=== PATIENT | female | born 2000 | race Hispanic/Latino ===

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

== ENCOUNTER 2023-06-21 08:39 | Emergency (ER) | payer OTHER ==
--- OUTSIDE RECORDS SUMMARY | 2023-06-21 08:43 | XMS REPORT | Continuity of Care Document ---
:2000 Author Organization [facility] t Address [address] [facility] [address] [place] [address] Care Team Providers Name Role Phone Susie Waterman Primary Care Physician [phone] SUSIE GONZALEZ Attending Clinician Unavailable MAYELIN HUNTER Attending Clinician Unavailable Doctor Unassigned, [place] Attending Clinician Unavailable ALETHEA BALDWIN Attending Clinician Unavailable Shravan Lyman DO Attending Clinician SHY GUTIERREZ Attending Clinician Unavailable SHY GUTIERREZ Attending Clinician Unavailable [facility], [facility] Attending Clinician Unavailable Carlos NAIRP, Susie Holliday Attending Clinician TIFFANIE BOATENG Attending Clinician Unavailable RONALD IRELAND Attending Clinician Unavailable RONALD IRELAND Attending Clinician Unavailable Ultrasound, Aleksey Attending Clinician Unavailable Ronald Ireland MD Attending Clinician Abhishek WHCNTiffanie Rosales Attending Clinician TL SCHMIDT Attending Clinician Unavailable [facility], [facility] Attending Clinician Unavailable DAVE HERNANDEZ Attending Clinician Unavailable Moo DIGITAL MEDIA SPECIALIST, Vesta Milligan Attending Clinician Gera DIGITAL MEDIA SPECIALIST, Catie Attending Clinician Shravan Lyman DO Admitting Clinician Payers Payer Name Policy Type Policy Number Effective Date Expiration Date [employer]her [employer] [id number] 2016 KIDS 00:00:00 Problems Condition Condition Condition Status Onset Resolution Last Treating Co mments Source Name Details Category Date Date Treatment Clinician Date Uterine Uterine Disease Active 2021-09 Univers size-date size-date 0-03 ity [place] third [place] in third 00 Me dical trimester trimester Bran ch Disease Active 2021-09 Univers heart rate heart rate 0-03 it y of decelerati deceler[place] Medical affecting affecting Bran ch management management of mother of mother 36 weeks 36 weeks Disease Active 2021-09 Unive rs gestation gestation 0-03 ity of of of 00:00: [place] 00 [facility] Obesity Obesity Disease Active 2021-09 Univers (BMI (BMI 0-03 ity of 30-39.9) 30-39.9) 00:00: [address] Branch Gonorrhea Gonorrhea Disease Active Uni vers in in 7-11 ity of 00:00: [address] Back pain Back pain Disease Active Uni vers during during 7-11 ity of 00:00: [facility] Branch Primigravi Primigravi Disease Active 2022-0 U nivers da in da in 3-07 ity of third third 00:00: [place] trimester trimester 00 [facility] Branch History of History of Disease Active U nivers depression depression 3-07 it y of 00:00: [address] Supervisio Supervisio Disease Active U nivers n of n of 307 ity of high-risk high-risk 00:[place] [facility] with with Branch insufficie insufficie nt nt care care High risk High risk Disease Active Uni vers teen teen 3-07 it[place] of [place] third [place] third 00 Medica l trimester trimester Bran ch Chlamydia Chlamydia Disease Active Uni vers infection infection 9-05 ity of 00:00: [place] [address] [place] [address] Generalize Generalize Disease Active 2016-09 U nivers d anxiety d anxiety 0-04 ity of disorder disorder 00:00: [address] Asthma, Asthma, Disease Active 2016-09 Univers unspecifie unspecifie 0-04 it y of d asthma d asthma 00:00: [place] severity, severity, [facility] unspecifie unspecifie Br anch d whether d whether complicate complicate d, d, unspecifie unspecifie d whether d whether persistent persistent Depression Depression Disease Active 2016-09 U nivers during during 0-04 [place] [address] [place] [address] Obesity in Obesity in Disease Active 2016-09 U nivers 0-04 ity of 00:00: [address] Allergies, Adverse Reactions, Alerts Allergy Allergy Status Severity Reaction(s) Onset Inactive Treating Comm ents Source Name Type Date Date Clinician NO KNOWN Drug Active Univers ALLERGIE Class ity of S [facility] Social History Social Habit Start Date Stop Date Quantity Comments Source ASSERTION 2021-10-17 University 00:00:00 [facility] History of Cigarette Smoker Universi ty of tobacco use [facility] Alcohol intake 2022-06-15 2022-06-15 0 /d University of 00:00:00 00:00:00 [facility] Exposure to 2022-06-03 2022-06-13 Not sure [facility] SARS-CoV-2 00:00:00 14:43:00 [facility] (event) [place] Tobacco use and 2022-03-21 2022-03-21 Smokeless tobacco Un iversity of exposure 00:00:00 00:00:00 non-user [facility] Sex Assigned At [birth year] Universit y of 00:00:00 00:00:00 [facility] Smoking Status Start Date Stop Date Source Smokes tobacco daily 2022-03-21 00:00:00 Univers ity of [facility] Medications Ordered Filled Start Stop Current Ordering Indication Dosage Frequency Signature Comments Components Source Medication Medication Date Date Medication? Clinician (SIG) Name Name amimadihaiptyli 2021-09- 100mg Take 100 Univers ne 100 mg 0-06 10-06 mg by ity of tablet 03:15: 00:00 mouth at [place] 58 :00 bedtime. Medical Branch 2021-09 Yes [id number] 1{tbl} Take 1 Univers [id number] 0-06 tablet by ity of fum-folic 00:00: mouth in [facility] () 00 the Medical 27 mg iron- morning. Bran ch 1 mg folic tablet docusate 2021-09 Yes [id number] 200mg Take 2 U nivers 100 mg 0-06 capsules ity of capsule 00:00: by mouth [place] [address] once daily Medical as needed Branch for Constipati on. ferrous 2021-09 Yes [id number] 325mg Take 1 Un freda sulfate 325 0-06 tablet by ity of mg (65 mg 00:00: mouth in [facility] iron) 00 the Medical tablet morning Branch and 1 tablet in the evening. ibuprofen 2021-09 Yes [id number] 600mg Take 1 Univers 600 mg 0-06 tablet by ity of tablet 00:00: mouth [place] 00 every 6 Medical (six) Branch hours as needed (Pain). Take with food or milk. 2021-09 Yes [id number] 1{tbl} Take 1 Univers [id number] 0-06 tablet by ity of fum-folic 00:00: mouth in [facility] () 00 the Medical 27 mg iron- morning. Bran ch 1 mg folic tablet docusate 2021-09 Yes [id number] 200mg Take 2 U nivers 100 mg 0-06 capsules ity of capsule 00:00: by mouth [place] [address] once daily Medical as needed Branch for Constipati on. ferrous 2021-09 Yes [id number] 325mg Take 1 Un freda sulfate 325 0-06 tablet by ity of mg (65 mg 00:00: [facility] the Medical tablet morning Branch and 1 tablet in the evening. ibuprofen 2021-09 Yes [id number] 600mg Take 1 Univers 600 mg 0-06 tablet by ity of tablet 00:00: mouth [place] 00 every 6 Medical (six) Branch hours as needed (Pain). Take with food or milk. 2021-09 Yes [id number] 1{tbl} Take 1 Univers [id number] 0-06 tablet by ity of fum-folic 00:00: [place] 00 the Medical 27 mg iron- morning. Bran ch 1 mg folic tablet docusate 2021-09 Yes [id number] 200mg Take 2 U nivers 100 mg 0-06 capsules ity of capsule 00:00: by mouth [place] 00 once daily Medical as needed Branch for Constipati on. ferrous 2021-09 Yes [id number] 325mg Take 1 Un freda sulfate 325 0-06 tablet by ity of mg (65 mg 00:00: mouth in [facility] iron) 00 the Medical tablet morning Branch and 1 tablet in the evening. ibuprofen 2021-09 Yes [id number] 600mg Take 1 Univers 600 mg 0-06 tablet by ity of tablet 00:00: mouth [place] 00 every 6 Medical (six) Branch hours as needed (Pain). Take with food or milk. norethindro 2021-09- No [id number] .35mg Take 1 Univers ne 0.35 mg 0-06 01-05 tablet by ity of tablet 00:00: 05:59 mouth in [place] 00 :00 the Medical morning Branch for 90 days. norethindro 2021-09- No [id number] .35mg Take 1 Univers ne 0.35 mg 0-06 01-05 tablet by ity of tablet 00:00: 05:59 mouth in [place] 00 :00 the Medical morning Branch for 90 days. norethindro 2021-09- No [id number] .35mg Take 1 Univers ne 0.35 mg 0-06 01-05 tablet by ity of tablet 00:00: 05:59 mouth in [place] 00 :00 the Medical morning Branch for 90 days. HYDROcodone 2021-09- No [id number] 1{tbl} Take 1 U nivers -acetaminop 0-06 10-14 tablet by it y of hen 5-325 00:00: 04:59 mouth [place] mg tablet 00 :00 every 6 Medical (six) Branch hours as needed for Pain (scale 4-6) or Pain (scale 7-10) (Pain scale above 4) for up to 7 days. Do not exceed 3 grams of acetaminop hen in 24 hours. Indication s: acute pain HYDROcodone 2021-09- No [id number] 1{tbl} Take 1 U nivers -acetaminop 0-06 10-14 tablet by it y of hen 5-325 00:00: 04:59 mouth [place] mg tablet 00 :00 every 6 Medical (six) Branch hours as needed for Pain (scale 4-6) or Pain (scale 7-10) (Pain scale above 4) for up to 7 days. Do not exceed 3 grams of acetaminop hen in 24 hours. Indication s: acute pain amitriptyli 2021-09 Yes 100mg 100 mg, Un freda ne (ELAVIL) 0-05 Oral, QHS, it y of tablet 100 02:00: [place] dose [place] 00 on [facility] 06/14/22 at [place] 2100, Until Discontinu ed, Routine amitriptyli 2021-09 Yes 100mg 100 mg, Un freda ne (ELAVIL) 0-05 Oral, QHS, it y of tablet 100 02:00: First dose [place] mg 00 on [facility] 06/14/22 at [place] 2100, Until Discontinu ed, Routine lactated 2021-09 No 500mL at 999 [facility] rs ringers IV 0-04 10-04 mL/hr, 500 it y of infusion 13:15: 12:37 mL, [place] 500 mL 00 :00 Intravenou Medical s, ONCE, 1 Branch dose, On [facility] 06/14/22 at 0815, Routine rho(D) 2021-09 Yes 300ug 300 mcg, Univer s immune 0-04 Intramuscu ity of globulin 06:33: lar, ONCE, [place] (RHOGAM) 41 For 1 Medical syringe 300 dose, Branch mcg Conditiona l, Routine rho(D) 2021-09 Yes 300ug 300 mcg, Univer s immune 0-04 Intramuscu ity of globulin 06:33: lar, ONCE, [place] (RHOGAM) 41 For 1 Medical syringe 300 dose, Branch mcg Conditiona l, Routine HYDROcodone 2021-09 Yes 2{tbl} 2 tablet, Univers -acetaminop 0-04 Oral, ity of hen (NORCO 06:33: Q6HPRN, [place] 5) 5-325 mg 35 Starting Medi renetta tablet 2 on Mon Branch tablet 06/14/22 at 0133, Until Discontinu ed, Routine, Pain (scale 7-10), Alternate with Ibuprofen HYDROcodone 2021-09 Yes 1{tbl} 1 tablet, Univers -acetaminop 0-04 Oral, ity of hen (NORCO 06:33: Q6HPRN, [place] 5) 5-325 mg 35 Starting Medi renetta tablet 1 on Mon Branch tablet 06/14/22 at 0133, Until Discontinu ed, Routine, Pain (scale 4-6), Alternate with Ibuprofen ibuprofen 2021-09 Yes 600mg 600 mg, Univ ers (IBU) 0-04 Oral, ity of tablet 600 06:33: Q6HPRN, [place] mg 35 Starting Medical on Mon Branch 06/14/22 at 0133, Until Discontinu ed, Routine, Pain (scale 1-3) diphenhydrA 2021-09 Yes 25mg 25 mg, Univ ers MINE 0-04 Slow IV ity of (BENADRYL) 06:33: Push, [place] injection 35 Q6HPRN, Medical 25 mg Starting Branch on Mon06/14/22 at 0133, Until Discontinu ed, Routine, Itching diphenhydrA 2021-09 Yes 25mg 25 mg, Univ ers MINE 0-04 Oral, ity of (BENADRYL) 06:33: Q6HPRN, [place] tablet 25 35 Starting Medica l mg on Mon Branch 06/14/22 at 0133, Until Discontinu ed, Routine, Sleep, Itching ondansetron 2021-09 Yes 4mg 4 mg, Slow Univers (ZOFRAN 0-04 IV Push, ity of (PF)) 06:33: Q8HPRN, [place] injection 4 35 Starting Medi renetta mg on Mon Branch 06/14/22 at 0133, Until Discontinu ed, Routine, Nausea and Vomiting (N/V) bisacodyL 2021-09 Yes 10mg 10 mg, Univer s (DULCOLAX) 0-04 Rectal, ity of suppository 06:33: QDAILYPRN, [place] 10 mg 35 Starting Medical on Mon Branch 06/14/22 at 0133, Until Discontinu ed, Routine, Constipati on simethicone 2021-09 Yes 160mg 160 mg, Un freda (GAS RELIEF 0-04 Oral, ity of (SIMETHICON 06:33: PC+HSPRN, [place] E)) 35 Starting Medical chewable on Mon tablet 160 06/14/22 at mg 0133, Until Discontinu ed, Routine, Gas docusate 2021-09 Yes 200mg 200 mg, Unive rs (COLACE) 0-04 Oral, ity of capsule 200 06:33: QDAILYPRN, [place] mg 35 Starting Medical on Mon06/14/22 at 0133, Until Discontinu ed, Routine, Constipati on magnesium 2021-09 Yes 30mL 30 mL, Univer s hydroxide 0-04 Oral, ity of (MILK OF 06:33: QDAILYPRN, [place] MAGNESIA) 35 Starting Medica l 400 mg/5 mL on Mon suspension 06/14/22 at 30 mL 0133, Until Discontinu ed, Routine, Constipati on lactated 2021-09 Yes 1000mL at 125 Unive rs ringers IV 0-04 mL/hr, ity of infusion 06:33: 1,000 mL, [place] 1,000 mL 35 IV Medical Infusion, Branch PRN, 1 dose, Starting on Mon06/14/22 at 0133, Until Discontinu ed, Routine HYDROcodone 2021-09 Yes 2{tbl} 2 tablet, Univers -acetaminop 0-04 Oral, ity of hen (NORCO 06:33: Q6HPRN, [place] 5) 5-325 mg 35 Starting Medi renetta tablet 2 on Mon tablet 06/14/22 at 0133, Until Discontinu ed, Routine, Pain (scale 7-10), Alternate with Ibuprofen HYDROcodone 2021-09 Yes 1{tbl} 1 tablet, Univers -acetaminop 0-04 Oral, ity of hen (NORCO 06:33: Q6HPRN, [place] 5) 5-325 mg 35 Starting Medi renetta tablet 1 on Mon tablet 06/14/22 at 0133, Until Discontinu ed, Routine, Pain (scale 4-6), Alternate with Ibuprofen ibuprofen 2021-09 Yes 600mg 600 mg, Univ ers (IBU) 0-04 Oral, ity of tablet 600 06:33: Q6HPRN, [place] mg 35 Starting Medical on Mon06/14/22 at 0133, Until Discontinu ed, Routine, Pain (scale 1-3) diphenhydrA 2021-09 Yes 25mg 25 mg, Univ ers MINE 0-04 Slow IV ity of (BENADRYL) 06:33: Push, [place] injection 35 Q6HPRN, Medical 25 mg Starting Branch on Mon06/14/22 at 0133, Until Discontinu ed, Routine, Itching diphenhydrA 2021-09 Yes 25mg 25 mg, Univ ers MINE 0-04 Oral, ity of (BENADRYL) 06:33: Q6HPRN, [place] tablet 25 35 Starting Medica l mg on Mon06/14/22 at 0133, Until Discontinu ed, Routine, Sleep, Itching ondansetron 2021-09 Yes 4mg 4 mg, Slow Univers (ZOFRAN 0-04 IV Push, ity of (PF)) 06:33: Q8HPRN, [place] injection 4 35 Starting Medi renetta mg on Mon06/14/22 at 0133, Until Discontinu ed, Routine, Nausea and Vomiting (N/V) bisacodyL 2021-09 Yes 10mg 10 mg, Univer s (DULCOLAX) 0-04 Rectal, ity of suppository 06:33: QDAILYPRN, [place] 10 mg 35 Starting Medical on Mon06/14/22 at 0133, Until Discontinu ed, Routine, Constipati on simethicone 2021-09 Yes 160mg 160 mg, Un freda (GAS RELIEF 0-04 Oral, ity of (SIMETHICON 06:33: PC+HSPRN, [place] E)) 35 Starting Medical chewable on Mon tablet 160 06/14/22 at mg 0133, Until Discontinu ed, Routine, Gas docusate 2021-09 Yes 200mg 200 mg, Unive rs (COLACE) 0-04 Oral, ity of capsule 200 06:33: QDAILYPRN, [place] mg 35 Starting Medical on Mon Branch 06/14/22 at 0133, Until Discontinu ed, Routine, Constipati on magnesium 2021-09 Yes 30mL 30 mL, Univer s hydroxide 0-04 Oral, ity of (MILK OF 06:33: QDAILYPRN, [place] MAGNESIA) 35 Starting Medica l 400 mg/5 mL on Mon Branch suspension 06/14/22 at 30 mL 0133, Until Discontinu ed, Routine, Constipati on lactated 2021-09 Yes 1000mL at 125 Unive rs ringers IV 0-04 mL/hr, ity of infusion 06:33: 1,000 mL, [place] 1,000 mL 35 IV Medical Infusion, Branch PRN, 1 dose, Starting on Mon06/14/22 at 0133, Until Discontinu ed, Routine lactated 2021-09- No 1000mL at 125 Univ ers ringers IV 0-04 10-04 mL/hr, ity of infusion 04:45: 06:33 1,000 mL, [place] 1,000 mL 00 :38 IV Medical Infusion, Branch CONTINUOUS , Starting on Mon06/13/22 at 2345, Until Mon06/14/22 at 0133, TRIXIE ceFAZolin 2021-09 No 2000mg 2 g (2,000 Univers in 0.9% 0-04 10-04 mg), IV ity of sodium 02:54: 06:33 [place], [place] chloride 10 :38 O.R. Medical (ANCEF) 2 HOLDING Branch gram/100 mL ONCE, RTU 2 g Starting on Mon06/13/22 at 2154, Until Mon06/14/22 at 0133, Administer over 30 Minutes, 100 mL
Reas on for Anti-Infec tive: Surgical Prophylaxi s
Ford rgical Prophylaxi s: NURSE COLLEGE
Duration of therapy: within 24 hours of surgery sodium 2021-09 No 30mL 30 mL, Univers citrate-cit 0-04 10-04 Oral, ity of kolby acid 02:54: 03:23 PRE-PROCED [place] (BICITRA) 10 :00 URE ONCE, Medic al [id number] 1 dose, Branch mg/5 mL Starting solution 30 on Mon mL 06/13/22 at 2154, Until 06/13/22 at 2223, Routine, Surgery/Pr ocedure amitriptyli 2021-09 Yes 100mg Take 100 U nivers ne 100 mg 0-03 mg by ity of tablet 23:46: mouth at [place] 17 bedtime. Medical Branch ARIPIPRAZOL 2021- No Take by Un freda E (ABILIFY 06-01 mouth. ity of ORAL) 10:02: 00:00 [place] 02 :00 Medical Branch ARIPIPRAZOL 2021-2021- No Take by Un freda E (ABILIFY 06-01 mouth. ity of ORAL) 10:02: 00:00 [place] 02 :00 Medical Branch ARIPIPRAZOL 0 2021- No Take by Un freda E (ABILIFY 06-01 mouth. ity of ORAL) 10:02: 00:00 [place] 02 :00 Medical Branch ARIPIPRAZOL 2021-0 2021- No Take by Un freda E (ABILIFY 06-01 mouth. ity of ORAL) 10:02: 00:00 [place] 02 :00 Medical Branch amphetamine 2021-0 2021- No 25mg Take 25 mg Univers -dextroamph 06-01 by mouth ity of etamine 10:01: 00:00 every [place] (ADDERALL 59 :00 morning. Medica l XR) 25 mg Branch 24 hr capsule amphetamine 0 2021- No 25mg Take 25 mg Univers -dextroamph 06-01 by mouth ity of etamine 10:01: 00:00 every [place] (ADDERALL 59 :00 morning. Medica l XR) 25 mg Branch 24 hr capsule amphetamine 2021-0 2021- No 25mg Take 25 mg Univers -dextroamph 06-01 by mouth ity of etamine 10:01: 00:00 every [place] (ADDERALL 59 :00 morning. Medica l XR) 25 mg Branch 24 hr capsule amphetamine 2021- No 25mg Take 25 mg Univers -dextroamph 06-01 by mouth ity of etamine 10:01: 00:00 every [place] (ADDERALL 59 :00 morning. Medica l XR) 25 mg Branch 24 hr capsule metroNIDAZO 2021-0 Yes [id number] 500mg Take 1 Univers LE 500 mg 7-13 tablet by ity o f tablet 00:00: mouth in [place] 00 the Medical morning Branch and 1 tablet in the evening. metroNIDAZO 2021-0 Yes [id number] 500mg Take 1 Univers LE 500 mg 7-13 tablet by ity o f tablet 00:00: mouth in [place] 00 the Medical morning Branch and 1 tablet in the evening. metroNIDAZO 2021-0 Yes [id number] 500mg Take 1 Univers LE 500 mg 7-13 tablet by ity o f tablet 00:00: mouth in [place] 00 the Medical morning Branch and 1 tablet in the evening. metroNIDAZO 2021-0 Yes [id number] 500mg Take 1 Univers LE 500 mg 7-13 tablet by ity o f tablet 00:00: mouth in [place] 00 the Medical morning Branch and 1 tablet in the evening. metroNIDAZO 2021-0 Yes [id number] 500mg Take 1 Univers LE 500 mg 7-13 tablet by ity o f tablet 00:00: mouth in [place] 00 the Medical morning [place] and 1 tablet in the evening. metroNIDAZO 0 Yes [id number] 500mg Take 1 Univers LE 500 mg 7-13 tablet by ity o f tablet 00:00: mouth in [place] 00 the Medical morning Branch and 1 tablet in the evening. metroNIDAZO 2021-0 Yes [id number] 500mg Take 1 Univers LE 500 mg 7-13 tablet by ity o f tablet 00:00: mouth in [place] 00 the Medical morning Branch and 1 tablet in the evening. metroNIDAZO 2021-0 Yes [id number] 500mg Take 1 Univers LE 500 mg 7-13 tablet by ity o f tablet 00:00: mouth in [place] 00 the Medical morning [place] and 1 tablet in the evening. metroNIDAZO 2021-0 Yes [id number] 500mg Take 1 Univers LE 500 mg 7-13 tablet by ity o f tablet 00:00: mouth in [place] 00 the Medical morning Branch and 1 tablet in the evening. metroNIDAZO 2021-0 Yes [id number] 500mg Take 1 Univers LE 500 mg 7-13 tablet by ity o f tablet 00:00: mouth in [place] 00 the Medical morning Branch and 1 tablet in the evening. metroNIDAZO 2021-0 Yes [id number] 500mg Take 1 Univers LE 500 mg 7-13 tablet by ity o f tablet 00:00: mouth in [place] 00 the Medical morning Branch and 1 tablet in the evening. metroNIDAZO 2021-0 2022- No [id number] 500mg Take 1 Univers LE 500 mg 7-13 10-06 tablet by ity of tablet 00:00: 00:00 mouth in [place] 00 :00 the Medical morning Branch and 1 tablet in the evening. proMETHazin 2021-0 Yes [id number] 25mg Take 1 Univers e 25 mg 7-11 tablet by ity of tablet 00:00: mouth [place] 00 every 6 Medical (six) Branch hours as needed for Nausea and Vomiting (N/V). proMETHazin 2021-0 Yes [id number] 25mg Take 1 Univers e 25 mg 7-11 tablet by ity of tablet 00:00: mouth [place] 00 every 6 Medical (six) Branch hours as needed for Nausea and Vomiting (N/V). proMETHazin 2021-0 Yes [id number] 25mg Take 1 Univers e 25 mg 7-11 tablet by ity of tablet 00:00: mouth [place] 00 every 6 Medical (six) Branch hours as needed for Nausea and Vomiting (N/V). proMETHazin 2021-0 Yes [id number] 25mg Take 1 Univers e 25 mg 7-11 tablet by ity of tablet 00:00: mouth [place] 00 every 6 Medical (six) Branch hours as needed for Nausea and Vomiting (N/V). proMETHazin 2021-0 Yes [id number] 25mg Take 1 Univers e 25 mg 7-11 tablet by ity of tablet 00:00: mouth [place] 00 every 6 Medical (six) Branch hours as needed for Nausea and Vomiting (N/V). proMETHazin 2021-0 Yes [id number] 25mg Take 1 Univers e 25 mg 7-11 tablet by ity of tablet 00:00: mouth [place] 00 every 6 Medical (six) Branch hours as needed for Nausea and Vomiting (N/V). proMETHazin 2021-0 Yes [id number] 25mg Take 1 Univers e 25 mg 7-11 tablet by ity of tablet 00:00: mouth [place] 00 every 6 Medical (six) Branch hours as needed for Nausea and Vomiting (N/V). proMETHazin 2021-0 Yes [id number] 25mg Take 1 Univers e 25 mg 7-11 tablet by ity of tablet 00:00: mouth [place] 00 every 6 Medical (six) Branch hours as needed for Nausea and Vomiting (N/V). proMETHazin 2021-0 Yes [id number] 25mg Take 1 Univers e 25 mg 7-11 tablet by ity of tablet 00:00: mouth [place] 00 every 6 Medical (six) Branch hours as needed for Nausea and Vomiting (N/V). proMETHazin 2021-0 Yes [id number] 25mg Take 1 Univers e 25 mg 7-11 tablet by ity of tablet 00:00: mouth [place] 00 every 6 Medical (six) Branch hours as needed for Nausea and Vomiting (N/V). proMETHazin 2021-0 Yes [id number] 25mg Take 1 Univers e 25 mg 7-11 tablet by ity of tablet 00:00: mouth [place] 00 every 6 Medical (six) Branch hours as needed for Nausea and Vomiting (N/V). proMETHazin 2021- No [id number] 25mg Take 1 Univers e 25 mg 7-11 10-06 tablet by ity of tablet 00:00: 00:00 mouth [place] 00 :00 every 6 Medical (six) Branch hours as needed for Nausea and Vomiting (N/V). metroNIDAZO 0 Yes [id number] 500mg Take 1 Univers LE 500 mg 6-14 tablet by ity o f tablet 00:00: mouth 2 [place] 00 (two) Medical times Branch daily. metroNIDAZO 2021-0 Yes [id number] 500mg Take 1 Univers LE 500 mg 6-14 tablet by ity o f tablet 00:00: mouth 2 [place] 00 (two) Medical times Branch daily. metroNIDAZO 2021-0 Yes [id number] 500mg Take 1 Univers LE 500 mg 6-14 tablet by ity o f tablet 00:00: mouth 2 [place] 00 (two) Medical times Branch daily. metroNIDAZO 2021-0 Yes [id number] 500mg Take 1 Univers LE 500 mg 6-14 tablet by ity o f tablet 00:00: mouth 2 [place] 00 (two) Medical times Branch daily. metroNIDAZO 2021-0 Yes [id number] 500mg Take 1 Univers LE 500 mg 6-14 tablet by ity o f tablet 00:00: mouth 2 [place] 00 (two) Medical times Branch daily. metroNIDAZO 2021-0 Yes [id number] 500mg Take 1 Univers LE 500 mg 6-14 tablet by ity o f tablet 00:00: mouth 2 [place] 00 (two) Medical times Branch daily. metroNIDAZO 2021-0 Yes [id number] 500mg Take 1 Univers LE 500 mg 6-14 tablet by ity o f tablet 00:00: mouth 2 [place] 00 (two) Medical times Branch daily. metroNIDAZO 2021-0 Yes [id number] 500mg Take 1 Univers LE 500 mg 6-14 tablet by ity o f tablet 00:00: mouth 2 [place] 00 (two) Medical times Branch daily. metroNIDAZO 2021-0 Yes [id number] 500mg Take 1 Univers LE 500 mg 6-14 tablet by ity o f tablet 00:00: mouth 2 [place] 00 (two) Medical times Branch daily. metroNIDAZO 2021-0 Yes [id number] 500mg Take 1 Univers LE 500 mg 6-14 tablet by ity o f tablet 00:00: mouth 2 [place] 00 (two) Medical times Branch daily. metroNIDAZO 2021-0 Yes [id number] 500mg Take 1 Univers LE 500 mg 6-14 tablet by ity o f tablet 00:00: mouth 2 [place] 00 (two) Medical times Branch daily. metroNIDAZO 2021-0 2021- No [id number] 500mg Take 1 Univers LE 500 mg 6-14 10-06 tablet by ity of tablet 00:00: 00:00 mouth 2 [place] 00 :00 (two) Medical times Branch daily. ARIPIPRAZOL 2021-0 Yes Take by Uni vers E (ABILIFY 3-07 mouth. ity of ORAL) 10:55: [place] 24 Medical Branch amphetamine 2021-0 Yes 25mg Take 25 mg Univers -dextroamph 3-07 by mouth ity of etamine 10:55: every [place] (ADDERALL 24 morning. Medica l XR) 25 mg Branch 24 hr capsule amitriptyli 2021-0 Yes 100mg Take 100 U nivers ne 100 mg 3-07 mg by ity of tablet 10:55: mouth at [place] 24 bedtime. Medical Branch ARIPIPRAZOL 2021-0 Yes Take by Uni vers E (ABILIFY 3-07 mouth. ity of ORAL) 10:55: [place] 24 Medical Branch amphetamine 2021-0 Yes 25mg Take 25 mg Univers -dextroamph 3-07 by mouth ity of etamine 10:55: every [place] (ADDERALL 24 morning. Medica l XR) 25 mg Branch 24 hr capsule amitriptyli 2021-0 Yes 100mg Take 100 U nivers ne 100 mg 3-07 mg by ity of tablet 10:55: mouth at [place] 24 bedtime. Medical Branch ARIPIPRAZOL 0 Yes Take by Uni vers E (ABILIFY 3-07 mouth. ity of ORAL) 10:55: [place] 24 Medical Branch amphetamine 2021-0 Yes 25mg Take 25 mg Univers -dextroamph 3-07 by mouth ity of etamine 10:55: every [place] (ADDERALL 24 morning. Medica l XR) 25 mg Branch 24 hr capsule amitriptyli 2021-0 Yes 100mg Take 100 U nivers ne 100 mg 3-07 mg by ity of tablet 10:55: mouth at [place] 24 bedtime. Medical Branch ARIPIPRAZOL 0 Yes Take by Uni vers E (ABILIFY 3-07 mouth. ity of ORAL) 10:55: [place] 24 [facility] Branch amphetamine 2021-0 Yes 25mg Take 25 mg Univers -dextroamph 3-07 by mouth ity of etamine 10:55: every [place] (ADDERALL 24 morning. Medica l XR) 25 mg Branch 24 hr capsule amitriptyli 2021-0 Yes 100mg Take 100 U nivers ne 100 mg 3-07 mg by ity of tablet 10:55: mouth at [place] 24 bedtime. Medical Branch ARIPIPRAZOL 2021-0 Yes Take by Uni vers E (ABILIFY 3-07 mouth. ity of ORAL) 10:55: [place] 24 Medical Branch amphetamine 2021-0 Yes 25mg Take 25 mg Univers -dextroamph 3-07 by mouth ity of etamine 10:55: every [place] (ADDERALL 24 morning. Medica l XR) 25 mg Branch 24 hr capsule amitriptyli Yes 100mg Take 100 U nivers ne 100 mg 3-07 mg by ity of tablet 10:55: mouth at [place] [address] bedtime. Medical Branch amitriptyli Yes 100mg Take 100 U nivers ne 100 mg 3-07 mg by ity of tablet 10:55: mouth at [place] [address] bedtime. Medical Branch amitriptyli Yes 100mg Take 100 U nivers ne 100 mg 3-07 mg by ity of tablet 10:55: mouth at [place] [address] bedtime. Medical Branch amitriptyli Yes 100mg Take 100 U nivers ne 100 mg 3-07 mg by ity of tablet 10:55: mouth at [place] [address] bedtime. Medical Branch amitriptyli Yes 100mg Take 100 U nivers ne 100 mg 3-07 mg by ity of tablet 10:55: mouth at [place] [address] bedtime. Medical Branch amitriptyli Yes 100mg Take 100 U nivers ne 100 mg 3-07 mg by ity of tablet 10:55: mouth at [place] [address] bedtime. Medical Branch Yes [id number] 1{packe Take 1 Univers vit 3-07 t} Packet by ity of 33-iron-fol 00:00: mouth [place] ic-dha 00 daily. Medical (SELECT-OB Branch + DHA) 29 mg iron-1 mg -250 mg combo pack Yes [id number] 1{packe Take 1 Univers vit 3-07 t} Packet by ity of 33-iron-fol 00:00: mouth [place] ic-dha daily. Medical (SELECT-OB Branch + DHA) 29 mg iron-1 mg -250 mg combo pack Yes [id number] 1{packe Take 1 Univers vit 3-07 t} Packet by ity of 33-iron-fol 00:00: mouth [place] ic-dha 00 daily. Medical (SELECT-OB Branch + DHA) 29 mg iron-1 mg -250 mg combo pack Yes [id number] 1{packe Take 1 Univers vit 3-07 t} Packet by ity of 33-iron-fol 00:00: mouth [place] ic-dha 00 daily. Medical (SELECT-OB Branch + DHA) 29 mg iron-1 mg -250 mg combo pack 0 Yes [id number] 1{packe Take 1 Univers vit 3-07 t} Packet by ity of 33-iron-fol 00:00: mouth [place] ic-dha 00 daily. Medical (SELECT-OB Branch + DHA) 29 mg iron-1 mg -250 mg combo pack 0 Yes [id number] 1{packe Take 1 Univers vit 3-07 t} Packet by ity of 33-iron-fol 00:00: mouth [place] ic-dha 00 daily. Medical (SELECT-OB Branch + DHA) 29 mg iron-1 mg -250 mg combo pack 0 Yes [id number] 1{packe Take 1 Univers vit 3-07 t} Packet by ity of 33-iron-fol 00:00: mouth [place] ic-dha 00 daily. Medical (SELECT-OB Branch + DHA) 29 mg iron-1 mg -250 mg combo pack Yes [id number] 1{packe Take 1 Univers vit 3-07 t} Packet by ity of 33-iron-fol 00:00: mouth [place] ic-dha 00 daily. Medical (SELECT-OB Branch + DHA) 29 mg iron-1 mg -250 mg combo pack 0 Yes [id number] 1{packe Take 1 Univers vit 3-07 t} Packet by ity of 33-iron-fol 00:00: mouth [place] ic-dha 00 daily. Medical (SELECT-OB Branch + DHA) 29 mg iron-1 mg -250 mg combo pack 0 Yes [id number] 1{packe Take 1 Univers vit 3-07 t} Packet by ity of 33-iron-fol 00:00: mouth [place] ic-dha 00 daily. Medical (SELECT-OB Branch + DHA) 29 mg iron-1 mg -250 mg combo pack 0 Yes [id number] 1{packe Take 1 Univers vit 3-07 t} Packet by ity of 33-iron-fol 00:00: mouth [place] ic-dha 00 daily. Medical (SELECT-OB Branch + DHA) 29 mg iron-1 mg -250 mg combo pack 0 2022- No [id number] 1{packe Take 1 Univers vit 3-07 10-06 t} Packet by ity of 33-iron-fol 00:00: 00:00 mouth [place] ic-dha 00 :00 daily. Medical (SELECT-OB Branch + DHA) 29 mg iron-1 mg -250 mg combo pack Vital Signs Vital Name Observation Time Observation Value Comments Source Systolic blood 2022-06-16 13:31:00 122 mm[Hg] Univer sity of pressure [place] [facility] Diastolic blood 2022-06-16 13:31:00 79 mm[Hg] Unive rsity of pressure [place] [facility] Heart rate 2022-06-16 13:31:00 90 /min Universi ty of [place] [facility] Body temperature 2022-06-16 13:31:00 36.67 Lindsey Univ ersity of [place] [facility] Respiratory rate 2022-06-16 13:31:00 18 /min Univ ersity of [place] [facility] Oxygen saturation in 2022-06-16 13:31:00 98 /min University of Arterial blood by [facility] Pulse oximetry Branch Body height 2022-06-14 02:13:00 160 cm Universi ty of [place] [facility] Body weight 2022-06-14 02:13:00 83.008 kg Universi ty of [place] [facility] BMI 2022-06-14 02:13:00 32.42 kg/m2 Universi ty of [place] [facility] Heart rate 2022-06-14 03:00:00 83 /min Universi ty of [place] [facility] Respiratory rate 2022-06-14 03:00:00 18 /min Univ ersity of [place] [facility] Oxygen saturation in 2022-06-14 03:00:00 100 /min University of Arterial blood by [facility] Pulse oximetry Branch Systolic blood 2022-06-14 02:13:00 119 mm[Hg] Univer sity of pressure [place] [facility] Diastolic blood 2022-06-14 02:13:00 68 mm[Hg] Unive rsity of pressure [place] [facility] Body temperature 2022-06-14 02:13:00 36.78 Lindsey Univ ersity of [place] [facility] Body height 2022-06-14 02:13:00 160 cm Universi ty of [place] [facility] Body weight 2022-06-14 02:13:00 83.008 kg Universi ty of [place] [facility] BMI 2022-06-14 02:13:00 32.42 kg/m2 Universi ty of [place] [facility] Systolic blood 2022-06-13 19:41:00 117 mm[Hg] Univer sity of pressure [facility] Diastolic blood 2022-06-13 19:41:00 77 mm[Hg] Unive rsity of [facility] Heart rate 2022-06-13 19:41:00 92 /min Universi ty of [facility] Body temperature 2022-06-13 19:41:00 36.94 [facility] Res[facility] rate 2022-06-13 19:41:00 20 /min Univ ersity [facility] Body height 2022-06-13 19:41:00 160 cm Universi ty of [facility] Body weight 2022-06-13 19:41:00 82.827 kg Universi ty [facility] BMI 2022-06-13 19:41:00 32.35 kg/m2 Universi ty [facility] Systolic blood 2022-06-01 14:49:00 114 mm[Hg] Univer sity of [facility] Diastolic blood 2022-06-01 14:49:00 69 mm[Hg] Unive rsity of [facility] Heart rate 2022-06-01 14:49:00 95 /min Universi ty of [facility] Body temperature 2022-06-01 14:49:00 36.06 Lindsey [facility] Respiratory rate 2022-06-01 14:49:00 18 /min [facility] Body weight 2022-06-01 14:49:00 82.373 [facility] Procedures Procedure Date / Time Performing Clinician Source Performed DME/SUPPLY JUSTIFICATION 2022-07-14 05:01:00 Doctor Unassigned, No [facility] CBC WITH DIFF 2022-06-14 09:46:[address] [facility] CBC WITH DIFF 2022-06-14 09:46:[address] [facility] URINE DRUG (IMMUNOASSAY) 2022-06-14 05:53:00 Maty Wagner ie [facility] SCREEN URINE DRUG (IMMUNOASSAY) 2022-06-14 05:53:00 Maty Wagner [facility] SCREEN VENOUS CORD GAS 2022-06-14 03:56:00 Degraffenreid [facility] VENOUS CORD GAS 2022-06-14 03:56:00 Degraffenreizaid, Bridgette [facility] SECTION 2022-06-14 03:11:00 Nura [facility] SECTION 2022-06-14 03:11:00 Nura [facility] HB ABO GROUPING 2022-06-14 03:00:00 Degraffenreizaid Bridgette [facility] RHO (D) IMMUNE GLOBULIN 2022-06-14 03:00:00 Taco [facility] HB ABO GROUPING 2022-06-14 03:00:00 Degraffenreid [facility] RHO (D) IMMUNE GLOBULIN 2022-06-14 03:00:00 [facility] WITH DIFF 2022-06-14 02:58:00 DegraffenreidBridgette [facility] HEPATITIS B SURFACE 2022-06-14 02:58:00 Deg[facility]ffen[facility]idBridgette [facility] - [place] 2022-06-14 02:58:00 DegraffenreidTadeoBridgette [facility]M [facility] CBC WITH DIFF 2022-06-14 02:58:00 DegraffenreidBridgette [facility] HEPATITIS B SURFACE 2022-06-14 02:58:00 DegraffenreidLindae [facility] ANTIGEN [facility] GALV ONLY - [place] 2022-06-14 02:58:00 DegraffenreidLindae U [facility] IGG/IGM [facility] NON-STRESS TEST 2022-06-13 21:53:16 [facility]IS 2022-06-13 00:00:00 Susie Gonzalez [facility] TDAP VACCINE, >11 YRS, 2022-06-01 15:02:51 Susie Gonzalez Un iversity [facility] POCT URINALYSIS 2022-06-01 14:52:00 Susie Gonzalez [facility] Encounters Start End Encounter Admission Attending Care Care Encounter Source Date/Time Date/Time Type Type Clinicians Facility Department ID 2022-07-14 2022-07-14 Outpatient R DALE [facility] [id number] Univers 13:00:00 13:00:00 MAYELIN ity [facility] 2022-07-14 2022-07-14 Orders Doctor ALETHEA 1.2.840.114 [id number] Univers 00:00:00 00:00:00 Only Unassigned, CORIN 350.1.13.10 ity of [place] [facility] 4.2.7.2.686 Oswald as [id number] [facility] [address] 2022-06-20 2022-06-20 Outpatient R CARLOS [facility] [id number] Univers 15:45:00 15:45:00 SUSIE ity o f [facility] 2022-06-13 2022-06-16 Hospital ALETHEA Lyman 1.2.840.114 [id number] Univers 20:50:00 11:27:00 Encounter Shravan CORIN 350.1.13.10 ity of HOSPITAL 4.2.7.2.686 Oswald as [id number] [facility] 133 Branch 2022-06-16 2022-06-16 1.2.840.1 1.2.840.114 [id number] Univers 00:00:00 00:00:00 Encounter [id number] 350.1.13.10 ity of 3.104.2.7 [place] .[id number] Medica [facility] 2022-06-13 2022-06-14 Surgery ALETHEA Lyman 1.2.569.860 [id number] Univers 22:10:00 00:01:00 Shravan CORIN 350.1.13.10 it y of HOSPITAL 4.2.7.2.686 Oswald as [id number] [address] 2022-06-13 2022-06-13 Outpatient R MTDULCEMICHELLESHY BROWN [facility] [id number] Univers 14:30:00 16:34:43 SHY GUTIERREZ [facility] 2022-06-13 2022-06-13 Routine Provider, [facility] 1 .2.840.114 [id number] Univers 14:30:00 16:34:43 Shy Gutierrez N[facility] [employer]LE[employer] 350.1.13.10 ity of Visit REGIONAL 4.2.7.2.686 Oswald as MATERNAL [id number] [facility] ical & CHILD [address] [place] [address] 2022-06-13 2022-06-13 Outpatient R GAUTAM [facility] [id number] Univers 14:30:00 16:34:43 MTSHY FELIPE [facility] 2022-06-06 2022-06-06 Outpatient Mg GONZALEZ [facility] [id number] Univers 15:15:00 15:15:00 NIKONDA ity o [facility] 2022-06-01 2022-06-01 Outpatient Mg GONZALEZ [facility] [id number] Univers 09:15:00 11:00:25 ROSDALTONNDA ity o [facility] 2022-06-01 2022-06-01 [facility] 1.2.840.114 [id number] Univers 09:15:00 11:00:25 Nikonda Mg NURSE [employer]LE[employer] 350.1.13.10 ity of Visit REGIONAL 4.2.7.2.686 Oswald as MATERNAL [id number] [facility] ical & CHILD [address] [place] [address] 2022-06-01 2022-06-01 Outpatient Mg GONZALEZ [facility] [id number] Univers 09:30:00 09:30:00 ROSHUNDA ity o [facility] 2022-05-20 2022-05-20 Outpatient R ABHISHEK [facility] [id number] Univers 10:15:00 10:15:00 TIFFANIE ity o [facility] 2022-04-21 2022-04-21 Outpatient R AKINSIPE, [facility] [id number] Univers 10:00:00 10:00:00 TIFFANIE dai o [facility] 2022-04-11 2022-04-11 Outpatient R AKINSIPE, [facility] [id number] Univers 14:00:00 14:00:00 TIFFANIE dai o [facility]leen [facility] 2022-03-28 2022-03-28 Outpatient P RONALD IRELAND [facility] [id number] Univers 14:00:00 14:52:56 RONALD IRELAND [facility] 2022-03-28 2022-03-28 Artistic Associate Ultrasound, Aleksey [facility] 1.2 .840.114 [id number] Univers 14:00:00 14:45:00 Visit Ronald Ireland NURSE COLLEGE 350.1.13.10 ity of [facility] 4.2.7.2.686 Oswald as MATERNAL [id number] [facility] ical & CHILD [address] [place] [address] 2022-03-28 2022-03-28 Outpatient P [facility] [id number] Univers 14:00:00 14:00:00 ity of [facility] 2022-03-28 2022-03-28 Abstract Carlos [facility] 1.2.840.114 [id number] Univers 00:00:00 00:00:00 Nikonda R [employer] 350.1.13.10 ity of REGIONAL 4.2.7.2.686 Oswald as MATERNAL [id number] [facility] ical & CHILD [address] [place] [address] 2022-03-28 2022-03-28 Abstract Carlos [facility] 1.2.840.114 [id number] Univers 00:00:00 00:00:00 Nikonda R [employer]LE[place] 350.1.13.10 ity of [facility] 4.2.7.2.686 Oswald as MATERNAL [id number] [facility] ical & CHILD [address] [place] [address] 2022-03-28 2022-03-28 Telephone Abhishek [facility] 1.2.840.114 [id number] Univers 00:00:00 00:00:00 Tiffanie C [employer]UR[employer] [place]LE[place] 350.1.13.10 ity of REGIONAL 4.2.7.2.686 Oswald as MATERNAL [id number] [facility] & CHILD [address] [place] [address] 2022-03-23 2022-03-23 Telephone [facility] 1.2.840.114 [id number] Univers 00:00:00 00:00:00 Tiffanie C NURSE [employer]LEGE 350.1.13.10 ity of REGIONAL 4.2.7.2.686 Oswald as MATERNAL [id number] [facility] & CHILD [address] [place] [address] 2022-03-21 2022-03-21 Outpatient R AKINSIPE, [facility] [id number] Univers 13:00:00 14:04:19 TIFFANIE ity o [facility] 2022-03-21 2022-03-21 Routine Akinpe, [facility] 1.2.945.068 [id number] Univers 13:00:00 14:04:19 Tiffanie C NURSE [employer]LEGE 350.1.13.10 ity of Visit REGIONAL 4.2.7.2.686 Oswald as MATERNAL [id number] [facility] & CHILD [address] [place] [address] 2022-03-21 2022-03-21 Outpatient R AKINSIPE, [facility] [id number] Univers 13:00:00 13:00:00 TIFFANIE ity o f [facility] 2022-02-22 2022-02-22 [facility] 1.2.840.114 [id number] Univers 00:00:00 00:00:00 Tiffanie C NURSE [employer]LE[place] 350.1.13.10 ity of REGIONAL 4.2.7.2.686 Oswald as MATERNAL [id number] [facility] & CHILD [address] [place] [address] 2022-02-21 2022-02-21 Outpatient R AKINSIPE, [facility] [id number] Univers 14:15:00 15:05:22 TIFFANIE ity o f [facility] 2022-02-21 2022-02-21 Routine Akinsipe, [facility] 1.2.188.376 [id number] Univers 14:15:00 15:05:22 Tiffanie Rashmi [employer]LE[employer] 350.1.13.10 ity of Visit REGIONAL 4.2.7.2.686 Oswald as MATERNAL [id number] Med ical & CHILD 107 [facility] 2022-02-21 2022-02-21 Orders Doctor ALETHEA 1.2.840.114 [id number] Univers 00:00:00 00:00:00 Only Unassigned, CORIN 350.1.13.10 ity of [place] [facility] 4.2.7.2.686 Oswald as [id number] [address] 2022-01-25 2022-01-25 Outpatient R TL SCHMIDT [facility] [id number] Univers 09:30:00 09:30:00 ity of [facility] 2022-01-10 2022-01-10 Outpatient Mg GONZALEZ [facility] [id number] Univers 15:45:00 15:45:00 SUSIE reynolds [facility] 2022-01-07 2022-01-07 Outpatient Mg GONZALEZ [facility] [id number] Univers 09:00:00 09:00:00 SUSIE dai o [facility] 2021-12-13 2021-12-13 Outpatient Mg GONZALEZ [facility] [id number] Univers 14:30:00 14:30:00 SUSIE dai o [facility] 2021-12-13 2021-12-13 Artistic Associate Ultrasound, [facility] 1.2 .840.114 [id number] Univers 10:30:00 10:58:28 Visit Ronald Ireland NURSE [employer]LEGE 350.1.13.10 ity of REGIONAL 4.2.7.2.686 Oswald as MATERNAL [id number] Med ical & CHILD 369 [facility] 2021-12-13 2021-12-13 Outpatient Bobby GONZALEZ [facility] [id number] Univers 10:30:00 10:30:00 SUSIE dai o f [facility] 2021-12-13 2021-12-13 Abstract Carlos [facility] 1.2.840.114 [id number] Univers 00:00:00 00:00:00 Rosdaltonnda R [employer] [place]LE[place] 350.1.13.10 ity of REGIONAL 4.2.7.2.686 Oswald as MATERNAL [id number] Med ical & CHILD [address] [place] [address] 2021-11-19 2021-11-19 Telephone [facility] 1.2.667.953 [id number] Univers 00:00:00 00:00:00 Roshunda R [employer]LE[employer] 350.1.13.10 ity of REGIONAL 4.2.7.2.686 Oswald as MATERNAL [id number] Med ical & CHILD [address] [place] [address] 2021-11-17 2021-11-17 Nurse Visit, [facility] Nurse [facility] 1.2 .840.114 [id number] Univers 10:30:00 11:16:07 Visit CarlosSusie [employer] [employer] 350.1.13.10 ity of REGIONAL 4.2.7.2.686 Oswald as MATERNAL [id number] Med ical & CHILD [address] [place] [address] 2021-11-17 2021-11-17 [facility] [id number] Univers 10:30:00 10:30:00 ROSDALTONNDA ity o [facility] 2021-11-16 2021-11-16 Telephone [facility] 1.2.374.240 [id number] Univers 00:00:00 00:00:00 Ayaladaltonnda R [employer] [place]LE[place] 350.1.13.10 ity of REGIONAL 4.2.7.2.686 Oswald as MATERNAL [id number] Med ical & CHILD [address] [place] [address] 2021-11-15 2021-11-15 Outpatient [facility] [id number] Univers 09:45:00 11:30:15 ROSHUNDA ity o f [facility] 2021-11-15 2021-11-15 Initial [facility] 1.2.840.114 [id number] Univers 09:45:00 11:30:15 Roshunda R [employer] 350.1.13.10 ity of Visit REGIONAL 4.2.7.2.686 Oswald as MATERNAL [id number] Med ical & CHILD [address] [place] [address] 2021-11-15 2021-11-15 Orders Doctor CLAIRE 1.2.840.114 [id number] Univers 00:00:00 00:00:00 Only Unassigned, CORIN 350.1.13.10 ity of [place] [facility] 4.2.7.2.686 Oswald as [id number] [address] 2021-11-11 2021-11-11 Outpatient R DAVID, [facility] [id number] Univers 14:30:00 14:30:00 DAVE dai [facility] 2021-01-22 2021-01-22 Office Abhishek, [facility] 1.2.642.164 [id number] Univers 15:24:07 16:17:44 Visit Tiffanie Caraballo NUR[employer]LE[employer] 350.1.13.[address] [facility] 4.2.7.2.686 Oswald as MATERNAL [id number] [address] 2021-01-22 2021-01-22 Outpatient R ABHISHEK, [facility] [id number] Univers 15:30:00 15:30:00 TIFFANIE ity o [facility] 2020-11-30 2020-11-30 Outpatient R ABHISHEK, [facility] [id number] Univers 13:15:00 13:15:00 TIFFANIE ity o [facility] 2020-11-24 2020-11-24 [facility] 1.2.852.009 [id number] Univers 15:47:42 16:41:18 Visit Tiffanie Caraballo NUR[employer]LE[employer] 350.1.13.[address] [facility] 4.2.7.2.686 Oswald as MATERNAL [id number] [facility] & [address] 2020-11-24 2020-11-24 Outpatient R ABHISHEK, [facility] [id number] Univers 16:00:00 16:00:00 TIFFANIE dai o [facility] 2020-11-24 2020-11-24 Orders Doctor CLAIRE 1.2.840.114 [id number] Univers 00:00:00 00:00:00 Only Unassigned, CORIN 350.1.13.10 ity of [place] [facility] 4.2.7.2.686 Oswald as [id number] [address] 2019-05-16 2019-05-16 Office [facility] 1.2.169.043 [id number] Univers 10:17:05 10:47:05 Visit Vesta Chel NURSE COLLEGE 350.1.13.10 it y of REGIONAL 4.2.7.2.686 Oswald as MATERNAL [id number] Med ical & CHILD 107 [facility] 2019-05-16 2019-05-16 Letter [facility] 1.2.720.416 [id number] Univers 00:00:00 00:00:00 (Out) Vesta Chel NURSE COLLEGE 350.1.13.10 it y of [facility] 4.2.7.2.686 Oswald as MATERNAL [id number] Med ical & CHILD [address] [place] [address] 2019-05-16 2019-05-16 Telephone Moo [facility] 1.2.840.114 [id number] Univers 00:00:00 00:00:00 Vesta Chel NURSE [employer]LEGE 350.1.13.10 it y of [facility] 4.2.7.2.686 Oswald as MATERNAL [id number] Med ical & CHILD [address] [place] [address] 2019-05-15 2019-05-15 Office Moo [facility] 1.2.303.760 [id number] Univers 12:45:15 13:00:15 Visit Vesta Chel NUR[employer]LE[employer] 350.1.13.10 it y of REGIONAL 4.2.7.2.686 Oswald as MATERNAL [id number] Med ical & CHILD [address] [place] [address] 2019-05-15 2019-05-15 Telephone Catie Boss [facility] 1.2.840.114 [id number] Univers 00:00:00 00:00:00 NURSE COLLEGE 350.1.13.10 it y of [facility] 4.2.7.2.686 Oswald as MATERNAL [id number] Med ical & CHILD [address] [place] [address] 2019-05-15 2019-05-15 Orders Doctor CLAIRE 1.2.840.114 [id number] Univers 00:00:00 00:00:00 Only Unassigned, CORIN 350.1.13.10 ity of [place] [facility] 4.2.7.2.686 Oswald as [id number] [address] Results Test Description Test Time Test Comments Results Result Comments Source [facility] ONLY - [place] IGG/IGM 2022-06-14 14:50:49 Test Item Value Reference Range Interpretation Comme nts Syphilis IgG/IgM (test code = Non-reactive Non-reactive 35137-7) CHAGO (test code = CHAGO) Non-reactive - No serologic evidence of T. pallidum infection. Cannot exclude incubating or early syphilis. Submit a second specimen in 2-4 weeks if syphilis is clinically suspected. Equivocal - Further testing to follow. Reactive - Further testing to follow. Lab Interpretation (test code = Normal 05398-4) [facility] ONLY - [place] [id number] 14:50:49 Test Item Value Reference Range Interpretation Comments Syphilis IgG/IgM (test Non-reactive Non-reactive code = 08441-5) CHAGO (test code = CHAGO) Non-reactive - No serologic evidence of T. pallidum infection. Cannot exclude incubating or early syphilis. Submit a second specimen in 2-4 weeks if syphilis is clinically suspected. Equivocal - Further testing to follow. Reactive - Further testing to follow. Lab Interpretation (test Normal code = 18659-7) [facility] (D) IMMUNE [id number] 06:34:45 Test Item Value Reference Range Interpretation Comments RHIG CANDIDATE? No- see comment Patient i s not a (test code = candidate for R hIg- 5055) Patient is Rh Positive.Perfor med at [facility] Laboratory Services - [facility] Blood [address] Free: [phone] A No. [phone] [facility] (D) IMMUNE [id number] 06:34:45 Test Item Value Reference Range Interpretation Comments RHIG CANDIDATE? No- see comment Patient i s not a (test code = candidate for R hIg- 5055) Patient is Rh Positive.Perfor med at [facility] Laboratory Services - [facility] Blood [address] [place], [place] [id number] Free: [phone] A No. [id number] [facility] B Surface [id number] 04:29:00 Test Item Value Reference Range Interpretation Comments HBsAg Semi-Quantitative (test code = Negative Negative 5195-3) [facility] B Surface [id number] 04:29:00 Test Item Value Reference Range Interpretation Comments HBsAg Semi-Quantitative (test code = Negative Negative 5195-3) [facility] Cord [id number] 04:15:10 Test Item Value Reference Range Interpretation Comments BASE EXCESS, CORD (test mEq/L code = 6904305573) AC PH, CORD (BEAKER) 7.18-7.38 L (test code = 7557556776) PC02, CORD (test code = See_Comment [Au tomated message] 4936776857) The system whic h generated this result transmitted ref erence range: 32 - 66 mmHg. The reference r glo was not used to interpret this result as normal/abnor mal. PO2, CORD (test code = <10 2560533431) BICARBONATE, CORD (test See_Comment [Au tomated message] code = 6755702408) The syste m which generated this result transmitted ref erence range: 17 - 27 mEq/L. The reference r glo was not used to interpret this result as normal/abnor mal. Lab Interpretation (test Abnormal code = 70782-9) [facility] Cord [id number] 04:15:10 Test Item Value Reference Range Interpretation Comments BASE EXCESS, CORD (test mEq/L code = 7437210492) AC PH, CORD (BEAKER) 7.18-7.38 L (test code = 2880535186) PC02, CORD (test code = See_Comment [Au tomated message] 3134574068) The system whic h generated this result transmitted ref erence range: 32 - 66 mmHg. The reference r glo was not used to interpret this result as normal/abnor mal. PO2, CORD (test code = <10 6967166064) BICARBONATE, CORD (test See_Comment [Au tomated message] code = 4467765878) The syste m which generated this result transmitted ref erence range: 17 - 27 mEq/L. The reference r glo was not used to interpret this result as normal/abnor mal. Lab Interpretation (test Abnormal code = 25084-3) [facility] Cord [id number] 04:12:23 Test Item Value Reference Range Interpretation Comments VENOUS BASE EXCESS, CORD mEq/L (test code = 4768837822) VENOUS PH, CORD (test 7.25-7.45 code = 3997182600) VENOUS PC02, CORD (test See_Comment H [Au tomated message] code = 7079742517) The syste m which generated this result transmitted ref erence range: 27 - 49 mmHg. The reference r glo was not used to interpret this result as normal/abnor mal. VENOUS PO2, CORD (test See_Comment L [Aut omated message] code = 9808553440) The syste m which generated this result transmitted ref erence range: 17 - 41 mmHg. The reference r glo was not used to interpret this result as normal/abnor mal. VENOUS BICARBONATE, CORD See_Comment [A utomated message] (test code = 4168951482) The system which generated this result transmitted ref erence range: 12 - 29 mEq/L. The reference r glo was not used to interpret this result as normal/abnor mal. Lab Interpretation (test Abnormal code = 95267-4) [facility] Cord [id number] 04:12:23 Test Item Value Reference Range Interpretation Comments VENOUS BASE EXCESS, CORD mEq/L (test code = 9907995731) VENOUS PH, CORD (test 7.25-7.45 code = 0174374372) VENOUS PC02, CORD (test See_Comment H [Au tomated message] code = 1361782552) The syste m which generated this result transmitted ref erence range: 27 - 49 mmHg. The reference r glo was not used to interpret this result as normal/abnor mal. VENOUS PO2, CORD (test See_Comment L [Aut omated message] code = 5815875423) The syste m which generated this result transmitted ref erence range: 17 - 41 mmHg. The reference r glo was not used to interpret this result as normal/abnor mal. VENOUS BICARBONATE, CORD See_Comment [A utomated message] (test code = 5569751953) The system which generated this result transmitted ref erence range: 12 - 29 mEq/L. The reference r glo was not used to interpret this result as normal/abnor mal. Lab Interpretation (test Abnormal code = 83019-3) [facility] and Screen - ONCE [id number] 03:47:01 Test Item Value Reference Range Interpretation Comments ABO & RH (test code A POSITIVE Performe d at [facility] = 20) Laboratory [facility] Blood [facility] [address] [place] [id number] Free: [phone] A No. [id number] IAT (test code = Negative Performed a t [facility] 1185) Laboratory [facility] Blood [address] [id number] Free: [phone] A No. [id number] [facility] Screen - ONCE [id number] 03:47:01 Test Item Value Reference Range Interpretation Comments ABO & RH (test code A POSITIVE Performe d at [facility] = 20) Laboratory [facility] Blood [facility] [address] [place] [address] s [id number] Free: [phone] A No. [id number] IAT (test code = Negative Performed a t [facility] 1185) Laboratory [facility] Blood [address] s [address]Jktd Free: [phone] A No. [id number] [facility] with [id number] 03:20:31 Test Item Value Reference Range Interpretation Comments WBC (test code = See_Comment H [Automated 1690-2) message] The sy stem which generated this result transmitted reference range : 4.30 - 11.10 10*3/?L. The reference range was not used to interpret this result as normal/abnormal . RBC (test code = See_Comment L [Automated 659-8) message] The sy stem which generated this result transmitted reference range : 3.93 - 5.25 10*6/?L. The reference range was not used to interpret this result as normal/abnormal . HGB (test code = 11.1 g/dL 11.6-15 L 718-7) HCT (test code = 32.2 % 35.7-45.2 L 4544-3) MCV (test code = 82.8 fL 80.6-95.5 787-2) MCH (test code = 28.5 pg 25.9-32.8 785-6) MCHC (test code = 34.5 g/dL 31.6-35.1 786-4) RDW-SD (test code = 39.4 fL 39-49.9 47746-7) RDW-CV (test code = 13.1 % 12-15.5 788-0) PLT (test code = See_Comment H [Automated 777-3) message] The sy stem which generated this result transmitted reference range : 166 - 358 10*3/ ?L. The reference r glo was not used to interpret this result as normal/abnormal . MPV (test code = 9.7 fL 9.5-12.9 39206-0) NRBC/100 WBC (test See_Comment [Automat ed code = 3904950482) message] The system which generated this result transmitted reference range : 0.0 - 10.0 /100 WBCs. The refer ence range was not u sed to interpret th is result as normal/abnormal . NRBC x10^3 (test code See_Comment [Auto mated = 3212506975) message] The s ystem which generated this result transmitted reference range : 10*3/?L. The reference range was not used to interpret this result as normal/abnormal . GRAN MAT (NEUT) % 64.5 % (test code = 770-8) IMM GRAN % (test code 0.40 % = 5000409354) LYMPH % (test code = 26.6 % 736-9) MONO % (test code = 7.0 % 5905-5) EOS % (test code = 1.2 % 713-8) BASO % (test code = 0.3 % 706-2) GRAN MAT x10^3(ANC) 7.25 10*3/uL 1.88-7.09 H (test code = 1056890690) IMM GRAN x10^3 (test 0.04 10*3/uL 0-0.06 code = 8741779397) LYMPH x10^3 (test code 2.99 10*3/uL 1.32-3.29 = 731-0) MONO x10^3 (test code 0.79 10*3/uL 0.33-0.92 = 742-7) EOS x10^3 (test code = 0.14 10*3/uL 0.03-0.39 711-2) BASO x10^3 (test code 0.03 10*3/uL 0.01-0.07 = 704-7) Lab Interpretation Abnormal (test code = 97675-1) [facility] with [id number] 03:20:31 Test Item Value Reference Range Interpretation Comments WBC (test code = See_Comment H [Automated 6690-2) message] The sy stem which generated this result transmitted reference range : 4.30 - 11.10 10*3/?L. The reference range was not used to interpret this result as normal/abnormal . RBC (test code = See_Comment L [Automated 789-8) message] The sy stem which generated this result transmitted reference range : 3.93 - 5.25 10*6/?L. The reference range was not used to interpret this result as normal/abnormal . HGB (test code = 11.1 g/dL 11.6-15 L 718-7) HCT (test code = 32.2 % 35.7-45.2 L 4544-3) MCV (test code = 82.8 fL 80.6-95.5 787-2) MCH (test code = 28.5 pg 25.9-32.8 785-6) MCHC (test code = 34.5 g/dL 31.6-35.1 786-4) RDW-SD (test code = 39.4 fL 39-49.9 13930-8) RDW-CV (test code = 13.1 % 12-15.5 788-0) PLT (test code = See_Comment H [Automated 777-3) message] The sy stem which generated this result transmitted reference range : 166 - 358 10*3/ ?L. The reference r glo was not used to interpret this result as normal/abnormal . MPV (test code = 9.7 fL 9.5-12.9 25312-5) NRBC/100 WBC (test See_Comment [Automat ed code = 1056669882) message] The system which generated this result transmitted reference range : 0.0 - 10.0 /100 WBCs. The refer ence range was not u sed to interpret th is result as normal/abnormal . NRBC x10^3 (test code See_Comment [Auto mated = 2219989964) message] The s ystem which generated this result transmitted reference range : 10*3/?L. The reference range was not used to interpret this result as normal/abnormal . GRAN MAT (NEUT) % 64.5 % (test code = 770-8) IMM GRAN % (test code 0.40 % = 5374353106) LYMPH % (test code = 26.6 % 736-9) MONO % (test code = 7.0 % 5905-5) EOS % (test code = 1.2 % 713-8) BASO % (test code = 0.3 % 706-2) GRAN MAT x10^3(ANC) 7.25 10*3/uL 1.88-7.09 H (test code = 9918285358) IMM GRAN x10^3 (test 0.04 10*3/uL 0-0.06 code = 8545419137) LYMPH x10^3 (test code 2.99 10*3/uL 1.32-3.29 = 731-0) MONO x10^3 (test code 0.79 10*3/uL 0.33-0.92 = 742-7) EOS x10^3 (test code = 0.14 10*3/uL 0.03-0.39 711-2) BASO x10^3 (test code 0.03 10*3/uL 0.01-0.07 = 704-7) Lab Interpretation Abnormal (test code = 68982-9) [facility] [id number] 19:47:00 Test Item Value Reference Range Interpretation Comments POCT U SP GRAV (test code = . 1.005-1.025 3255) POCT PH U (test code = 3254) . 5-8 POCT U LEUK EST (test code = . Negative - Negative 3263) POCT U NIT (test code = 3262) . Negative - Negative POCT U PROT (test code = 3259) TRACE Negative - Negative POCT U GLU (test code = 3256) NEGATIVE Negative - Negative POCT U KETONE (test code = 3258) . Negative - Negative POCT U UROBILI (test code = . 0.2-1 3260) POCT U BILI (test code = 3261) . Negative - Negative POCT U BLD (test code = 3257) . Negative - Negative POCT U COLOR (test code = 3266) . POCT U APPEAR (test code = 3267) . [facility] URINALYSIS W SPECIFIC [id number] 14:53:00 Test Item Value Reference Range Interpretation Comments POCT U SP GRAV (test code = * 1.005-1.025 3255) POCT PH U (test code = 3254) * 5-8 POCT U LEUK EST (test code = * Negative - Negative 3263) POCT U NIT (test code = 3262) * Negative - Negative POCT U PROT (test code = 3259) trace Negative - Negative POCT U GLU (test code = 3256) negative Negative - Negative POCT U KETONE (test code = 3258) * Negative - Negative POCT U UROBILI (test code = * 0.2-1 3260) POCT U BILI (test code = 3261) * Negative - Negative POCT U BLD (test code = 3257) * Negative - Negative POCT U COLOR (test code = 3266) * POCT U APPEAR (test code = 3267) [facility] URINALYSIS W SPECIFIC [id number] 14:53:00 Test Item Value Reference Range Interpretation Comments POCT U SP GRAV (test code = * 1.005-1.025 3255) POCT PH U (test code = 3254) * 5-8 POCT U LEUK EST (test code = * Negative - Negative 3263) POCT U NIT (test code = 3262) * Negative - Negative POCT U PROT (test code = 3259) trace Negative - Negative POCT U GLU (test code = 3256) negative Negative - Negative POCT U KETONE (test code = 3258) * Negative - Negative POCT U UROBILI (test code = * 0.2-1 3260) POCT U BILI (test code = 3261) * Negative - Negative POCT U BLD (test code = 3257) * Negative - Negative POCT U COLOR (test code = 3266) * POCT U APPEAR (test code = 3267) [facility] [id number] 14:53:00 Test Item Value Reference Range Interpretation Comments POCT U SP GRAV (test code = * 1.005-1.025 3255) POCT PH U (test code = 3254) * 5-8 POCT U LEUK EST (test code = * Negative - Negative 3263) POCT U NIT (test code = 3262) * Negative - Negative POCT U PROT (test code = 3259) trace Negative - Negative POCT U GLU (test code = 3256) negative Negative - Negative POCT U KETONE (test code = 3258) * Negative - Negative POCT U UROBILI (test code = * 0.2-1 3260) POCT U BILI (test code = 3261) * Negative - Negative POCT U BLD (test code = 3257) * Negative - Negative POCT U COLOR (test code = 3266) * POCT U APPEAR (test code = 3267) [facility] URINALYSIS W SPECIFIC [id number] 14:53:00 Test Item Value Reference Range Interpretation Comments POCT U SP GRAV (test code = * 1.005-1.025 3255) POCT PH U (test code = 3254) * 5-8 POCT U LEUK EST (test code = * Negative - Negative 3263) POCT U NIT (test code = 3262) * Negative - Negative POCT U PROT (test code = 3259) trace Negative - Negative POCT U GLU (test code = 3256) negative Negative - Negative POCT U KETONE (test code = 3258) * Negative - Negative POCT U UROBILI (test code = * 0.2-1 3260) POCT U BILI (test code = 3261) * Negative - Negative POCT U BLD (test code = 3257) * Negative - Negative POCT U COLOR (test code = 3266) * POCT U APPEAR (test code = 3267) [facility]
--- NOTE | 2023-06-21 09:00 | ER ---
[facility]'s Notes [facility] Name: Anny Garzon Age: 22 yrs Sex: Female : 2000 Arrival Date: 06/21/2023 Time: 08:39 Bed 20 Private MD: Diagnosis: Vaginitis, vulvitis and vulvovaginitis in diseases classified elsewhere Presentation: 06/21 08:50 Chief complaint: Patient states: Vaginal pain and itching began yesterday, believes she ll1 might have a STD. Coronavirus screen: Client denies travel out of the [place] in the last 14 days. At this time, the client does not indicate any symptoms associated with coronavirus-19. Ebola Screen: Patient denies travel to an Ebola-affected area in the 21 days before illness onset. Initial Sepsis Screen: Does the patient meet any 2 criteria? No. Patient's initial sepsis screen is negative. Does the patient have a suspected source of infection? Yes: Other: STD. Risk Assessment: Do you want to hurt yourself or someone else? Patient reports no desire to harm self or others. Onset of symptoms was June 20, 2023. 08:50 Method Of Arrival: Ambulatory ll1 08:50 Acuity: DEBRA 4 ll1 Triage Assessment: 09:14 General: Appears in no apparent distress. comfortable, Behavior is calm, cooperative, nj1 appropriate for age. Pain: Complains of pain in Vaginal. Neuro: No deficits noted. Cardiovascular: No deficits noted. Respiratory: No deficits noted. : Reports pain vaginal itching. Historical: - PMHx: 08:46 ADD/ADHD; Depression; root canal; 3-4 days ago 12/2017; ll1 - Immunization history:: Adult Immunizations up to date. - Social history:: Smoking status: Patient denies any tobacco usage or history of. Screenin:[facility] ED Fall Risk Assessment (Adult) Score/Fall Risk Level 0 - 2 = Low Risk nj1 Oriented to surroundings, Maintained a safe environment, Hourly rounding (assess needs \T\ fall precautionary measures) done. Abuse screen: Denies threats or abuse. Denies injuries from another. Nutritional screening: No deficits noted. Tuberculosis screening: No symptoms or risk factors identified. Vital Signs: 08:50 BP 125 / 95; Pulse 77; Resp 16; Temp 98.3; Pulse Ox 99% ; Weight 78.02 kg; Height 5 ft. ll1 2 in. ; Pain 10/10; 08:50 Body Mass Index 31.46 (78.02 kg, 157.48 cm) ll1 08:50 Pain Scale: Adult ll1 ED Course: 08:41 Patient arrived in ED. rg4 08:44 Rebecca [facility]C [facility] sb4 08:44 Erlin Rendon DO is Attending Physician. sb4 08:46 Arm band placed on Patient placed in an exam room, on a stretcher. ll1 08:52 Triage completed. ll1 09:06 Kamila Hull, SHANNON is Primary Nurse. nj1 09:15 Patient has correct armband on for positive identification. Bed in low position. Call nj1 light in reach. Provided Education on: Discharge instructions. 09:16 No provider procedures requiring assistance completed. Patient did not have IV access nj1 during this emergency room visit. Administered Medications: 09:05 Drug: Rocephin (cefTRIAXone) IM 500 mg IM once Route: IM; Site: right deltoid; db 09:15 Follow up: Response: No adverse reaction db 09:05 Drug: Doxycycline PO 100 mg PO once Route: PO; db 09:15 Follow up: Response: No adverse reaction db 09:05 Drug: metroNIDAZOLE PO 500 mg PO once Route: PO; db 09:15 Follow up: Response: No adverse reaction db 09:05 Drug: Ondansetron PO 4 mg PO once Route: PO; db 09:15 Follow up: Response: No adverse reaction db 09:05 Drug: Fluconazole PO 200 mg PO once Route: PO; db 09:16 Follow up: Response: No adverse reaction db Medication: 09:15 VIS not applicable for this client. nj1 Outcome: 09:00 Discharge ordered by . sb4 09:16 Discharged to home ambulatory, with family, nj1 09:16 Condition: stable 09:16 Discharge instructions given to patient, family, Instructed on discharge instructions, follow up and referral plans. medication usage, Demonstrated understanding of instructions, follow-up care, medications, Prescriptions given X 2, 09:17 Patient left the ED. nj1 Signatures: Sherice Bledsoe rg4 Mitzi Rogers RN RN ll1 Carolyn Smith RN RN db Rebecca Tyler PA-C PA-C sb4 Kamila Hull, RN RN nj1
--- NOTE | 2023-06-21 09:00 | EDPHYS ---
Physician Documentation [facility] Name: Anny Garzon Age: 22 yrs Sex: Female : 2000 Arrival Date: 06/21/2023 Time: 08:39 Bed 20 Private MD: ED Physician Erlin Rendon HPI: 06/21 09:05 This 22 yrs old Female presents to ER via Ambulatory with complaints of sb4 Vaginal Pain. 09:05 The patient presents with a possible exposure to a sexually transmitted disease, sb4 gonorrhea, chlamydia. Onset: The symptoms/episode began/occurred yesterday. Modifying factors: The symptoms are alleviated by nothing, the symptoms are aggravated by nothing. Associated signs and symptoms: Pertinent positives: vaginal discharge, Pertinent negatives: fever, urinary frequency. The patient is sexually active. Historical: - PMHx: 08:46 ADD/ADHD; Depression; root canal; 3-4 days ago 12/2017; ll1 - Immunization history:: Adult Immunizations up to date. - Social history:: Smoking status: Patient denies any tobacco usage or history of. ROS: 09:06 Positive for pelvic pain, vaginal itching, sb4 09:06 Constitutional: Negative for fever, chills, and weight loss, 09:06 All other systems are negative, Exam: 09:06 Constitutional: This is a well developed, well nourished patient who is awake, alert, sb4 and in no acute distress. Head/Face: Normocephalic, atraumatic. Eyes: Extra-ocular motions intact. Periorbital areas with no swelling, redness, or edema. ENT: Mucous membranes moist. Skin: Warm, dry with normal turgor. Normal color with no rashes, no lesions, and no evidence of cellulitis. MS/ Extremity: Pulses equal, no cyanosis. Neurovascular intact. Full, normal range of motion. Neuro: Awake and alert, GCS 15, oriented to person, place, time, and situation. Motor strength 5/5 in all extremities. Sensory grossly intact. Vital Signs: 08:50 BP 125 / 95; Pulse 77; Resp 16; Temp 98.3; Pulse Ox 99% ; Weight 78.02 kg; Height 5 ft. ll1 2 in. ; Pain 10/10; 08:50 Body Mass Index 31.46 (78.02 kg, 157.48 cm) ll1 08:50 Pain Scale: Adult ll1 MDM: 08:48 Patient medically screened. sb4 09:06 Differential diagnosis: olivia infection, cervicitis, urinary tract infection, sb4 vaginosis. Data reviewed: vital signs, nurses notes, and as a result, I will discharge patient. Test considered but Not performed: Labs: declines UTI symptoms or , is sure its STD related. Counseling: I had a detailed discussion with the patient and/or guardian regarding the historical points, exam findings, and any diagnostic results supporting the discharge/admit diagnosis, to return to the emergency department if symptoms worsen or persist or if there are any questions or concerns that arise at home. Administered Medications: 09:05 Drug: Rocephin (cefTRIAXone) IM 500 mg IM once Route: IM; Site: right deltoid; db 09:15 Follow up: Response: No adverse reaction db 09:05 Drug: Doxycycline PO 100 mg PO once Route: PO; db 09:15 Follow up: Response: No adverse reaction db 09:05 Drug: metroNIDAZOLE PO 500 mg PO once Route: PO; db 09:15 Follow up: Response: No adverse reaction db 09:05 Drug: Ondansetron PO 4 mg PO once Route: PO; db 09:15 Follow up: Response: No adverse reaction db 09:05 Drug: Fluconazole PO 200 mg PO once Route: PO; db 09:16 Follow up: Response: No adverse reaction db Disposition: 09:43 I was immediately available on-site in the Emergency Department for consultation in the ms3 care of the patient. Disposition Summary: 06/21/23 09:00 Discharge Ordered Notes: Location: Home sb4 Problem: new sb4 Symptoms: are unchanged sb4 Condition: Stable sb4 Diagnosis - Vaginitis, vulvitis and vulvovaginitis in diseases classified elsewhere sb4 Followup: sb4 - With: Private Physician - When: As needed - Reason: Recheck today's complaints, Re-evaluation by your physician Discharge Instructions: - Discharge Summary Sheet sb4 - Vaginitis, Nnei-rn-Toqg sb4 - Preventing Sexually Transmitted Infections, Adult sb4 Forms: - Medication Reconciliation Form sb4 - Thank You Letter sb4 - Antibiotic Education sb4 - Prescription Opioid Use sb4 - Patient Portal Instructions sb4 - Leadership Thank You Letter sb4 Prescriptions: - Doxycycline Hyclate 100 mg Oral tablet - take 1 tablet ORAL route every 12 hours for 7 days; 14 tablet; Refills: 0, sb4 Product Selection Permitted - Metronidazole 250 mg Oral tablet - take 2 tablet ORAL route every 12 weeks for 7 days; 24 tablet; Refills: 0, sb4 Product Selection Permitted Signatures: Mitzi Rogers RN RN ll1 Erlin Rendon DO DO ms3 Carolyn Smith RN RN db Brown, Sophia, PA-C PA-C sb4
[2023-06-21] MEDS ORDERED: CEFTRIAXONE 500 MG/VIAL ONE (09:18)
[2023-06-21] MEDS ORDERED: ONDANSETRON 4 MG (ODT) TAB ONE (09:18)
[2023-06-21] MEDS ORDERED: metroNIDAZOLE 500 MG TABLET ONE (09:18)
[2023-06-21] MEDS ORDERED: FLUCONAZOLE 100 MG TAB ONE (09:18)
[2023-06-21] MEDS ORDERED: LIDOCAINE 1% MPF 2 ML AMPULE ONE (09:18)
[2023-06-21] MEDS ORDERED: DOXYCYCLINE 100 MG CAP PO ONE (09:19)
[2023-06-21 09:24] VITALS: BP 125/95; TEMP 98.3; O2SAT 99
== END 2023-06-21 09:17 | disposition home or self-care (01) ==
LOC: ER 08:39
DX: N89.8 Other specified noninflammatory disorders of vagina (principal); N77.1 Vaginitis, vulvitis and vulvovaginitis in diseases classified elsewhere
CPT/HCPCS: Q0162

== ENCOUNTER → 2023-09-05 | Emergency (ER) | payer OTHER ==
--- OUTSIDE RECORDS SUMMARY | 2023-09-05 05:29 | XMS REPORT | Continuity of Care Document ---
Author Name Unknown Address [address] [facility] [address] [place] [address] [facility] thconnect Address [address] [facility] [address] [place] [address] Care Team Providers Care Client Engagement Specialist Name Role Phone Susie Waterman Primary Care Physician [phone] SUSIE GONZALEZ Attending Clinician MAYELIN Cancino Attending Clinician Vinnie verma Doctor Unassigned, [place] Attending Clinician ALETHEA Martinez Attending Clinician Unavailable Shravan Lyman DO Attending Clinician SHY GUTIERREZ Attending Clinician UnavailSHY Aguayo Attending Clinician Unavailcathie e [facility], [facility] Attending Clinician Ana diego NAIRP, Susie Holliday Attending Clinician [phone] AKINTIFFANIE JACKSON Attending Clinician Unavail able RONALD IRELAND Attending Clinician Unavailable RONALD IRELAND Attending Clinician Unavailable Ultrasound, Aleksey Attending Clinician UnavailRonald Tabares MD Attending Clinician [phone] Akinsimonalisa WHCNP, Tiffanie Caraballo Attending Clinician + TL SCHMIDT Attending Clinician Unavailable [facility] Attending Clinician UnaDAVE Felipe Attending Clinician Unavailable [employer]oo ECOLOGY PROFESSOR, Vesta Milligan Attending Clinician [phone] Catie Mcmahan Attending Clinician [phone] Shravan Lyman DO Admitting Clinician [phone] Payers Payer Name Policy Type Policy Number Effective Date Expirati on Date Source [place] [employer] [id number] 2016 00:00:00 Problems Condition Name Condition Details Condition Category Status Onset Date Resolution Date Last Treatment Date Treating Clinician Comments Source Uterine size-date discrepanc y in third trimester Uterine size-date discrepanc y in third trimester Disease Active 2021-09 0- 00:00: [address] [facility] heart rate decelerati ons affecting management of mother heart rate decelerati ons affecting management of mother Disease Active 2021-09 0- 00:00: [address] [facility] 36 weeks gestation of 36 weeks gestation of Disease Active 2021-09 0- 00:00: [address] [facility] Obesity (BMI 30-39.9) Obesity (BMI 30-39.9) Disease Active 2021-09 0- 00:00: [address] [facility] Gonorrhea in Gonorrhea in Disease Active 03-21 00:00: [address] [facility] Back pain during Back pain during Disease Active 03-21 00:00: 00 [facility] Primigravi da in third trimester Primigravi da in third trimester Disease Active 11-15 00:00: 00 [facility] History of depression History of depression Disease Active 11-15 00:00: 00 [facility] Supervisio n of high-risk with insufficie nt care Supervisio n of high-risk with insufficie nt care Disease Active 11-15 00:00: 00 [facility] High risk teen in third trimester High risk teen in third trimester Disease Active 11-15 00:00: 00 [facility] Chlamydia infection Chlamydia infection Disease Active 05-16 00:00: 00 [facility] Generalize d anxiety disorder Generalize d anxiety disorder Disease Active 2016-09 0 00:00: 00 [facility] Asthma, unspecifie d asthma severity, unspecifie d whether complicate d, unspecifie d whether persistent Asthma, unspecifie d asthma severity, unspecifie d whether complicate d, unspecifie d whether persistent Disease Active 2016-09 0 00:00: 00 [facility] Depression during Depression during Disease Active 2016-09 0 00:00: 00 [facility] Obesity in Obesity in Disease Active 2016-09 0 00:00: 00 [facility] Allergies, Adverse Reactions, Alerts Allergy Name Allergy Type Status Severity Reaction(s) Onset Date Inactive Date Treating Clinician Comments Source NO KNOWN ALLERGIE S Drug Class Active [facility] Social History Social Habit Start Date Stop Date Quantity Comments Source ASSERTION 2021-10-17 00:00:00 [facility] History of tobacco use Cigarette Smoker [facility] Alcohol intake 2022-06-15 00:00:00 2022-06-15 00:00:00 0 /d [facility] Exposure to SARS-CoV-2 (event) 2022-06-03 00:00:00 2022-06-13 14:43:00 Not sure [facility] Tobacco use and exposure 2022-03-21 00:00:00 2022-03-21 00:00:00 Smokeless tobacco non-user [facility] Sex Assigned At 2002 00:00:00 2000 00:00:00 [facility] Smoking Status Start Date Stop Date Source Smokes tobacco daily 2022-03-21 00:00:00 [facility] Medications Ordered Medication Name Filled Medication Name Start Date Stop Date Current Medication? Ordering Clinician Indication Dosage Frequency Signature (SIG) Comments Components Source amitriptyli ne 100 mg tablet 2021-09 03:15: 58 06-16 00:00 :00 No 100mg Take 100 mg by mouth at bedtime. [facility] [id number] fum-folic () 27 mg iron- 1 mg folic tablet 2021-09 00:00: 00 Yes [id number] 1{tbl} Take 1 tablet by mouth in the morning. [facility] docusate 100 mg capsule 2021-09 00:00: 00 Yes [id number] 200mg Take 2 capsules by mouth once daily as needed for Constipati on. [facility] ferrous sulfate 325 mg (65 mg iron) tablet 2021-09 00:00: 00 Yes [id number] 325mg Take 1 tablet by mouth in the morning and 1 tablet in the evening. [facility] ibuprofen 600 mg tablet 2021-09 00:00: 00 Yes [id number] 600mg Take 1 tablet by mouth every 6 (six) hours as needed (Pain). Take with food or milk. [facility] [id number] fum-folic () 27 mg iron- 1 mg folic tablet 2021-09 00:00: 00 Yes [id number] 1{tbl} Take 1 tablet by mouth in the morning. [facility] docusate 100 mg capsule 2021-09 00:00: 00 Yes [id number] 200mg Take 2 capsules by mouth once daily as needed for Constipati on. [facility] ferrous sulfate 325 mg (65 mg iron) tablet 2021-09 00:00: 00 Yes [id number] 325mg Take 1 tablet by mouth in the morning and 1 tablet in the evening. [facility] ibuprofen 600 mg tablet 2021-09 0-06 00:00: 00 Yes [id number] 600mg Take 1 tablet by mouth every 6 (six) hours as needed (Pain). Take with food or milk. [facility] [id number] fum-folic () 27 mg iron- 1 mg folic tablet 2021-09 0- 00:00: 00 Yes [id number] 1{tbl} Take 1 tablet by mouth in the morning. [facility] docusate 100 mg capsule 2021-09 0 00:00: 00 Yes [id number] 200mg Take 2 capsules by mouth once daily as needed for Constipati on. [facility] ferrous sulfate 325 mg (65 mg iron) tablet 2021-09 0 00:00: 00 Yes [id number] 325mg Take 1 tablet by mouth in the morning and 1 tablet in the evening. [facility] ibuprofen 600 mg tablet 2021-09 0 00:00: 00 Yes [id number] 600mg Take 1 tablet by mouth every 6 (six) hours as needed (Pain). Take with food or milk. [facility] norethindro ne 0.35 mg tablet 2021-09 0 00:00: 00 09-15 05:59 :00 No [id number] .35mg Take 1 tablet by mouth in the morning for 90 days. [facility] norethindro ne 0.35 mg tablet 2021-09 0- 00:00: 00 09-15 05:59 :00 No [id number] .35mg Take 1 tablet by mouth in the morning for 90 days. [facility] norethindro ne 0.35 mg tablet 2021-09 0- 00:00: 00 09-15 05:59 :00 No [id number] .35mg Take 1 tablet by mouth in the morning for 90 days. [facility] HYDROcodone -acetaminop hen 5-325 mg tablet 2021-09 0-06 00:00: 00 06-24 04:59 :00 No [id number] 1{tbl} Take 1 tablet by mouth every 6 (six) hours as needed for Pain (scale 4-6) or Pain (scale 7-10) (Pain scale above 4) for up to 7 days. Do not exceed 3 grams of acetaminop hen in 24 hours. Indication s: acute pain [facility] HYDROcodone -acetaminop hen 5-325 mg tablet 2021-09 0-06 00:00: 00 06-24 04:59 :00 No [id number] 1{tbl} Take 1 tablet by mouth every 6 (six) hours as needed for Pain (scale 4-6) or Pain (scale 7-10) (Pain scale above 4) for up to 7 days. Do not exceed 3 grams of acetaminop hen in 24 hours. Indication s: acute pain [facility] amitriptyli ne (ELAVIL) tablet 100 mg 2021-09 0-05 02:00: 00 Yes 100mg 100 mg, Oral, QHS, First dose on Mon06/14/22 at 2100, Until Discontinu ed, Routine [facility] amitriptyli ne (ELAVIL) tablet 100 mg 2021-09 0-05 02:00: 00 Yes 100mg 100 mg, Oral, QHS, First dose on Mon06/14/22 at 2100, Until Discontinu ed, Routine [facility] lactated ringers IV infusion 500 mL 2021-09 004 13:15: 00 06-14 12:37 :00 No 500mL at 999 mL/hr, 500 mL, Intravenou s, ONCE, 1 dose, On Mon06/14/22 at 0815, Routine [facility] rho(D) immune globulin (RHOGAM) syringe 300 mcg 2021-09 004 06:33: 41 Yes 300ug 300 mcg, Intramuscu lar, ONCE, For 1 dose, Conditiona l, Routine [facility] rho(D) immune globulin (RHOGAM) syringe 300 mcg 2021-09 0-04 06:33: 41 Yes 300ug 300 mcg, Intramuscu lar, ONCE, For 1 dose, Conditiona l, Routine [facility] HYDROcodone -acetaminop hen (NORCO 5) 5-325 mg tablet 2 tablet 2021-09 0-04 06:33: 35 Yes 2{tbl} 2 tablet, Oral, Q6HPRN, Starting on Mon06/14/22 at 0133, Until Discontinu ed, Routine, Pain (scale 7-10), Alternate with Ibuprofen [facility] HYDROcodone -acetaminop hen (NORCO 5) 5-325 mg tablet 1 tablet 2021-09 0-04 06:33: 35 Yes 1{tbl} 1 tablet, Oral, Q6HPRN, Starting on Mon06/14/22 at 0133, Until Discontinu ed, Routine, Pain (scale 4-6), Alternate with Ibuprofen [facility] ibuprofen (IBU) tablet 600 mg 2021-09 0-04 06:33: 35 Yes 600mg 600 mg, Oral, Q6HPRN, Starting on Mon06/14/22 at 013, Until Discontinu ed, Routine, Pain (scale 1-3) [facility] diphenhydrA MINE (BENADRYL) injection 25 mg 2021-09 0-04 06:33: 35 Yes 25mg 25 mg, Slow IV Push, Q6HPRN, Starting on Mon06/14/22 at 0133, Until Discontinu ed, Routine, Itching [facility] diphenhydrA MINE (BENADRYL) tablet 25 mg 2021-09 0-04 06:33: 35 Yes 25mg 25 mg, Oral, Q6HPRN, Starting on Mon06/14/22 at 013, Until Discontinu ed, Routine, Sleep, Itching [facility] ondansetron (ZOFRAN (PF)) injection 4 mg 2021-09 0-04 06:33: 35 Yes 4mg 4 mg, Slow IV Push, Q8HPRN, Starting on Mon06/14/22 at 0133, Until Discontinu ed, Routine, Nausea and Vomiting (N/V) [facility] bisacodyL (DULCOLAX) suppository 10 mg 2021-09 0-04 06:33: 35 Yes 10mg 10 mg, Rectal, QDAILYPRN, Starting on Mon06/14/22 at 0133, Until Discontinu ed, Routine, Constipati on [facility] simethicone (GAS RELIEF (SIMETHICON E)) chewable tablet 160 mg 2021-09 0- 06:33: 35 Yes 160mg 160 mg, Oral, PC+HSPRN, Starting on Mon06/14/22 at 0133, Until Discontinu ed, Routine, Gas [facility] docusate (COLACE) capsule 200 mg 2021-09 0 06:33: 35 Yes 200mg 200 mg, Oral, QDAILYPRN, Starting on Mon06/14/22 at 0133, Until Discontinu ed, Routine, Constipati on [facility] magnesium hydroxide (MILK OF MAGNESIA) 400 mg/5 mL suspension 30 mL 2021-09 0 06:33: 35 Yes 30mL 30 mL, Oral, QDAILYPRN, Starting on Mon06/14/22 at 132, Until Discontinu ed, Routine, Constipati on [facility] lactated ringers IV infusion 1,000 mL 2021-09 0 06:33: 35 Yes 1000mL at 125 mL/hr, 1,000 mL, IV Infusion, PRN, 1 dose, Starting on Mon06/14/22 at 132, Until Discontinu ed, Routine [facility] HYDROcodone -acetaminop hen (NORCO 5) 5-325 mg tablet 2 tablet 2021-09 0- 06:33: 35 Yes 2{tbl} 2 tablet, Oral, Q6HPRN, Starting on Mon06/14/22 at 013, Until Discontinu ed, Routine, Pain (scale 7-10), Alternate with Ibuprofen [facility] HYDROcodone -acetaminop hen (NORCO 5) 5-325 mg tablet 1 tablet 2021-09 0-04 06:33: 35 Yes 1{tbl} 1 tablet, Oral, Q6HPRN, Starting on Mon06/14/22 at 0133, Until Discontinu ed, Routine, Pain (scale 4-6), Alternate with Ibuprofen [facility] ibuprofen (IBU) tablet 600 mg 2021-09 0-04 06:33: 35 Yes 600mg 600 mg, Oral, Q6HPRN, Starting on Mon06/14/22 at 0133, Until Discontinu ed, Routine, Pain (scale 1-3) [facility] diphenhydrA MINE (BENADRYL) injection 25 mg 2021-09 0- 06:33: 35 Yes 25mg 25 mg, Slow IV Push, Q6HPRN, Starting on Mon06/14/22 at 0133, Until Discontinu ed, Routine, Itching [facility] diphenhydrA MINE (BENADRYL) tablet 25 mg 2021-09 0 06:33: 35 Yes 25mg 25 mg, Oral, Q6HPRN, Starting on Mon06/14/22 at 0133, Until Discontinu ed, Routine, Sleep, Itching [facility] ondansetron (ZOFRAN (PF)) injection 4 mg 2021-09 0 06:33: 35 Yes 4mg 4 mg, Slow IV Push, Q8HPRN, Starting on Mon06/14/22 at 013, Until Discontinu ed, Routine, Nausea and Vomiting (N/V) [facility] bisacodyL (DULCOLAX) suppository 10 mg 2021-09 0 06:33: 35 Yes 10mg 10 mg, Rectal, QDAILYPRN, Starting on Mon06/14/22 at 0133, Until Discontinu ed, Routine, Constipati on [facility] simethicone (GAS RELIEF (SIMETHICON E)) chewable tablet 160 mg 2021-09 0 06:33: 35 Yes 160mg 160 mg, Oral, PC+HSPRN, Starting on Mon06/14/22 at 0133, Until Discontinu ed, Routine, Gas [facility] docusate (COLACE) capsule 200 mg 2021-09 0 06:33: 35 Yes 200mg 200 mg, Oral, QDAILYPRN, Starting on Mon06/14/22 at 0133, Until Discontinu ed, Routine, Constipati on [facility] magnesium hydroxide (MILK OF MAGNESIA) 400 mg/5 mL suspension 30 mL 2021-09 0- 06:33: 35 Yes 30mL 30 mL, Oral, QDAILYPRN, Starting on Mon06/14/22 at 0133, Until Discontinu ed, Routine, Constipati on [facility] lactated ringers IV infusion 1,000 mL 2021-09 0-04 06:33: 35 Yes 1000mL at 125 mL/hr, 1,000 mL, IV Infusion, PRN, 1 dose, Starting on Mon06/14/22 at 0133, Until Discontinu ed, Routine [facility] lactated ringers IV infusion 1,000 mL 2021-09 0-04 04:45: 00 06-14 06:33 :38 No 1000mL at 125 mL/hr, 1,000 mL, IV Infusion, CONTINUOUS , Starting on Mon06/13/22 at 2345, Until Mon06/14/22 at 0133, TRIXIE [facility] ceFAZolin in 0.9% sodium chloride (ANCEF) 2 gram/100 mL RTU 2 g 2021-09 0-04 02:54: 10 06-14 06:33 :38 No 2000mg 2 g (2,000 mg), IV Piggyback, O.R. HOLDING ONCE, Starting on Mon06/13/22 at 2154, Until Mon06/14/22 at 013, Administer over 30 Minutes, 100 mL
Reas on for Anti-Infec tive: Surgical Prophylaxi s
Surgi renetta Prophylaxi s: [employer]
Duration of therapy: within 24 hours of surgery [facility] sodium citrate-cit kolby acid (BICITRA) 500-334 mg/5 mL solution 30 mL 2021-09 0-04 02:54: 10 06-14 03:23 :00 No 30mL 30 mL, Oral, PRE-PROCED URE ONCE, 1 dose, Starting on Mon06/13/22 at 2154, Until Mon06/13/22 at 2223, Routine, Surgery/Pr ocedure [facility] amitriptyli ne 100 mg tablet 2021-09 0-03 23:46: 17 Yes 100mg Take 100 mg by mouth at bedtime. [facility] ARIPIPRAZOL E (ABILIFY ORAL) 06-01 10:02: 02 06-01 00:00 :00 No Take by mouth. [facility] ARIPIPRAZOL E (ABILIFY ORAL) 06-01 10:02: 02 06-01 00:00 :00 No Take by mouth. [facility] ARIPIPRAZOL E (ABILIFY ORAL) 06-01 10:02: 02 06-01 00:00 :00 No Take by mouth. [facility] ARIPIPRAZOL E (ABILIFY ORAL) 06-01 10:02: 06-01 00:00 :00 No Take by mouth. [facility] amphetamine -dextroamph etamine (ADDERALL XR) 25 mg 24 hr capsule 06-01 10:01: 59 06-01 00:00 :00 No 25mg Take 25 mg by mouth every morning. [facility] amphetamine -dextroamph etamine (ADDERALL XR) 25 mg 24 hr capsule 06-01 10:01: 59 06-01 00:00 :00 No 25mg Take 25 mg by mouth every morning. [facility] amphetamine -dextroamph etamine (ADDERALL XR) 25 mg 24 hr capsule 06-01 10:01: 59 06-01 00:00 :00 No 25mg Take 25 mg by mouth every morning. [facility] amphetamine -dextroamph etamine (ADDERALL XR) 25 mg 24 hr capsule 06-01 10:01: 59 06-01 00:00 :00 No 25mg Take 25 mg by mouth every morning. [facility] metroNIDAZO LE 500 mg tablet 03-23 00:00: 00 Yes [id number] 500mg Take 1 tablet by mouth in the morning and 1 tablet in the evening. [facility] metroNIDAZO LE 500 mg tablet 03-23 00:00: 00 Yes [id number] 500mg Take 1 tablet by mouth in the morning and 1 tablet in the evening. [facility] metroNIDAZO LE 500 mg tablet 2-0 7-13 00:00: 00 Yes [id number] 500mg Take 1 tablet by mouth in the morning and 1 tablet in the evening. [facility] metroNIDAZO LE 500 mg tablet 2-0 7-13 00:00: 00 Yes [id number] 500mg Take 1 tablet by mouth in the morning and 1 tablet in the evening. [facility] metroNIDAZO LE 500 mg tablet 2-0 7-13 00:00: 00 Yes [id number] 500mg Take 1 tablet by mouth in the morning and 1 tablet in the evening. [facility] metroNIDAZO LE 500 mg tablet 2-0 7-13 00:00: 00 Yes [id number] 500mg Take 1 tablet by mouth in the morning and 1 tablet in the evening. [facility] metroNIDAZO LE 500 mg tablet 2-0 7-13 00:00: 00 Yes [id number] 500mg Take 1 tablet by mouth in the morning and 1 tablet in the evening. [facility] metroNIDAZO LE 500 mg tablet 2-0 7-13 00:00: 00 Yes [id number] 500mg Take 1 tablet by mouth in the morning and 1 tablet in the evening. [facility] metroNIDAZO LE 500 mg tablet 2021-0 7-13 00:00: 00 Yes [id number] 500mg Take 1 tablet by mouth in the morning and 1 tablet in the evening. [facility] metroNIDAZO LE 500 mg tablet 2-0 7-13 00:00: 00 Yes [id number] 500mg Take 1 tablet by mouth in the morning and 1 tablet in the evening. [facility] metroNIDAZO LE 500 mg tablet 2-0 7-13 00:00: 00 Yes [id number] 500mg Take 1 tablet by mouth in the morning and 1 tablet in the evening. [facility] metroNIDAZO LE 500 mg tablet 2-0 7-13 00:00: 00 - 00:00 :00 No [id number] 500mg Take 1 tablet by mouth in the morning and 1 tablet in the evening. [facility] proMETHazin e 25 mg tablet 2021-0 11 00:00: 00 Yes [id number] 25mg Take 1 tablet by mouth every 6 (six) hours as needed for Nausea and Vomiting (N/V). [facility] proMETHazin e 25 mg tablet 2021-0 11 00:00: 00 Yes [id number] 25mg Take 1 tablet by mouth every 6 (six) hours as needed for Nausea and Vomiting (N/V). [facility] proMETHazin e 25 mg tablet 2021-0 -11 00:00: 00 Yes [id number] 25mg Take 1 tablet by mouth every 6 (six) hours as needed for Nausea and Vomiting (N/V). [facility] proMETHazin e 25 mg tablet 2021-0 03-21 00:00: 00 Yes [id number] 25mg Take 1 tablet by mouth every 6 (six) hours as needed for Nausea and Vomiting (N/V). [facility] proMETHazin e 25 mg tablet 2021-0 03-21 00:00: 00 Yes [id number] 25mg Take 1 tablet by mouth every 6 (six) hours as needed for Nausea and Vomiting (N/V). [facility] proMETHazin e 25 mg tablet 2021-0 03-21 00:00: 00 Yes [id number] 25mg Take 1 tablet by mouth every 6 (six) hours as needed for Nausea and Vomiting (N/V). [facility] proMETHazin e 25 mg tablet 2021-0 11 00:00: 00 Yes [id number] 25mg Take 1 tablet by mouth every 6 (six) hours as needed for Nausea and Vomiting (N/V). [facility] proMETHazin e 25 mg tablet 2-0 7-11 00:00: 00 Yes [id number] 25mg Take 1 tablet by mouth every 6 (six) hours as needed for Nausea and Vomiting (N/V). [facility] proMETHazin e 25 mg tablet 2021-0 7-11 00:00: 00 Yes [id number] 25mg Take 1 tablet by mouth every 6 (six) hours as needed for Nausea and Vomiting (N/V). [facility] proMETHazin e 25 mg tablet 0 11 00:00: 00 Yes [id number] 25mg Take 1 tablet by mouth every 6 (six) hours as needed for Nausea and Vomiting (N/V). [facility] proMETHazin e 25 mg tablet 0 03-21 00:00: 00 Yes [id number] 25mg Take 1 tablet by mouth every 6 (six) hours as needed for Nausea and Vomiting (N/V). [facility] proMETHazin e 25 mg tablet 0 11 00:00: 00 06-16 00:00 :00 No [id number] 25mg Take 1 tablet by mouth every 6 (six) hours as needed for Nausea and Vomiting (N/V). [facility] metroNIDAZO LE 500 mg tablet 0 14 00:00: 00 Yes [id number] 500mg Take 1 tablet by mouth 2 (two) times daily. [facility] metroNIDAZO LE 500 mg tablet 2021-0 14 00:00: 00 Yes [id number] 500mg Take 1 tablet by mouth 2 (two) times daily. [facility] metroNIDAZO LE 500 mg tablet 2021-0 14 00:00: 00 Yes [id number] 500mg Take 1 tablet by mouth 2 (two) times daily. [facility] metroNIDAZO LE 500 mg tablet 0 14 00:00: 00 Yes [id number] 500mg Take 1 tablet by mouth 2 (two) times daily. [facility] metroNIDAZO LE 500 mg tablet 2021-0 14 00:00: 00 Yes [id number] 500mg Take 1 tablet by mouth 2 (two) times daily. [facility] metroNIDAZO LE 500 mg tablet 2021-0 -14 00:00: 00 Yes [id number] 500mg Take 1 tablet by mouth 2 (two) times daily. [facility] metroNIDAZO LE 500 mg tablet 2021-0 -14 00:00: 00 Yes [id number] 500mg Take 1 tablet by mouth 2 (two) times daily. [facility] metroNIDAZO LE 500 mg tablet 2022-0 6-14 00:00: 00 Yes [id number] 500mg Take 1 tablet by mouth 2 (two) times daily. [facility] metroNIDAZO LE 500 mg tablet 02-22 00:00: 00 Yes [id number] 500mg Take 1 tablet by mouth 2 (two) times daily. [facility] metroNIDAZO LE 500 mg tablet 02-22 00:00: 00 Yes [id number] 500mg Take 1 tablet by mouth 2 (two) times daily. [facility] metroNIDAZO LE 500 mg tablet 02-22 00:00: 00 Yes [id number] 500mg Take 1 tablet by mouth 2 (two) times daily. [facility] metroNIDAZO LE 500 mg tablet 02-22 00:00: 00 06-16 00:00 :00 No [id number] 500mg Take 1 tablet by mouth 2 (two) times daily. [facility] ARIPIPRAZOL E (ABILIFY ORAL) 11-15 10:55: 24 Yes Take by mouth. [facility] amphetamine -dextroamph etamine (ADDERALL XR) 25 mg 24 hr capsule 11-15 10:55: 24 Yes 25mg Take 25 mg by mouth every morning. [facility] amitriptyli ne 100 mg tablet 11-15 10:55: 24 Yes 100mg Take 100 mg by mouth at bedtime. [facility] ARIPIPRAZOL E (ABILIFY ORAL) 11-15 10:55: 24 Yes Take by mouth. [facility] amphetamine -dextroamph etamine (ADDERALL XR) 25 mg 24 hr capsule 11-15 10:55: 24 Yes 25mg Take 25 mg by mouth every morning. [facility] amitriptyli ne 100 mg tablet 11-15 10:55: 24 Yes 100mg Take 100 mg by mouth at bedtime. [facility] ARIPIPRAZOL E (ABILIFY ORAL) 11-15 10:55: 24 Yes Take by mouth. [facility] amphetamine -dextroamph etamine (ADDERALL XR) 25 mg 24 hr capsule 11-15 10:55: 24 Yes 25mg Take 25 mg by mouth every morning. [facility] amitriptyli ne 100 mg tablet 11-15 10:55: 24 Yes 100mg Take 100 mg by mouth at bedtime. [facility] ARIPIPRAZOL E (ABILIFY ORAL) 11-15 10:55: 24 Yes Take by mouth. [facility] amphetamine -dextroamph etamine (ADDERALL XR) 25 mg 24 hr capsule 11-15 10:55: 24 Yes 25mg Take 25 mg by mouth every morning. [facility] amitriptyli ne 100 mg tablet 11-15 10:55: 24 Yes 100mg Take 100 mg by mouth at bedtime. [facility] ARIPIPRAZOL E (ABILIFY ORAL) 11-15 10:55: 24 Yes Take by mouth. [facility] amphetamine -dextroamph etamine (ADDERALL XR) 25 mg 24 hr capsule 11-15 10:55: 24 Yes 25mg Take 25 mg by mouth every morning. [facility] amitriptyli ne 100 mg tablet 11-15 10:55: 24 Yes 100mg Take 100 mg by mouth at bedtime. [facility] amitriptyli ne 100 mg tablet 11-15 10:55: 24 Yes 100mg Take 100 mg by mouth at bedtime. [facility] amitriptyli ne 100 mg tablet 11-15 10:55: 24 Yes 100mg Take 100 mg by mouth at bedtime. [facility] amitriptyli ne 100 mg tablet 11-15 10:55: 24 Yes 100mg Take 100 mg by mouth at bedtime. [facility] amitriptyli ne 100 mg tablet 11-15 10:55: 24 Yes 100mg Take 100 mg by mouth at bedtime. [facility] amitriptyli ne 100 mg tablet 11-15 10:55: 24 Yes 100mg Take 100 mg by mouth at bedtime. [facility] vit 33-iron-fol ic-dha (SELECT-OB + DHA) 29 mg iron-1 mg -250 mg combo pack 11-15 00:00: 00 Yes [id number] 1{packe t} Take 1 Packet by mouth daily. [facility] vit 33-iron-fol ic-dha (SELECT-OB + DHA) 29 mg iron-1 mg -250 mg combo pack 11-15 00:00: 00 Yes [id number] 1{packe t} Take 1 Packet by mouth daily. [facility] vit 33-iron-fol ic-dha (SELECT-OB + DHA) 29 mg iron-1 mg -250 mg combo pack 11-15 00:00: 00 Yes [id number] 1{packe t} Take 1 Packet by mouth daily. [facility] vit 33-iron-fol ic-dha (SELECT-OB + DHA) 29 mg iron-1 mg -250 mg combo pack 11-15 00:00: 00 Yes [id number] 1{packe t} Take 1 Packet by mouth daily. [facility] vit 33-iron-fol ic-dha (SELECT-OB + DHA) 29 mg iron-1 mg -250 mg combo pack 11-15 00:00: 00 Yes [id number] 1{packe t} Take 1 Packet by mouth daily. [facility] vit 33-iron-fol ic-dha (SELECT-OB + DHA) 29 mg iron-1 mg -250 mg combo pack 11-15 00:00: 00 Yes [id number] 1{packe t} Take 1 Packet by mouth daily. [facility] vit 33-iron-fol ic-dha (SELECT-OB + DHA) 29 mg iron-1 mg -250 mg combo pack 11-15 00:00: 00 Yes [id number] 1{packe t} Take 1 Packet by mouth daily. [facility] vit 33-iron-fol ic-dha (SELECT-OB + DHA) 29 mg iron-1 mg -250 mg combo pack 11-15 00:00: 00 Yes [id number] 1{packe t} Take 1 Packet by mouth daily. [facility] vit 33-iron-fol ic-dha (SELECT-OB + DHA) 29 mg iron-1 mg -250 mg combo pack 11-15 00:00: 00 Yes [id number] 1{packe t} Take 1 Packet by mouth daily. [facility] vit 33-iron-fol ic-dha (SELECT-OB + DHA) 29 mg iron-1 mg -250 mg combo pack 11-15 00:00: 00 Yes [id number] 1{packe t} Take 1 Packet by mouth daily. [facility] vit 33-iron-fol ic-dha (SELECT-OB + DHA) 29 mg iron-1 mg -250 mg combo pack 11-15 00:00: 00 Yes [id number] 1{packe t} Take 1 Packet by mouth daily. [facility] vit 33-iron-fol ic-dha (SELECT-OB + DHA) 29 mg iron-1 mg -250 mg combo pack 11-15 00:00: 00 06-16 00:00 :00 No [id number] 1{packe t} Take 1 Packet by mouth daily. [facility] Vital Signs Vital Name Observation Time Observation Value Comments S katrinmilton Systolic blood pressure 2022-06-16 13:31:00 122 mm[Hg] [facility] Diastolic blood pressure 2022-06-16 13:31:00 79 mm[Hg] [facility] Heart rate 2022-06-16 13:31:00 90 /min [facility] Body temperature 2022-06-16 13:31:00 36.67 Lindsey [facility] Respiratory rate 2022-06-16 13:31:00 18 /min [facility] Oxygen saturation in Arterial blood by Pulse oximetry 2022-06-16 13:31:00 98 /min [facility] Body height 2022-06-14 02:13:00 160 cm [facility] Body weight 2022-06-14 02:13:00 83.008 kg [facility] BMI 2022-06-14 02:13:00 32.42 kg/m2 [facility] Heart rate 2022-06-14 03:00:00 83 /min [facility] Respiratory rate 2022-06-14 03:00:00 18 /min [facility] Oxygen saturation in Arterial blood by Pulse oximetry 2022-06-14 03:00:00 100 /min [facility] Systolic blood pressure 2022-06-14 02:13:00 119 mm[Hg] [facility] Diastolic blood pressure 2022-06-14 02:13:00 68 mm[Hg] [facility] Body temperature 2022-06-14 02:13:00 36.78 Lindsey [facility] Body height 2022-06-14 02:13:00 160 cm [facility] Body weight 2022-06-14 02:13:00 83.008 kg [facility] BMI 2022-06-14 02:13:00 32.42 kg/m2 [facility] Systolic blood pressure 2022-06-13 19:41:00 117 mm[Hg] [facility] Diastolic blood pressure 2022-06-13 19:41:00 77 mm[Hg] [facility] Heart rate 2022-06-13 19:41:00 92 /min [facility] Body temperature 2022-06-13 19:41:00 36.94 Lindsey [facility] Respiratory rate 2022-06-13 19:41:00 20 /min [facility] Body height 2022-06-13 19:41:00 160 cm [facility] Body weight 2022-06-13 19:41:00 82.827 kg [facility] BMI 2022-06-13 19:41:00 32.35 kg/m2 [facility] Systolic blood pressure 2022-06-01 14:49:00 114 mm[Hg] [facility] Diastolic blood pressure 2022-06-01 14:49:00 69 mm[Hg] [facility] Heart rate 2022-06-01 14:49:00 95 /min [facility] Body temperature 2022-06-01 14:49:00 36.06 Lindsey [facility] Respiratory rate 2022-06-01 14:49:00 18 /min [facility] Body weight 2022-06-01 14:49:00 82.373 kg [facility] Procedures Procedure Date / Time Performed Performing Clinician Source DME/SUPPLY JUSTIFICATION 2022-07-14 05:01:00 Doc tor Unassigned, [place] [facility] CBC WITH DIFF 2022-06-14 09:46:00 [facility] CBC WITH DIFF 2022-06-14 09:46:00 Marion España [facility] URINE DRUG (IMMUNOASSAY) - COMPREHENSIVE DRUG SCREEN 2022-06-14 05:53:00 Degraffenrgabe [facility] URINE DRUG (IMMUNOASSAY) - COMPREHENSIVE DRUG SCREEN 2022-06-14 05:53:00 Degraffenreizaid [facility] VENOUS CORD GAS 2022-06-14 03:56:00 DegraffenreidTadeo [facility] VENOUS CORD GAS 2022-06-14 03:56:00 DegraffenreiTadeo mar [facility] SECTION 2022-06-14 03:11:00 Shravan Lyman [facility] SECTION 2022-06-14 03:11:00 Shravan Lyman U [facility] HB ABO GROUPING 2022-06-14 03:00:00 [facility] IMMUNE GLOBULIN 2022-06-14 03:00:00 Sandra España [facility] HB ABO GROUPING 2022-06-14 03:00:00 [facility]o [facility] IMMUNE GLOBULIN 2022-06-14 03:00:00 Sandra España [facility] CBC WITH DIFF 2022-06-14 02:58:00 Degraffenreid, [facility] HEPATITIS B SURFACE ANTIGEN 2022-06-14 02:58:00 Degraffenreid, [facility] GALV ONLY - SYPHILIS IGG/IGM 2022-06-14 02:58:00 Degraffenreid, [facility] CBC WITH DIFF 2022-06-14 02:58:00 Degraffenreid, [facility] HEPATITIS B SURFACE ANTIGEN 2022-06-14 02:58:00 Degraffenreid, [facility] GALV ONLY - SYPHILIS IGG/IGM 2022-06-14 02:58:00 Degraffenreid, [facility] NON-STRESS TEST 2022-06-13 21:53:16 Shy Gutierrez [facility] POCT URINALYSIS 2022-06-13 00:00:00 Susie Gonzalez [facility] TDAP VACCINE, >11 YRS, IM 2022-06-01 15:02:51 Susie Gonzalez [facility] POCT URINALYSIS 2022-06-01 14:52:00 Susie Gonzalez [facility] Encounters Start Date/Time End Date/Time Encounter Type Admission Type Attending [facility] Care Facility Care Department Encounter ID Source 2022-07-14 13:00:00 2022-07-14 13:00:00 Outpatient MAYELIN MIRANDA [facility] [id number] [facility] 2022-07-14 00:00:00 2022-07-14 00:00:00 Orders Only Doctor Unassigned, [place] [facility] 1.2.840.114 350.1.13.10 4.2.7.2.686 [id number] [facility] 2022-06-20 15:45:00 2022-06-20 15:45:00 Outpatient SUSIE HUGHES [facility] [id number] [facility] 2022-06-13 20:50:00 2022-06-16 11:27:00 Hospital Encounter [facility] 1.2.840.114 350.1.13.10 4.2.7.2.686 [id number] [facility] 2022-06-16 00:00:00 2022-06-16 00:00:00 Encounter 1.2.840.1 [id number] 1.2.840.114 350.1.13.10 4.2.7.2.696 [id number] [facility] 2022-06-13 22:10:00 2022-06-14 00:01:00 Surgery [facility] 1.2.840.114 350.1.13.10 4.2.7.2.686 [id number] [facility] 2022-06-13 14:30:00 2022-06-13 16:34:43 Outpatient SHY PATEL SARAH [facility] [id number] [facility] 2022-06-13 14:30:00 2022-06-13 16:34:43 Routine Visit Provider, Shy Morrison [facility] [employer]ORAL DESIGNER SALESPERSON [facility] 1.2.840.114 350.1.13.10 4.2.7.2.686 [id number] [facility] 2022-06-13 14:30:00 2022-06-13 16:34:43 Outpatient SHY PATEL SARAH [facility] JERICA [id number] [facility] 2022-06-06 15:15:00 2022-06-06 15:15:00 Outpatient SUSIE HUGHES [facility] [id number] [facility] 2022-06-01 09:15:00 2022-06-01 11:00:25 Outpatient R SUSIE GONZALEZ [facility] [id number] [facility] 2022-06-01 09:15:00 2022-06-01 11:00:25 Routine Visit Susie Gonzalez [facility] FLORAL DESIGNER SALESPERSON [facility]NAL [facility] CHILD [facility] 1..840.114 350.1.13.10 4.2.7.2.686 [id number] [facility] 2022-06-01 09:30:00 2022-06-01 09:30:00 Outpatient R SUSIE GONZALEZ [facility] [id number] [facility] 2022-05-20 10:15:00 2022-05-20 10:15:00 Outpatient R TIFFANIE WEISS [facility] [id number] [facility] 2022-04-21 10:00:00 2022-04-21 10:00:00 Outpatient R TIFFANIE WEISS [facility] [id number] [facility] 2022-04-11 14:00:00 2022-04-11 14:00:00 Outpatient R TIFFANIE WEISS [facility] [id number] [facility] 2022-03-28 14:00:00 2022-03-28 14:52:56 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686 [id number] [facility] 2022-03-28 00:00:00 2022-03-28 00:00:00 Abstract Susie Gonzalez [facility] FLORAL DESIGNER SALESPERSON [facility] 1.2.840.114 350.1.13.10 4.2.7.2.686 [id number] [facility] 2022-03-28 00:00:00 2022-03-28 00:00:00 Telephone Tiffanie Weiss [facility] FLORAL DESIGNER SALESPERSON [facility] CHILD [facility] 1.2.840.114 350.1.13.10 4.2.7.2.686 [id number] [facility] 2022-03-23 00:00:00 2022-03-23 00:00:00 Telephone Tiffanie Weiss [facility] FLORAL DESIGNER SALESPERSON [facility] 1.2.840.114 350.1.13.10 4.2.7.2.686 [id number] [facility] 2022-03-21 13:00:00 2022-03-21 14:04:19 [facility] [id number] [facility] 2022-03-21 13:00:00 2022-03-21 14:04:19 Routine Visit Tiffanie Weiss [facility] FLORAL DESIGNER SALESPERSON [facility] 1.2.840.114 350.1.13.10 4.2.7.2.686 [id number] [facility] 2022-03-21 13:00:00 2022-03-21 13:00:00 Outpatient R TIFFANIE WEISS [facility] [id number] [facility] 2022-02-22 00:00:00 2022-02-22 00:00:00 Telephone Stephonisatu Tiffanie Caraballo [facility] FLORAL DESIGNER SALESPERSON [facility] 1.2.840.114 350.1.13.10 4.2.7.2.686 [id number] [facility] 2022-02-21 14:15:00 2022-02-21 15:05:22 Outpatient Mg BROOKSMAGALYSTIFFANIE VARGAS [facility] [id number] [facility] 2022-02-21 14:15:00 2022-02-21 15:05:22 Routine Visit Stephonisatu Tiffanie Rashmi [facility] FLORAL DESIGNER SALESPERSON [facility] 1.2.840.114 350.1.13.10 4.2.7.2.686 [id number] [facility] 2022-02-21 00:00:00 2022-02-21 00:00:00 Orders Only Doctor Unassigned, [place] [facility] 1..840.114 350.1.13.10 4.2.7.2.686 [id number] [facility] 2022-01-25 09:30:00 2022-01-25 09:30:00 Outpatient TL SOTO [facility] [id number] [facility] 2022-01-10 15:45:00 2022-01-10 15:45:00 Outpatient SUSIE HUGHES [facility] [id number] [facility] 2022-01-07 09:00:00 2022-01-07 09:00:00 Outpatient SUSIE HUGHES [facility] [id number] [facility] 2021-12-13 14:30:00 2021-12-13 14:30:00 Outpatient SUSIE HUGHES [facility] [id number] [facility] 2021-12-13 10:30:00 2021-12-13 10:58:28 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, Ronald Rocha [facility] FLORAL DESIGNER SALESPERSON [facility] 1.2.840.114 350.1.13.10 4.2.7.2.686 [id number] [facility] 2021-12-13 10:30:00 2021-12-13 10:30:00 Outpatient P SUSIE GONZALEZ [facility] [id number] [facility] 2021-12-13 00:00:00 2021-12-13 00:00:00 Abstract Susie Gonzalez [facility] FLORAL DESIGNER SALESPERSON [facility] 1.2.840.114 350.1.13.10 4.2.7.2.686 [id number] [facility] 2021-11-19 00:00:00 2021-11-19 00:00:00 Telephone Susie Gonzalez [facility] FLORAL DESIGNER SALESPERSON [facility] 1..840.114 350.1.13.10 4.2.7.2.686 [id number] [facility] 2021-11-17 10:30:00 2021-11-17 11:16:07 Nurse Visit Visit, MadysonRmchp Nurse Susie Gonzalez [facility] FLORAL DESIGNER SALESPERSON [facility] 1.2.840.114 350.1.13.10 4.2.7.2.686 [id number] [facility] 2021-11-17 10:30:00 2021-11-17 10:30:00 Outpatient SUSIE HUGHES [facility] [id number] [facility] 2021-11-16 00:00:00 2021-11-16 00:00:00 Telephone Susie Gonzalez [facility] FLORAL DESIGNER SALESPERSON [facility] 1.2.840.114 350.1.13.10 4.2.7.2.686 [id number] [facility] 2021-11-15 09:45:00 2021-11-15 11:30:15 Outpatient R GONZALEZ, ROSVIOLETAPaulo [facility] [id number] [facility] 2021-11-15 09:45:00 2021-11-15 11:30:15 Initial Visit Susie Gonzalez Mg [facility] FLORAL DESIGNER SALESPERSON [facility] 1.2840.114 350.1.13.10 4.2.7.2.686 [id number] [facility] 2021-11-15 00:00:00 2021-11-15 00:00:00 Orders Only Doctor Unassigned, [place] [facility] 1.840.114 350.1.13.10 4.2.7.2.686 [id number] [facility] 2021-11-11 14:30:00 2021-11-11 14:30:00 Outpatient R DAVE HERNANDEZ [facility] [id number] [facility] 2021-01-22 15:24:07 2021-01-22 16:17:44 Office Visit Tiffanie Weiss [facility] FLORAL DESIGNER SALESPERSON [facility] 1..840.114 350.1.13.10 4.2.7.2.686 [id number] [facility] 2021-01-22 15:30:00 2021-01-22 15:30:00 Outpatient R TIFFANIE WEISS [facility] [id number] [facility] 2020-11-30 13:15:00 2020-11-30 13:15:00 Outpatient R TIFFANIE WEISS [facility] [id number] [facility] 2020-11-24 15:47:42 2020-11-24 16:41:18 Office Visit Tiffanie Weiss [facility] FLORAL DESIGNER SALESPERSON [facility] 1.2.840.114 350.1.13.10 4.2.7.2.686 [id number] [facility] 2020-11-24 16:00:00 2020-11-24 16:00:00 Outpatient R TIFFANIE WEISS [facility] [id number] [facility] 2020-11-24 00:00:00 2020-11-24 00:00:00 Orders Only Doctor Unassigned, [place] [facility] 1.2.840.114 350.1.13.10 4.2.7.2.686 [id number] [facility] 2019-05-16 10:17:05 2019-05-16 10:47:05 Office Visit Vesta Cortés [facility] FLORAL DESIGNER SALESPERSON [facility] 1.2.840.114 350.1.13.10 4.2.7.2.686 [id number] [facility] 2019-05-16 00:00:00 2019-05-16 00:00:00 Letter (Out) Vesta Cortés [facility] FLORAL DESIGNER SALESPERSON [facility] 1.2.840.114 350.1.13.10 4.2.7.2.686 [id number] [facility] 2019-05-16 00:00:00 2019-05-16 00:00:00 Telephone Vesta Cortés [facility] FLORAL DESIGNER SALESPERSON [facility] 1.2.840.114 350.1.13.10 4.2.7.2.686 [id number] [facility] 2019-05-15 12:45:15 2019-05-15 13:00:15 Office Visit Vesta Cortés [facility] FLORAL DESIGNER SALESPERSON [facility] 1.2.840.114 350.1.13.10 4.2.7.2.686 [id number] [facility] 2019-05-15 00:00:00 2019-05-15 00:00:00 Telephone Catie Boss [facility] FLORAL DESIGNER SALESPERSON [facility] 1.840.114 350.1.13.10 4.2.7.2.686 [id number] [facility] 2019-05-15 00:00:00 2019-05-15 00:00:00 Orders Only Doctor Unassigned, [place] [facility] 1.840.114 350.1.13.10 4.2.7.2.686 [id number] [facility] Results Test Description Test Time Test Comments Results Result Co mments Source [facility] SY[facility]IL[facility] [id number] 14:50:49* Test Item Value Reference Range Interpretation Comme nts Syphilis IgG/IgM (test code = 37813-4) Non-reactive Non-reactive CHAGO (test code = CHAGO) Non-reactive - No serologic evidence of T. pallidum infection. Cannot exclude incubating or early syphilis. Submit a second specimen in 2-4 weeks if syphilis is clinically suspected. Equivocal - Further testing to follow. Reactive - Further testing to follow. Lab Interpretation (test code = 79266-5) Normal [facility] (D) IMMUNE [id number] 06:34:45* Test Item Value Reference Range Interpretation Comme nts RHIG CANDIDATE? (test code = 5055) No- see comment Patient is not a candidate for RhIg- Patient is Rh Positive.Performed at [facility] Laboratory Services - [facility] Blood [place] [id number] Free: [phone] No. [id number] [facility] (D) IMMUNE [id number] 06:34:45* Test Item Value Reference Range Interpretation Comme nts RHIG CANDIDATE? (test code = 5055) No- see comment Patient is not a candidate for RhIg- Patient is Rh Positive.Performed at [facility] Laboratory Services - [facility] Blood [address] Free: [phone] No. [id number] [facility] B Surface [id number] 04:29:00 * Test Item Value Reference Range Interpretation Comme nts HBsAg Semi-Quantitative (saleem t code = 5195-3) Negative Negative [facility] B Surface [id number] 04:29:00 * Test Item Value Reference Range Interpretation Comme nts HBsAg Semi-Quantitative (saleem t code = 5195-3) Negative Negative [facility] [id number] 04:15:10* Test Item Value Reference Range Interpretation Comme nts BASE EXCESS, CORD (test code = 4565369392) mEq/L AC PH, CORD (BEAKER) (test code = 2855145424) 7.18-7.38 L PC02, CORD (test code = 9963767658) See_Comment [Automated messa ge] The system which generated this result transmitted reference range: 32 - 66 mmHg. The reference range was not used to interpret this result as normal/abnormal. PO2, CORD (test code = 8798005055) <10 BICARBONATE, CORD (test code = 8247004053) See_Comment [Automated me ssage] The system which generated this result transmitted reference range: 17 - 27 mEq/L. The reference range was not used to interpret this result as normal/abnormal. Lab Interpretation (test code = 88304-5) Abnormal [facility] Cord [id number] 04:15:10* Test Item Value Reference Range Interpretation Comme nts BASE EXCESS, CORD (test code = 9245898969) mEq/L AC PH, CORD (BEAKER) (test code = 8551940867) 7.18-7.38 L PC02, CORD (test code = 6377183548) See_Comment [Automated messa ge] The system which generated this result transmitted reference range: 32 - 66 mmHg. The reference range was not used to interpret this result as normal/abnormal. PO2, CORD (test code = 8193401830) <10 BICARBONATE, CORD (test code = 1844211108) See_Comment [Automated me ssage] The system which generated this result transmitted reference range: 17 - 27 mEq/L. The reference range was not used to interpret this result as normal/abnormal. Lab Interpretation (test code = 91515-2) Abnormal [facility] [employer] Cord [id number] 04:12:23* Test Item Value Reference Range Interpretation Comme nts VENOUS BASE EXCESS, CORD (test code = 0913896951) mEq/L VENOUS PH, CORD (test code = 3191875177) 7.25-7.45 VENOUS PC02, CORD (test code = 4469021375) See_Comment H [Automated me ssage] The system which generated this result transmitted reference range: 27 - 49 mmHg. The reference range was not used to interpret this result as normal/abnormal. VENOUS PO2, CORD (test code = 6320511222) See_Comment L [Automated me ssage] The system which generated this result transmitted reference range: 17 - 41 mmHg. The reference range was not used to interpret this result as normal/abnormal. VENOUS BICARBONATE, CORD (test code = 6127872762) See_Comment [Automa shaheed message] The system which generated this result transmitted reference range: 12 - 29 mEq/L. The reference range was not used to interpret this result as normal/abnormal. Lab Interpretation (test code = 56331-9) Abnormal [facility] Cord [id number] 04:12:23* Test Item Value Reference Range Interpretation Comme nts VENOUS BASE EXCESS, CORD (test code = 3977420681) mEq/L VENOUS PH, CORD (test code = 9417849816) 7.25-7.45 VENOUS PC02, CORD (test code = 9042350194) See_Comment H [Automated me ssage] The system which generated this result transmitted reference range: 27 - 49 mmHg. The reference range was not used to interpret this result as normal/abnormal. VENOUS PO2, CORD (test code = 1238597654) See_Comment L [Automated me ssage] The system which generated this result transmitted reference range: 17 - 41 mmHg. The reference range was not used to interpret this result as normal/abnormal. VENOUS BICARBONATE, CORD (test code = 0506258237) See_Comment [Automa shaheed message] The system which generated this result transmitted reference range: 12 - 29 mEq/L. The reference range was not used to interpret this result as normal/abnormal. Lab Interpretation (test code = 86512-4) [facility]normal [facility] - ONCE [id number] 03:47:01 * Test Item Value Reference Range Interpretation Comme nts ABO & RH (test code = 20) A POSITIVE Performed at [facility] Laboratory Services - [facility] Blood [address] Free: [phone] No. [id number] IAT (test code = 1185) Negative Performed at [facility] Laboratory Services - [address] Free: [phone] No. [id number] [facility] and Screen - ONCE [id number] 03:47:01 * Test Item Value Reference Range Interpretation Comme nts ABO & RH (test code = 20) A POSITIVE Performed at [facility] Services - [address] Free: [phone] No. [id number] IAT (test code = 1185) Negative Performed at [facility] Services - [address] Free: [phone] No. [id number] [facility] with [id number] 03:20:31* Test Item Value Reference Range Interpretation Comme nts WBC (test code = 6690-2) See_Comment H [Automated messa ge] The system which generated this result transmitted reference range: 4.30 - 11.10 10*3/?L. The reference range was not used to interpret this result as normal/abnormal. RBC (test code = 789-8) See_Comment L [Automated messa ge] The system which generated this result transmitted reference range: 3.93 - 5.25 10*6/?L. The reference range was not used to interpret this result as normal/abnormal. HGB (test code = 718-7) 11.1 g/dL 11.6-15 L HCT (test code = 4544-3) 32.2 % 35.7-45.2 L MCV (test code = 787-2) 82.8 fL 80.6-95.5 MCH (test code = 785-6) 28.5 pg 25.9-32.8 MCHC (test code = 786-4) 34.5 g/dL 31.6-35.1 RDW-SD (test code = 84950-1) 39.4 fL 39-49.9 RDW-CV (test code = 788-0) 13.1 % 12-15.5 PLT (test code = 777-3) See_Comment H [Automated messa ge] The system which generated this result transmitted reference range: 166 - 358 10*3/?L. The reference range was not used to interpret this result as normal/abnormal. MPV (test code = 18279-2) 9.7 fL 9.5-12.9 NRBC/100 WBC (test code = 3974603467) See_Comment [Automated Gertrude ssage] The system which generated this result transmitted reference range: 0.0 - 10.0 /100 WBCs. The reference range was not used to interpret this result as normal/abnormal. NRBC x10^3 (test code = 5091805606) See_Comment [Automated messa ge] The system which generated this result transmitted reference range: 10*3/?L. The reference range was not used to interpret this result as normal/abnormal. GRAN MAT (NEUT) % (test code = 770-8) 64.5 % IMM GRAN % (test code = 7856235075) 0.40 % LYMPH % (test code = 736-9) 26.6 % MONO % (test code = 5905-5) 7.0 % EOS % (test code = 713-8) 1.2 % BASO % (test code = 706-2) 0.3 % GRAN MAT x10^3(ANC) (test code = 7205432393) 7.25 10*3/uL 1.88-7.09 H IMM GRAN x10^3 (test code = 5124607379) 0.04 10*3/uL 0-0.06 LYMPH x10^3 (test code = 731-0) 2.99 10*3/uL 1.32-3.29 MONO x10^3 (test code = 742-7) 0.79 10*3/uL 0.33-0.92 EOS x10^3 (test code = 711-2) 0.14 10*3/uL 0.03-0.39 BASO x10^3 (test code = 704-7) 0.03 10*3/uL 0.01-0.07 Lab Interpretation (test code = 83308-6) Abnormal [facility] with [id number] 03:20:31* Test Item Value Reference Range Interpretation Comme nts WBC (test code = 6690-2) See_Comment H [Automated messa ge] The system which generated this result transmitted reference range: 4.30 - 11.10 10*3/?L. The reference range was not used to interpret this result as normal/abnormal. RBC (test code = 789-8) See_Comment L [Automated messa ge] The system which generated this result transmitted reference range: 3.93 - 5.25 10*6/?L. The reference range was not used to interpret this result as normal/abnormal. HGB (test code = 718-7) 11.1 g/dL 11.6-15 L HCT (test code = 4544-3) 32.2 % 35.7-45.2 L MCV (test code = 787-2) 82.8 fL 80.6-95.5 MCH (test code = 785-6) 28.5 pg 25.9-32.8 MCHC (test code = 786-4) 34.5 g/dL 31.6-35.1 RDW-SD (test code = 10014-3) 39.4 fL 39-49.9 RDW-CV (test code = 788-0) 13.1 % 12-15.5 PLT (test code = 777-3) See_Comment H [Automated messa ge] The system which generated this result transmitted reference range: 166 - 358 10*3/?L. The reference range was not used to interpret this result as normal/abnormal. MPV (test code = 81092-6) 9.7 fL 9.5-12.9 NRBC/100 WBC (test code = 7067460968) See_Comment [Automated Gertrude ssage] The system which generated this result transmitted reference range: 0.0 - 10.0 /100 WBCs. The reference range was not used to interpret this result as normal/abnormal. NRBC x10^3 (test code = 6678463043) See_Comment [Automated messa ge] The system which generated this result transmitted reference range: 10*3/?L. The reference range was not used to interpret this result as normal/abnormal. GRAN MAT (NEUT) % (test code = 770-8) 64.5 % IMM GRAN % (test code = 2448714691) 0.40 % LYMPH % (test code = 736-9) 26.6 % MONO % (test code = 5905-5) 7.0 % EOS % (test code = 713-8) 1.2 % BASO % (test code = 706-2) 0.3 % GRAN MAT x10^3(ANC) (test code = 9367361380) 7.25 10*3/uL 1.88-7.09 H IMM GRAN x10^3 (test code = 2885627662) 0.04 10*3/uL 0-0.06 LYMPH x10^3 (test code = 731-0) 2.99 10*3/uL 1.32-3.29 MONO x10^3 (test code = 742-7) 0.79 10*3/uL 0.33-0.92 EOS x10^3 (test code = 711-2) 0.14 10*3/uL 0.03-0.39 BASO x10^3 (test code = 704-7) 0.03 10*3/uL 0.01-0.07 Lab Interpretation (test code = 91249-4) Abnormal [facility] URINALYSIS W SPECIFIC [id number] 19:47:00* Test Item Value Reference Range Interpretation Comme nts POCT U SP GRAV (test code = 3255) . 1.005-1.025 POCT PH U (test code = 3254) . 5-8 POCT U LEUK EST (test code = 3263) . Negative - Negative POCT U NIT (test code = 3262) . Negative - Negati ve POCT U PROT (test code = 3259) TRACE Negative - Negat ana cristina POCT U GLU (test code = 3256) NEGATIVE Negative - Negati ve POCT U KETONE (test code = 3258) . Negative - Neg ative POCT U UROBILI (test code = 3260) . 0.2-1 POCT U BILI (test code = 3261) . Negative - Negat ana cristina POCT U BLD (test code = 3257) . Negative - Negati ve POCT U COLOR (test code = 3266) . POCT U APPEAR (test code = 3267) . [facility] URINALYSIS W SPECIFIC [id number] 14:53:00* Test Item Value Reference Range Interpretation Comme nts POCT U SP GRAV (test code = 3255) * 1.005-1.025 POCT PH U (test code = 3254) * 5-8 POCT U LEUK EST (test code = 3263) * Negative - Negative POCT U NIT (test code = 3262) * Negative - Negati ve POCT U PROT (test code = 3259) trace Negative - Negat ana cristina POCT U GLU (test code = 3256) negative Negative - Negati ve POCT U KETONE (test code = 3258) * Negative - Neg ative POCT U UROBILI (test code = 3260) * 0.2-1 POCT U BILI (test code = 3261) * Negative - Negat ana cristina POCT U BLD (test code = 3257) * Negative - Negati ve POCT U COLOR (test code = 3266) * POCT U APPEAR (test code = 3267) [facility] URINALYSIS W SPECIFIC [id number] 14:53:00* Test Item Value Reference Range Interpretation Comme nts POCT U SP GRAV (test code = 3255) * 1.005-1.025 POCT PH U (test code = 3254) * 5-8 POCT U LEUK EST (test code = 3263) * Negative - Negative POCT U NIT (test code = 3262) * Negative - Negati ve POCT U PROT (test code = 3259) trace Negative - Negat ana cristina POCT U GLU (test code = 3256) negative Negative - Negati ve POCT U KETONE (test code = 3258) * Negative - Neg ative POCT U UROBILI (test code = 3260) * 0.2-1 POCT U BILI (test code = 3261) * Negative - Negat ana cristina POCT U BLD (test code = 3257) * Negative - Negati ve POCT U COLOR (test code = 3266) * POCT U APPEAR (test code = 3267) [facility] [id number] 14:53:00* Test Item Value Reference Range Interpretation Comme nts POCT U SP GRAV (test code = 3255) * 1.005-1.025 POCT PH U (test code = 3254) * 5-8 POCT U LEUK EST (test code = 3263) * Negative - Negative POCT U NIT (test code = 3262) * Negative - Negati ve POCT U PROT (test code = 3259) trace Negative - Negat ana cristina POCT U GLU (test code = 3256) negative Negative - Negati ve POCT U KETONE (test code = 3258) * Negative - Neg ative POCT U UROBILI (test code = 3260) * 0.2-1 POCT U BILI (test code = 3261) * Negative - Negat ana cristina POCT U BLD (test code = 3257) * Negative - Negati ve POCT U COLOR (test code = 3266) * POCT U APPEAR (test code = 3267) [facility] SPECIFIC [id number] 14:53:00* Test Item Value Reference Range Interpretation Comme nts POCT U SP GRAV (test code = 3255) * 1.005-1.025 POCT PH U (test code = 3254) * 5-8 POCT U LEUK EST (test code = 3263) * Negative - Negative POCT U NIT (test code = 3262) * Negative - Negati ve POCT U PROT (test code = 3259) trace Negative - Negat ana cristina POCT U GLU (test code = 3256) negative Negative - Negati ve POCT U KETONE (test code = 3258) * Negative - Neg ative POCT U UROBILI (test code = 3260) * 0.2-1 POCT U BILI (test code = 3261) * Negative - Negat ana cristina POCT U BLD (test code = 3257) * Negative - Negati ve POCT U COLOR (test code = 3266) * POCT U APPEAR (test code = 3267) [facility]
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
[2023-09-05 07:12] VITALS: BP 124/83; TEMP 97.9; O2SAT 100
== END ==
LOC: ER 05:25
DX: R45.7 State of emotional shock and stress, unspecified (principal); S00.03XA Contusion of scalp, initial encounter; Y04.8XXA Assault by other bodily force, initial encounter
CPT/HCPCS: 99282

== ENCOUNTER → 2023-10-14 | Emergency (ER) | payer OTHER ==
--- OUTSIDE RECORDS SUMMARY | 2023-10-14 21:23 | XMS REPORT | Continuity of Care Document ---
Author Name Unknown Address [address] [place] [address] [facility] thconnect Address [address] [place] [address] Care Team Providers Care Pencil Maker Name Role Phone Susie Waterman Primary Care Physician [phone] SUSIE GONZALEZ Attending Clinician MAYELIN Cancino Attending Clinician Vinnie verma Doctor Unassigned, Hugo Attending Clinician ALETHEA Martinez Attending Clinician Unavailable Shravan Lyman DO Attending Clinician SHY GUTIERREZ Attending Clinician UnavailSHY Aguayo Attending Clinician Unavailcathie e Provider, [facility] Temp Attending Clinician Ana diego NAIRP, Susie Holliday Attending Clinician [phone] AKINTIFFANIE JACKSON Attending Clinician Unavail able RONALD IRELAND Attending Clinician Unavailable RONALD IRELAND Attending Clinician Unavailable Ultrasound, Aleksey Attending Clinician UnavailRonald Tabares MD Attending Clinician [phone] Akinsimonalisa WHCNP, Tiffanie Caraballo Attending Clinician + TL SCHMIDT Attending Clinician Unavailable Visit, [facility] Nurse Attending Clinician UnaDAVE Felipe Attending Clinician Unavailable Moo RECORD SYSTEMS ANALYST, Vesta Milligan Attending Clinician [phone] Catie Mcmahan Attending Clinician [phone] Shravan Lyman DO Admitting Clinician [phone] Payers Payer Name Policy Type Policy Number Effective Date Expirati on Date Source [place] [employer] [id number] 2016 00:00:00 Problems Condition Name Condition Details Condition Category Status Onset Date Resolution Date Last Treatment Date Treating Clinician Comments Source Uterine size-date discrepanc y in third trimester Uterine size-date discrepanc y in third trimester Disease Active 2021-09 0- 00:00: 00 [facility] heart rate decelerati ons affecting management of mother heart rate decelerati ons affecting management of mother Disease Active 2021-09 0- 00:00: 00 [facility] 36 weeks gestation of 36 weeks gestation of Disease Active 2021-09 0- 00:00: 00 [facility] Obesity (BMI 30-39.9) Obesity (BMI 30-39.9) Disease Active 2021-09 0- 00:00: 00 [facility] Gonorrhea in Gonorrhea in Disease Active 03-21 00:00: 00 [facility] Back pain during Back pain during Disease Active 03-21 00:00: 00 [facility] Primigravi da in third trimester Primigravi da in third trimester Disease Active 11-15 00:00: 00 [facility] History of depression History of depression Disease Active 11-15 00:00: 00 [facility] Supervisio n of high-risk with insufficie nt care Supervisio n of high-risk with insufficie nt care Disease Active 11-15 00:00: 00 [facility] High risk teen in third trimester High risk teen in third trimester Disease Active 11-15 00:00: 00 [facility] Chlamydia infection Chlamydia infection Disease Active 05-16 00:00: 00 [facility] Generalize d anxiety disorder Generalize d anxiety disorder Disease Active 2016-09 0 00:00: 00 [facility] Asthma, unspecifie d asthma severity, unspecifie d whether complicate d, unspecifie d whether persistent Asthma, unspecifie d asthma severity, unspecifie d whether complicate d, unspecifie d whether persistent Disease Active 2016-09 0 00:00: 00 [facility] Depression during Depression during Disease Active 2016-09 0 00:00: 00 [facility] Obesity in Obesity in Disease Active 2016-09 0 00:00: 00 [facility] Allergies, Adverse Reactions, Alerts Allergy Name Allergy Type Status Severity Reaction(s) Onset Date Inactive Date Treating Clinician Comments Source NO KNOWN ALLERGIE S Drug Class Active [facility] Social History Social Habit Start Date Stop Date Quantity Comments Source ASSERTION 2021-10-17 00:00:00 [facility] History of tobacco use Cigarette Smoker [facility] Alcohol intake 2022-06-15 00:00:00 2022-06-15 00:00:00 0 /d [facility] Exposure to SARS-CoV-2 (event) 2022-06-03 00:00:00 2022-06-13 14:43:00 Not sure [facility] Tobacco use and exposure 2022-03-21 00:00:00 2022-03-21 00:00:00 Smokeless tobacco non-user [facility] Sex Assigned At 2002 00:00:00 2000 00:00:00 [facility] Smoking Status Start Date Stop Date Source Smokes tobacco daily 2022-03-21 00:00:00 [facility] Medications Ordered Medication Name Filled Medication Name Start Date Stop Date Current Medication? Ordering Clinician Indication Dosage Frequency Signature (SIG) Comments Components Source amitriptyli ne 100 mg tablet 2021-09 03:15: 58 06-16 00:00 :00 No 100mg Take 100 mg by mouth at bedtime. [facility] [id number] fum-folic () 27 mg iron- 1 mg folic tablet 2021-09 00:00: 00 Yes [id number] 1{tbl} Take 1 tablet by mouth in the morning. [facility] docusate 100 mg capsule 2021-09 00:00: 00 Yes [id number] 200mg Take 2 capsules by mouth once daily as needed for Constipati on. [facility] ferrous sulfate 325 mg (65 mg iron) tablet 2021-09 00:00: 00 Yes [id number] 325mg Take 1 tablet by mouth in the morning and 1 tablet in the evening. [facility] ibuprofen 600 mg tablet 2021-09 00:00: 00 Yes [id number] 600mg Take 1 tablet by mouth every 6 (six) hours as needed (Pain). Take with food or milk. [facility] [id number] fum-folic () 27 mg iron- 1 mg folic tablet 2021-09 00:00: 00 Yes [id number] 1{tbl} Take 1 tablet by mouth in the morning. [facility] docusate 100 mg capsule 2021-09 00:00: 00 Yes [id number] 200mg Take 2 capsules by mouth once daily as needed for Constipati on. [facility] ferrous sulfate 325 mg (65 mg iron) tablet 2021-09 00:00: 00 Yes [id number] 325mg Take 1 tablet by mouth in the morning and 1 tablet in the evening. [facility] ibuprofen 600 mg tablet 2021-09 0-06 00:00: 00 Yes [id number] 600mg Take 1 tablet by mouth every 6 (six) hours as needed (Pain). Take with food or milk. [facility] smx610-rits fum-folic () 27 mg iron- 1 mg folic tablet 2021-09 0- 00:00: 00 Yes [id number] 1{tbl} Take 1 tablet by mouth in the morning. [facility] docusate 100 mg capsule 2021-09 0 00:00: 00 Yes [id number] 200mg Take 2 capsules by mouth once daily as needed for Constipati on. [facility] ferrous sulfate 325 mg (65 mg iron) tablet 2021-09 0 00:00: 00 Yes [id number] 325mg Take 1 tablet by mouth in the morning and 1 tablet in the evening. [facility] ibuprofen 600 mg tablet 2021-09 0 00:00: 00 Yes [id number] 600mg Take 1 tablet by mouth every 6 (six) hours as needed (Pain). Take with food or milk. [facility] norethindro ne 0.35 mg tablet 2021-09 0 00:00: 00 09-15 05:59 :00 No [id number] .35mg Take 1 tablet by mouth in the morning for 90 days. [facility] norethindro ne 0.35 mg tablet 2021-09 0- 00:00: 00 09-15 05:59 :00 No [id number] .35mg Take 1 tablet by mouth in the morning for 90 days. [facility] norethindro ne 0.35 mg tablet 2021-09 0- 00:00: 00 09-15 05:59 :00 No [id number] .35mg Take 1 tablet by mouth in the morning for 90 days. [facility] HYDROcodone -acetaminop hen 5-325 mg tablet 2021-09 0-06 00:00: 00 06-24 04:59 :00 No [id number] 1{tbl} Take 1 tablet by mouth every 6 (six) hours as needed for Pain (scale 4-6) or Pain (scale 7-10) (Pain scale above 4) for up to 7 days. Do not exceed 3 grams of acetaminop hen in 24 hours. Indication s: acute pain [facility] HYDROcodone -acetaminop hen 5-325 mg tablet 2021-09 0-06 00:00: 00 06-24 04:59 :00 No [id number] 1{tbl} Take 1 tablet by mouth every 6 (six) hours as needed for Pain (scale 4-6) or Pain (scale 7-10) (Pain scale above 4) for up to 7 days. Do not exceed 3 grams of acetaminop hen in 24 hours. Indication s: acute pain [facility] amitriptyli ne (ELAVIL) tablet 100 mg 2021-09 0-05 02:00: 00 Yes 100mg 100 mg, Oral, QHS, First dose on Mon06/14/22 at 2100, Until Discontinu ed, Routine [facility] amitriptyli ne (ELAVIL) tablet 100 mg 2021-09 0-05 02:00: 00 Yes 100mg 100 mg, Oral, QHS, First dose on Mon06/14/22 at 2100, Until Discontinu ed, Routine [facility] lactated ringers IV infusion 500 mL 2021-09 004 13:15: 00 06-14 12:37 :00 No 500mL at 999 mL/hr, 500 mL, Intravenou s, ONCE, 1 dose, On Mon06/14/22 at 0815, Routine [facility] rho(D) immune globulin (RHOGAM) syringe 300 mcg 2021-09 004 06:33: 41 Yes 300ug 300 mcg, Intramuscu lar, ONCE, For 1 dose, Conditiona l, Routine [facility] rho(D) immune globulin (RHOGAM) syringe 300 mcg 2021-09 0-04 06:33: 41 Yes 300ug 300 mcg, Intramuscu lar, ONCE, For 1 dose, Conditiona l, Routine [facility] HYDROcodone -acetaminop hen (NORCO 5) 5-325 mg tablet 2 tablet 2021-09 0-04 06:33: 35 Yes 2{tbl} 2 tablet, Oral, Q6HPRN, Starting on Mon06/14/22 at 0133, Until Discontinu ed, Routine, Pain (scale 7-10), Alternate with Ibuprofen [facility] HYDROcodone -acetaminop hen (NORCO 5) 5-325 mg tablet 1 tablet 2021-09 0-04 06:33: 35 Yes 1{tbl} 1 tablet, Oral, Q6HPRN, Starting on Mon06/14/22 at 0133, Until Discontinu ed, Routine, Pain (scale 4-6), Alternate with Ibuprofen [facility] ibuprofen (IBU) tablet 600 mg 2021-09 0-04 06:33: 35 Yes 600mg 600 mg, Oral, Q6HPRN, Starting on Mon06/14/22 at 013, Until Discontinu ed, Routine, Pain (scale 1-3) [facility] diphenhydrA MINE (BENADRYL) injection 25 mg 2021-09 0-04 06:33: 35 Yes 25mg 25 mg, Slow IV Push, Q6HPRN, Starting on Mon06/14/22 at 0133, Until Discontinu ed, Routine, Itching [facility] diphenhydrA MINE (BENADRYL) tablet 25 mg 2021-09 0-04 06:33: 35 Yes 25mg 25 mg, Oral, Q6HPRN, Starting on Mon06/14/22 at 013, Until Discontinu ed, Routine, Sleep, Itching [facility] ondansetron (ZOFRAN (PF)) injection 4 mg 2021-09 0-04 06:33: 35 Yes 4mg 4 mg, Slow IV Push, Q8HPRN, Starting on Mon06/14/22 at 0133, Until Discontinu ed, Routine, Nausea and Vomiting (N/V) [facility] bisacodyL (DULCOLAX) suppository 10 mg 2021-09 0-04 06:33: 35 Yes 10mg 10 mg, Rectal, QDAILYPRN, Starting on Mon06/14/22 at 0133, Until Discontinu ed, Routine, Constipati on [facility] simethicone (GAS RELIEF (SIMETHICON E)) chewable tablet 160 mg 2021-09 0- 06:33: 35 Yes 160mg 160 mg, Oral, PC+HSPRN, Starting on Mon06/14/22 at 0133, Until Discontinu ed, Routine, Gas [facility] docusate (COLACE) capsule 200 mg 2021-09 0 06:33: 35 Yes 200mg 200 mg, Oral, QDAILYPRN, Starting on Mon06/14/22 at 0133, Until Discontinu ed, Routine, Constipati on [facility] magnesium hydroxide (MILK OF MAGNESIA) 400 mg/5 mL suspension 30 mL 2021-09 0 06:33: 35 Yes 30mL 30 mL, Oral, QDAILYPRN, Starting on Mon06/14/22 at 132, Until Discontinu ed, Routine, Constipati on [facility] lactated ringers IV infusion 1,000 mL 2021-09 0 06:33: 35 Yes 1000mL at 125 mL/hr, 1,000 mL, IV Infusion, PRN, 1 dose, Starting on Mon06/14/22 at 132, Until Discontinu ed, Routine [facility] HYDROcodone -acetaminop hen (NORCO 5) 5-325 mg tablet 2 tablet 2021-09 0- 06:33: 35 Yes 2{tbl} 2 tablet, Oral, Q6HPRN, Starting on Mon06/14/22 at 013, Until Discontinu ed, Routine, Pain (scale 7-10), Alternate with Ibuprofen [facility] HYDROcodone -acetaminop hen (NORCO 5) 5-325 mg tablet 1 tablet 2021-09 0-04 06:33: 35 Yes 1{tbl} 1 tablet, Oral, Q6HPRN, Starting on Mon06/14/22 at 0133, Until Discontinu ed, Routine, Pain (scale 4-6), Alternate with Ibuprofen [facility] ibuprofen (IBU) tablet 600 mg 2021-09 0-04 06:33: 35 Yes 600mg 600 mg, Oral, Q6HPRN, Starting on Mon06/14/22 at 0133, Until Discontinu ed, Routine, Pain (scale 1-3) [facility] diphenhydrA MINE (BENADRYL) injection 25 mg 2021-09 0- 06:33: 35 Yes 25mg 25 mg, Slow IV Push, Q6HPRN, Starting on Mon06/14/22 at 0133, Until Discontinu ed, Routine, Itching [facility] diphenhydrA MINE (BENADRYL) tablet 25 mg 2021-09 0 06:33: 35 Yes 25mg 25 mg, Oral, Q6HPRN, Starting on Mon06/14/22 at 0133, Until Discontinu ed, Routine, Sleep, Itching [facility] ondansetron (ZOFRAN (PF)) injection 4 mg 2021-09 0 06:33: 35 Yes 4mg 4 mg, Slow IV Push, Q8HPRN, Starting on Mon06/14/22 at 013, Until Discontinu ed, Routine, Nausea and Vomiting (N/V) [facility] bisacodyL (DULCOLAX) suppository 10 mg 2021-09 0 06:33: 35 Yes 10mg 10 mg, Rectal, QDAILYPRN, Starting on Mon06/14/22 at 0133, Until Discontinu ed, Routine, Constipati on [facility] simethicone (GAS RELIEF (SIMETHICON E)) chewable tablet 160 mg 2021-09 0 06:33: 35 Yes 160mg 160 mg, Oral, PC+HSPRN, Starting on Mon06/14/22 at 0133, Until Discontinu ed, Routine, Gas [facility] docusate (COLACE) capsule 200 mg 2021-09 0 06:33: 35 Yes 200mg 200 mg, Oral, QDAILYPRN, Starting on Mon06/14/22 at 0133, Until Discontinu ed, Routine, Constipati on [facility] magnesium hydroxide (MILK OF MAGNESIA) 400 mg/5 mL suspension 30 mL 2021-09 0- 06:33: 35 Yes 30mL 30 mL, Oral, QDAILYPRN, Starting on Mon06/14/22 at 0133, Until Discontinu ed, Routine, Constipati on [facility] lactated ringers IV infusion 1,000 mL 2021-09 0-04 06:33: 35 Yes 1000mL at 125 mL/hr, 1,000 mL, IV Infusion, PRN, 1 dose, Starting on Mon06/14/22 at 0133, Until Discontinu ed, Routine [facility] lactated ringers IV infusion 1,000 mL 2021-09 0-04 04:45: 00 06-14 06:33 :38 No 1000mL at 125 mL/hr, 1,000 mL, IV Infusion, CONTINUOUS , Starting on Mon06/13/22 at 2345, Until Mon06/14/22 at 0133, TRIXIE [facility] ceFAZolin in 0.9% sodium chloride (ANCEF) 2 gram/100 mL RTU 2 g 2021-09 0-04 02:54: 10 06-14 06:33 :38 No 2000mg 2 g (2,000 mg), IV Piggyback, O.R. HOLDING ONCE, Starting on Mon06/13/22 at 2154, Until Mon06/14/22 at 013, Administer over 30 Minutes, 100 mL
Reas on for Anti-Infec tive: Surgical Prophylaxi s
Surgi renetta Prophylaxi s: EMS EDUCATOR
Duration of therapy: within 24 hours of surgery [facility] sodium citrate-cit kolby acid (BICITRA) 500-334 mg/5 mL solution 30 mL 2021-09 0-04 02:54: 10 06-14 03:23 :00 No 30mL 30 mL, Oral, PRE-PROCED URE ONCE, 1 dose, Starting on Mon06/13/22 at 2154, Until Mon06/13/22 at 2223, Routine, Surgery/Pr ocedure [facility] amitriptyli ne 100 mg tablet 2021-09 0-03 23:46: 17 Yes 100mg Take 100 mg by mouth at bedtime. [facility] ARIPIPRAZOL E (ABILIFY ORAL) 06-01 10:02: 02 06-01 00:00 :00 No Take by mouth. [facility] ARIPIPRAZOL E (ABILIFY ORAL) 06-01 10:02: 02 06-01 00:00 :00 No Take by mouth. [facility] ARIPIPRAZOL E (ABILIFY ORAL) 06-01 10:02: 02 06-01 00:00 :00 No Take by mouth. [facility] ARIPIPRAZOL E (ABILIFY ORAL) 06-01 10:02: 06-01 00:00 :00 No Take by mouth. [facility] amphetamine -dextroamph etamine (ADDERALL XR) 25 mg 24 hr capsule 06-01 10:01: 59 06-01 00:00 :00 No 25mg Take 25 mg by mouth every morning. [facility] amphetamine -dextroamph etamine (ADDERALL XR) 25 mg 24 hr capsule 06-01 10:01: 59 06-01 00:00 :00 No 25mg Take 25 mg by mouth every morning. [facility] amphetamine -dextroamph etamine (ADDERALL XR) 25 mg 24 hr capsule 06-01 10:01: 59 06-01 00:00 :00 No 25mg Take 25 mg by mouth every morning. [facility] amphetamine -dextroamph etamine (ADDERALL XR) 25 mg 24 hr capsule 06-01 10:01: 59 06-01 00:00 :00 No 25mg Take 25 mg by mouth every morning. [facility] metroNIDAZO LE 500 mg tablet 03-23 00:00: 00 Yes [id number] 500mg Take 1 tablet by mouth in the morning and 1 tablet in the evening. [facility] metroNIDAZO LE 500 mg tablet 03-23 00:00: 00 Yes [id number] 500mg Take 1 tablet by mouth in the morning and 1 tablet in the evening. [facility] metroNIDAZO LE 500 mg tablet 2-0 7-13 00:00: 00 Yes [id number] 500mg Take 1 tablet by mouth in the morning and 1 tablet in the evening. [facility] metroNIDAZO LE 500 mg tablet 2-0 7-13 00:00: 00 Yes [id number] 500mg Take 1 tablet by mouth in the morning and 1 tablet in the evening. [facility] metroNIDAZO LE 500 mg tablet 2-0 7-13 00:00: 00 Yes [id number] 500mg Take 1 tablet by mouth in the morning and 1 tablet in the evening. [facility] metroNIDAZO LE 500 mg tablet 2-0 7-13 00:00: 00 Yes [id number] 500mg Take 1 tablet by mouth in the morning and 1 tablet in the evening. [facility] metroNIDAZO LE 500 mg tablet 2-0 7-13 00:00: 00 Yes [id number] 500mg Take 1 tablet by mouth in the morning and 1 tablet in the evening. [facility] metroNIDAZO LE 500 mg tablet 2-0 7-13 00:00: 00 Yes [id number] 500mg Take 1 tablet by mouth in the morning and 1 tablet in the evening. [facility] metroNIDAZO LE 500 mg tablet 2021-0 7-13 00:00: 00 Yes [id number] 500mg Take 1 tablet by mouth in the morning and 1 tablet in the evening. [facility] metroNIDAZO LE 500 mg tablet 2-0 7-13 00:00: 00 Yes [id number] 500mg Take 1 tablet by mouth in the morning and 1 tablet in the evening. [facility] metroNIDAZO LE 500 mg tablet 2-0 7-13 00:00: 00 Yes [id number] 500mg Take 1 tablet by mouth in the morning and 1 tablet in the evening. [facility] metroNIDAZO LE 500 mg tablet 2-0 7-13 00:00: 00 - 00:00 :00 No [id number] 500mg Take 1 tablet by mouth in the morning and 1 tablet in the evening. [facility] proMETHazin e 25 mg tablet 2021-0 11 00:00: 00 Yes [id number] 25mg Take 1 tablet by mouth every 6 (six) hours as needed for Nausea and Vomiting (N/V). [facility] proMETHazin e 25 mg tablet 2021-0 11 00:00: 00 Yes [id number] 25mg Take 1 tablet by mouth every 6 (six) hours as needed for Nausea and Vomiting (N/V). [facility] proMETHazin e 25 mg tablet 2021-0 -11 00:00: 00 Yes [id number] 25mg Take 1 tablet by mouth every 6 (six) hours as needed for Nausea and Vomiting (N/V). [facility] proMETHazin e 25 mg tablet 2021-0 03-21 00:00: 00 Yes [id number] 25mg Take 1 tablet by mouth every 6 (six) hours as needed for Nausea and Vomiting (N/V). [facility] proMETHazin e 25 mg tablet 2021-0 03-21 00:00: 00 Yes [id number] 25mg Take 1 tablet by mouth every 6 (six) hours as needed for Nausea and Vomiting (N/V). [facility] proMETHazin e 25 mg tablet 2021-0 03-21 00:00: 00 Yes [id number] 25mg Take 1 tablet by mouth every 6 (six) hours as needed for Nausea and Vomiting (N/V). [facility] proMETHazin e 25 mg tablet 2021-0 11 00:00: 00 Yes [id number] 25mg Take 1 tablet by mouth every 6 (six) hours as needed for Nausea and Vomiting (N/V). [facility] proMETHazin e 25 mg tablet 2-0 7-11 00:00: 00 Yes [id number] 25mg Take 1 tablet by mouth every 6 (six) hours as needed for Nausea and Vomiting (N/V). [facility] proMETHazin e 25 mg tablet 2021-0 7-11 00:00: 00 Yes [id number] 25mg Take 1 tablet by mouth every 6 (six) hours as needed for Nausea and Vomiting (N/V). [facility] proMETHazin e 25 mg tablet 0 11 00:00: 00 Yes [id number] 25mg Take 1 tablet by mouth every 6 (six) hours as needed for Nausea and Vomiting (N/V). [facility] proMETHazin e 25 mg tablet 0 03-21 00:00: 00 Yes [id number] 25mg Take 1 tablet by mouth every 6 (six) hours as needed for Nausea and Vomiting (N/V). [facility] proMETHazin e 25 mg tablet 0 11 00:00: 00 06-16 00:00 :00 No [id number] 25mg Take 1 tablet by mouth every 6 (six) hours as needed for Nausea and Vomiting (N/V). [facility] metroNIDAZO LE 500 mg tablet 0 14 00:00: 00 Yes [id number] 500mg Take 1 tablet by mouth 2 (two) times daily. [facility] metroNIDAZO LE 500 mg tablet 2021-0 14 00:00: 00 Yes [id number] 500mg Take 1 tablet by mouth 2 (two) times daily. [facility] metroNIDAZO LE 500 mg tablet 2021-0 14 00:00: 00 Yes [id number] 500mg Take 1 tablet by mouth 2 (two) times daily. [facility] metroNIDAZO LE 500 mg tablet 0 14 00:00: 00 Yes [id number] 500mg Take 1 tablet by mouth 2 (two) times daily. [facility] metroNIDAZO LE 500 mg tablet 2021-0 14 00:00: 00 Yes [id number] 500mg Take 1 tablet by mouth 2 (two) times daily. [facility] metroNIDAZO LE 500 mg tablet 2021-0 -14 00:00: 00 Yes [id number] 500mg Take 1 tablet by mouth 2 (two) times daily. [facility] metroNIDAZO LE 500 mg tablet 2021-0 -14 00:00: 00 Yes [id number] 500mg Take 1 tablet by mouth 2 (two) times daily. [facility] metroNIDAZO LE 500 mg tablet 2022-0 6-14 00:00: 00 Yes [id number] 500mg Take 1 tablet by mouth 2 (two) times daily. [facility] metroNIDAZO LE 500 mg tablet 02-22 00:00: 00 Yes [id number] 500mg Take 1 tablet by mouth 2 (two) times daily. [facility] metroNIDAZO LE 500 mg tablet 02-22 00:00: 00 Yes [id number] 500mg Take 1 tablet by mouth 2 (two) times daily. [facility] metroNIDAZO LE 500 mg tablet 02-22 00:00: 00 Yes [id number] 500mg Take 1 tablet by mouth 2 (two) times daily. [facility] metroNIDAZO LE 500 mg tablet 02-22 00:00: 00 06-16 00:00 :00 No [id number] 500mg Take 1 tablet by mouth 2 (two) times daily. [facility] ARIPIPRAZOL E (ABILIFY ORAL) 11-15 10:55: 24 Yes Take by mouth. [facility] amphetamine -dextroamph etamine (ADDERALL XR) 25 mg 24 hr capsule 11-15 10:55: 24 Yes 25mg Take 25 mg by mouth every morning. [facility] amitriptyli ne 100 mg tablet 11-15 10:55: 24 Yes 100mg Take 100 mg by mouth at bedtime. [facility] ARIPIPRAZOL E (ABILIFY ORAL) 11-15 10:55: 24 Yes Take by mouth. [facility] amphetamine -dextroamph etamine (ADDERALL XR) 25 mg 24 hr capsule 11-15 10:55: 24 Yes 25mg Take 25 mg by mouth every morning. [facility] amitriptyli ne 100 mg tablet 11-15 10:55: 24 Yes 100mg Take 100 mg by mouth at bedtime. [facility] ARIPIPRAZOL E (ABILIFY ORAL) 11-15 10:55: 24 Yes Take by mouth. [facility] amphetamine -dextroamph etamine (ADDERALL XR) 25 mg 24 hr capsule 11-15 10:55: 24 Yes 25mg Take 25 mg by mouth every morning. [facility] amitriptyli ne 100 mg tablet 11-15 10:55: 24 Yes 100mg Take 100 mg by mouth at bedtime. [facility] ARIPIPRAZOL E (ABILIFY ORAL) 11-15 10:55: 24 Yes Take by mouth. [facility] amphetamine -dextroamph etamine (ADDERALL XR) 25 mg 24 hr capsule 11-15 10:55: 24 Yes 25mg Take 25 mg by mouth every morning. [facility] amitriptyli ne 100 mg tablet 11-15 10:55: 24 Yes 100mg Take 100 mg by mouth at bedtime. [facility] ARIPIPRAZOL E (ABILIFY ORAL) 11-15 10:55: 24 Yes Take by mouth. [facility] amphetamine -dextroamph etamine (ADDERALL XR) 25 mg 24 hr capsule 11-15 10:55: 24 Yes 25mg Take 25 mg by mouth every morning. [facility] amitriptyli ne 100 mg tablet 11-15 10:55: 24 Yes 100mg Take 100 mg by mouth at bedtime. [facility] amitriptyli ne 100 mg tablet 11-15 10:55: 24 Yes 100mg Take 100 mg by mouth at bedtime. [facility] amitriptyli ne 100 mg tablet 11-15 10:55: 24 Yes 100mg Take 100 mg by mouth at bedtime. [facility] amitriptyli ne 100 mg tablet 11-15 10:55: 24 Yes 100mg Take 100 mg by mouth at bedtime. [facility] amitriptyli ne 100 mg tablet 11-15 10:55: 24 Yes 100mg Take 100 mg by mouth at bedtime. [facility] amitriptyli ne 100 mg tablet 11-15 10:55: 24 Yes 100mg Take 100 mg by mouth at bedtime. [facility] vit 33-iron-fol ic-dha (SELECT-OB + DHA) 29 mg iron-1 mg -250 mg combo pack 11-15 00:00: 00 Yes [id number] 1{packe t} Take 1 Packet by mouth daily. [facility] vit 33-iron-fol ic-dha (SELECT-OB + DHA) 29 mg iron-1 mg -250 mg combo pack 11-15 00:00: 00 Yes [id number] 1{packe t} Take 1 Packet by mouth daily. [facility] vit 33-iron-fol ic-dha (SELECT-OB + DHA) 29 mg iron-1 mg -250 mg combo pack 11-15 00:00: 00 Yes [id number] 1{packe t} Take 1 Packet by mouth daily. [facility] vit 33-iron-fol ic-dha (SELECT-OB + DHA) 29 mg iron-1 mg -250 mg combo pack 11-15 00:00: 00 Yes [id number] 1{packe t} Take 1 Packet by mouth daily. [facility] vit 33-iron-fol ic-dha (SELECT-OB + DHA) 29 mg iron-1 mg -250 mg combo pack 11-15 00:00: 00 Yes [id number] 1{packe t} Take 1 Packet by mouth daily. [facility] vit 33-iron-fol ic-dha (SELECT-OB + DHA) 29 mg iron-1 mg -250 mg combo pack 11-15 00:00: 00 Yes [id number] 1{packe t} Take 1 Packet by mouth daily. [facility] vit 33-iron-fol ic-dha (SELECT-OB + DHA) 29 mg iron-1 mg -250 mg combo pack 11-15 00:00: 00 Yes [id number] 1{packe t} Take 1 Packet by mouth daily. [facility] vit 33-iron-fol ic-dha (SELECT-OB + DHA) 29 mg iron-1 mg -250 mg combo pack 11-15 00:00: 00 Yes [id number] 1{packe t} Take 1 Packet by mouth daily. [facility] vit 33-iron-fol ic-dha (SELECT-OB + DHA) 29 mg iron-1 mg -250 mg combo pack 11-15 00:00: 00 Yes [id number] 1{packe t} Take 1 Packet by mouth daily. [facility] vit 33-iron-fol ic-dha (SELECT-OB + DHA) 29 mg iron-1 mg -250 mg combo pack 11-15 00:00: 00 Yes [id number] 1{packe t} Take 1 Packet by mouth daily. [facility] vit 33-iron-fol ic-dha (SELECT-OB + DHA) 29 mg iron-1 mg -250 mg combo pack 11-15 00:00: 00 Yes [id number] 1{packe t} Take 1 Packet by mouth daily. [facility] vit 33-iron-fol ic-dha (SELECT-OB + DHA) 29 mg iron-1 mg -250 mg combo pack 11-15 00:00: 00 06-16 00:00 :00 No [id number] 1{packe t} Take 1 Packet by mouth daily. [facility] Vital Signs Vital Name Observation Time Observation Value Comments S katrinmilton Systolic blood pressure 2022-06-16 13:31:00 122 mm[Hg] [facility] Diastolic blood pressure 2022-06-16 13:31:00 79 mm[Hg] [facility] Heart rate 2022-06-16 13:31:00 90 /min [facility] Body temperature 2022-06-16 13:31:00 36.67 Lindsey [facility] Respiratory rate 2022-06-16 13:31:00 18 /min [facility] Oxygen saturation in Arterial blood by Pulse oximetry 2022-06-16 13:31:00 98 /min [facility] Body height 2022-06-14 02:13:00 160 cm [facility] Body weight 2022-06-14 02:13:00 83.008 kg [facility] BMI 2022-06-14 02:13:00 32.42 kg/m2 [facility] Heart rate 2022-06-14 03:00:00 83 /min [facility] Respiratory rate 2022-06-14 03:00:00 18 /min [facility] Oxygen saturation in Arterial blood by Pulse oximetry 2022-06-14 03:00:00 100 /min [facility] Systolic blood pressure 2022-06-14 02:13:00 119 mm[Hg] [facility] Diastolic blood pressure 2022-06-14 02:13:00 68 mm[Hg] [facility] Body temperature 2022-06-14 02:13:00 36.78 Lindsey [facility] Body height 2022-06-14 02:13:00 160 cm [facility] Body weight 2022-06-14 02:13:00 83.008 kg [facility] BMI 2022-06-14 02:13:00 32.42 kg/m2 [facility] Systolic blood pressure 2022-06-13 19:41:00 117 mm[Hg] [facility] Diastolic blood pressure 2022-06-13 19:41:00 77 mm[Hg] [facility] Heart rate 2022-06-13 19:41:00 92 /min [facility] Body temperature 2022-06-13 19:41:00 36.94 Lindsey [facility] Respiratory rate 2022-06-13 19:41:00 20 /min [facility] Body height 2022-06-13 19:41:00 160 cm [facility] Body weight 2022-06-13 19:41:00 82.827 kg [facility] BMI 2022-06-13 19:41:00 32.35 kg/m2 [facility] Systolic blood pressure 2022-06-01 14:49:00 114 mm[Hg] [facility] Diastolic blood pressure 2022-06-01 14:49:00 69 mm[Hg] [facility] Heart rate 2022-06-01 14:49:00 95 /min [facility] Body temperature 2022-06-01 14:49:00 36.06 Lindsey [facility] Respiratory rate 2022-06-01 14:49:00 18 /min [facility] Body weight 2022-06-01 14:49:00 82.373 kg [facility] Procedures Procedure Date / Time Performed Performing Clinician Source DME/SUPPLY JUSTIFICATION 2022-07-14 05:01:00 Doc tor Unassigned, Hugo [facility] CBC WITH DIFF 2022-06-14 09:46:00 [facility] CBC WITH DIFF 2022-06-14 09:46:00 Marion España [facility] URINE DRUG (IMMUNOASSAY) - COMPREHENSIVE DRUG SCREEN 2022-06-14 05:53:00 Degraffenrgabe [facility] URINE DRUG (IMMUNOASSAY) - COMPREHENSIVE DRUG SCREEN 2022-06-14 05:53:00 Degraffenreizaid [facility] VENOUS CORD GAS 2022-06-14 03:56:00 DegraffenreidTadeo [facility] VENOUS CORD GAS 2022-06-14 03:56:00 DegraffenreiTadeo mar [facility] SECTION 2022-06-14 03:11:00 Shravan Lyman [facility] SECTION 2022-06-14 03:11:00 Shravan Lyman [facility] HB ABO GROUPING 2022-06-14 03:00:[address] [facility] [place] [place] [facility] (D[facility] IMMUNE GLOBULIN 2022-06-14 03:00:00 Sandra España [facility] HB ABO GROUPING 2022-06-14 03:00:[address] [facility] [place] [place] RHO (D) IMMUNE GLOBULIN 2022-06-14 03:00:00 Sandra España [facility] CBC WITH DIFF 2022-06-14 02:58:00 Degraffenreid, [facility] HEPATITIS B SURFACE ANTIGEN 2022-06-14 02:58:00 Degraffenreid, [facility] GALV ONLY - SYPHILIS IGG/IGM 2022-06-14 02:58:00 Degraffenreid, [facility] CBC WITH DIFF 2022-06-14 02:58:00 Degraffenreid, [facility] HEPATITIS B SURFACE ANTIGEN 2022-06-14 02:58:00 Degraffenreid, [facility] GALV ONLY - SYPHILIS IGG/IGM 2022-06-14 02:58:00 Degraffenreid, [facility] NON-STRESS TEST 2022-06-13 21:53:16 Shy Gutierrez [facility] POCT URINALYSIS 2022-06-13 00:00:00 Susie Gonzalez [facility] TDAP VACCINE, >11 YRS, IM 2022-06-01 15:02:51 Susie Gonzalez [facility] POCT URINALYSIS 2022-06-01 14:52:00 Susie Gonzalez [facility] Encounters Start Date/Time End Date/Time Encounter Type Admission Type Attending [facility] Care Facility Care Department Encounter ID Source 2022-07-14 13:00:00 2022-07-14 13:00:00 Outpatient MAYELIN MIRANDA [facility] [id number] [facility] 2022-07-14 00:00:00 2022-07-14 00:00:00 Orders Only Doctor Unassigned, Hugo [facility] 1.2.840.114 350.1.13.10 4.2.7.2.686 [id number] [facility] 2022-06-20 15:45:00 2022-06-20 15:45:00 Outpatient SUSIE HUGHES [facility] [id number] [facility] 2022-06-13 20:50:00 2022-06-16 11:27:00 Hospital Encounter [facility] 1.2.840.114 350.1.13.10 4.2.7.2.686 [id number] [facility] 2022-06-16 00:00:00 2022-06-16 00:00:00 Encounter 1.2.840.1 [id number] 1.2.840.114 350.1.13.10 4.2.7.2.696 [id number] [facility] 2022-06-13 22:10:00 2022-06-14 00:01:00 Surgery [facility] 1.2.840.114 350.1.13.10 4.2.7.2.686 [id number] [facility] 2022-06-13 14:30:00 2022-06-13 16:34:43 Outpatient SHY PATEL SARAH [facility] [id number] [facility] 2022-06-13 14:30:00 2022-06-13 16:34:43 Routine Visit Provider, Shy Morrison [facility] EMS EDUCATOR [facility]ER[facility] & [facility] 1.2.840.114 350.1.13.10 4.2.7.2.686 [id number] [facility] 2022-06-13 14:30:00 2022-06-13 16:34:43 Outpatient SHY PATEL SARAH [facility] JERICA [id number] [facility] 2022-06-06 15:15:00 2022-06-06 15:15:00 Outpatient SUSIE HUGHES [facility] [id number] [facility] 2022-06-01 09:15:00 2022-06-01 11:00:25 Outpatient R SUSIE GONZALEZ [facility] [id number] [facility] 2022-06-01 09:15:00 2022-06-01 11:00:25 Routine Visit Susie Gonzalez [facility] EMS EDUCATOR [facility] MATERNAL & CHILD [facility] 1..840.114 350.1.13.10 4.2.7.2.686 [id number] [facility] 2022-06-01 09:30:00 2022-06-01 09:30:00 Outpatient R SUSIE GONZALEZ [facility] [id number] [facility] 2022-05-20 10:15:00 2022-05-20 10:15:00 Outpatient R TIFFANIE WEISS [facility] [id number] [facility] 2022-04-21 10:00:00 2022-04-21 10:00:00 Outpatient R TIFFANIE WEISS [facility] [id number] [facility] 2022-04-11 14:00:00 2022-04-11 14:00:00 Outpatient R TIFFANIE WEISS [facility] [id number] [facility] 2022-03-28 14:00:00 2022-03-28 14:52:56 Outpatient [facility] [id number] [facility] 2022-03-28 14:00:00 2022-03-28 14:45:00 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, Damien-MfRonald Purcell [facility] EMS EDUCATOR [facility] & CHILD [facility] ..840.114 350.1.13.10 4.2.7.2.686 [id number] [facility] 2022-03-28 14:00:00 2022-03-28 14:00:00 Outpatient P [facility] [id number] [facility] 2022-03-28 00:00:00 2022-03-28 00:00:00 Abstract Bharti Gonzalezpaulo Mg [facility] EMS EDUCATOR [facility] & CHILD [facility] 1.2.840.114 350.1.13.10 4.2.7.2.686 [id number] [facility] 2022-03-28 00:00:00 2022-03-28 00:00:00 Abstract Susie Gonzalez [facility] EMS EDUCATOR [facility] & CHILD [facility] 1.2.840.114 350.1.13.10 4.2.7.2.686 [id number] [facility] 2022-03-28 00:00:00 2022-03-28 00:00:00 Telephone Tiffanie Weiss [facility] EMS EDUCATOR [facility] CHILD [facility] 1.2.840.114 350.1.13.10 4.2.7.2.686 [id number] [facility] 2022-03-23 00:00:00 2022-03-23 00:00:00 Telephone Tiffanie Weiss [facility] EMS EDUCATOR [facility] 1.2.840.114 350.1.13.10 4.2.7.2.686 [id number] [facility] 2022-03-21 13:00:00 2022-03-21 14:04:19 [facility] [id number] 2022-03-21 13:00:00 2022-03-21 14:04:19 Routine Visit Tiffanie Weiss [facility] EMS EDUCATOR [facility] 1.2.840.114 350.1.13.10 4.2.7.2.686 [id number] [facility] 2022-03-21 13:00:00 2022-03-21 13:00:00 Outpatient R TIFFANIE WEISS [facility] [id number] [facility] 2022-02-22 00:00:00 2022-02-22 00:00:00 Telephone Stephonisatu Tiffanie Caraballo [facility] EMS EDUCATOR [facility] 1.2.840.114 350.1.13.10 4.2.7.2.686 [id number] [facility] 2022-02-21 14:15:00 2022-02-21 15:05:22 Outpatient Mg BROOKSMAGALYSTIFFANIE VARGAS [facility] [id number] [facility] 2022-02-21 14:15:00 2022-02-21 15:05:22 Routine Visit Stephonisatu Tiffanie Rashmi [facility] EMS EDUCATOR [facility] 1.2.840.114 350.1.13.10 4.2.7.2.686 [id number] [facility] 2022-02-21 00:00:00 2022-02-21 00:00:00 Orders Only Doctor Unassigned, Hugo [facility] 1..840.114 350.1.13.10 4.2.7.2.686 [id number] [facility] 2022-01-25 09:30:00 2022-01-25 09:30:00 Outpatient TL SOTO [facility] [id number] [facility] 2022-01-10 15:45:00 2022-01-10 15:45:00 Outpatient SUSIE HUGHES [facility] [id number] [facility] 2022-01-07 09:00:00 2022-01-07 09:00:00 Outpatient SUSIE HUGHES [facility] [id number] [facility] 2021-12-13 14:30:00 2021-12-13 14:30:00 Outpatient SUSIE HUGHES [facility] [id number] [facility] 2021-12-13 10:30:00 2021-12-13 10:58:28 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, Ronald Rocha [facility] EMS EDUCATOR [facility] 1.2.840.114 350.1.13.10 4.2.7.2.686 [id number] [facility] 2021-12-13 10:30:00 2021-12-13 10:30:00 Outpatient P SUSIE GONZALEZ [facility] [id number] [facility] 2021-12-13 00:00:00 2021-12-13 00:00:00 Abstract Susie Gonzalez [facility] EMS EDUCATOR [facility] 1.2.840.114 350.1.13.10 4.2.7.2.686 [id number] [facility] 2021-11-19 00:00:00 2021-11-19 00:00:00 Telephone Susie Gonzalez [facility] EMS EDUCATOR [facility] CHILD [facility] 1..840.114 350.1.13.10 4.2.7.2.686 [id number] [facility] 2021-11-17 10:30:00 2021-11-17 11:16:07 Nurse Visit Visit, MadysonRmchp Nurse Susie Gonzalez [facility] EMS EDUCATOR [facility] 1.2.840.114 350.1.13.10 4.2.7.2.686 [id number] [facility] 2021-11-17 10:30:00 2021-11-17 10:30:00 Outpatient SUSIE HUGHES [facility] [id number] [facility] 2021-11-16 00:00:00 2021-11-16 00:00:00 Telephone Susie Gonzalez [facility] EMS EDUCATOR [facility] 1.2.840.114 350.1.13.10 4.2.7.2.686 [id number] [facility] 2021-11-15 09:45:00 2021-11-15 11:30:15 Outpatient R GONZALEZ, ROSVIOLETAPaulo [facility] [id number] [facility] 2021-11-15 09:45:00 2021-11-15 11:30:15 Initial Visit Susie Gonzalez Mg [facility] EMS EDUCATOR [facility] 1.2840.114 350.1.13.10 4.2.7.2.686 [id number] [facility] 2021-11-15 00:00:00 2021-11-15 00:00:00 Orders Only Doctor Unassigned, Hugo [facility] 1.840.114 350.1.13.10 4.2.7.2.686 [id number] [facility] 2021-11-11 14:30:00 2021-11-11 14:30:00 Outpatient R DAVE HERNANDEZ [facility] [id number] [facility] 2021-01-22 15:24:07 2021-01-22 16:17:44 Office Visit Tiffanie Weiss [facility] EMS EDUCATOR [facility] CHILD [facility] 1..840.114 350.1.13.10 4.2.7.2.686 [id number] [facility] 2021-01-22 15:30:00 2021-01-22 15:30:00 Outpatient R TIFFANIE WEISS [facility] [id number] [facility] 2020-11-30 13:15:00 2020-11-30 13:15:00 Outpatient R TIFFANIE WEISS [facility] [id number] [facility] 2020-11-24 15:47:42 2020-11-24 16:41:18 Office Visit Tiffanie Weiss [facility] EMS EDUCATOR [facility] MATERNAL & CHILD [facility] 1.2.840.114 350.1.13.10 4.2.7.2.686 [id number] 107 [id number] [facility] 2020-11-24 16:00:00 2020-11-24 16:00:00 Outpatient R TIFFANIE WEISS [facility] [id number] [facility] 2020-11-24 00:00:00 2020-11-24 00:00:00 Orders Only Doctor Unassigned, Hugo [facility] 1.2.840.114 350.1.13.10 4.2.7.2.686 [id number] [facility] 2019-05-16 10:17:05 2019-05-16 10:47:05 Office Visit Vesta Cortés [facility] EMS EDUCATOR [facility] 1.2.840.114 350.1.13.10 4.2.7.2.686 [id number] [facility] 2019-05-16 00:00:00 2019-05-16 00:00:00 Letter (Out) Vesta Cortés [facility] EMS EDUCATOR [facility] 1.2.840.114 350.1.13.10 4.2.7.2.686 [id number] [facility] 2019-05-16 00:00:00 2019-05-16 00:00:00 Telephone Vesta Cortés [facility] EMS EDUCATOR [facility] MATERNAL & CHILD [facility] 1.2.840.114 350.1.13.10 4.2.7.2.686 [id number] [facility] 2019-05-15 12:45:15 2019-05-15 13:00:15 Office Visit Vesta Cortés [facility] EMS EDUCATOR [facility] 1.2.840.114 350.1.13.10 4.2.7.2.686 [id number] [facility] 2019-05-15 00:00:00 2019-05-15 00:00:00 Telephone Catie Boss [facility] EMS EDUCATOR [facility] 1.840.114 350.1.13.10 4.2.7.2.686 [id number] [facility] 2019-05-15 00:00:00 2019-05-15 00:00:00 Orders Only Doctor Unassigned, Hugo [facility] 1.840.114 350.1.13.10 4.2.7.2.686 [id number] [facility] Results Test Description Test Time Test Comments Results Result Co mments Source [facility] SYPHIL[facility] [id number] 14:50:49* Test Item Value Reference Range Interpretation Comme nts Syphilis IgG/IgM (test code = 07649-7) Non-reactive Non-reactive CHAGO (test code = CHAGO) Non-reactive - No serologic evidence of T. pallidum infection. Cannot exclude incubating or early syphilis. Submit a second specimen in 2-4 weeks if syphilis is clinically suspected. Equivocal - Further testing to follow. Reactive - Further testing to follow. Lab Interpretation (test code = 49973-5) Normal [facility] (D) IMMUNE [id number] 06:34:45* Test Item Value Reference Range Interpretation Comme nts RHIG CANDIDATE? (test code = 5055) No- see comment Patient is not a candidate for RhIg- Patient is Rh Positive.Performed at [facility] Laboratory Services - [facility] Blood [place] [id number] Free: [phone] No. [id number] [facility] (D) IMMUNE [id number] 06:34:45* Test Item Value Reference Range Interpretation Comme nts RHIG CANDIDATE? (test code = 5055) No- see comment Patient is not a candidate for RhIg- Patient is Rh Positive.Performed at [facility] Laboratory Services - [facility] Blood [address] Free: [phone] No. [id number] [facility] B Surface [id number] 04:29:00 * Test Item Value Reference Range Interpretation Comme nts HBsAg Semi-Quantitative (saleem t code = 5195-3) Negative Negative [facility] B Surface [id number] 04:29:00 * Test Item Value Reference Range Interpretation Comme nts HBsAg Semi-Quantitative (saleem t code = 5195-3) Negative Negative [facility] [id number] 04:15:10* Test Item Value Reference Range Interpretation Comme nts BASE EXCESS, CORD (test code = 9767106642) mEq/L AC PH, CORD (BEAKER) (test code = 5625662514) 7.18-7.38 L PC02, CORD (test code = 7948584506) See_Comment [Automated messa ge] The system which generated this result transmitted reference range: 32 - 66 mmHg. The reference range was not used to interpret this result as normal/abnormal. PO2, CORD (test code = 9879682516) <10 BICARBONATE, CORD (test code = 2878148382) See_Comment [Automated me ssage] The system which generated this result transmitted reference range: 17 - 27 mEq/L. The reference range was not used to interpret this result as normal/abnormal. Lab Interpretation (test code = 17141-1) Abnormal [facility] Cord [id number] 04:15:10* Test Item Value Reference Range Interpretation Comme nts BASE EXCESS, CORD (test code = 6726973795) mEq/L AC PH, CORD (BEAKER) (test code = 9186537496) 7.18-7.38 L PC02, CORD (test code = 6308533195) See_Comment [Automated messa ge] The system which generated this result transmitted reference range: 32 - 66 mmHg. The reference range was not used to interpret this result as normal/abnormal. PO2, CORD (test code = 5485839246) <10 BICARBONATE, CORD (test code = 3901463366) See_Comment [Automated me ssage] The system which generated this result transmitted reference range: 17 - 27 mEq/L. The reference range was not used to interpret this result as normal/abnormal. Lab Interpretation (test code = 66897-2) [id number] 04:12:23* Test Item Value Reference Range Interpretation Comme nts VENOUS BASE EXCESS, CORD (test code = 5022239601) mEq/L VENOUS PH, CORD (test code = 3221422614) 7.25-7.45 VENOUS PC02, CORD (test code = 4907438281) See_Comment H [Automated me ssage] The system which generated this result transmitted reference range: 27 - 49 mmHg. The reference range was not used to interpret this result as normal/abnormal. VENOUS PO2, CORD (test code = 6441891204) See_Comment L [Automated me ssage] The system which generated this result transmitted reference range: 17 - 41 mmHg. The reference range was not used to interpret this result as normal/abnormal. VENOUS BICARBONATE, CORD (test code = 6950656777) See_Comment [Automa shaheed message] The system which generated this result transmitted reference range: 12 - 29 mEq/L. The reference range was not used to interpret this result as normal/abnormal. Lab Interpretation (test code = 04321-8) Abnormal [facility] Cord [id number] 04:12:23* Test Item Value Reference Range Interpretation Comme nts VENOUS BASE EXCESS, CORD (test code = 7258661108) mEq/L VENOUS PH, CORD (test code = 9558524522) 7.25-7.45 VENOUS PC02, CORD (test code = 1734179676) See_Comment H [Automated me ssage] The system which generated this result transmitted reference range: 27 - 49 mmHg. The reference range was not used to interpret this result as normal/abnormal. VENOUS PO2, CORD (test code = 5270378224) See_Comment L [Automated me ssage] The system which generated this result transmitted reference range: 17 - 41 mmHg. The reference range was not used to interpret this result as normal/abnormal. VENOUS BICARBONATE, CORD (test code = 0951584210) See_Comment [Automa shaheed message] The system which generated this result transmitted reference range: 12 - 29 mEq/L. The reference range was not used to interpret this result as normal/abnormal. Lab Interpretation (test code = 27160-2) [facility]normal [facility] - ONCE [id number] 03:47:01 * Test Item Value Reference Range Interpretation Comme nts ABO & RH (test code = 20) A POSITIVE Performed at [facility] Laboratory Services - [facility] Blood [address] Free: [phone] No. [id number] IAT (test code = 1185) Negative Performed at [facility] Laboratory Services - [address] Free: [phone] No. [id number] [facility] and Screen - ONCE [id number] 03:47:01 * Test Item Value Reference Range Interpretation Comme nts ABO & RH (test code = 20) A POSITIVE Performed at [facility] Laboratory Services - [address] Free: [phone] No. [id number] IAT (test code = 1185) Negative Performed at [facility] Laboratory Services - [address] Free: [phone] No. [id number] [facility] with [id number] 03:20:31* Test Item Value Reference Range Interpretation [...] 34.5 g/dL 31.6-35.1 RDW-SD (test code = 96767-5) 39.4 fL 39-49.9 RDW-CV (test code = 788-0) 13.1 % 12-15.5 PLT (test code = 777-3) See_Comment H [Automated messa ge] The system which generated this result transmitted reference range: 166 - 358 10*3/?L. The reference range was not used to interpret this result as normal/abnormal. MPV (test code = 15902-9) 9.7 fL 9.5-12.9 NRBC/100 WBC (test code = 2210445524) See_Comment [Automated [employer] ssage] The system which generated this result transmitted reference range: 0.0 - 10.0 /100 WBCs. The reference range was not used to interpret this result as normal/abnormal. NRBC x10^3 (test code = 5046691502) See_Comment [Automated messa ge] The system which generated this result transmitted reference range: 10*3/?L. The reference range was not used to interpret this result as normal/abnormal. GRAN MAT (NEUT) % (test code = 770-8) 64.5 % IMM GRAN % (test code = 7066593800) 0.40 % LYMPH % (test code = 736-9) 26.6 % MONO % (test code = 5905-5) 7.0 % EOS % (test code = 713-8) 1.2 % BASO % (test code = 706-2) 0.3 % GRAN MAT x10^3(ANC) (test code = 4918572188) 7.25 10*3/uL 1.88-7.09 H IMM GRAN x10^3 (test code = 5282769578) 0.04 10*3/uL 0-0.06 LYMPH x10^3 (test code = 731-0) 2.99 10*3/uL 1.32-3.29 MONO x10^3 (test code = 742-7) 0.79 10*3/uL 0.33-0.92 EOS x10^3 (test code = 711-2) 0.14 10*3/uL 0.03-0.39 BASO x10^3 (test code = 704-7) 0.03 10*3/uL 0.01-0.07 Lab Interpretation (test code = 69739-7) Abnormal [facility] with [id number] 03:20:31* Test Item Value Reference Range Interpretation [...] 34.5 g/dL 31.6-35.1 RDW-SD (test code = 13024-7) 39.4 fL 39-49.9 RDW-CV (test code = 788-0) 13.1 % 12-15.5 PLT (test code = 777-3) See_Comment H [Automated messa ge] The system which generated this result transmitted reference range: 166 - 358 10*3/?L. The reference range was not used to interpret this result as normal/abnormal. MPV (test code = 30082-4) 9.7 fL 9.5-12.9 NRBC/100 WBC (test code = 0256193537) See_Comment [Automated [employer] ssage] The system which generated this result transmitted reference range: 0.0 - 10.0 /100 WBCs. The reference range was not used to interpret this result as normal/abnormal. NRBC x10^3 (test code = 6154421789) See_Comment [Automated messa ge] The system which generated this result transmitted reference range: 10*3/?L. The reference range was not used to interpret this result as normal/abnormal. GRAN MAT (NEUT) % (test code = 770-8) 64.5 % IMM GRAN % (test code = 7290456900) 0.40 % LYMPH % (test code = 736-9) 26.6 % MONO % (test code = 5905-5) 7.0 % EOS % (test code = 713-8) 1.2 % BASO % (test code = 706-2) 0.3 % GRAN MAT x10^3(ANC) (test code = 7835745114) 7.25 10*3/uL 1.88-7.09 H IMM GRAN x10^3 (test code = 4290041773) 0.04 10*3/uL 0-0.06 LYMPH x10^3 (test code = 731-0) 2.99 10*3/uL 1.32-3.29 MONO x10^3 (test code = 742-7) 0.79 10*3/uL 0.33-0.92 EOS x10^3 (test code = 711-2) 0.14 10*3/uL 0.03-0.39 BASO x10^3 (test code = 704-7) 0.03 10*3/uL 0.01-0.07 Lab Interpretation (test code = 77335-7) Abnormal [facility] URINALYSIS W SPECIFIC [id number] 19:47:00* Test Item Value Reference Range Interpretation [...] U APPEAR (test code = 3267) . [facility] URINALYSIS W SPECIFIC [id number] 14:53:00* Test Item Value Reference Range Interpretation [...] POCT U APPEAR (test code = 3267) [facility] URINALYSIS W SPECIFIC [id number] 14:53:00* Test Item Value Reference Range Interpretation [...] POCT U APPEAR (test code = 3267) [facility]CIFIC [id number] 14:53:00* Test Item Value Reference Range Interpretation [...] POCT U APPEAR (test code = 3267) [facility] SPECIFIC [id number] 14:53:00* Test Item Value Reference Range Interpretation [...] POCT U APPEAR (test code = 3267) [facility]
[2023-10-14 22:00] LABS: Absolute Lymphocytes (CBC) 2.6 K/uL (0.7-4.9); Hematocrit 35.1 % (36.0-45.0); Lymphocytes % 28.9 % (15.3-44.8); MCV 77.9 fL (80-100); MPV 7.2 fL (7.6-11.3); Platelets 411 thou/uL (152-406)
[2023-10-14 22:14] LABS: Potassium 3.1 mEq/L (3.5-5.1)
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
[2023-10-14 23:54] VITALS: BP 115/75; O2SAT 100
== END ==
LOC: ER 21:19
DX: R51.9 Headache, unspecified (principal); M54.2 Cervicalgia; M54.50 Low back pain, unspecified; V49.40XA Driver injured in collision with unspecified motor vehicles in traffic accident, initial encounter
CPT/HCPCS: 36415; 80048; 85025

== ENCOUNTER 2024-02-12 11:32 | Emergency (ER) | payer OTHER ==
--- OUTSIDE RECORDS SUMMARY | 2024-02-12 11:36 | XMS REPORT | Continuity of Care Document ---
Author Name Unknown Address [address] [facility] [address] [place] [address] [facility] thconnect Address [address] [facility] [address] [place] [address] Care Team Providers Care Bee Robber Name Role Phone SUSIE GONZALEZ Primary Care Physician DAVE Alcaraz Attending Clinician Unavailable SUSIE GONZALEZ Attending Clinician UnavailMAYELIN Tan Attending Clinician Unavailpaulo verma Doctor Unassthomas, [place] Attending Clinician U ALETHEA Meadows Attending Clinician Unavailable Shravan Lyman DO Attending Clinician [phone] SHY GUTIERREZ Attending Clinician UnavailSHY Aguayo Attending Clinician Unavailcathie e Provider, [facility] Attending Clinician Ana diego Gonzalez CHRISTIAN SCIENCE READER, Susie Holliday Attending Clinician + [phone] AKINTIFFANIE JACKSON Attending Clinician Unavail able RONALD IRELAND Attending Clinician Unavailable RONALD IRELAND Attending Clinician Unavailable Ultrasound, Aleksey Attending Clinician Unavaila bayron Ireland MD, Ronald Attending Clinician [phone] Akinsipe WHCNP, Tiffanie Caraballo Attending Clinician + TL SCHMIDT Attending Clinician Unavailable [facility], [facility] Attending Clinician Amanda Cortés CHRISTIAN SCIENCE READER, Vesta Milligan Attending Clinician [phone] Gera CHRISTIAN SCIENCE READERCatie Attending Clinician [phone] Shravan Lyman DO Admitting Clinician [phone] Payers Payer Name Policy Type Policy Number Effective Date Expirati on Date Source [place] [employer] [id number] 2016 00:00:00 Problems Condition Name Condition Details Condition Category Status Onset Date Resolution Date Last Treatment Date Treating Clinician Comments Source Uterine size-date discrepanc y in third trimester Uterine size-date discrepanc y in third trimester Disease Active 2021-09 0- 00:00: 00 [facility] heart rate decelerati ons affecting management of mother heart rate decelerati ons affecting management of mother Disease Active 2021-09 0- 00:00: 00 [facility] 36 weeks gestation of 36 weeks gestation of Disease Active 2021-09 0 00:00: 00 [facility] Obesity (BMI 30-39.9) Obesity (BMI 30-39.9) Disease Active 2021-09 0- 00:00: 00 [facility] Gonorrhea in Gonorrhea in Disease Active 03-21 00:00: 00 [facility] Back pain during Back pain during Disease Active 03-21 00:00: 00 [facility] Primigravi da in third trimester Primigravi da in third trimester Disease Active 11-15 00:00: 00 [facility] History of depression History of depression Disease Active 11-15 00:00: 00 [facility] Supervisio n of high-risk with insufficie nt care Supervisio n of high-risk with insufficie nt care Disease Active 11-15 00:00: 00 [facility] High risk teen in third trimester High risk teen in third trimester Disease Active 11-15 00:00: 00 [facility] Chlamydia infection Chlamydia infection Disease Active 05-16 00:00: 00 [facility] Generalize d anxiety disorder Generalize d anxiety disorder Disease Active 2016-09 00:00: 00 [facility] Asthma, unspecifie d asthma severity, unspecifie d whether complicate d, unspecifie d whether persistent Asthma, unspecifie d asthma severity, unspecifie d whether complicate d, unspecifie d whether persistent Disease Active 2016-09 00:00: 00 [facility] Depression during Depression during Disease Active 2016-09 00:00: 00 [facility] Obesity in Obesity in Disease Active 2016-09 00:00: 00 [facility] Allergies, Adverse Reactions, Alerts Allergy Name Allergy Type Status Severity Reaction(s) Onset Date Inactive Date Treating Clinician Comments Source NO KNOWN ALLERGIE S Drug Class Active [facility] Social History Social Habit Start Date Stop Date Quantity Comments Source ASSERTION 2021-10-17 00:00:00 [facility] History of tobacco use Cigarette Smoker [facility] Alcohol intake 2022-06-15 00:00:00 2022-06-15 00:00:00 0 /d [facility] Exposure to SARS-CoV-2 (event) 2022-06-03 00:00:00 2022-06-13 14:43:[address] [facility] Tobacco use and exposure 2022-03-21 00:00:00 2022-03-21 00:00:00 Smokeless tobacco non-user [facility] Sex Assigned At 2002 00:00:00 2002 00:00:00 [facility] Smoking Status Start Date Stop Date Source Smokes tobacco daily 2022-03-21 00:00:00 [facility] Medications Ordered Medication Name Filled Medication Name Start Date Stop Date Current Medication? Ordering Clinician Indication Dosage Frequency Signature (SIG) Comments Components Source amitriptyli ne 100 mg tablet 2021-09 03:15: 58 06-16 00:00 :00 No 100mg Take 100 mg by mouth at bedtime. [facility] [id number] fum-folic () 27 mg iron- 1 mg folic tablet 2021-09 00:00: 00 Yes [id number] 1{tbl} Take 1 tablet by mouth in the morning. [facility] docusate 100 mg capsule 2021-09 00:00: 00 Yes [id number] 200mg Take 2 capsules by mouth once daily as needed for Constipati on. [facility] ferrous sulfate 325 mg (65 mg iron) tablet 2021-09 00:00: 00 Yes [id number] 325mg Take 1 tablet by mouth in the morning and 1 tablet in the evening. [facility] ibuprofen 600 mg tablet 2021-09 00:00: 00 Yes [id number] 600mg Take 1 tablet by mouth every 6 (six) hours as needed (Pain). Take with food or milk. [facility] norethindro ne 0.35 mg tablet 2021-09 00:00: 00 09-15 05:59 :00 No [id number] .35mg Take 1 tablet by mouth in the morning for 90 days. [facility] HYDROcodone -acetaminop hen 5-325 mg tablet 2021-09 00:00: 00 06-24 04:59 :00 No [id number] 1{tbl} Take 1 tablet by mouth every 6 (six) hours as needed for Pain (scale 4-6) or Pain (scale 7-10) (Pain scale above 4) for up to 7 days. Do not exceed 3 grams of acetaminop hen in 24 hours. Indication s: acute pain [facility] amitriptyli ne (ELAVIL) tablet 100 mg 2021-09 0-05 02:00: 00 Yes 100mg 100 mg, Oral, QHS, First dose on Mon06/14/22 at 2100, Until Discontinu ed, Routine [facility] lactated ringers IV infusion 500 mL 2021-09 0 13:15: 00 06-14 12:37 :00 No 500mL at 999 mL/hr, 500 mL, Intravenou s, ONCE, 1 dose, On Mon06/14/22 at 0815, Routine [facility] rho(D) immune globulin (RHOGAM) syringe 300 mcg 2021-09 0-04 06:33: 41 Yes 300ug 300 mcg, Intramuscu lar, ONCE, For 1 dose, Conditiona l, Routine [facility] HYDROcodone -acetaminop hen (NORCO 5) 5-325 mg tablet 2 tablet 2021-09 0-04 06:33: 35 Yes 2{tbl} 2 tablet, Oral, Q6HPRN, Starting on Mon06/14/22 at 0133, Until Discontinu ed, Routine, Pain (scale 7-10), Alternate with Ibuprofen [facility] HYDROcodone -acetaminop hen (NORCO 5) 5-325 mg tablet 1 tablet 2021-09 0-04 06:33: 35 Yes 1{tbl} 1 tablet, Oral, Q6HPRN, Starting on Mon06/14/22 at 0133, Until Discontinu ed, Routine, Pain (scale 4-6), Alternate with Ibuprofen [facility] ibuprofen (IBU) tablet 600 mg 2021-09 0-04 06:33: 35 Yes 600mg 600 mg, Oral, Q6HPRN, Starting on Mon06/14/22 at 0133, Until Discontinu ed, Routine, Pain (scale 1-3) [facility] diphenhydrA MINE (BENADRYL) injection 25 mg 2021-09 0-04 06:33: 35 Yes 25mg 25 mg, Slow IV Push, Q6HPRN, Starting on Mon06/14/22 at 0133, Until Discontinu ed, Routine, Itching [facility] diphenhydrA MINE (BENADRYL) tablet 25 mg 2021-09 0- 06:33: 35 Yes 25mg 25 mg, Oral, Q6HPRN, Starting on Mon06/14/22 at 0133, Until Discontinu ed, Routine, Sleep, Itching [facility] ondansetron (ZOFRAN (PF)) injection 4 mg 2021-09 0- 06:33: 35 Yes 4mg 4 mg, Slow IV Push, Q8HPRN, Starting on Mon06/14/22 at 132, Until Discontinu ed, Routine, Nausea and Vomiting (N/V) [facility] bisacodyL (DULCOLAX) suppository 10 mg 2021-09 0 06:33: 35 Yes 10mg 10 mg, Rectal, QDAILYPRN, Starting on Mon06/14/22 at 013, Until Discontinu ed, Routine, Constipati on [facility] simethicone (GAS RELIEF (SIMETHICON E)) chewable tablet 160 mg 2021-09 0 06:33: 35 Yes 160mg 160 mg, Oral, PC+HSPRN, Starting on Mon06/14/22 at 013, Until Discontinu ed, Routine, Gas [facility] docusate (COLACE) capsule 200 mg 2021-09 0 06:33: 35 Yes 200mg 200 mg, Oral, QDAILYPRN, Starting on Mon06/14/22 at 0133, Until Discontinu ed, Routine, Constipati on [facility] magnesium hydroxide (MILK OF MAGNESIA) 400 mg/5 mL suspension 30 mL 2021-09 0 06:33: 35 Yes 30mL 30 mL, Oral, QDAILYPRN, Starting on Mon06/14/22 at 0133, Until Discontinu ed, Routine, Constipati on [facility] lactated ringers IV infusion 1,000 mL 2021-09 0 06:33: 35 Yes 1000mL at 125 mL/hr, 1,000 mL, IV Infusion, PRN, 1 dose, Starting on Mon06/14/22 at 0133, Until Discontinu ed, Routine [facility] lactated ringers IV infusion 1,000 mL 2021-09 0 04:45: 00 06-14 06:33 :38 No 1000mL at 125 mL/hr, 1,000 mL, IV Infusion, CONTINUOUS , Starting on Mon06/13/22 at 2345, Until Mon06/14/22 at 0133, TRIXIE [facility] ceFAZolin in 0.9% sodium chloride (ANCEF) 2 gram/100 mL RTU 2 g 2021-09 0-04 02:54: 10 06-14 06:33 :38 No 2000mg 2 g (2,000 mg), IV Piggyback, O.R. HOLDING ONCE, Starting on Mon06/13/22 at 2154, Until Mon06/14/22 at 0133, Administer over 30 Minutes, 100 mL
Reas on for Anti-Infec tive: Surgical Prophylaxi s
Surgi renetta Prophylaxi s: FILTERER
Duration of therapy: within 24 hours of surgery [facility] sodium citrate-cit kolby acid (BICITRA) 500-334 mg/5 mL solution 30 mL 2021-09 0 02:54: 10 06-14 03:23 :00 No 30mL 30 mL, Oral, PRE-PROCED URE ONCE, 1 dose, Starting on Mon06/13/22 at 2154, Until Mon06/13/22 at 2223, Routine, Surgery/Pr ocedure [facility] amitriptyli ne 100 mg tablet 2021-09 0- 23:46: 17 Yes 100mg Take 100 mg by mouth at bedtime. [facility] ARIPIPRAZOL E (ABILIFY ORAL) 06-01 10:02: 02 06-01 00:00 :00 No Take by mouth. [facility] amphetamine -dextroamph etamine (ADDERALL XR) 25 mg 24 hr capsule 06-01 10:01: 59 06-01 00:00 :00 No 25mg Take 25 mg by mouth every morning. [facility] metroNIDAZO LE 500 mg tablet 7-13 00:00: 00 06-16 00:00 :00 No [id number] 500mg Take 1 tablet by mouth in the morning and 1 tablet in the evening. [facility] proMETHazin e 25 mg tablet 7-11 00:00: 00 06-16 00:00 :00 No [id number] 25mg Take 1 tablet by mouth every 6 (six) hours as needed for Nausea and Vomiting (N/V). [facility] metroNIDAZO LE 500 mg tablet 6-14 00:00: 00 06-16 00:00 :00 No [id number] 500mg Take 1 tablet by mouth 2 (two) times daily. [facility] ARIPIPRAZOL E (ABILIFY ORAL) 11-15 10:55: 24 Yes Take by mouth. [facility] amphetamine -dextroamph etamine (ADDERALL XR) 25 mg 24 hr capsule 11-15 10:55: 24 Yes 25mg Take 25 mg by mouth every morning. [facility] amitriptyli ne 100 mg tablet 11-15 10:55: 24 Yes 100mg Take 100 mg by mouth at bedtime. [facility] vit 33-iron-fol ic-dha (SELECT-OB + DHA) 29 mg iron-1 mg -250 mg combo pack 11-15 00:00: 00 06-16 00:00 :00 No [id number] 1{packe t} Take 1 Packet by mouth daily. [facility] Vital Signs Vital Name Observation Time Observation Value Comments S amanda Systolic blood pressure 2022-06-16 13:31:00 122 mm[Hg] [facility] Diastolic blood pressure 2022-06-16 13:31:00 79 mm[Hg] [facility] Heart rate 2022-06-16 13:31:00 90 /min [facility] Body temperature 2022-06-16 13:31:[address] [facility] Respiratory rate 2022-06-16 13:31:00 18 /min [facility] Oxygen saturation in Arterial blood by Pulse oximetry 2022-06-16 13:31:00 98 /min [facility] Body height 2022-06-14 02:13:00 160 cm [facility] Body weight 2022-06-14 02:13:00 83.008 kg [facility] BMI 2022-06-14 02:13:00 32.42 kg/m2 [facility] Heart rate 2022-06-14 03:00:00 83 /min [facility] Respiratory rate 2022-06-14 03:00:00 18 /min [facility] Oxygen saturation in Arterial blood by Pulse oximetry 2022-06-14 03:00:00 100 /min [facility] Systolic blood pressure 2022-06-14 02:13:00 119 mm[Hg] [facility] Diastolic blood pressure 2022-06-14 02:13:00 68 mm[Hg] [facility] Body temperature 2022-06-14 02:13:[address] [facility] Body height 2022-06-14 02:13:[address] [facility] Body weight 2022-06-14 02:13:[address] [facility] BMI 2022-06-14 02:13:00 32.42 kg/m2 [facility] Systolic blood pressure 2022-06-13 19:41:00 117 mm[Hg] [facility] Diastolic blood pressure 2022-06-13 19:41:00 77 mm[Hg] [facility] Heart rate 2022-06-13 19:41:00 92 /min [facility] Body temperature 2022-06-13 19:41:[address] [facility] Respiratory rate 2022-06-13 19:41:00 20 /min [facility] Body height 2022-06-13 19:41:00 160 [facility] weight 2022-06-13 19:41:[address] [facility] BMI 2022-06-13 19:41:00 32.35 kg/m2 [facility] Systolic blood pressure 2022-06-01 14:49:00 114 mm[Hg] [facility] Diastolic blood pressure 2022-06-01 14:49:00 69 mm[Hg] [facility] Heart rate 2022-06-01 14:49:00 95 /min [facility] Body temperature 2022-06-01 14:49:[address] [facility] Respiratory rate 2022-06-01 14:49:00 18 /min [facility] Body weight 2022-06-01 14:49:[address] [facility] Procedures Procedure Date / Time Performed Performing Clinician Source DME/SUPPLY JUSTIFICATION 2022-07-14 05:01:00 Doc tor Unassigned, [place] [facility] CBC WITH DIFF 2022-06-14 09:46:00 Marion [facility]ps[facility] CBC WITH DIFF 2022-06-14 09:46:00 Marion España [facility] URINE DRUG (IMMUNOASSAY) - COMPREHENSIVE DRUG SCREEN 2022-06-14 05:53:00 Degffedru [facility] URINE DRUG (IMMUNOASSAY) - COMPREHENSIVE DRUG SCREEN 2022-06-14 05:53:00 Degffedru [facility] VENOUS CORD GAS 2022-06-14 03:56:00 DegraffeTadeo gonsales [facility] VENOUS CORD GAS 2022-06-14 03:56:[address] [facility] SECTION 2022-06-14 03:11:00 Shravan Lyman [facility] SECTION 2022-06-14 03:11:00 Shravan Lyman U [facility] HB ABO GROUPING 2022-06-14 03:00:00 [facility] IMMUNE GLOBULIN 2022-06-14 03:00:[address] [facility] HB ABO GROUPING 2022-06-14 03:00:[address] [facility] RHO (D) IMMUNE GLOBULIN 2022-06-14 03:00:[address] [facility] CBC WITH DIFF 2022-06-14 02:58:00 Degraffenreid, [facility] HEPATITIS B SURFACE ANTIGEN 2022-06-14 02:58:00 Degraffenreid, [facility] GALV ONLY - SYPHILIS IGG/IGM 2022-06-14 02:58:00 Degraffenreid, [facility] CBC WITH DIFF 2022-06-14 02:58:00 Degraffenreid, [facility] HEPATITIS B SURFACE ANTIGEN 2022-06-14 02:58:00 Degraffenreid, [facility] GALV ONLY - SYPHILIS IGG/IGM 2022-06-14 02:58:00 Degraffenreid, [facility] NON-STRESS TEST 2022-06-13 21:53:[address] [facility] POCT URINALYSIS 2022-06-13 00:00:[address] [facility] TDAP VACCINE, >11 YRS, IM 2022-06-01 15:02:[address] [facility] POCT URINALYSIS 2022-06-01 14:52:[address] [facility] Encounters Start Date/Time End Date/Time Encounter Type Admission Type Attending Clinicians Care Facility Care Department Encounter ID Source 2022-07-14 13:00:00 2022-07-14 13:00:00 Outpatient R MAYELIN HUNTER [facility] [id number] [facility] 2022-07-14 00:00:00 2022-07-14 00:00:00 Orders Only Doctor Unassigned, [place] [facility] 1.2.840.114 350.1.13.10 4.2.7.2.686 [id number] [facility] 2022-06-20 15:45:00 2022-06-20 15:45:00 Outpatient SUSIE HUGHES [facility] [id number] [facility] 2022-06-13 20:50:00 2022-06-16 11:27:00 Hospital Encounter [facility] 1.2.840.114 350.1.13.10 4.2.7.2.686 [id number] [facility] 2022-06-16 00:00:00 2022-06-16 00:00:00 Encounter 1.2.840.1 [id number] 350.1.13.10 4.2.7.2.696 [id number] [facility] 2022-06-13 22:10:00 2022-06-14 00:01:00 Surgery [facility] 1.2.840.114 350.1.13.10 4.2.7.2.686 [id number] [facility] 2022-06-13 14:30:00 2022-06-13 16:34:43 Outpatient SHY PATEL SAR[facility] [id number] [facility] 2022-06-13 14:30:00 2022-06-13 16:34:43 Routine Visit Provider, Shy Morrison [facility] 1.2.840.114 350.1.13.10 4.2.7.2.686 [id number] [facility] 2022-06-13 14:30:00 2022-06-13 16:34:[address] [facility] [id number] [facility] 2022-06-06 15:15:00 2022-06-06 15:15:00 Outpatient R SUSIE GONZALEZ [facility] [id number] [facility] 2022-06-01 09:15:00 2022-06-01 11:00:25 Outpatient R SUSIE GONZALEZ [facility] [id number] [facility] 2022-06-01 09:15:00 2022-06-01 11:00:25 Routine Visit Susie Gonzalez [facility] ..840.114 350.1.13.10 4.2.7.2.686 [id number] [facility] 2022-06-01 09:30:00 2022-06-01 09:30:00 Outpatient R SUSIE GONZALEZ [facility] [id number] [facility] 2022-05-20 10:15:00 2022-05-20 10:15:00 Outpatient R TIFFANIE WEISS [facility] [id number] [facility] 2022-04-21 10:00:00 2022-04-21 10:00:00 Outpatient R TIFFANIE WEISS [facility] [id number] [facility] 2022-04-11 14:00:00 2022-04-11 14:00:00 Outpatient R MAXXALICIATIFFANIE [facility] [id number] [facility] 2022-03-28 14:00:00 2022-03-28 14:52:56 Outpatient P RONALD IRELAND SANGEETA [facility] [id number] [facility] 2022-03-28 14:00:00 2022-03-28 14:45:00 Joiner Visit Ultrasound, Ronald Rocha [facility] ..840.114 350.1.13.10 4.2.7.2.686 [id number] [facility] 2022-03-28 14:00:00 2022-03-28 14:00:00 Outpatient P [facility] [id number] [facility] 2022-03-28 00:00:00 2022-03-28 00:00:00 Abstract GonzalezSusie [facility] FILTERER [facility] 1.2.840.114 350.1.13.10 4.2.7.2.686 [id number] [facility] 2022-03-28 00:00:00 2022-03-28 00:00:00 Abstract Ayala Gonzalezquinn Mg [facility] FILTERER [facility] 1..840.114 350.1.13.10 4.2.7.2.686 [id number] [facility] 2022-03-28 00:00:00 2022-03-28 00:00:00 Telephone Tiffanie Weiss [facility] FILTERER [facility] CHILD [facility] 1..840.114 350.1.13.10 4.2.7.2.686 [id number] [facility] 2022-03-23 00:00:00 2022-03-23 00:00:00 Telephone Tiffanie Weiss [facility] FILTERER [facility] 1.2.840.114 350.1.13.10 4.2.7.2.686 [id number] [facility] 2022-03-21 13:00:00 2022-03-21 14:04:19 Outpatient R TIFFANIE WEISS [facility] [id number] [facility] 2022-03-21 13:00:00 2022-03-21 14:04:19 Routine Visit Tiffanie Weiss [facility] FILTERER [facility] 1..840.114 350.1.13.10 4.2.7.2.686 [id number] [facility] 2022-03-21 13:00:00 2022-03-21 13:00:00 Outpatient R TIFFANIE WEISS [facility] [id number] [facility] 2022-02-22 00:00:00 2022-02-22 00:00:00 Telephone Tiffanie Weiss [facility] FILTERER [facility] 1.2.840.114 350.1.13.10 4.2.7.2.686 [id number] [facility] 2022-02-21 14:15:00 2022-02-21 15:05:22 Outpatient TIFFANIE NEUMANN [facility] [id number] [facility] 2022-02-21 14:15:00 2022-02-21 15:05:22 Routine Visit Tiffanie Weiss [facility] FILTERER [facility] 1..840.114 350.1.13.10 4.2.7.2.686 [id number] [facility] 2022-02-21 00:00:00 2022-02-21 00:00:00 Orders Only Doctor Unassigned, [place] [facility] 1..840.114 350.1.13.10 4.2.7.2.686 [id number] [facility] 2022-01-25 09:30:00 2022-01-25 09:30:00 Outpatient TL SOTO [facility] [id number] [facility] 2022-01-10 15:45:00 2022-01-10 15:45:00 Outpatient SUSIE HUGHES [facility] [id number] [facility] 2022-01-07 09:00:00 2022-01-07 09:00:00 Outpatient SUSIE HUGHES [facility] [id number] [facility] 2021-12-13 14:30:00 2021-12-13 14:30:00 Outpatient SUSIE HUGHES [facility] [id number] [facility] 2021-12-13 10:30:00 2021-12-13 10:58:28 Joiner Visit Ultrasound, Ronald Rocha [facility] FILTERER [facility] 1.2.840.114 350.1.13.10 4.2.7.2.686 [id number] [facility] 2021-12-13 10:30:00 2021-12-13 10:30:00 Outpatient SUSIE WEBB [facility] [id number] [facility] 2021-12-13 00:00:00 2021-12-13 00:00:00 Abstract Susie Gonzalez [facility] FILTERER [facility] 1.2.840.114 350.1.13.10 4.2.7.2.686 [id number] [facility] 2021-11-19 00:00:00 2021-11-19 00:00:00 Telephone Susie Gonzalez [facility] FILTERER [facility] CH[facility] 1.2.840.114 350.1.13.10 4.2.7.2.686 [id number] [facility] 2021-11-17 10:30:00 2021-11-17 11:16:07 Nurse Visit Visit, [facility] 1.2.840.114 350.1.13.10 4.2.7.2.686 [id number] [facility] 2021-11-17 10:30:00 2021-11-17 10:30:00 Outpatient SUSIE HUGHES [facility] [id number] [facility] 2021-11-16 00:00:00 2021-11-16 00:00:00 Telephone GonzalezSusie [facility] FILTERER [facility] 1.2.840.114 350.1.13.10 4.2.7.2.686 [id number] [facility] 2021-11-15 09:45:00 2021-11-15 11:30:15 Outpatient R [facility] [facility] [id number] [facility] 2021-11-15 09:45:00 2021-11-15 11:30:15 Initial Visit Gonzalez, Susie Holliday [facility] 1.2.840.114 350.1.13.10 4.2.7.2.686 [id number] 107 [id number] [facility] 2021-11-15 00:00:00 2021-11-15 00:00:00 Orders Only Doctor Unassigned, [place] [facility] 1..840.114 350.1.13.10 4.2.7.2.686 [id number] [facility] 2021-11-11 14:30:00 2021-11-11 14:30:00 Outpatient DAVE PARK [facility] [id number] [facility] 2021-01-22 15:24:07 2021-01-22 16:17:44 Office Visit Tiffanie Weiss [facility] 1..840.114 350.1.13.10 4.2.7.2.686 [id number] 107 [id number] [facility] 2021-01-22 15:30:00 2021-01-22 15:30:00 Outpatient TIFFANIE NEUMANN [facility] [id number] [facility] 2020-11-30 13:15:00 2020-11-30 13:15:00 Outpatient R TODDTE JACKSONILOLA [facility] [id number] [facility] 2020-11-24 15:47:42 2020-11-24 16:41:18 Office Visit Tiffanie Weiss [facility] 1.2.840.114 350.1.13.10 4.2.7.2.686 [id number] 107 [id number] [facility] 2020-11-24 16:00:00 2020-11-24 16:00:00 Outpatient R LOWELL WEISSOLA [facility] [id number] [facility] 2020-11-24 00:00:00 2020-11-24 00:00:00 Orders Only Doctor Unassigned, [place] [facility] 1.2.840.114 350.1.13.10 4.2.7.2.686 [id number] [facility] 2019-05-16 10:17:05 2019-05-16 10:47:05 Office Visit Vesta Cortés [facility] 1.2.840.114 350.1.13.10 4.2.7.2.686 [id number] 107 [id number] [facility] 2019-05-16 00:00:00 2019-05-16 00:00:00 Letter (Out) Vesta Cortés [facility] 1.2.840.114 350.1.13.10 4.2.7.2.686 [id number] 107 [id number] [facility] 2019-05-16 00:00:00 2019-05-16 00:00:00 Telephone Vesta Cortés [facility] 1.2.840.114 350.1.13.10 4.2.7.2.686 [id number] 107 [id number] [facility] 2019-05-15 12:45:15 2019-05-15 13:00:15 Office Visit Vesta Cortés [facility] 1.840.114 350.1.13.10 4.2.7.2.686 [id number] 107 [id number] [facility] 2019-05-15 00:00:00 2019-05-15 00:00:00 Telephone Catie Boss [facility] 1.2.114 350.1.13.10 4.2.7.2.686 [id number] 107 [id number] [facility] 2019-05-15 00:00:00 2019-05-15 00:00:00 Orders Only Doctor Unassigned, [place] [facility] 1.2840.114 350.1.13.10 4.2.7.2.686 [id number] [facility] Results Test Description Test Time Test Comments Results Result Co mments Source [facility] - SYPHILIS IGG/[id number] 14:50:49* Test Item Value Reference Range Interpretation Comme nts Syphilis IgG/IgM (test code = 66662-6) Non-reactive Non-reactive CHAGO (test code = CHAGO) Non-reactive - No serologic evidence of T. pallidum infection. Cannot exclude incubating or early syphilis. Submit a second specimen in 2-4 weeks if syphilis is clinically suspected. Equivocal - Further testing to follow. Reactive - Further testing to follow. Lab Interpretation (test code = 85780-8) Normal [facility] (D) IMMUNE [id number] 06:34:45* Test Item Value Reference Range Interpretation Comme nts RHIG CANDIDATE? (test code = 5055) No- see comment Patient is not a candidate for RhIg- Patient is Rh Positive.Performed at [facility] Laboratory Services - [facility] Blood [address] [place] [address]Rlfl Free: [phone] No. [id number] [facility] (D) IMMUNE [id number] 06:34:45* Test Item Value Reference Range Interpretation Comme nts RHIG CANDIDATE? (test code = 5055) No- see comment Patient is not a candidate for RhIg- Patient is Rh Positive.Performed at [facility] Laboratory Services - [facility] Blood [address] [id number] Free: [phone] No. [id number] [facility] B Surface [id number] 04:29:00 * Test Item Value Reference Range Interpretation Comme nts HBsAg Semi-Quantitative (saleem t code = 5195-3) Negative Negative [facility] B Surface [id number] 04:29:00 * Test Item Value Reference Range Interpretation Comme nts HBsAg Semi-Quantitative (saleem t code = 5195-3) Negative Negative [facility] [id number] 04:15:10* Test Item Value Reference Range Interpretation Comme nts BASE EXCESS, CORD (test code = 9439467559) mEq/L AC PH, CORD (BEAKER) (test code = 5967443488) 7.18-7.38 L PC02, CORD (test code = 5195732150) See_Comment [Automated messa ge] The system which generated this result transmitted reference range: 32 - 66 mmHg. The reference range was not used to interpret this result as normal/abnormal. PO2, CORD (test code = 9261695871) <10 BICARBONATE, CORD (test code = 3181007076) See_Comment [Automated [employer] ssage] The system which generated this result transmitted reference range: 17 - 27 mEq/L. The reference range was not used to interpret this result as normal/abnormal. Lab Interpretation (test code = 90277-1) Abnormal [facility] [id number] 04:15:10* Test Item Value Reference Range Interpretation Comme nts BASE EXCESS, CORD (test code = 3363505041) mEq/L AC PH, CORD (BEAKER) (test code = 9711057793) 7.18-7.38 L PC02, CORD (test code = 4607608072) See_Comment [Automated messa ge] The system which generated this result transmitted reference range: 32 - 66 mmHg. The reference range was not used to interpret this result as normal/abnormal. PO2, CORD (test code = 8947694290) <10 BICARBONATE, CORD (test code = 6033469134) See_Comment [Automated me ssage] The system which generated this result transmitted reference range: 17 - 27 mEq/L. The reference range was not used to interpret this result as normal/abnormal. Lab Interpretation (test code = 50826-8) Abnormal [facility] Cord [id number] 04:12:23* Test Item Value Reference Range Interpretation Comme nts VENOUS BASE EXCESS, CORD (test code = 0911124027) mEq/L VENOUS PH, CORD (test code = 1462914835) 7.25-7.45 VENOUS PC02, CORD (test code = 2122217747) See_Comment H [Automated me ssage] The system which generated this result transmitted reference range: 27 - 49 mmHg. The reference range was not used to interpret this result as normal/abnormal. VENOUS PO2, CORD (test code = 0021250492) See_Comment L [Automated me ssage] The system which generated this result transmitted reference range: 17 - 41 mmHg. The reference range was not used to interpret this result as normal/abnormal. VENOUS BICARBONATE, CORD (test code = 7910611529) See_Comment [Automa shaheed message] The system which generated this result transmitted reference range: 12 - 29 mEq/L. The reference range was not used to interpret this result as normal/abnormal. Lab Interpretation (test code = 60314-7) Abnormal [facility] Cord [id number] 04:12:23* Test Item Value Reference Range Interpretation Comme nts VENOUS BASE EXCESS, CORD (test code = 9909307020) mEq/L VENOUS PH, CORD (test code = 2133909455) 7.25-7.45 VENOUS PC02, CORD (test code = 0142136419) See_Comment H [Automated me ssage] The system which generated this result transmitted reference range: 27 - 49 mmHg. The reference range was not used to interpret this result as normal/abnormal. VENOUS PO2, CORD (test code = 2420494307) See_Comment L [Automated me ssage] The system which generated this result transmitted reference range: 17 - 41 mmHg. The reference range was not used to interpret this result as normal/abnormal. VENOUS BICARBONATE, CORD (test code = 5144915559) See_Comment [[employer] shaheed message] The system which generated this result transmitted reference range: 12 - 29 mEq/L. The reference range was not used to interpret this result as normal/abnormal. Lab Interpretation (test code = 67524-2) Abnormal [facility] and Screen - ONCE [id number] 03:47:01 * Test Item Value Reference Range Interpretation Comme nts ABO & RH (test code = 20) A POSITIVE Performed at [facility] Laboratory Services - [address] Free: [phone] No. [id number] IAT (test code = 1185) Negative Performed at [facility] Laboratory [facility] - [address] Free: [phone] No. [id number] [facility] and Screen - ONCE [id number] 03:47:01 * Test Item Value Reference Range Interpretation Comme nts ABO & RH (test code = 20) A POSITIVE Performed at [facility] Laboratory [facility] - [address] Free: [phone] No. [id number] IAT (test code = 1185) Negative Performed at [facility] Laboratory [facility] - [address] Free: [phone] No. [id number] [facility] CenterCBC with [id number] 03:20:31* Test Item Value Reference Range Interpretation [...] 34.5 g/dL 31.6-35.1 RDW-SD (test code = 14916-4) 39.4 fL 39-49.9 RDW-CV (test code = 788-0) 13.1 % 12-15.5 PLT (test code = 777-3) See_Comment H [Automated messa ge] The system which generated this result transmitted reference range: 166 - 358 10*3/?L. The reference range was not used to interpret this result as normal/abnormal. MPV (test code = 59817-3) 9.7 fL 9.5-12.9 NRBC/100 WBC (test code = 9308490368) See_Comment [Automated [employer] ssage] The system which generated this result transmitted reference range: 0.0 - 10.0 /100 WBCs. The reference range was not used to interpret this result as normal/abnormal. NRBC x10^3 (test code = 8681781989) See_Comment [Automated messa ge] The system which generated this result transmitted reference range: 10*3/?L. The reference range was not used to interpret this result as normal/abnormal. GRAN MAT (NEUT) % (test code = 770-8) 64.5 % IMM GRAN % (test code = 3776240156) 0.40 % LYMPH % (test code = 736-9) 26.6 % MONO % (test code = 5905-5) 7.0 % EOS % (test code = 713-8) 1.2 % BASO % (test code = 706-2) 0.3 % GRAN MAT x10^3(ANC) (test code = 4039658480) 7.25 10*3/uL 1.88-7.09 H IMM GRAN x10^3 (test code = 7243426632) 0.04 10*3/uL 0-0.06 LYMPH x10^3 (test code = 731-0) 2.99 10*3/uL 1.32-3.29 MONO x10^3 (test code = 742-7) 0.79 10*3/uL 0.33-0.92 EOS x10^3 (test code = 711-2) 0.14 10*3/uL 0.03-0.39 BASO x10^3 (test code = 704-7) 0.03 10*3/uL 0.01-0.07 Lab Interpretation (test code = 57742-5) Abnormal [facility] with [id number] 03:20:31* Test Item Value Reference Range Interpretation [...] 34.5 g/dL 31.6-35.1 RDW-SD (test code = 17841-9) 39.4 fL 39-49.9 RDW-CV (test code = 788-0) 13.1 % 12-15.5 PLT (test code = 777-3) See_Comment H [Automated messa ge] The system which generated this result transmitted reference range: 166 - 358 10*3/?L. The reference range was not used to interpret this result as normal/abnormal. MPV (test code = 00604-5) 9.7 fL 9.5-12.9 NRBC/100 WBC (test code = 5299148295) See_Comment [Automated me ssage] The system which generated this result transmitted reference range: 0.0 - 10.0 /100 WBCs. The reference range was not used to interpret this result as normal/abnormal. NRBC x10^3 (test code = 0850344624) See_Comment [Automated messa ge] The system which generated this result transmitted reference range: 10*3/?L. The reference range was not used to interpret this result as normal/abnormal. GRAN MAT (NEUT) % (test code = 770-8) 64.5 % IMM GRAN % (test code = 6132982466) 0.40 % LYMPH % (test code = 736-9) 26.6 % MONO % (test code = 5905-5) 7.0 % EOS % (test code = 713-8) 1.2 % BASO % (test code = 706-2) 0.3 % GRAN MAT x10^3(ANC) (test code = 5585492155) 7.25 10*3/uL 1.88-7.09 H IMM GRAN x10^3 (test code = 6315389395) 0.04 10*3/uL 0-0.06 LYMPH x10^3 (test code = 731-0) 2.99 10*3/uL 1.32-3.29 MONO x10^3 (test code = 742-7) 0.79 10*3/uL 0.33-0.92 EOS x10^3 (test code = 711-2) 0.14 10*3/uL 0.03-0.39 BASO x10^3 (test code = 704-7) 0.03 10*3/uL 0.01-0.07 Lab Interpretation (test code = 30587-8) Abnormal [facility] URINALYSIS W SPECIFIC [id number] 19:47:00* Test Item Value Reference Range Interpretation [...] U APPEAR (test code = 3267) . [facility] URINALYSIS W SPECIFIC [id number] 14:53:00* Test Item Value Reference Range Interpretation [...] POCT U APPEAR (test code = 3267) [facility] URINALYSIS W SPECIFIC [id number] 14:53:00* Test Item Value Reference Range Interpretation [...] POCT U APPEAR (test code = 3267) [facility] URINALYSIS W SPECIFIC [id number] 14:53:00* Test Item Value Reference Range Interpretation [...] POCT U APPEAR (test code = 3267) [facility] URINALYSIS W SPECIFIC [id number] 14:53:00* Test Item Value Reference Range Interpretation [...] cristina POCT U BLD (test code = 6331) * Negative - Negati ve POCT U COLOR (test code = 4676) * POCT U APPEAR (test code = 9531) [facility]
[2024-02-12 12:20] LABS: Specific Gravity 1.025 (1.005-1.030); Urine Color Light-Yellow (Yellow)
[2024-02-12 12:21] LABS: Specific Gravity 1.025 (1.005-1.030); Urine Bilirubin NEGATIVE (Negative); Urine Blood 2+ (Negative); Urine Clarity Turbid (Clear); Urine Glucose Negative (Negative); Urine Ketones Negative (Negative); Urine Nitrite NEGATIVE (Negative); Urine Protein Negative (Negative); Urine Urobilinogen 1+ mg/dL (0.2-1.0)
[2024-02-12 12:22] LABS: Urine Culture Reflex Order NOT NEEDED; Urine Micro Reflex YN NO BILL NO MICROSCOPIC; Urine RBC <5 /HPF (None Seen); Urine WBC <5 /HPF (<5)
--- NOTE | 2024-02-12 13:35 | ER ---
[facility] Name: Anny Garzon Age: 23 yrs Sex: Female : 2000 Arrival Date: 02/12/2024 Time: 11:32 Bed 8 Private MD: Diagnosis: Dysuria Presentation: 02/11 11:43 Chief complaint: Patient states: positive test 02/08/24. Pt states "I need to [facility] be checked for an STD". Pt reports burning to vaginal area at times. Pt also reports hoarse voice, pt reports she had an argument with family yesterday and "did a lot of screaming". 11:43 Coronavirus screen: sore throat. Ebola Screen: Patient denies travel to an [facility] Ebola-affected area in the 21 days before illness onset. Initial Sepsis Screen: Does the patient meet any 2 criteria? No. Patient's initial sepsis screen is negative. Does the patient have a suspected source of infection? No. Patient's initial sepsis screen is negative. Risk Assessment: Do you want to hurt yourself or someone else? Patient reports no desire to harm self or others. Onset of symptoms was 2023. 11:43 Method Of Arrival: Ambulatory aa5 11:43 Acuity: DEBRA 4 aa5 Triage Assessment: 11:50 General: Appears in no apparent distress. comfortable, Behavior is calm, cooperative. rs5 Historical: - Allergies: 11:47 No Known Allergies; aa5 - PMHx: 11:47 ADD/ADHD; Depression; root canal; 3-4 days ago 12/2017; aa5 - PSHx: 11:47 ; aa5 - Immunization history:: Adult Immunizations up to date. - Infectious Disease History:: Denies. - Social history:: Smoking status: Patient denies any tobacco usage or history of. Screenin:45 [facility] ED Fall Risk Assessment (Adult) History of falling in the last 3 months, rs5 including since admission No falls in past 3 months (0 pts) Confusion or Disorientation No (0 pts) Intoxicated or Sedated No (0 pts) Impaired Gait No (0 pts) Mobility Assist Device Used No (0 pt) Altered Elimination No (0 pt) Score/Fall Risk Level 0 - 2 = Low Risk Oriented to surroundings, Maintained a safe environment. Abuse screen: Denies threats or abuse. Nutritional screening: No deficits noted. Tuberculosis screening: No symptoms or risk factors identified. Assessment: 11:45 General: Appears in no apparent distress. comfortable, Behavior is calm, cooperative. rs5 Pain: Denies pain. Neuro: Level of Consciousness is awake, alert, obeys commands, Oriented to person, place, time, situation. Cardiovascular: Rhythm is regular. Respiratory: Airway is patent Respiratory effort is even, unlabored, Respiratory pattern is regular, symmetrical. GI: Abdomen is round non-distended, Abd is soft and non tender X 4 quads. : Reports "I think I may have an STD or that I may be and I want to get checked up". EENT: No signs and/or symptoms were reported regarding the EENT system. Derm: Skin is intact, Skin is pink, warm \\T\\ dry. Musculoskeletal: Range of motion: intact in all extremities. 12:55 Reassessment: Patient and/or family updated on plan of care and expected duration. Pain rs5 level reassessed. Patient is alert, oriented x 3, equal unlabored respirations, skin warm/dry/pink. 13:40 Reassessment: Patient is alert, oriented x 3, equal unlabored respirations, skin aa5 warm/dry/pink. Vital Signs: 11:43 BP 118 / 76; Pulse 75; Resp 18 S; Temp 98.8(O); Pulse Ox 98% on R/A; Weight 75.75 kg aa5 (R); Height 5 ft. 2 in. (R); 13:39 BP 115 / 77; Pulse 77; Resp 18; Pulse Ox 99% on R/A; rs5 11:43 Body Mass Index 30.54 (75.75 kg, 157.48 cm) aa5 ED Course: 11:35 Patient arrived in ED. mg5 11:37 Anel Lawrence MD is Attending Physician. gb1 11:45 Patient has correct armband on for positive identification. Placed in gown. Bed in low rs5 position. Call light in reach. Side rails up X2. 11:47 Arm band placed on. aa5 11:50 Triage completed. aa5 11:54 Jerzy Baer, RN is Primary Nurse. rs5 12:17 GC (Roshan/Chl) Probe URINE Sent. ko1 12:17 Urinalysis W/Microscopic Sent. ko1 12:17 Test, Urine Sent. ko1 13:40 No provider procedures requiring assistance completed. Patient did not have IV access aa5 during this emergency room visit. Administered Medications: No medications were administered Medication: 13:30 VIS not applicable for this client. rs5 Outcome: 13:35 Discharge ordered by . gb1 13:41 Discharged to home ambulatory, aa5 13:41 Condition: good 13:41 Discharge instructions given to patient, Instructed on discharge instructions, follow up and referral plans. Demonstrated understanding of instructions, follow-up care, 13:42 Patient left the ED. aa5 Signatures: Kamla Sandhu RN RN aa5 Marilyn Penny RN RN ko1 Jerzy Baer RN RN bipin5 Brea Milan5 Anel Lawrence MD MD gb1 Corrections: (The following items were deleted from the chart) 11:54 11:43 Chief complaint: Patient states: positive test 02/08/24. Pt states "I aa5 need to be checked for an STD". Pt reports burning to vaginal area at times. Pt also reports hoarse voice. aa5 13:37 13:36 Patient left the ED. gb1 aa5 14:59 13:05 BP 115 / 77; Pulse 77bpm; Resp 18bpm; Pulse Ox 99% RA; rs5 rs5
--- NOTE | 2024-02-12 13:35 | EDPHYS ---
Physician Documentation [facility] Name: Anny Garzon Age: 23 yrs Sex: Female : 2000 Arrival Date: 02/12/2024 Time: 11:32 Bed 8 Private MD: ED Physician Anel Lawrence HPI: 02/11 13:35 This 23 yrs old Female presents to ER via Ambulatory with complaints of Preg. gb1 Test, STD Exposure, Losing Voice. 12:30 23-year-old female here with concern that she be . She took a gb1 test at home and they were both positive. This is her second she denies any abdominal pain vaginal discharge or bleeding. She also states that she was treated for trichomonas and finished her medication but is still having pain with sex. She is losing her voice after having an argument with her boyfriend.. Historical: - Allergies: 11:47 No Known Allergies; aa5 - PMHx: 11:47 ADD/ADHD; Depression; root canal; 3-4 days ago 12/2017; aa5 - PSHx: 11:47 ; aa5 - Immunization history:: Adult Immunizations up to date. - Infectious Disease History:: Denies. - Social history:: Smoking status: Patient denies any tobacco usage or history of. Exam: 12:30 Constitutional: This is a well developed, well nourished patient who is awake, alert, gb1 and in no acute distress. Head/Face: Normocephalic, atraumatic. Eyes: Pupils equal round and reactive to light, extra-ocular motions intact. Lids and lashes normal. Conjunctiva and sclera are non-icteric and not injected. Cornea within normal limits. Periorbital areas with no swelling, redness, or edema. ENT: Nares patent. No nasal discharge, no septal abnormalities noted. Tympanic membranes are normal and external auditory canals are clear. Oropharynx with no redness, swelling, or masses, exudates, or evidence of obstruction, uvula midline. Mucous membranes moist. Neck: Trachea midline, no thyromegaly or masses palpated, and no cervical lymphadenopathy. Supple, full range of motion without nuchal rigidity, or vertebral point tenderness. No Meningismus. Chest/axilla: Normal chest wall appearance and motion. Nontender with no deformity. No lesions are appreciated. Cardiovascular: Regular rate and rhythm with a normal S1 and S2. No gallops, murmurs, or rubs. Normal PMI, no JVD. No pulse deficits. Respiratory: Lungs have equal breath sounds bilaterally, clear to auscultation and percussion. No rales, rhonchi or wheezes noted. No increased work of breathing, no retractions or nasal flaring. Abdomen/GI: Soft, non-tender, with normal bowel sounds. No distension or tympany. No guarding or rebound. No evidence of tenderness throughout. Skin: Warm, dry with normal turgor. Normal color with no rashes, no lesions, and no evidence of cellulitis. MS/ Extremity: Pulses equal, no cyanosis. Neurovascular intact. Full, normal range of motion. Neuro: Awake and alert, GCS 15, oriented to person, place, time, and situation. Cranial nerves II-XII grossly intact. Motor strength 5/5 in all extremities. Sensory grossly intact. Cerebellar exam normal. Normal gait. Vital Signs: 11:43 BP 118 / 76; Pulse 75; Resp 18 S; Temp 98.8(O); Pulse Ox 98% on R/A; Weight 75.75 kg aa5 (R); Height 5 ft. 2 in. (R); 13:39 BP 115 / 77; Pulse 77; Resp 18; Pulse Ox 99% on R/A; rs5 11:43 Body Mass Index 30.54 (75.75 kg, 157.48 cm) aa5 MDM: 11:44 Patient medically screened. [facility] 12:30 Differential Diagnosis PID, urinary tract infection, doubt ectopic gb1 consider early threatened , although patient has no bleeding or abdominal pain. Doubt acute appendicitiss,or pyelonephritis.. Data reviewed: vital signs, nurses notes, lab test result(s), urinalysis, UPT:. 13:33 Data reviewed: lab test result(s), urinalysis, UPT: negative Gonorrhea and chlamydia of gb1 the urine are pending. 02/11 11:38 Order name: Test, Urine; Complete Time: 13:11 [facility] 02/11 11:40 Order name: Urinalysis W/Microscopic; Complete Time: 13:11 [facility] 02/11 12:15 Order name: GC (Roshan/Chl) Probe URINE gb1 Administered Medications: No medications were administered Disposition Summary: 02/12/24 13:35 Discharge Ordered Notes: Location: Home gb1 Condition: Stable gb1 Diagnosis - Dysuria gb1 Followup: gb1 - With: Private Physician - When: - Reason: Recheck today's complaints, Re-evaluation by your physician Discharge Instructions: - Discharge Summary Sheet gb1 - Dysuria gb1 Forms: - Medication Reconciliation Form gb1 - Antibiotic Education gb1 - Prescription Opioid Use gb1 - Patient Portal Instructions gb1 - Leadership Thank You Letter gb1 Signatures: Dispatcher [employer] EDMS Kamla Sandhu, RN RN aa5 Jerzy Baer RN RN rs5 Anel Lawrence MD MD gb1 Corrections: (The following items were deleted from the chart) 11:39 11:38 IV Saline Lock ordered. gb1 gb1 11:39 11:38 Labs collected and sent ordered. gb1 gb1 11:39 11:38 NPO ordered. gb1 gb1 11:49 11:39 ABO/RH TYPING+BB.LAB.BRZ ordered. EDMS EDMS 11:49 11:39 BASIC METABOLIC PANEL+C.LAB.BRZ ordered. EDMS EDMS 11:49 11:39 CBC+H.LAB.BRZ ordered. EDMS EDMS 12:26 11:40 GC (Roshan/Chl) Probe CX/URE+R.LAB.BRZ (Do not order if pt is under 13, order EDMS Culture instead) ordered. EDMS
[2024-02-12 13:41] VITALS: BP 118/76; TEMP 98.8; O2SAT 98
[2024-02-15 07:33] LABS: C.trachomatis RNA,TMA Not Detected (Not Detected); N.gonorrhoeae RNA,TMA Not Detected (Not Detected)
== END 2024-02-12 13:42 | disposition home or self-care (01) ==
LOC: ER 11:32
DX: R30.0 Dysuria (principal)
CPT/HCPCS: 81001; 81025; 87490; 87590; 99283

== ENCOUNTER 2024-04-13 09:15 | Emergency (ER) | payer OTHER ==
--- OUTSIDE RECORDS SUMMARY | 2024-04-13 09:19 | XMS REPORT | Continuity of Care Document ---
Author Name Unknown Address [address] [place] [address] [facility] thconnect Address 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 Role Phone SUSIE GONZALEZ Primary Care Physician DAVE Alcaraz Attending Clinician Unavailable SUSIE GONZALEZ Attending Clinician UnavailMAYELIN Tan Attending Clinician Unavailpaulo verma Doctor Unassigned, Staves Attending Clinician ALETHEA Martinez Attending Clinician Unavailable Shravan Lyman DO Attending Clinician SHY GUTIERREZ Attending Clinician UnavailSHY Aguayo Attending Clinician Unavailcathie e Provider, Madysonsocorro Temp Attending Clinician Ana diego Gonzalez HEALTH CARE MARKETING MANAGER, Susie Holliday Attending Clinician [phone] AKINTIFFANIE JACKSON Attending Clinician Unavail able RONALD IRELAND Attending Clinician Unavailable RONALD IRELAND Attending Clinician Unavailable Ultrasound, Aleksey Attending Clinician Unavaila Ronald Avelar MD Attending Clinician [phone] Akinisatu WHCNPTiffanie Attending Clinician + TL SCHMIDT Attending Clinician Unavailable Visit, Mad[facility]ale[facility] Nurse Attending Clinician Amanda Cortés HEALTH CARE MARKETING MANAGER, Vesta Milligan Attending Clinician [phone] Catie Mcmahan Attending Clinician [phone] Shravan Lyman DO Admitting Clinician [phone] Payers Payer Name Policy Type Policy Number Effective Date Expirati on Date Source [employer] [place] [id number] 2024 00:00:00 [place] [employer] [id number] 2016 00:00:00 Problems Condition Name Condition Details Condition Category Status Onset Date Resolution Date Last Treatment Date Treating Clinician Comments Source Uterine size-date discrepanc y in third trimester Uterine size-date discrepanc y in third trimester Disease Active 2021-09 0- 00:00: 00 [facility] heart rate decelerati ons affecting management of mother heart rate decelerati ons affecting management of mother Disease Active 2021-09 0- 00:00: 00 [facility] 36 weeks gestation of 36 weeks gestation of Disease Active 2021-09 0-03 00:00: 00 [facility] Obesity (BMI 30-39.9) Obesity (BMI 30-39.9) Disease Active 2021-09 0-03 00:00: 00 [facility] Gonorrhea in Gonorrhea in Disease Active 03-21 00:00: 00 [facility] Back pain during Back pain during Disease Active 7-11 00:00: 00 [facility] Primigravi da in third trimester Primigravi da in third trimester Disease Active 3 00:00: 00 [facility] History of depression History of depression Disease Active 3 00:00: 00 [facility] Supervisio n of high-risk with insufficie nt care Supervisio n of high-risk with insufficie nt care Disease Active 3 00:00: 00 [facility] High risk teen in third trimester High risk teen in third trimester Disease Active 11-15 00:00: 00 [facility] Chlamydia infection Chlamydia infection Disease Active 05-16 00:00: 00 [facility] Generalize d anxiety disorder Generalize d anxiety disorder Disease Active 2016-09 0 00:00: 00 [facility] Asthma, unspecifie d asthma severity, unspecifie d whether complicate d, unspecifie d whether persistent Asthma, unspecifie d asthma severity, unspecifie d whether complicate d, unspecifie d whether persistent Disease Active 2016-09 0 00:00: 00 [facility] Depression during Depression during Disease Active 2016-09 0 00:00: 00 [facility] Obesity in Obesity in Disease Active 2016-09 004 00:00: 00 [facility] Allergies, Adverse Reactions, Alerts Allergy Name Allergy Type Status Severity Reaction(s) Onset Date Inactive Date Treating Clinician Comments Source NO KNOWN ALLERGIE S Drug Class Active [facility] Social History Social Habit Start Date Stop Date Quantity Comments Source ASSERTION 2021-10-17 00:00:00 [facility] History of tobacco use Cigarette Smoker [facility] Alcohol intake 2022-06-15 00:00:00 2022-06-15 00:00:00 0 /d [facility] Exposure to SARS-CoV-2 (event) 2022-06-03 00:00:00 2022-06-13 14:43:00 Not sure [facility] Tobacco use and exposure 2022-03-21 00:00:00 2022-03-21 00:00:00 Smokeless tobacco non-user [facility] Sex Assigned At 2002 00:00:00 2000 00:00:00 [facility] Smoking Status Start Date Stop Date Source Smokes tobacco daily 2022-03-21 00:00:00 [facility] Medications Ordered Medication Name Filled Medication Name Start Date Stop Date Current Medication? Ordering Clinician Indication Dosage Frequency Signature (SIG) Comments Components Source amitriptyli ne 100 mg tablet 2021-09 03:15: 58 06-16 00:00 :00 No 100mg Take 100 mg by mouth at bedtime. [facility] [id number] fum-folic () 27 mg iron- 1 mg folic tablet 2021-09 00:00: 00 Yes [id number] 1{tbl} Take 1 tablet by mouth in the morning. [facility] docusate 100 mg capsule 2021-09 00:00: 00 Yes [id number] 200mg Take 2 capsules by mouth once daily as needed for Constipati on. [facility] ferrous sulfate 325 mg (65 mg iron) tablet 2021-09 00:00: 00 Yes [id number] 325mg Take 1 tablet by mouth in the morning and 1 tablet in the evening. [facility] ibuprofen 600 mg tablet 2021-09 00:00: 00 Yes [id number] 600mg Take 1 tablet by mouth every 6 (six) hours as needed (Pain). Take with food or milk. [facility] norethindro ne 0.35 mg tablet 2021-09 00:00: 00 09-15 05:59 :00 No [id number] .35mg Take 1 tablet by mouth in the morning for 90 days. [facility] HYDROcodone -acetaminop hen 5-325 mg tablet 2021-09 00:00: 00 06-24 04:59 :00 No [id number] 1{tbl} Take 1 tablet by mouth every 6 (six) hours as needed for Pain (scale 4-6) or Pain (scale 7-10) (Pain scale above 4) for up to 7 days. Do not exceed 3 grams of acetaminop hen in 24 hours. Indication s: acute pain [facility] amitriptyli ne (ELAVIL) tablet 100 mg 2021-09 0-05 02:00: 00 Yes 100mg 100 mg, Oral, QHS, First dose on Mon06/14/22 at 2100, Until Discontinu ed, Routine [facility] lactated ringers IV infusion 500 mL 2021-09 004 13:15: 00 06-14 12:37 :00 No 500mL at 999 mL/hr, 500 mL, Intravenou s, ONCE, 1 dose, On Mon06/14/22 at 0815, Routine [facility] rho(D) immune globulin (RHOGAM) syringe 300 mcg 2021-09 004 06:33: 41 Yes 300ug 300 mcg, Intramuscu lar, ONCE, For 1 dose, Conditiona l, Routine [facility] HYDROcodone -acetaminop hen (NORCO 5) 5-325 mg tablet 2 tablet 2021-09 0-04 06:33: 35 Yes 2{tbl} 2 tablet, Oral, Q6HPRN, Starting on Mon06/14/22 at 0133, Until Discontinu ed, Routine, Pain (scale 7-10), Alternate with Ibuprofen [facility] HYDROcodone -acetaminop hen (NORCO 5) 5-325 mg tablet 1 tablet 2021-09 0-04 06:33: 35 Yes 1{tbl} 1 tablet, Oral, Q6HPRN, Starting on Mon06/14/22 at 0133, Until Discontinu ed, Routine, Pain (scale 4-6), Alternate with Ibuprofen [facility] ibuprofen (IBU) tablet 600 mg 2021-09 0-04 06:33: 35 Yes 600mg 600 mg, Oral, Q6HPRN, Starting on Mon06/14/22 at 0133, Until Discontinu ed, Routine, Pain (scale 1-3) [facility] diphenhydrA MINE (BENADRYL) injection 25 mg 2021-09 0-04 06:33: 35 Yes 25mg 25 mg, Slow IV Push, Q6HPRN, Starting on Mon06/14/22 at 0133, Until Discontinu ed, Routine, Itching [facility] diphenhydrA MINE (BENADRYL) tablet 25 mg 2021-09 0- 06:33: 35 Yes 25mg 25 mg, Oral, Q6HPRN, Starting on Mon06/14/22 at 0133, Until Discontinu ed, Routine, Sleep, Itching [facility] ondansetron (ZOFRAN (PF)) injection 4 mg 2021-09 0 06:33: 35 Yes 4mg 4 mg, Slow IV Push, Q8HPRN, Starting on Mon06/14/22 at 0133, Until Discontinu ed, Routine, Nausea and Vomiting (N/V) [facility] bisacodyL (DULCOLAX) suppository 10 mg 2021-09 0 06:33: 35 Yes 10mg 10 mg, Rectal, QDAILYPRN, Starting on Mon06/14/22 at 0133, Until Discontinu ed, Routine, Constipati on [facility] simethicone (GAS RELIEF (SIMETHICON E)) chewable tablet 160 mg 2021-09 0 06:33: 35 Yes 160mg 160 mg, Oral, PC+HSPRN, Starting on Mon06/14/22 at 0133, Until Discontinu ed, Routine, Gas [facility] docusate (COLACE) capsule 200 mg 2021-09 0 06:33: 35 Yes 200mg 200 mg, Oral, QDAILYPRN, Starting on Mon06/14/22 at 0133, Until Discontinu ed, Routine, Constipati on [facility] magnesium hydroxide (MILK OF MAGNESIA) 400 mg/5 mL suspension 30 mL 2021-09 0 06:33: 35 Yes 30mL 30 mL, Oral, QDAILYPRN, Starting on Mon06/14/22 at 0133, Until Discontinu ed, Routine, Constipati on [facility] lactated ringers IV infusion 1,000 mL 2021-09 0 06:33: 35 Yes 1000mL at 125 mL/hr, 1,000 mL, IV Infusion, PRN, 1 dose, Starting on Mon06/14/22 at 0133, Until Discontinu ed, Routine [facility] lactated ringers IV infusion 1,000 mL 2021-09 0-04 04:45: 00 06-14 06:33 :38 No 1000mL at 125 mL/hr, 1,000 mL, IV Infusion, CONTINUOUS , Starting on Mon06/13/22 at 2345, Until Mon06/14/22 at 0133, TRIXIE [facility] ceFAZolin in 0.9% sodium chloride (ANCEF) 2 gram/100 mL RTU 2 g 2021-09 0- 02:54: 10 06-14 06:33 :38 No 2000mg 2 g (2,000 mg), IV Piggyback, O.R. HOLDING ONCE, Starting on Mon06/13/22 at 2154, Until Mon06/14/22 at 0133, Administer over 30 Minutes, 100 mL
Reas on for Anti-Infec tive: Surgical Prophylaxi s
Surgi renetta Prophylaxi s: SILK SCREEN FRAME ASSEMBLER
Duration of therapy: within 24 hours of surgery [facility] sodium citrate-cit kolby acid (BICITRA) 500-334 mg/5 mL solution 30 mL 2021-09 0- 02:54: 10 06-14 03:23 :00 No 30mL 30 mL, Oral, PRE-PROCED URE ONCE, 1 dose, Starting on Mon06/13/22 at 2154, Until Mon06/13/22 at 2223, Routine, Surgery/Pr ocedure [facility] amitriptyli ne 100 mg tablet 2021-09 23:46: 17 Yes 100mg Take 100 mg by mouth at bedtime. [facility] ARIPIPRAZOL E (ABILIFY ORAL) 06-01 10:02: 02 06-01 00:00 :00 No Take by mouth. [facility] amphetamine -dextroamph etamine (ADDERALL XR) 25 mg 24 hr capsule 06-01 10:01: 59 06-01 00:00 :00 No 25mg Take 25 mg by mouth every morning. [facility] metroNIDAZO LE 500 mg tablet - 00:00: 00 06-16 00:00 :00 No [id number] 500mg Take 1 tablet by mouth in the morning and 1 tablet in the evening. [facility] proMETHazin e 25 mg tablet 11 00:00: 00 06-16 00:00 :00 No [id number] 25mg Take 1 tablet by mouth every 6 (six) hours as needed for Nausea and Vomiting (N/V). [facility] metroNIDAZO LE 500 mg tablet 6-14 00:00: 00 06-16 00:00 :00 No [id number] 500mg Take 1 tablet by mouth 2 (two) times daily. [facility] ARIPIPRAZOL E (ABILIFY ORAL) 11-15 10:55: 24 Yes Take by mouth. [facility] amphetamine -dextroamph etamine (ADDERALL XR) 25 mg 24 hr capsule 11-15 10:55: 24 Yes 25mg Take 25 mg by mouth every morning. [facility] amitriptyli ne 100 mg tablet 11-15 10:55: 24 Yes 100mg Take 100 mg by mouth at bedtime. [facility] vit 33-iron-fol ic-dha (SELECT-OB + DHA) 29 mg iron-1 mg -250 mg combo pack 11-15 00:00: 00 06-16 00:00 :00 No [id number] 1{packe t} Take 1 Packet by mouth daily. [facility] Vital Signs Vital Name Observation Time Observation Value Comments Asher patel Systolic blood pressure 2022-06-16 13:31:00 122 mm[Hg] [facility] Diastolic blood pressure 2022-06-16 13:31:00 79 mm[Hg] [facility] Heart rate 2022-06-16 13:31:00 90 [facility] 2022-06-16 13:31:00 36.67 Lindsey [facility] Respiratory rate 2022-06-16 13:31:00 18 /min [facility] Oxygen saturation in Arterial blood by Pulse oximetry 2022-06-16 13:31:00 98 /min [facility] Body height 2022-06-14 02:13:00 160 cm [facility] Body weight 2022-06-14 02:13:00 83.008 kg [facility] BMI 2022-06-14 02:13:00 32.42 kg/m2 [facility] Heart rate 2022-06-14 03:00:00 83 /min [facility] Respiratory rate 2022-06-14 03:00:00 18 /min [facility] Oxygen saturation in Arterial blood by Pulse oximetry 2022-06-14 03:00:00 100 /min [facility] Systolic blood pressure 2022-06-14 02:13:00 119 mm[Hg] [facility] Diastolic blood pressure 2022-06-14 02:13:00 68 mm[Hg] [facility] Body temperature 2022-06-14 02:13:00 36.78 Lindsey [facility] Body height 2022-06-14 02:13:00 160 cm [facility] Body weight 2022-06-14 02:13:00 83.008 kg [facility] BMI 2022-06-14 02:13:00 32.42 kg/m2 [facility] Systolic blood pressure 2022-06-13 19:41:00 117 mm[Hg] [facility] Diastolic blood pressure 2022-06-13 19:41:00 77 mm[Hg] [facility] Heart rate 2022-06-13 19:41:00 92 /min [facility] Body temperature 2022-06-13 19:41:00 36.94 Lindsey [facility] Respiratory rate 2022-06-13 19:41:00 20 /min [facility] Body height 2022-06-13 19:41:00 160 cm [facility] Body weight 2022-06-13 19:41:00 82.827 kg [facility] BMI 2022-06-13 19:41:00 32.35 kg/m2 [facility] Systolic blood pressure 2022-06-01 14:49:00 114 mm[Hg] [facility] Diastolic blood pressure 2022-06-01 14:49:00 69 mm[Hg] [facility] Heart rate 2022-06-01 14:49:00 95 /min [facility] Body temperature 2022-06-01 14:49:00 36.06 Lindsey [facility] Respiratory rate 2022-06-01 14:49:00 18 /min [facility] Body weight 2022-06-01 14:49:00 82.373 kg [facility] Procedures Procedure Date / Time Performed Performing Clinician Source DME/SUPPLY JUSTIFICATION 2022-07-14 05:01:00 Doc tor Unassigned, Staves [facility] CBC WITH DIFF 2022-06-14 09:46:00 [facility] CBC WITH DIFF 2022-06-14 09:46:00 Marion España [facility] URINE DRUG (IMMUNOASSAY) - COMPREHENSIVE DRUG SCREEN 2022-06-14 05:53:00 Degffedru [facility] URINE DRUG (IMMUNOASSAY) - COMPREHENSIVE DRUG SCREEN 2022-06-14 05:53:00 Degffedru [facility] VENOUS CORD GAS 2022-06-14 03:56[facility] 2022-06-14 03:56:00 AmarjitffeTadeo gonsales [facility] SECTION 2022-06-14 03:11:00 Shravan Lyman [facility] SECTION 2022-06-14 03:11:00 Shravan Lyman [facility] HB ABO GROUPING 2022-06-14 03:00:00 DegffeTadeo gonsales [facility] RHO (D) IMMUNE GLOBULIN 2022-06-14 03:00:00 Sandra España [facility] HB ABO GROUPING 2022-06-14 03:00:00 DegraffenreiTadeo mar [facility] RHO (D) IMMUNE GLOBULIN 2022-06-14 03:00:00 Sandra España [facility] CBC WITH DIFF 2022-06-14 02:58:00 DegraffenreiLinda mar [facility] HEPATITIS B SURFACE ANTIGEN 2022-06-14 02:58:00 Degraffenreid, [facility] GALV ONLY - SYPHILIS IGG/IGM 2022-06-14 02:58:00 Degraffenreid [facility] CBC WITH DIFF 2022-06-14 02:58:00 DegraffenreidiLnda [facility] HEPATITIS B SURFACE ANTIGEN 2022-06-14 02:58:00 Degraffenreid [facility] GALV ONLY - SYPHILIS IGG/IGM 2022-06-14 02:58:00 Degraffenreid [facility] NON-STRESS TEST 2022-06-13 21:53:16 Shy Gutierrez [facility] POCT URINALYSIS 2022-06-13 00:00:00 Susie Gonzalez [facility] TDAP VACCINE, >11 YRS, IM 2022-06-01 15:02:51 Susie Gonzalez [facility] POCT URINALYSIS 2022-06-01 14:52:00 Susie Gonzalez [facility] Encounters Start Date/Time End Date/Time Encounter Type Admission Type Attending Clinicians Care Facility Care Department Encounter ID Source 2024-02-21 14:00:00 2024-02-21 14:00:00 Outpatient DAVE PARK [facility] [id number] [facility] 2024-02-21 14:00:00 2024-02-21 14:00:00 Outpatient DAVE PARK [facility] [id number] [facility] 2022-07-14 13:00:00 2022-07-14 13:00:00 Outpatient MAYELIN MIRANDA [facility] [id number] [facility] 2022-07-14 00:00:00 2022-07-14 00:00:00 Orders Only Doctor Unassigned, Staves [facility] [id number] 350.1.13.10 4.2.7.2.686 [id number] [facility] 2022-06-20 15:45:00 2022-06-20 15:45:00 Outpatient SUSIE HUGHES [facility] [id number] [facility] 2022-06-13 20:50:00 2022-06-16 11:27:00 Hospital Encounter [facility] 1.2.840.114 350.1.13.10 4.2.7.2.686 [id number] [facility] 2022-06-16 00:00:00 2022-06-16 00:00:00 Encounter 1.2.840.1 [id number] 350.1.13.10 4.2.7.2.696 [id number] [facility] 2022-06-13 22:10:00 2022-06-14 00:01:00 Surgery [facility] 1.2.840.114 350.1.13.10 4.2.7.2.686 [id number] [facility] 2022-06-13 14:30:00 2022-06-13 16:34:43 Outpatient SHY PATEL SARAH [facility] [id number] [facility] 2022-06-13 14:30:00 2022-06-13 16:34:43 Routine Visit Provider, Shy Morrison [facility] SILK SCREEN FRAME ASSEMBLER [facility] CHILD [facility] 1.2.840.114 350.1.13.10 4.2.7.2.686 [id number] [facility] 2022-06-13 14:30:00 2022-06-13 16:34:43 Outpatient [facility] [id number] [facility] 2022-06-06 15:15:00 2022-06-06 15:15:00 Outpatient R SUSIE GONZALEZ [facility] [id number] [facility] 2022-06-01 09:15:00 2022-06-01 11:00:25 Outpatient R SUSIE GONZALEZ [facility] [id number] [facility] 2022-06-01 09:15:00 2022-06-01 11:00:25 Routine Visit Susie Gonzalez [facility] SILK SCREEN FRAME ASSEMBLER [facility] CHILD [facility] 1.2.840.114 350.1.13.10 4.2.7.2.686 [id number] [facility] 2022-06-01 09:30:00 2022-06-01 09:30:00 Outpatient R SUSIE GONZALEZ [facility] [id number] [facility] 2022-05-20 10:15:00 2022-05-20 10:15:00 Outpatient R TIFFANIE WEISS [facility] [id number] [facility] 2022-04-21 10:00:00 2022-04-21 10:00:00 Outpatient R AKINTIFFANIE JACKSON [facility] [id number] [facility] 2022-04-11 14:00:00 2022-04-11 14:00:00 Outpatient R AKINTIFFANIE JACKSON [facility] [id number] [facility] 2022-03-28 14:00:00 2022-03-28 14:52:56 Outpatient P RONALD IRELAND SANGEETA [facility] [id number] [facility] 2022-03-28 14:00:00 2022-03-28 14:45:00 Air Conditioning [employer] Visit Ultrasound, Ronald Rocha [facility] SILK SCREEN FRAME ASSEMBLER [facility] & CHILD [facility] 1.2.840.114 350.1.13.10 4.2.7.2.686 [id number] [facility] 2022-03-28 14:00:00 2022-03-28 14:00:00 Outpatient P [facility] [id number] [facility] 2022-03-28 00:00:00 2022-03-28 00:00:00 Abstract Susie Gonzalez [facility] SILK SCREEN FRAME ASSEMBLER [facility] & CHILD [facility] 1.2.840.114 350.1.13.10 4.2.7.2.686 [id number] [facility] 2022-03-28 00:00:00 2022-03-28 00:00:00 Abstract Susie Gonzalez [facility] SILK SCREEN FRAME ASSEMBLER [facility] CHILD [facility] 1.2.840.114 350.1.13.10 4.2.7.2.686 [id number] [facility] 2022-03-28 00:00:00 2022-03-28 00:00:00 Telephone Tiffanie Weiss [facility] SILK SCREEN FRAME ASSEMBLER [facility]ILD [facility] 1.2.840.114 350.1.13.10 4.2.7.2.686 [id number] [facility] 2022-03-23 00:00:00 2022-03-23 00:00:00 Telephone Tiffanie Weiss [facility] SILK SCREEN FRAME ASSEMBLER [facility] CHILD [facility] 1.2.840.114 350.1.13.10 4.2.7.2.686 [id number] [facility] 2022-03-21 13:00:00 2022-03-21 14:04:19 Outpatient R TIFFANIE WEISS [facility] [id number] [facility] 2022-03-21 13:00:00 2022-03-21 14:04:19 Routine Visit Tiffanie Weiss IDHUAN SILK SCREEN FRAME ASSEMBLER [facility] CHILD [facility] 1.840.114 350.1.13.10 4.2.7.2.686 [id number] [facility] 2022-03-21 13:00:00 2022-03-21 13:00:00 Outpatient R TIFFANIE WEISS [facility] [id number] [facility] 2022-02-22 00:00:00 2022-02-22 00:00:00 Telephone Tiffanie Weiss [facility] SILK SCREEN FRAME ASSEMBLER [facility] CHILD [facility] 1.840.114 350.1.13.10 4.2.7.2.686 [id number] [facility] 2022-02-21 14:15:00 2022-02-21 15:05:22 Outpatient R TIFFANIE WEISS [facility] [id number] [facility] 2022-02-21 14:15:00 2022-02-21 15:05:22 Routine Visit Tiffanie Weiss [facility] SILK SCREEN FRAME ASSEMBLER [facility] & CHILD [facility] 1.84.114 350.1.13.10 4.2.7.2.686 [id number] [facility] 2022-02-21 00:00:00 2022-02-21 00:00:00 Orders Only Doctor Unassigned, Staves [facility] 1.84.114 350.1.13.10 4.2.7.2.686 [id number] [facility] 2022-01-25 09:30:00 2022-01-25 09:30:00 Outpatient R TL SCHMIDT [facility] [id number] [facility]iffanie [facility] 2022-01-10 15:45:00 2022-01-10 15:45:00 Outpatient R CARLOS SUSIE [facility] [id number] [facility] 2022-01-07 09:00:00 2022-01-07 09:00:00 Outpatient R GONZALEZ, SUSIE [facility] [id number] [facility] 2021-12-13 14:30:00 2021-12-13 14:30:00 Outpatient R CARLOS SUSIE [facility] [id number] [facility] 2021-12-13 10:30:00 2021-12-13 10:58:28 [employer] Visit Ultrasound, Ronald Rocha [facility] SILK SCREEN FRAME ASSEMBLER [facility] CHILD [facility] 1..840.114 350.1.13.10 4.2.7.2.686 [id number] [facility] 2021-12-13 10:30:00 2021-12-13 10:30:00 Outpatient P GONZALEZ, SUSIE [facility] [id number] [facility] 2021-12-13 00:00:00 2021-12-13 00:00:00 Abstract Susie Gonzalez [facility] SILK SCREEN FRAME [facility] 1..840.114 350.1.13.10 4.2.7.2.686 [id number] 107 [id number] [facility] 2021-11-19 00:00:00 2021-11-19 00:00:00 Telephone Susie Gonzalez [facility] SILK SCREEN FRAME [facility] & CHILD [facility] 1..840.114 350.1.13.10 4.2.7.2.686 [id number] 107 [id number] [facility] 2021-11-17 10:30:00 2021-11-17 11:16:07 Nurse Visit Visit, Rosendaradha Nurse Susie Gonzalez [facility] SILK SCREEN FR[employer] [facility] & CHILD [facility] 1..840.114 350.1.13.10 4.2.7.2.686 [id number] 107 [id number] [facility] 2021-11-17 10:30:00 2021-11-17 10:30:00 Outpatient R SUSIE GONZALEZ [facility] [id number] [facility] 2021-11-16 00:00:00 2021-11-16 00:00:00 Telephone GonzalezSusie [facility] SILK SCREEN FRAME [facility] & CHILD [facility] 1..840.114 350.1.13.10 4.2.7.2.686 [id number] 107 [id number] [facility] 2021-11-15 09:45:00 2021-11-15 11:30:15 Outpatient R SUSIE GONZALEZ [facility] [id number] [facility] 2021-11-15 09:45:00 2021-11-15 11:30:15 Initial Visit GonzalezSusie [facility] SILK SCREEN FRAME ASSEMBLER [facility] CHILD [facility] 1..840.114 350.1.13.10 4.2.7.2.686 [id number] 107 [id number] [facility] 2021-11-15 00:00:00 2021-11-15 00:00:00 Orders Only Doctor Unassigned, Staves [facility] 1.840.114 350.1.13.10 4.2.7.2.686 [id number] [facility] 2021-11-11 14:30:00 2021-11-11 14:30:00 Outpatient DAVE PARK [facility] [id number] [facility] 2021-01-22 15:24:07 2021-01-22 16:17:44 Office Visit Tiffanie Weiss [facility] SILK SCREEN FRAME [facility] & CHILD [facility] 1.2840.114 350.1.13.10 4.2.7.2.686 [id number] 107 [id number] [facility] 2021-01-22 15:30:00 2021-01-22 15:30:00 Outpatient R TIFFANIE WEISS [facility] [id number] [facility] 2020-11-30 13:15:00 2020-11-30 13:15:00 Outpatient R TIFFANIE WEISS [facility] [id number] [facility] 2020-11-24 15:47:42 2020-11-24 16:41:18 Office Visit Tiffanie Weiss [facility] SILK SCREEN FRAME ASSEM[facility]ER [facility] & CHILD [facility] 1.20.114 350.1.13.10 4.2.7.2.686 [id number] 107 [id number] [facility] 2020-11-24 16:00:00 2020-11-24 16:00:00 Outpatient R TIFFANIE WEISS [facility] [id number] [facility] 2020-11-24 00:00:00 2020-11-24 00:00:00 Orders Only Doctor Unassigned, Staves [facility] 1.20.114 350.1.13.10 4.2.7.2.686 [id number] [facility] 2019-05-16 10:17:05 2019-05-16 10:47:05 Office Visit Vesta Cortés [facility] SILK SCREEN FRAME ASSEM[employer]ER [facility] & CHILD [facility] 1.20.114 350.1.13.10 4.2.7.2.686 [id number] 107 [id number] [facility] 2019-05-16 00:00:00 2019-05-16 00:00:00 Letter (Out) Vesta Cortés [facility] SILK SCREEN FRAME ASSEMBLER [facility] & CHILD [facility] 1.2840.114 350.1.13.10 4.2.7.2.686 [id number] [facility] 2019-05-16 00:00:00 2019-05-16 00:00:00 Telephone Vesta Cortés [facility] SILK SCREEN FRAME ASSEMBLER [facility] & CHILD [facility] 1.2.840.114 350.1.13.10 4.2.7.2.686 [id number] 107 [id number] [facility] 2019-05-15 12:45:15 2019-05-15 13:00:15 Office Visit Vesta Cortés [facility] SILK SCREEN FRAME ASSEMBLER [facility] 1.2.840.114 350.1.13.10 4.2.7.2.686 [id number] 107 [id number] [facility] 2019-05-15 00:00:00 2019-05-15 00:00:00 Telephone Catie Boss [facility] SILK SCREEN FRAME ASSEMBLER [facility] 1.2.840.114 350.1.13.10 4.2.7.2.686 [id number] 107 [id number] [facility] 2019-05-15 00:00:00 2019-05-15 00:00:00 Orders Only Doctor Unassigned, Staves [facility] 1.2.840.114 350.1.13.10 4.2.7.2.686 [id number] [facility] Results Test Description Test Time Test Comments Results Result Co mments Source [facility] - SYPHILIS [id number] 14:50:49* Test Item Value Reference Range Interpretation Comme nts Syphilis IgG/IgM (test code = 98659-9) Non-reactive Non-reactive CHAGO (test code = CHAGO) Non-reactive - No serologic evidence of T. pallidum infection. Cannot exclude incubating or early syphilis. Submit a second specimen in 2-4 weeks if syphilis is clinically suspected. Equivocal - Further testing to follow. Reactive - Further testing to follow. Lab Interpretation (test code = 74912-0) Normal [facility] (D) IMMUNE [id number] 06:34:45* Test Item Value Reference Range Interpretation Comme nts RHIG CANDIDATE? (test code = 5055) No- see comment Patient is not a candidate for RhIg- Patient is Rh Positive.Performed at [facility] Laboratory Services - [facility] Blood [address] [place] [address]39[address]Slup Free: [phone] No. [id number] [facility]line[facility]HO (D) IMMUNE [id number] 06:34:45* Test Item Value Reference Range Interpretation Comme nts RHIG CANDIDATE? (test code = 5055) No- see comment Patient is not a candidate for RhIg- Patient is Rh Positive.Performed at [facility] Laboratory Services - [facility] Blood [address] [place] [address] 37662Mnke Free: [phone] No. [id number] [facility]lineHepatitis B Surface [id number] 04:29:00 * Test Item Value Reference Range Interpretation Comme nts HBsAg Semi-Quantitative (saleem t code = 5195-3) Negative Negative [facility] B Surface [id number] 04:29:00 * Test Item Value Reference Range Interpretation Comme nts HBsAg Semi-Quantitative (saleem t code = 5195-3) Negative Negative [facility]lineArterial Cord [id number] 04:15:10* Test Item Value Reference Range Interpretation Comme nts BASE EXCESS, CORD (test code = 7444826245) mEq/L AC PH, CORD (BEAKER) (test code = 2422179391) 7.18-7.38 L PC02, CORD (test code = 8278014147) See_Comment [Automated messa ge] The system which generated this result transmitted reference range: 32 - 66 mmHg. The reference range was not used to interpret this result as normal/abnormal. PO2, CORD (test code = 6267775445) <10 BICARBONATE, CORD (test code = 8061370687) See_Comment [Automated me ssage] The system which generated this result transmitted reference range: 17 - 27 mEq/L. The reference range was not used to interpret this result as normal/abnormal. Lab Interpretation (test code = 17600-7) Abnormal [facility]line[facility] Cord [id number] 04:15:10* Test Item Value Reference Range Interpretation Comme nts BASE EXCESS, CORD (test code = 6745653029) mEq/L AC PH, CORD (BEAKER) (test code = 8918493750) 7.18-7.38 L PC02, CORD (test code = 3758663949) See_Comment [Automated messa ge] The system which generated this result transmitted reference range: 32 - 66 mmHg. The reference range was not used to interpret this result as normal/abnormal. PO2, CORD (test code = 4255011476) <10 BICARBONATE, CORD (test code = 6755739288) See_Comment [Automated me ssage] The system which generated this result transmitted reference range: 17 - 27 mEq/L. The reference range was not used to interpret this result as normal/abnormal. Lab Interpretation (test code = 10794-2) Abnormal [facility] Cord [id number] 04:12:23* Test Item Value Reference Range Interpretation Comme nts VENOUS BASE EXCESS, CORD (test code = 0180921526) mEq/L VENOUS PH, CORD (test code = 4458284622) 7.25-7.45 VENOUS PC02, CORD (test code = 1546061631) See_Comment H [Automated me ssage] The system which generated this result transmitted reference range: 27 - 49 mmHg. The reference range was not used to interpret this result as normal/abnormal. VENOUS PO2, CORD (test code = 7608808020) See_Comment L [Automated me ssage] The system which generated this result transmitted reference range: 17 - 41 mmHg. The reference range was not used to interpret this result as normal/abnormal. VENOUS BICARBONATE, CORD (test code = 1202678425) See_Comment [Automa shaheed message] The system which generated this result transmitted reference range: 12 - 29 mEq/L. The reference range was not used to interpret this result as normal/abnormal. Lab Interpretation (test code = 35605-3) Abnormal [facility] Cord [id number] 04:12:23* Test Item Value Reference Range Interpretation Comme nts VENOUS BASE EXCESS, CORD (test code = 6890795300) mEq/L VENOUS PH, CORD (test code = 2391798647) 7.25-7.45 VENOUS PC02, CORD (test code = 4406708726) See_Comment H [Automated me ssage] The system which generated this result transmitted reference range: 27 - 49 mmHg. The reference range was not used to interpret this result as normal/abnormal. VENOUS PO2, CORD (test code = 0291522001) See_Comment L [Automated me ssage] The system which generated this result transmitted reference range: 17 - 41 mmHg. The reference range was not used to interpret this result as normal/abnormal. VENOUS BICARBONATE, CORD (test code = 3517267239) See_Comment [Automa shaheed message] The system which generated this result transmitted reference range: 12 - 29 mEq/L. The reference range was not used to interpret this result as normal/abnormal. Lab Interpretation (test code = 17434-8) Abnormal [facility] and Screen - ONCE [id number] 03:47:01 * Test Item Value Reference Range Interpretation Comme nts ABO & RH (test code = 20) A POSITIVE Performed at [facility] Laboratory Services - [address] Free: [phone] No. [id number] IAT (test code = 1185) Negative Performed at [facility] Laboratory Services - [address] Free: [phone] No. [id number] [facility] and Screen - ONCE [id number] 03:47:01 * Test Item Value Reference Range Interpretation Comme nts ABO & RH (test code = 20) A POSITIVE Performed at [facility] Laboratory [facility] - [address] Free: [phone] No. [id number] IAT (test code = 1185) Negative Performed at [facility] Laboratory Services - [address] Free: [phone] No. [id number] [facility]line[facility] with [id number] 03:20:31* Test Item Value Reference Range Interpretation [...] 34.5 g/dL 31.6-35.1 RDW-SD (test code = 42015-6) 39.4 fL 39-49.9 RDW-CV (test code = 788-0) 13.1 % 12-15.5 PLT (test code = 777-3) See_Comment H [Automated messa ge] The system which generated this result transmitted reference range: 166 - 358 10*3/?L. The reference range was not used to interpret this result as normal/abnormal. MPV (test code = 03739-9) 9.7 fL 9.5-12.9 NRBC/100 WBC (test code = 4910716773) See_Comment [Automated Optini ssage] The system which generated this result transmitted reference range: 0.0 - 10.0 /100 WBCs. The reference range was not used to interpret this result as normal/abnormal. NRBC x10^3 (test code = 3782808407) See_Comment [Automated messa ge] The system which generated this result transmitted reference range: 10*3/?L. The reference range was not used to interpret this result as normal/abnormal. GRAN MAT (NEUT) % (test code = 770-8) 64.5 % IMM GRAN % (test code = 2504705077) 0.40 % LYMPH % (test code = 736-9) 26.6 % MONO % (test code = 5905-5) 7.0 % EOS % (test code = 713-8) 1.2 % BASO % (test code = 706-2) 0.3 % GRAN MAT x10^3(ANC) (test code = 8817010829) 7.25 10*3/uL 1.88-7.09 H IMM GRAN x10^3 (test code = 2078365260) 0.04 10*3/uL 0-0.06 LYMPH x10^3 (test code = 731-0) 2.99 10*3/uL 1.32-3.29 MONO x10^3 (test code = 742-7) 0.79 10*3/uL 0.33-0.92 EOS x10^3 (test code = 711-2) 0.14 10*3/uL 0.03-0.39 BASO x10^3 (test code = 704-7) 0.03 10*3/uL 0.01-0.07 Lab Interpretation (test code = 64128-4) Abnormal [facility] with [id number] 03:20:31* Test Item Value Reference Range Interpretation [...] 34.5 g/dL 31.6-35.1 RDW-SD (test code = 55999-1) 39.4 fL 39-49.9 RDW-CV (test code = 788-0) 13.1 % 12-15.5 PLT (test code = 777-3) See_Comment H [Automated messa ge] The system which generated this result transmitted reference range: 166 - 358 10*3/?L. The reference range was not used to interpret this result as normal/abnormal. MPV (test code = 00984-3) 9.7 fL 9.5-12.9 NRBC/100 WBC (test code = 0866115055) See_Comment [Automated me ssage] The system which generated this result transmitted reference range: 0.0 - 10.0 /100 WBCs. The reference range was not used to interpret this result as normal/abnormal. NRBC x10^3 (test code = 5098093487) See_Comment [Automated messa ge] The system which generated this result transmitted reference range: 10*3/?L. The reference range was not used to interpret this result as normal/abnormal. GRAN MAT (NEUT) % (test code = 770-8) 64.5 % IMM GRAN % (test code = 8034424998) 0.40 % LYMPH % (test code = 736-9) 26.6 % MONO % (test code = 5905-5) 7.0 % EOS % (test code = 713-8) 1.2 % BASO % (test code = 706-2) 0.3 % GRAN MAT x10^3(ANC) (test code = 7632389464) 7.25 10*3/uL 1.88-7.09 H IMM GRAN x10^3 (test code = 6082893777) 0.04 10*3/uL 0-0.06 LYMPH x10^3 (test code = 731-0) 2.99 10*3/uL 1.32-3.29 MONO x10^3 (test code = 742-7) 0.79 10*3/uL 0.33-0.92 EOS x10^3 (test code = 711-2) 0.14 10*3/uL 0.03-0.39 BASO x10^3 (test code = 704-7) 0.03 10*3/uL 0.01-0.07 Lab Interpretation (test code = 63121-3) Abnormal [facility] SPECIFIC [id number] 19:47:00* Test Item Value Reference Range Interpretation [...] U APPEAR (test code = 3267) . [facility] W SPECIFIC [id number] 14:53:00* Test Item Value Reference Range Interpretation [...] POCT U APPEAR (test code = 3267) [facility] W SPECIFIC [id number] 14:53:00* Test Item Value Reference Range Interpretation [...] POCT U APPEAR (test code = 3267) [facility] W SPECIFIC [id number] 14:53:00* Test Item Value Reference Range Interpretation [...] POCT U APPEAR (test code = 3267) [facility] W SPECIFIC [id number] 14:53:00* Test Item Value Reference Range Interpretation Comme nts POCT U SP GRAV (test code = 3255) * 1.005-1.025 POCT PH U (test code = 3254) * 5-8 POCT U LEUK EST (test code = 3263) * Negative - Negative POCT U NIT (test code = 3262) * Negative - Negati ve POCT U PROT (test code = 9739) trace Negative - Negat ana cristina POCT U GLU (test code = 3256) negative Negative - Negati ve POCT U KETONE (test code = 3258) * Negative - Neg ative POCT U UROBILI (test code = 3260) * 0.2-1 POCT U BILI (test code = 3261) * Negative - Negat ana cristina POCT U BLD (test code = 7827) * Negative - Negati ve POCT U COLOR (test code = 3266) * POCT U APPEAR (test code = 3267) [facility]
[2024-04-13] MEDS ORDERED: ACETAMINOPHEN 500 MG TAB ONE (09:37)
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
[2024-04-13 11:59] VITALS: TEMP 98; O2SAT 99
[2024-04-13 12:00] VITALS: BP 111/76
== END 2024-04-13 11:03 | disposition home or self-care (01) ==
LOC: ER 09:15
DX: S10.91XA Abrasion of unspecified part of neck, initial encounter (principal); S60.211A Contusion of right wrist, initial encounter; M54.50 Low back pain, unspecified; V47.6XXA Car passenger injured in collision with fixed or stationary object in traffic accident, initial encounter
CPT/HCPCS: 70450; 71250; 72125; 99284

== ENCOUNTER 2024-04-13 19:42 | Emergency (ER) | payer OTHER ==
--- OUTSIDE RECORDS SUMMARY | 2024-04-13 19:45 | XMS REPORT | Continuity of Care Document ---
Author Name Unknown Address [address] [facility] [address] [place] [address] [facility] thconnect Address [address] [facility] [address] [place] [address] Care Team Providers Care Information Systems Operator Name Role Phone SUSIE GONZALEZ Primary Care Physician DAVE Alcaraz Attending Clinician Unavailable SUSIE GONZALEZ Attending Clinician UnavailMAYELIN Tan Attending Clinician Unavailpaulo verma Doctor Unassthomas, [place] Attending Clinician ALETHEA Martinez Attending Clinician Unavailable Shravan Lyman DO Attending Clinician SHY GUTIERREZ Attending Clinician UnavailSHY Aguayo Attending Clinician Unavailcathie e Provider, [facility] Temp Attending Clinician Ana diego Gonzalez BAR EXAMINER, Susie Holliday Attending Clinician [phone] AKINTIFFANIE JACKSON Attending Clinician Unavail able RONALD IRELAND Attending Clinician Unavailable RONALD IRELAND Attending Clinician Unavailable Ultrasound, Aleksey Attending Clinician Unavaila Ronald Avelar MD Attending Clinician [phone] Akinsimonalisa WHCNP, Tiffanie Caraballo Attending Clinician + TL SCHMIDT Attending Clinician Unavailable Visit, [facility] Nurse Attending Clinician Amanda Cortés BAR EXAMINER, Vesta Milligan Attending Clinician [phone] Gera NAIRPCatie Attending Clinician [phone] Shravan Lyman DO Admitting Clinician [phone] Payers Payer Name Policy Type Policy Number Effective Date Expirati on Date Source [employer] [place] [id number] 2024 00:00:00 [place] [employer] [id number] 2016 00:00:00 Problems Condition Name Condition Details Condition Category Status Onset Date Resolution Date Last Treatment Date Treating Clinician Comments Source Uterine size-date discrepanc y in third trimester Uterine size-date discrepanc y in third trimester Disease Active 2021-09 0- 00:00: 00 [facility] heart rate decelerati ons affecting management of mother heart rate decelerati ons affecting management of mother Disease Active 2021-09 0- 00:00: 00 [facility] 36 weeks gestation of 36 weeks gestation of Disease Active 2021-09 0- 00:00: 00 [facility] Obesity (BMI 30-39.9) Obesity (BMI 30-39.9) Disease Active 2021-09 0- 00:00: 00 [facility] Gonorrhea in Gonorrhea in Disease Active 03-21 00:00: 00 [facility] Back pain during Back pain during Disease Active 7-11 00:00: 00 [facility] Primigravi da in third trimester Primigravi da in third trimester Disease Active 3 00:00: 00 [facility] History of depression History of depression Disease Active 3 00:00: 00 [facility] Supervisio n of high-risk with insufficie nt care Supervisio n of high-risk with insufficie nt care Disease Active 3 00:00: 00 [facility] High risk teen in third trimester High risk teen in third trimester Disease Active 11-15 00:00: 00 [facility] Chlamydia infection Chlamydia infection Disease Active 05-16 00:00: 00 [facility] Generalize d anxiety disorder Generalize d anxiety disorder Disease Active 2016-09 0 00:00: 00 [facility] Asthma, unspecifie d asthma severity, unspecifie d whether complicate d, unspecifie d whether persistent Asthma, unspecifie d asthma severity, unspecifie d whether complicate d, unspecifie d whether persistent Disease Active 2016-09 0 00:00: 00 [facility] Depression during Depression during Disease Active 2016-09 0 00:00: 00 [facility] Obesity in Obesity in Disease Active 2016-09 0 00:00: 00 [facility] Allergies, Adverse Reactions, Alerts Allergy Name Allergy Type Status Severity Reaction(s) Onset Date Inactive Date Treating Clinician Comments Source NO KNOWN ALLERGIE S Drug Class Active [facility] Social History Social Habit Start Date Stop Date Quantity Comments Source ASSERTION 2021-10-17 00:00:00 [facility] History of tobacco use Cigarette Smoker [facility] Alcohol intake 2022-06-15 00:00:00 2022-06-15 00:00:00 0 /d [facility] Exposure to SARS-CoV-2 (event) 2022-06-03 00:00:00 2022-06-13 14:43:00 Not sure [facility] Tobacco use and exposure 2022-03-21 00:00:00 2022-03-21 00:00:00 Smokeless tobacco non-user [facility] Sex Assigned At 2000 00:00:00 2000 00:00:00 [facility] Smoking Status Start Date Stop Date Source Smokes tobacco daily 2022-03-21 00:00:00 [facility] Medications Ordered Medication Name Filled Medication Name Start Date Stop Date Current Medication? Ordering Clinician Indication Dosage Frequency Signature (SIG) Comments Components Source amitriptyli ne 100 mg tablet 2021-09 03:15: 58 06-16 00:00 :00 No 100mg Take 100 mg by mouth at bedtime. [facility] eut590-ampl fum-folic () 27 mg iron- 1 mg folic tablet 2021-09 00:00: 00 Yes [id number] 1{tbl} Take 1 tablet by mouth in the morning. [facility] docusate 100 mg capsule 2021-09 00:00: 00 Yes [id number] 200mg Take 2 capsules by mouth once daily as needed for Constipati on. [facility] ferrous sulfate 325 mg (65 mg iron) tablet 2021-09 00:00: 00 Yes [id number] 325mg Take 1 tablet by mouth in the morning and 1 tablet in the evening. [facility] ibuprofen 600 mg tablet 2021-09 00:00: 00 Yes [id number] 600mg Take 1 tablet by mouth every 6 (six) hours as needed (Pain). Take with food or milk. [facility] norethindro ne 0.35 mg tablet 2021-09 00:00: 00 09-15 05:59 :00 No [id number] .35mg Take 1 tablet by mouth in the morning for 90 days. [facility] HYDROcodone -acetaminop hen 5-325 mg tablet 2021-09 0 00:00: 00 06-24 04:59 :00 No [id number] 1{tbl} Take 1 tablet by mouth every 6 (six) hours as needed for Pain (scale 4-6) or Pain (scale 7-10) (Pain scale above 4) for up to 7 days. Do not exceed 3 grams of acetaminop hen in 24 hours. Indication s: acute pain [facility] amitriptyli ne (ELAVIL) tablet 100 mg 2021-09 0-05 02:00: 00 Yes 100mg 100 mg, Oral, QHS, First dose on Mon06/14/22 at 2100, Until Discontinu ed, Routine [facility] lactated ringers IV infusion 500 mL 2021-09 004 13:15: 00 06-14 12:37 :00 No 500mL at 999 mL/hr, 500 mL, Intravenou s, ONCE, 1 dose, On Mon06/14/22 at 0815, Routine [facility] rho(D) immune globulin (RHOGAM) syringe 300 mcg 2021-09 004 06:33: 41 Yes 300ug 300 mcg, Intramuscu lar, ONCE, For 1 dose, Conditiona l, Routine [facility] HYDROcodone -acetaminop hen (NORCO 5) 5-325 mg tablet 2 tablet 2021-09 0-04 06:33: 35 Yes 2{tbl} 2 tablet, Oral, Q6HPRN, Starting on Mon06/14/22 at 0133, Until Discontinu ed, Routine, Pain (scale 7-10), Alternate with Ibuprofen [facility] HYDROcodone -acetaminop hen (NORCO 5) 5-325 mg tablet 1 tablet 2021-09 0-04 06:33: 35 Yes 1{tbl} 1 tablet, Oral, Q6HPRN, Starting on Mon06/14/22 at 0133, Until Discontinu ed, Routine, Pain (scale 4-6), Alternate with Ibuprofen [facility] ibuprofen (IBU) tablet 600 mg 2021-09 0-04 06:33: 35 Yes 600mg 600 mg, Oral, Q6HPRN, Starting on Mon06/14/22 at 0133, Until Discontinu ed, Routine, Pain (scale 1-3) [facility] diphenhydrA MINE (BENADRYL) injection 25 mg 2021-09 0-04 06:33: 35 Yes 25mg 25 mg, Slow IV Push, Q6HPRN, Starting on Mon06/14/22 at 0133, Until Discontinu ed, Routine, Itching [facility] diphenhydrA MINE (BENADRYL) tablet 25 mg 2021-09 0-04 06:33: 35 Yes 25mg 25 mg, Oral, Q6HPRN, Starting on Mon06/14/22 at 0133, Until Discontinu ed, Routine, Sleep, Itching [facility] ondansetron (ZOFRAN (PF)) injection 4 mg 2021-09 0 06:33: 35 Yes 4mg 4 mg, Slow IV Push, Q8HPRN, Starting on Mon06/14/22 at 0133, Until Discontinu ed, Routine, Nausea and Vomiting (N/V) [facility] bisacodyL (DULCOLAX) suppository 10 mg 2021-09 0 06:33: 35 Yes 10mg 10 mg, Rectal, QDAILYPRN, Starting on Mon06/14/22 at 0133, Until Discontinu ed, Routine, Constipati on [facility] simethicone (GAS RELIEF (SIMETHICON E)) chewable tablet 160 mg 2021-09 0 06:33: 35 Yes 160mg 160 mg, Oral, PC+HSPRN, Starting on Mon06/14/22 at 0133, Until Discontinu ed, Routine, Gas [facility] docusate (COLACE) capsule 200 mg 2021-09 0 06:33: 35 Yes 200mg 200 mg, Oral, QDAILYPRN, Starting on Mon06/14/22 at 0133, Until Discontinu ed, Routine, Constipati on [facility] magnesium hydroxide (MILK OF MAGNESIA) 400 mg/5 mL suspension 30 mL 2021-09 0 06:33: 35 Yes 30mL 30 mL, Oral, QDAILYPRN, Starting on Mon06/14/22 at 0133, Until Discontinu ed, Routine, Constipati on [facility] lactated ringers IV infusion 1,000 mL 2021-09 0 06:33: 35 Yes 1000mL at 125 mL/hr, 1,000 mL, IV Infusion, PRN, 1 dose, Starting on Mon06/14/22 at 0133, Until Discontinu ed, Routine [facility] lactated ringers IV infusion 1,000 mL 2021-09 0- 04:45: 00 06-14 06:33 :38 No 1000mL at 125 mL/hr, 1,000 mL, IV Infusion, CONTINUOUS , Starting on Mon06/13/22 at 2345, Until Mon06/14/22 at 0133, TRIXIE [facility] ceFAZolin in 0.9% sodium chloride (ANCEF) 2 gram/100 mL RTU 2 g 2021-09 0 02:54: 10 06-14 06:33 :38 No 2000mg 2 g (2,000 mg), IV Piggyback, O.R. HOLDING ONCE, Starting on Mon06/13/22 at 2154, Until Mon06/14/22 at 0133, Administer over 30 Minutes, 100 mL
Reas on for Anti-Infec tive: Surgical Prophylaxi s
Surgi renetta Prophylaxi s: GERIATRIC ASSISTANT
Duration of therapy: within 24 hours of surgery [facility] sodium citrate-cit kolby acid (BICITRA) 500-334 mg/5 mL solution 30 mL 2021-09 0- 02:54: 10 06-14 03:23 :00 No 30mL 30 mL, Oral, PRE-PROCED URE ONCE, 1 dose, Starting on Mon06/13/22 at 2154, Until Mon06/13/22 at 2223, Routine, Surgery/Pr ocedure [facility] amitriptyli ne 100 mg tablet 2021-09 0 23:46: 17 Yes 100mg Take 100 mg by mouth at bedtime. [facility] ARIPIPRAZOL E (ABILIFY ORAL) 06-01 10:02: 02 06-01 00:00 :00 No Take by mouth. [facility] amphetamine -dextroamph etamine (ADDERALL XR) 25 mg 24 hr capsule 06-01 10:01: 59 06-01 00:00 :00 No 25mg Take 25 mg by mouth every morning. [facility] metroNIDAZO LE 500 mg tablet 03-23 00:00: 00 06-16 00:00 :00 No [id number] 500mg Take 1 tablet by mouth in the morning and 1 tablet in the evening. [facility] proMETHazin e 25 mg tablet 11 00:00: 00 06-16 00:00 :00 No [id number] 25mg Take 1 tablet by mouth every 6 (six) hours as needed for Nausea and Vomiting (N/V). [facility] metroNIDAZO LE 500 mg tablet 614 00:00: 00 06-16 00:00 :00 No [id number] 500mg Take 1 tablet by mouth 2 (two) times daily. [facility] ARIPIPRAZOL E (ABILIFY ORAL) 11-15 10:55: 24 Yes Take by mouth. [facility] amphetamine -dextroamph etamine (ADDERALL XR) 25 mg 24 hr capsule 11-15 10:55: 24 Yes 25mg Take 25 mg by mouth every morning. [facility] amitriptyli ne 100 mg tablet 11-15 10:55: 24 Yes 100mg Take 100 mg by mouth at bedtime. [facility] vit 33-iron-fol ic-dha (SELECT-OB + DHA) 29 mg iron-1 mg -250 mg combo pack 11-15 00:00: 00 06-16 00:00 :00 No [id number] 1{packe t} Take 1 Packet by mouth daily. [facility] Vital Signs Vital Name Observation Time Observation Value Comments Asher katrinmilton Systolic blood pressure 2022-06-16 13:31:00 122 mm[Hg] [facility] Diastolic blood pressure 2022-06-16 13:31:00 79 mm[Hg] [facility] Heart rate 2022-06-16 13:31:00 90 [facility] Body temperature 2022-06-16 13:31:00 36.67 Lindsey [facility] Respiratory rate 2022-06-16 13:31:00 18 /min [facility] Oxygen saturation in Arterial blood by Pulse oximetry 2022-06-16 13:31:00 98 /min [facility] Body height 2022-06-14 02:13:00 160 cm [facility] Body weight 2022-06-14 02:13:00 83.008 kg [facility] BMI 2022-06-14 02:13:00 32.42 kg/m2 [facility] Heart rate 2022-06-14 03:00:00 83 /min Un[facility] Respiratory rate 2022-06-14 03:00:00 18 /min [facility] Oxygen saturation in Arterial blood by Pulse oximetry 2022-06-14 03:00:00 100 /min [facility] Systolic blood pressure 2022-06-14 02:13:00 119 mm[Hg] [facility] Diastolic blood pressure 2022-06-14 02:13:00 68 mm[Hg] [facility] Body temperature 2022-06-14 02:13:00 36.78 Lindsey [facility] Body height 2022-06-14 02:13:00 160 cm [facility] Body weight 2022-06-14 02:13:00 83.008 kg [facility] BMI 2022-06-14 02:13:00 32.42 kg/m2 [facility] Systolic blood pressure 2022-06-13 19:41:00 117 mm[Hg] [facility] Diastolic blood pressure 2022-06-13 19:41:00 77 mm[Hg] [facility] Heart rate 2022-06-13 19:41:00 92 /[facility] Body temperature 2022-06-13 19:41:00 36.94 Lindsey [facility] Respiratory rate 2022-06-13 19:41:00 20 /min [facility] Body height 2022-06-13 19:41:00 160 cm [facility] Body weight 2022-06-13 19:41:00 82.827 kg [facility] BMI 2022-06-13 19:41:00 32.35 kg/m2 [facility] Systolic blood pressure 2022-06-01 14:49:00 114 mm[Hg] [facility] Diastolic blood pressure 2022-06-01 14:49:00 69 mm[Hg] [facility] Heart rate 2022-06-01 14:49:00 95 /min [facility] Body temperature 2022-06-01 14:49:00 36.06 Lindsey [facility] Respiratory rate 2022-06-01 14:49:00 18 /min [facility] Body weight 2022-06-01 14:49:00 82.373 kg [facility] Procedures Procedure Date / Time Performed Performing Clinician Source DME/SUPPLY JUSTIFICATION 2022-07-14 05:01:00 Doc tor Unassigned, [place] [facility] CBC WITH DIFF 2022-06-14 09:46:00 Marion España [facility] CBC WITH DIFF 2022-06-14 09:46:00 Cyndy Españasea [facility] URINE DRUG (IMMUNOASSAY) - COMPREHENSIVE DRUG SCREEN 2022-06-14 05:53:00 Degraffedru [facility] URINE DRUG (IMMUNOASSAY) - COMPREHENSIVE DRUG SCREEN 2022-06-14 05:53:00 Degffedru [facility] VENOUS CORD GAS 2022-06-14 03:56:00 [facility] 2022-06-14 03:56:00 DegffeTadeo gonsales [facility] SECTION 2022-06-14 03:11:00 Shravan Lyman [facility] SECTION 2022-06-14 03:11:00 Shravan Lyman [facility] HB ABO GROUPING 2022-06-14 03:00:00 DegffeTadeo gonsales [facility] RHO (D) IMMUNE GLOBULIN 2022-06-14 03:00:00 Sandra España [facility] HB ABO GROUPING 2022-06-14 03:00:00 DegraffenreiTadeo mar [facility] RHO (D) IMMUNE GLOBULIN 2022-06-14 03:00:00 Sandra España [facility] CBC WITH DIFF 2022-06-14 02:58:00 DegraffenreiLinda mar [facility] HEPATITIS B SURFACE ANTIGEN 2022-06-14 02:58:00 Degraffenreid, [facility] GALV ONLY - SYPHILIS IGG/IGM 2022-06-14 02:58:00 Degraffenreid, [facility] CBC WITH DIFF 2022-06-14 02:58:00 DegraffenreidLinda [facility] HEPATITIS B SURFACE ANTIGEN 2022-06-14 02:58:00 Degraffenreid, [facility] GALV ONLY - SYPHILIS IGG/IGM 2022-06-14 02:58:00 Degraffenreid [facility] NON-STRESS TEST 2022-06-13 21:53:16 Syh Gutierrez [facility] POCT URINALYSIS 2022-06-13 00:00:00 Susie Gonzalez [facility] TDAP VACCINE, >11 YRS, IM 2022-06-01 15:02:51 Susie Gonzalez [facility] POCT URINALYSIS 2022-06-01 14:52:00 Susie Gonzalez [facility] Encounters Start Date/Time End Date/Time Encounter Type Admission Type Attending Clinicians Care Facility Care Department Encounter ID Source 2024-02-21 14:00:00 2024-02-21 14:00:00 Outpatient DAVE PARK [facility] [id number] [facility] 2024-02-21 14:00:00 2024-02-21 14:00:00 Outpatient DAVE PARK [facility] [id number] [facility] 2022-07-14 13:00:00 2022-07-14 13:00:00 Outpatient MAYELIN MIRANDA [facility] [id number] [facility] 2022-07-14 00:00:00 2022-07-14 00:00:00 Orders Only Doctor Unassigned, [place] [facility] 1.2.840.114 350.1.13.10 4.2.7.2.686 [id number] [facility] 2022-06-20 15:45:00 2022-06-20 15:45:00 Outpatient SUSIE HUGHES [facility] [id number] [facility] 2022-06-13 20:50:00 2022-06-16 11:27:00 Hospital Encounter [facility] [id number] 350.1.13.10 4.2.7.2.686 [id number] [facility] 2022-06-16 00:00:00 2022-06-16 00:00:00 Encounter 1.2.840.1 [id number] 350.1.13.10 4.2.7.2.696 [id number] [facility] 2022-06-13 22:10:00 2022-06-14 00:01:00 Surgery [facility] 1.2.840.114 350.1.13.10 4.2.7.2.686 [id number] [facility] 2022-06-13 14:30:00 2022-06-13 16:34:43 Outpatient SHY PATEL SARAH [facility] [id number] [facility] 2022-06-13 14:30:00 2022-06-13 16:34:43 Routine Visit Provider, Shy Morrison [facility] GERIATRIC ASSISTANT [facility] MATERNAL & CHILD [facility] 1.2.840.114 350.1.13.10 4.2.7.2.686 [id number] [facility] 2022-06-13 14:30:00 2022-06-13 16:34:43 Outpatient R YEIMIMICHELLESTEPHANIE SHY MTDULCEMICHELLESTEPHANIE[facility]I [facility] JERICA [id number] [facility] 2022-06-06 15:15:00 2022-06-06 15:15:00 Outpatient R SUSIE GONZALEZ [facility] [id number] [facility] 2022-06-01 09:15:00 2022-06-01 11:00:25 Outpatient R SUSIE GONZALEZ [facility] [id number] [facility] 2022-06-01 09:15:00 2022-06-01 11:00:25 Routine Visit Susie Gonzalez [facility] GERIATRIC ASSISTANT [facility] CHILD [facility] 1.2.840.114 350.1.13.10 4.2.7.2.686 [id number] [facility] 2022-06-01 09:30:00 2022-06-01 09:30:00 Outpatient SUSIE HUGHES [facility] [id number] [facility] 2022-05-20 10:15:00 2022-05-20 10:15:00 Outpatient R TIFFAINE WEISS [facility] [id number] [facility] 2022-04-21 10:00:00 2022-04-21 10:00:00 Outpatient R TIFFANIE WEISS [facility] [id number] [facility] 2022-04-11 14:00:00 2022-04-11 14:00:00 Outpatient R TIFFANIE WEISS [facility] [id number] [facility] 2022-03-28 14:00:00 2022-03-28 14:52:56 Outpatient P RONALD IRELAND SANGEETA [facility] [id number] [facility] 2022-03-28 14:00:00 2022-03-28 14:45:00 Panel Machine Setter Visit Ultrasound, Ronald Rocha [facility] GERIATRIC ASSISTANT [facility] MATERNAL & CHILD [facility] 1.2.840.114 350.1.13.10 4.2.7.2.686 [id number] [facility] 2022-03-28 14:00:00 2022-03-28 14:00:00 Outpatient P [facility] [id number] [facility] 2022-03-28 00:00:00 2022-03-28 00:00:00 Abstract Susie Gonzalez [facility] GERIATRIC ASSISTANT [facility] MATERNAL & CHILD [facility] 1.2.840.114 350.1.13.10 4.2.7.2.686 [id number] [facility] 2022-03-28 00:00:00 2022-03-28 00:00:00 Abstract Susie Gonzalez [facility] GERIATRIC ASSISTANT [facility] CHILD [facility] 1.2.840.114 350.1.13.10 4.2.7.2.686 [id number] [facility] 2022-03-28 00:00:00 2022-03-28 00:00:00 Telephone Tiffanie Weiss [facility] GERIATRIC ASSISTANT [facility] 1.2.840.114 350.1.13.10 4.2.7.2.686 [id number] [facility] 2022-03-23 00:00:00 2022-03-23 00:00:00 Telephone Tiffanie Weiss [facility] GERIATRIC ASSISTANT [facility] 1.2.840.114 350.1.13.10 4.2.7.2.686 [id number] [facility] 2022-03-21 13:00:00 2022-03-21 14:04:19 Outpatient R TIFFANIE WEISS [facility] [id number] [facility] 2022-03-21 13:00:00 2022-03-21 14:04:19 Routine Visit Tiffanie Weiss SCHUAN GERIATRIC ASSISTANT [facility] 1.840.114 350.1.13.10 4.2.7.2.686 [id number] [facility] 2022-03-21 13:00:00 2022-03-21 13:00:00 Outpatient R TIFFANIE WEISS [facility] [id number] [facility] 2022-02-22 00:00:00 2022-02-22 00:00:00 Telephone Tiffanie Weiss [facility] GERIATRIC ASSISTANT [facility] 1.840.114 350.1.13.10 4.2.7.2.686 [id number] [facility] 2022-02-21 14:15:00 2022-02-21 15:05:22 Outpatient R TIFFANIE WEISS [facility] [id number] [facility] 2022-02-21 14:15:00 2022-02-21 15:05:22 Routine Visit Tiffanie Weiss [facility] GERIATRIC ASSISTANT [facility] 1.840.114 350.1.13.10 4.2.7.2.686 [id number] [facility] 2022-02-21 00:00:00 2022-02-21 00:00:00 Orders Only Doctor Unassigned, [place] [facility] 1.284.114 350.1.13.10 4.2.7.2.686 [id number] [facility] 2022-01-25 09:30:00 2022-01-25 09:30:00 Outpatient R TL SCHMIDT [facility] [id number] Tiffanie mahmood [facility] 2022-01-10 15:45:00 2022-01-10 15:45:00 Outpatient R CARLOS SUSIE [facility] [id number] [facility] 2022-01-07 09:00:00 2022-01-07 09:00:00 Outpatient R GONZALEZ, SUSIE [facility] [id number] [facility] 2021-12-13 14:30:00 2021-12-13 14:30:00 Outpatient R GONZALEZ, SUSIE [facility] [id number] [facility] 2021-12-13 10:30:00 2021-12-13 10:58:28 Panel Machine Setter Visit Ultrasound, Ronald Rocha [facility] GERIATRIC ASSISTANT [facility] MATERNAL & CHILD [facility] 1..840.114 350.1.13.10 4.2.7.2.686 [id number] [facility] 2021-12-13 10:30:00 2021-12-13 10:30:00 Outpatient P GONZALEZ, SUSIE [facility] [id number] [facility] 2021-12-13 00:00:00 2021-12-13 00:00:00 Abstract Susie Gonzalez [facility] GERIATRIC ASSISTANT [facility] MATERNAL & CHILD [facility] 1..840.114 350.1.13.10 4.2.7.2.686 [id number] [facility] 2021-11-19 00:00:00 2021-11-19 00:00:00 Telephone Susie Gonzalez [facility] GERIATRIC ASSISTANT [facility] ..840.114 350.1.13.10 4.2.7.2.686 [id number] [facility] 2021-11-17 10:30:00 2021-11-17 11:16:07 Nurse Visit Visit, Rosendachp Nurse Carlos Susie Holliday [facility] GERIATRIC ASSISTANT [facility] 1..840.114 350.1.13.10 4.2.7.2.686 [id number] [facility] 2021-11-17 10:30:00 2021-11-17 10:30:00 Outpatient R GONZALEZSUSIE [facility] [id number] [facility] 2021-11-16 00:00:00 2021-11-16 00:00:00 Telephone Carlos Susie Holliday [facility] GERIATRIC ASSISTANT [facility] 1..840.114 350.1.13.10 4.2.7.2.686 [id number] [facility] 2021-11-15 09:45:00 2021-11-15 11:30:15 Outpatient R GONZALEZSUSIE [facility] [id number] [facility] [facility] 2021-11-15 09:45:00 2021-11-15 11:30:15 Initial Visit Carlos Susie Holliday [facility] GERIATRIC ASSISTANT [facility] CHILD [facility] 1..840.114 350.1.13.10 4.2.7.2.686 [id number] [facility] 2021-11-15 00:00:00 2021-11-15 00:00:00 Orders Only Doctor Unassigned, [place] [facility] 1.840.114 350.1.13.10 4.2.7.2.686 [id number] [facility] 2021-11-11 14:30:00 2021-11-11 14:30:00 Outpatient R DAVE HERNANDEZ [facility] [id number] [facility] 2021-01-22 15:24:07 2021-01-22 16:17:44 Office Visit Tiffanie Weiss [facility] GERIATRIC ASSISTANT [facility] 1.2840.114 350.1.13.10 4.2.7.2.686 [id number] [facility] 2021-01-22 15:30:00 2021-01-22 15:30:00 Outpatient R TIFFANIE WEISS [facility] [id number] [facility] 2020-11-30 13:15:00 2020-11-30 13:15:00 Outpatient R TIFFANIE WEISS [facility] [id number] [facility] 2020-11-24 15:47:42 2020-11-24 16:41:18 Office Visit Tiffanie Weiss [facility] GERIATRIC ASSISTANT [facility] 1.2.114 350.1.13.10 4.2.7.2.686 [id number] [facility] 2020-11-24 16:00:00 2020-11-24 16:00:00 Outpatient R TIFFANIE WEISS [facility] [id number] [facility] 2020-11-24 00:00:00 2020-11-24 00:00:00 Orders Only Doctor Unassigned, [place] [facility] 1.284.114 350.1.13.10 4.2.7.2.686 [id number] 009 [id number] [facility] 2019-05-16 10:17:05 2019-05-16 10:47:05 Office Visit Vesta Cortés [facility] GERIATRIC ASSISTANT [facility] 1.20.114 350.1.13.10 4.2.7.2.686 [id number] [facility] 2019-05-16 00:00:00 2019-05-16 00:00:00 Letter (Out) Vesta Cortés [facility] GERIATRIC ASSISTANT [facility] 1.2840.114 350.1.13.10 4.2.7.2.686 [id number] [facility] 2019-05-16 00:00:00 2019-05-16 00:00:00 Telephone Vesta Cortés [facility] GERIATRIC ASSISTANT [facility] 1.2.840.114 350.1.13.10 4.2.7.2.686 [id number] [facility] 2019-05-15 12:45:15 2019-05-15 13:00:15 Office Visit Vesta Cortés [facility] GERIATRIC ASSISTANT [facility] 1.2.840.114 350.1.13.10 4.2.7.2.686 [id number] 107 [id number] [facility] 2019-05-15 00:00:00 2019-05-15 00:00:00 Telephone Catie Boss [facility] GERIATRIC ASSISTANT [facility] 1.2.840.114 350.1.13.10 4.2.7.2.686 [id number] [facility] 2019-05-15 00:00:00 2019-05-15 00:00:00 Orders Only Doctor Unassigned, [place] [facility] 1.2.840.114 350.1.13.10 4.2.7.2.686 [id number] [facility] Results Test Description Test Time Test Comments Results Result Co mments Source [facility]IL[facility] [id number] 14:50:49* Test Item Value Reference Range Interpretation Comme nts Syphilis IgG/IgM (test code = 39921-1) Non-reactive Non-reactive CHAGO (test code = CHAGO) Non-reactive - No serologic evidence of T. pallidum infection. Cannot exclude incubating or early syphilis. Submit a second specimen in 2-4 weeks if syphilis is clinically suspected. Equivocal - Further testing to follow. Reactive - Further testing to follow. Lab Interpretation (test code = 90860-6) Normal [facility] IMMUNE [id number] 06:34:45* Test Item Value Reference Range Interpretation Comme nts RHIG CANDIDATE? (test code = 5055) No- see comment Patient is not a candidate for RhIg- Patient is Rh Positive.Performed at [facility] Laboratory Services - [facility] Blood [address] [place] [id number] Free: [phone] No. [id number] [facility]D) IMMUNE [id number] 06:34:45* Test Item Value Reference Range Interpretation Comme nts RHIG CANDIDATE? (test code = 5055) No- see comment Patient is not a candidate for RhIg- Patient is Rh Positive.Performed at [facility] Laboratory Services - [facility] Blood [address] [place] [address]Unpk Free: [phone] No. [id number] [facility] Hospital[facility] B Surface [id number] 04:29:00 * Test Item Value Reference Range Interpretation Comme nts HBsAg Semi-Quantitative (saleem t code = 5195-3) Negative Negative [facility] B Surface [id number] 04:29:00 * Test Item Value Reference Range Interpretation Comme nts HBsAg Semi-Quantitative (saleem t code = 5195-3) Negative Negative [facility] Cord [id number] 04:15:10* Test Item Value Reference Range Interpretation Comme nts BASE EXCESS, CORD (test code = 0853170514) mEq/L AC PH, CORD (BEAKER) (test code = 3153717256) 7.18-7.38 L PC02, CORD (test code = 0583491408) See_Comment [Automated messa ge] The system which generated this result transmitted reference range: 32 - 66 mmHg. The reference range was not used to interpret this result as normal/abnormal. PO2, CORD (test code = 6626833462) <10 BICARBONATE, CORD (test code = 9987111117) See_Comment [Automated me ssage] The system which generated this result transmitted reference range: 17 - 27 mEq/L. The reference range was not used to interpret this result as normal/abnormal. Lab Interpretation (test code = 33904-9) Abnormal [facility] Cord [id number] 04:15:10* Test Item Value Reference Range Interpretation Comme nts BASE EXCESS, CORD (test code = 0059471372) mEq/L AC PH, CORD (BEAKER) (test code = 2137859172) 7.18-7.38 L PC02, CORD (test code = 0508078612) See_Comment [Automated messa ge] The system which generated this result transmitted reference range: 32 - 66 mmHg. The reference range was not used to interpret this result as normal/abnormal. PO2, CORD (test code = 1926962105) <10 BICARBONATE, CORD (test code = 6792871455) See_Comment [Automated me ssage] The system which generated this result transmitted reference range: 17 - 27 mEq/L. The reference range was not used to interpret this result as normal/abnormal. Lab Interpretation (test code = 57327-2) Abnormal [facility] Cord [id number] 04:12:23* Test Item Value Reference Range Interpretation Comme nts VENOUS BASE EXCESS, CORD (test code = 7336553561) mEq/L VENOUS PH, CORD (test code = 3630084468) 7.25-7.45 VENOUS PC02, CORD (test code = 9284462079) See_Comment H [Automated me ssage] The system which generated this result transmitted reference range: 27 - 49 mmHg. The reference range was not used to interpret this result as normal/abnormal. VENOUS PO2, CORD (test code = 7846447884) See_Comment L [Automated me ssage] The system which generated this result transmitted reference range: 17 - 41 mmHg. The reference range was not used to interpret this result as normal/abnormal. VENOUS BICARBONATE, CORD (test code = 1956171337) See_Comment [Automa shaheed message] The system which generated this result transmitted reference range: 12 - 29 mEq/L. The reference range was not used to interpret this result as normal/abnormal. Lab Interpretation (test code = 44920-9) Abnormal [facility] Cord [id number] 04:12:23* Test Item Value Reference Range Interpretation Comme nts VENOUS BASE EXCESS, CORD (test code = 0369662965) mEq/L VENOUS PH, CORD (test code = 8827043714) 7.25-7.45 VENOUS PC02, CORD (test code = 6600104364) See_Comment H [Automated me ssage] The system which generated this result transmitted reference range: 27 - 49 mmHg. The reference range was not used to interpret this result as normal/abnormal. VENOUS PO2, CORD (test code = 7636414911) See_Comment L [Automated me ssage] The system which generated this result transmitted reference range: 17 - 41 mmHg. The reference range was not used to interpret this result as normal/abnormal. VENOUS BICARBONATE, CORD (test code = 5727054686) See_Comment [Automa shaheed message] The system which generated this result transmitted reference range: 12 - 29 mEq/L. The reference range was not used to interpret this result as normal/abnormal. Lab Interpretation (test code = 02053-7) Abnormal [facility] Screen - ONCE [id number] 03:47:01 * Test Item Value Reference Range Interpretation Comme nts ABO & RH (test code = 20) A POSITIVE Performed at [facility] Laboratory Services - [address] Free: [phone] No. [id number] IAT (test code = 1185) Negative Performed at [facility] Laboratory Services - [address] Free: [phone] No. [id number] [facility] - ONCE [id number] 03:47:01 * Test Item Value Reference Range Interpretation Comme nts ABO & RH (test code = 20) A POSITIVE Performed at [facility] Laboratory Services - [address] Free: [phone] No. [id number] IAT (test code = 1185) Negative Performed at [facility] Laboratory Services - [address] Free: [phone] No. [id number] [facility] with [id number] 03:20:31* Test Item Value Reference Range Interpretation [...] 34.5 g/dL 31.6-35.1 RDW-SD (test code = 99237-8) 39.4 fL 39-49.9 RDW-CV (test code = 788-0) 13.1 % 12-15.5 PLT (test code = 777-3) See_Comment H [Automated messa ge] The system which generated this result transmitted reference range: 166 - 358 10*3/?L. The reference range was not used to interpret this result as normal/abnormal. MPV (test code = 08250-3) 9.7 fL 9.5-12.9 NRBC/100 WBC (test code = 3147357877) See_Comment [Automated iconDial ssage] The system which generated this result transmitted reference range: 0.0 - 10.0 /100 WBCs. The reference range was not used to interpret this result as normal/abnormal. NRBC x10^3 (test code = 0159352199) See_Comment [Automated messa ge] The system which generated this result transmitted reference range: 10*3/?L. The reference range was not used to interpret this result as normal/abnormal. GRAN MAT (NEUT) % (test code = 770-8) 64.5 % IMM GRAN % (test code = 3311798211) 0.40 % LYMPH % (test code = 736-9) 26.6 % MONO % (test code = 5905-5) 7.0 % EOS % (test code = 713-8) 1.2 % BASO % (test code = 706-2) 0.3 % GRAN MAT x10^3(ANC) (test code = 5645327884) 7.25 10*3/uL 1.88-7.09 H IMM GRAN x10^3 (test code = 0730212833) 0.04 10*3/uL 0-0.06 LYMPH x10^3 (test code = 731-0) 2.99 10*3/uL 1.32-3.29 MONO x10^3 (test code = 742-7) 0.79 10*3/uL 0.33-0.92 EOS x10^3 (test code = 711-2) 0.14 10*3/uL 0.03-0.39 BASO x10^3 (test code = 704-7) 0.03 10*3/uL 0.01-0.07 Lab Interpretation (test code = 12053-3) Abnormal [facility] with Bncdmqlkfjus3413-73-38 03:20:31* Test Item Value Reference Range Interpretation [...] 34.5 g/dL 31.6-35.1 RDW-SD (test code = 52527-5) 39.4 fL 39-49.9 RDW-CV (test code = 788-0) 13.1 % 12-15.5 PLT (test code = 777-3) See_Comment H [Automated messa ge] The system which generated this result transmitted reference range: 166 - 358 10*3/?L. The reference range was not used to interpret this result as normal/abnormal. MPV (test code = 21741-9) 9.7 fL 9.5-12.9 NRBC/100 WBC (test code = 9194915882) See_Comment [Automated iconDial ssage] The system which generated this result transmitted reference range: 0.0 - 10.0 /100 WBCs. The reference range was not used to interpret this result as normal/abnormal. NRBC x10^3 (test code = 1899027555) See_Comment [Automated messa ge] The system which generated this result transmitted reference range: 10*3/?L. The reference range was not used to interpret this result as normal/abnormal. GRAN MAT (NEUT) % (test code = 770-8) 64.5 % IMM GRAN % (test code = 5596411164) 0.40 % LYMPH % (test code = 736-9) 26.6 % MONO % (test code = 5905-5) 7.0 % EOS % (test code = 713-8) 1.2 % BASO % (test code = 706-2) 0.3 % GRAN MAT x10^3(ANC) (test code = 6035863022) 7.25 10*3/uL 1.88-7.09 H IMM GRAN x10^3 (test code = 3788263157) 0.04 10*3/uL 0-0.06 LYMPH x10^3 (test code = 731-0) 2.99 10*3/uL 1.32-3.29 MONO x10^3 (test code = 742-7) 0.79 10*3/uL 0.33-0.92 EOS x10^3 (test code = 711-2) 0.14 10*3/uL 0.03-0.39 BASO x10^3 (test code = 704-7) 0.03 10*3/uL 0.01-0.07 Lab Interpretation (test code = 16631-1) Abnormal [facility] URINALYSIS W SPECIFIC [id number] 19:47:00* Test Item Value Reference Range Interpretation [...] U APPEAR (test code = 3267) . [facility] URINALYSIS W SPECIFIC [id number] 14:53:00* Test Item Value Reference Range Interpretation [...] POCT U APPEAR (test code = 3267) [facility] URINALYSIS W SPECIFIC [id number] 14:53:00* Test Item Value Reference Range Interpretation [...] POCT U APPEAR (test code = 3267) [facility] URINALYSIS W SPECIFIC [id number] 14:53:00* Test Item Value Reference Range Interpretation [...] POCT U APPEAR (test code = 3267) [facility] URINALYSIS W SPECIFIC [id number] 14:53:00* Test Item Value Reference Range Interpretation Comme nts POCT U SP GRAV (test code = 3255) * 1.005-1.025 POCT PH U (test code = 3254) * 5-8 POCT U LEUK EST (test code = 3263) * Negative - Negative POCT U NIT (test code = 3262) * Negative - Negati ve POCT U PROT (test code = 5519) trace Negative - Negat ana cristina POCT U GLU (test code = 3256) negative Negative - Negati ve POCT U KETONE (test code = 3258) * Negative - Neg ative POCT U UROBILI (test code = 3260) * 0.2-1 POCT U BILI (test code = 3261) * Negative - Negat ana cristina POCT U BLD (test code = 6257) * Negative - Negati ve POCT U COLOR (test code = 3266) * POCT U APPEAR (test code = 3267) [facility]
[2024-04-13] MEDS ORDERED: KETOROLAC 30 MG/ML INJ ONE (20:33)
[2024-04-13] MEDS ORDERED: ACETAMINOPHEN 500 MG TAB ONE (20:33)
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
[2024-04-13] MEDS ORDERED: MECLIZINE HCL 12.5 MG TAB ONE (21:15)
[2024-04-14 02:01] VITALS: O2SAT 100
[2024-04-14 02:09] VITALS: BP 120/76; TEMP 98.7
== END 2024-04-13 21:29 | disposition home or self-care (01) ==
LOC: ER 19:42
DX: M25.512 Pain in left shoulder (principal); M25.511 Pain in right shoulder; R51.9 Headache, unspecified; V47.6XXD Car passenger injured in collision with fixed or stationary object in traffic accident, subsequent encounter
CPT/HCPCS: 36415; 84703; 96372; 99285; J8597

== ENCOUNTER 2024-07-05 15:06 | Emergency (ER) | payer OTHER ==
--- OUTSIDE RECORDS SUMMARY | 2024-07-05 15:10 | XMS REPORT | Continuity of Care Document ---
Author Name Unknown Address [address] [place] [address] [facility] Address [address] [place] [address] Care Team Providers Care [employer] Supervisor Name Role Phone JESSE VIEIRA Primary Care Physician BRE Potts Attending Clinician Bre Potts CNM Attending Clinician AKINTIFFANIE JACKSON Attending Clinician Unavail able DAVE HERNANDEZ Attending Clinician Unavailable SUSIE GONZALEZ Attending Clinician Unavailab le Doctor Unassigned, [place] Attending Clinician U ALETHEA Meadows Attending Clinician Unavailable Nura DO, Shravan Attending Clinician [phone] SHY GUTIERREZ Attending Clinician UnavailSHY Aguayo Attending Clinician Unavailcathie e Provider, Pattie Temp Attending Clinician Ana diego Gonzalez [employer]ZEN[employer] MAKER HELPER, Susie Holliday Attending Clinician + [phone] RONALD IRELAND Attending Clinician Unavailable RONALD IRELAND Attending Clinician Unavailable Ultrasound, Madysonsavannah Attending Clinician UnavailRonald Tabares MD Attending Clinician [phone] Akinrenetta WHCNPTiffanie Attending Clinician + TL SCHMIDT Attending Clinician Unavailable Visit, Rosendaradha Nurse Attending Clinician Unava jim Cortés LOZENGE MAKER HELPER, Vesta Milligan Attending Clinician [phone] Catie Mcmahan Attending Clinician [phone] Nura MORILLO, Shravan Admitting Clinician [phone] Payers Payer Name Policy Type Policy Number Effective Date Expirati on Date Source [facility] [employer] [id number] 2024 00:00:00 [employer] [id number] 2024 00:00:00 [employer] [facility] [employer] [id number] 2016 00:00:00 Problems Condition Name Condition Details Condition Category Status Onset Date Resolution Date Last Treatment Date Treating Clinician Comments Source Previous delivery affecting , antepartum Previous delivery affecting , antepartum Disease Active 2023-09 00:00: 00 [facility] Other specified attention deficit hyperactiv ity disorder (ADHD) Other specified attention deficit hyperactiv ity disorder (ADHD) Disease Active 2023-09 00:00: 00 [facility] Bipolar disease during Bipolar disease during Disease Active 2023-09 00:00: 00 [facility] History of oligohydra mnios in prior , currently History of oligohydra mnios in prior , currently Disease Active 2023-09 00:00: 00 [facility] Flu vaccine refused Flu vaccine refused Disease Active 2023-09 00:00: 00 [facility] Supervisio n of high risk , antepartum Supervisio n of high risk , antepartum Disease Active 2023-09 00:00: 00 Overview: Formattin g of this note might be different from the original. 06/11 external records: HCV neg, GC/CH neg, HIV neg, RPR NR, h/h 14.1/, PLT , A1c , PAP pending [facility] Bicornuate uterus Bicornuate uterus Disease Active 2023-09 00:00: 00 [facility] Generalize d anxiety disorder Generalize d anxiety disorder Disease Active 2016-09 0 00:00: 00 [facility] Asthma, unspecifie d asthma severity, unspecifie d whether complicate d, unspecifie d whether persistent Asthma, unspecifie d asthma severity, unspecifie d whether complicate d, unspecifie d whether persistent Disease Active 2016-09 0 00:00: 00 [facility] Obesity in Obesity in Disease Active 2016-09 0 00:00: 00 [facility] History of asthma History of asthma Disease Active 2016-09 0 00:00: 00 [facility] Obesity (BMI 30-39.9) Obesity (BMI 30-39.9) Disease Resolve d 2021-09 0-03 00:00: 00 2024-06-20 00:00:00 2024-06-20 13:29:07 [facility] Gonorrhea in Gonorrhea in Disease Resolve d 7- 00:00: 00 2024-06-20 00:00:00 2024-06-20 13:28:51 [facility] Back pain during Back pain during Disease Resolve d 7-11 00:00: 00 2024-06-20 00:00:00 2024-06-20 13:29:05 [facility] Primigravi da in third trimester Primigravi da in third trimester Disease Resolve d 3-07 00:00: 00 2024-06-20 00:00:00 2024-06-20 13:28:59 [facility] History of depression History of depression Disease Resolve d 3-07 00:00: 00 2024-06-20 00:00:00 2024-06-20 13:32:36 [facility] Chlamydia infection Chlamydia infection Disease Resolve d 9-05 00:00: 00 2024-06-20 00:00:00 2024-06-20 13:28:58 [facility] Depression during Depression during Disease Resolve d 2016-09 0-04 00:00: 00 2024-06-20 00:00:00 2024-06-20 13:29:03 [facility] Uterine size-date discrepanc y in third trimester Uterine size-date discrepanc y in third trimester Disease Resolve d 2021-09 0-03 00:00: 00 2022-06-16 00:00:00 2022-06-16 20:53:15 [facility] heart rate decelerati ons affecting management of mother heart rate decelerati ons affecting management of mother Disease Resolve d 2021-09 0-03 00:00: 00 2022-06-16 00:00:00 2022-06-16 20:53:18 [facility] 36 weeks gestation of 36 weeks gestation of Disease Resolve d 2021-09 0-03 00:00: 00 2022-06-16 00:00:00 2022-06-16 20:53:19 [facility] Supervisio n of high-risk with insufficie nt care Supervisio n of high-risk with insufficie nt care Disease Resolve d 3-07 00:00: 00 2022-06-16 00:00:00 2022-06-16 20:53:10 [facility] High risk teen in third trimester High risk teen in third trimester Disease Resolve d 3-07 00:00: 00 2022-06-16 00:00:00 2022-06-16 20:53:08 [facility] Screening for STDs (sexually transmitte d diseases) Screening for STDs (sexually transmitte d diseases) Disease Resolve d 2016-09 0-04 00:00: 00 2022-02-21 00:00:00 2022-02-21 15:24:50 [facility] Nexplanon removal Nexplanon removal Disease Resolve d 05-19 00:00: 00 2022-02-21 00:00:00 2022-02-21 15:24:46 [facility] Other general counseling and advice for contracept ana cristina management Other general counseling and advice for contracept ana cristina management Disease Resolve d 05-04 00:00: 00 2022-02-21 00:00:00 2022-02-21 15:24:45 [facility] Nocturnal enuresis Nocturnal enuresis Disease Resolve d 05-20 00:00: 00 2018-01-27 00:00:00 2018-01-27 23:38:05 [facility] Follow up: Urinary frequency, folliculit is. Follow up: Urinary frequency, folliculit is. Disease Resolve d 05-20 00:00: 00 2018-01-27 00:00:00 2018-01-27 23:38:45 [facility] Irregular menstrual cycle Irregular menstrual cycle Disease Resolve d 05-04 00:00: 00 2018-01-27 00:00:00 2018-01-27 23:38:51 [facility] Urinary frequency Urinary frequency Disease Resolve d 05-03 00:00: 00 2018-01-27 00:00:00 2018-01-27 23:38:39 [facility] Folliculit is Folliculit is Disease Resolve d 05-03 00:00: 00 2018-01-27 00:00:00 2018-01-27 23:38:35 [facility] Overactive bladder Overactive bladder Disease Resolve d 05-03 00:00: 00 2018-01-27 00:00:00 2018-01-27 23:39:13 [facility] Abnormal vision screen Abnormal vision screen Disease Resolve d 2015-0 823 00:00: 00 2018-01-27 00:00:00 2018-01-27 23:38:19 [facility] Allergies, Adverse Reactions, Alerts Allergy Name Allergy Type Status Severity Reaction(s) Onset Date Inactive Date Treating Clinician Comments Source NO KNOWN ALLERGIE S Drug Class Active [facility] Social History Social Habit Start Date Stop Date Quantity Comments Source ASSERTION 2024-05-30 00:00:00 [facility] History of tobacco use Cigarette Smoker [facility] Sexual orientation [facility] Tobacco use and exposure 2024-06-20 00:00:00 2024-06-20 00:00:00 Smokeless tobacco non-user [facility] Alcoholic beverage intake 2024-06-20 00:00:00 2024-06-20 00:00:00 0 /d [facility] History of Social function 2024-06-20 00:00:00 2024-06-20 00:00:00 [facility] Alcohol intake 2022-06-15 00:00:00 2022-06-15 00:00:00 0 /d [facility] Exposure to SARS-CoV-2 (event) 2022-06-03 00:00:00 2022-06-13 14:43:00 Not sure [facility] Sex assigned at 2002 00:00:00 2000 00:00:00 [facility] Smoking Status Start Date Stop Date Source Ex-smoker 2024-06-20 00:00:00 2024-06-20 00:00:00 [facility] Smokes tobacco daily 2022-03-21 00:00:00 [facility] Medications Ordered Medication Name Filled Medication Name Start Date Stop Date Current Medication? Ordering Clinician Indication Dosage Frequency Signature (SIG) Comments Components Source amitriptyli ne 100 mg tablet 2021-09 0-06 03:15: 58 06-16 00:00 :00 No 100mg Take 100 mg by mouth at bedtime. [facility] [id number] fum-folic () 27 mg iron- 1 mg folic tablet 2021-09 0-06 00:00: 00 Yes [id number] 1{tbl} Take 1 tablet by mouth in the morning. [facility] cep255-zopo fum-folic () 27 mg iron- 1 mg folic tablet 2021-09 0-06 00:00: 00 06-20 00:00 :00 No [id number] 1{tbl} Take 1 tablet by mouth in the morning. [facility] docusate 100 mg capsule 2021-09 0-06 00:00: 00 06-20 00:00 :00 No [id number] 200mg Take 2 capsules by mouth once daily as needed for Constipati on. [facility] ferrous sulfate 325 mg (65 mg iron) tablet 2021-09 0- 00:00: 00 06-20 00:00 :00 No [id number] 325mg Take 1 tablet by mouth in the morning and 1 tablet in the evening. [facility] ibuprofen 600 mg tablet 2021-09 0-06 00:00: 00 06-20 00:00 :00 No [id number] 600mg Take 1 tablet by mouth every 6 (six) hours as needed (Pain). Take with food or milk. [facility] norethindro ne 0.35 mg tablet 2021-09 0-06 00:00: 00 09-15 05:59 :00 No [id number] .35mg Take 1 tablet by mouth in the morning for 90 days. [facility] HYDROcodone -acetaminop hen 5-325 mg tablet 2021-09 0-06 00:00: 00 06-24 04:59 :00 No [id number] 1{tbl} Take 1 tablet by mouth every 6 (six) hours as needed for Pain (scale 4-6) or Pain (scale 7-10) (Pain scale above 4) for up to 7 days. Do not exceed 3 grams of acetaminop hen in 24 hours. Indication s: acute pain [facility] amitriptyli ne (ELAVIL) tablet 100 mg 2021-09 0-05 02:00: 00 Yes 100mg 100 mg, Oral, QHS, First dose on Mon06/14/22 at 2100, Until Discontinu ed, Routine [facility] lactated ringers IV infusion 500 mL 2021-09 13:15: 00 06-14 12:37 :00 No 500mL at 999 mL/hr, 500 mL, Intravenou s, ONCE, 1 dose, On Mon06/14/22 at 0815, Routine [facility] rho(D) immune globulin (RHOGAM) syringe 300 mcg 2021-09 06:33: 41 Yes 300ug 300 mcg, Intramuscu lar, ONCE, For 1 dose, Conditiona l, Routine [facility] HYDROcodone -acetaminop hen (NORCO 5) 5-325 mg tablet 2 tablet 2021-09 06:33: 35 Yes 2{tbl} 2 tablet, Oral, Q6HPRN, Starting on Mon06/14/22 at 0133, Until Discontinu ed, Routine, Pain (scale 7-10), Alternate with Ibuprofen [facility] HYDROcodone -acetaminop hen (NORCO 5) 5-325 mg tablet 1 tablet 2021-09 06:33: 35 Yes 1{tbl} 1 tablet, Oral, Q6HPRN, Starting on Mon06/14/22 at 0133, Until Discontinu ed, Routine, Pain (scale 4-6), Alternate with Ibuprofen [facility] ibuprofen (IBU) tablet 600 mg 2021-09 06:33: 35 Yes 600mg 600 mg, Oral, Q6HPRN, Starting on Mon06/14/22 at 0133, Until Discontinu ed, Routine, Pain (scale 1-3) [facility] diphenhydrA MINE (BENADRYL) injection 25 mg 2021-09 0 06:33: 35 Yes 25mg 25 mg, Slow IV Push, Q6HPRN, Starting on Mon06/14/22 at 0133, Until Discontinu ed, Routine, Itching [facility] diphenhydrA MINE (BENADRYL) tablet 25 mg 2021-09 0 06:33: 35 Yes 25mg 25 mg, Oral, Q6HPRN, Starting on Mon06/14/22 at 0133, Until Discontinu ed, Routine, Sleep, Itching [facility] ondansetron (ZOFRAN (PF)) injection 4 mg 2021-09 0 06:33: 35 Yes 4mg 4 mg, Slow IV Push, Q8HPRN, Starting on Mon06/14/22 at 0133, Until Discontinu ed, Routine, Nausea and Vomiting (N/V) [facility] bisacodyL (DULCOLAX) suppository 10 mg 2021-09 0 06:33: 35 Yes 10mg 10 mg, Rectal, QDAILYPRN, Starting on Mon06/14/22 at 013, Until Discontinu ed, Routine, Constipati on [facility] simethicone (GAS RELIEF (SIMETHICON E)) chewable tablet 160 mg 2021-09 0 06:33: 35 Yes 160mg 160 mg, Oral, PC+HSPRN, Starting on Mon06/14/22 at 0133, Until Discontinu ed, Routine, Gas [facility] docusate (COLACE) capsule 200 mg 2021-09 0 06:33: 35 Yes 200mg 200 mg, Oral, QDAILYPRN, Starting on Mon06/14/22 at 0133, Until Discontinu ed, Routine, Constipati on [facility] magnesium hydroxide (MILK OF MAGNESIA) 400 mg/5 mL suspension 30 mL 2021-09 0 06:33: 35 Yes 30mL 30 mL, Oral, QDAILYPRN, Starting on Mon06/14/22 at 0133, Until Discontinu ed, Routine, Constipati on [facility] lactated ringers IV infusion 1,000 mL 2021-09 0 06:33: 35 Yes 1000mL at 125 mL/hr, 1,000 mL, IV Infusion, PRN, 1 dose, Starting on Mon06/14/22 at 0133, Until Discontinu ed, Routine [facility] lactated ringers IV infusion 1,000 mL 2021-09 0 04:45: 00 06-14 06:33 :38 No 1000mL at 125 mL/hr, 1,000 mL, IV Infusion, CONTINUOUS , Starting on Mon06/13/22 at 2345, Until Mon06/14/22 at 0133, TRIXIE [facility] ceFAZolin in 0.9% sodium chloride (ANCEF) 2 gram/100 mL RTU 2 g 2021-09 0-04 02:54: 10 06-14 06:33 :38 No 2000mg 2 g (2,000 mg), IV Piggyback, O.R. HOLDING ONCE, Starting on Mon06/13/22 at 2154, Until Mon06/14/22 at 0133, Administer over 30 Minutes, 100 mL
Reas on for Anti-Infec tive: Surgical Prophylaxi s
Surgi renetta Prophylaxi s: INFO ANALYST
Duration of therapy: within 24 hours of surgery [facility] sodium citrate-cit kolby acid (BICITRA) 500-334 mg/5 mL solution 30 mL 2021-09 0- 02:54: 10 06-14 03:23 :00 No 30mL 30 mL, Oral, PRE-PROCED URE ONCE, 1 dose, Starting on Mon06/13/22 at 2154, Until Mon06/13/22 at 2223, Routine, Surgery/Pr ocedure [facility] amitriptyli ne 100 mg tablet 2021-09 23:46: 17 Yes 100mg Take 100 mg by mouth at bedtime. [facility] ARIPIPRAZOL E (ABILIFY ORAL) 06-01 10:02: 02 06-01 00:00 :00 No Take by mouth. [facility] amphetamine -dextroamph etamine (ADDERALL XR) 25 mg 24 hr capsule 06-01 10:01: 59 06-01 00:00 :00 No 25mg Take 25 mg by mouth every morning. [facility] metroNIDAZO LE 500 mg tablet 7-13 00:00: 00 06-16 00:00 :00 No [id number] 500mg Take 1 tablet by mouth in the morning and 1 tablet in the evening. [facility] proMETHazin e 25 mg tablet 7-11 00:00: 00 06-16 00:00 :00 No [id number] 25mg Take 1 tablet by mouth every 6 (six) hours as needed for Nausea and Vomiting (N/V). [facility] metroNIDAZO LE 500 mg tablet 6-14 00:00: 00 06-16 00:00 :00 No [id number] 500mg Take 1 tablet by mouth 2 (two) times daily. [facility] ARIPIPRAZOL E (ABILIFY ORAL) 11-15 10:55: 24 Yes Take by mouth. [facility] amphetamine -dextroamph etamine (ADDERALL XR) 25 mg 24 hr capsule 11-15 10:55: 24 Yes 25mg Take 25 mg by mouth every morning. [facility] amitriptyli ne 100 mg tablet 11-15 10:55: 24 Yes 100mg Take 100 mg by mouth at bedtime. [facility] vit 33-iron-fol ic-dha (SELECT-OB + DHA) 29 mg iron-1 mg -250 mg combo pack 11-15 00:00: 00 06-16 00:00 :00 No [id number] 1{packe t} Take 1 Packet by mouth daily. [facility] Immunizations Ordered Immunization Name Filled Immunization Name Date Status Comments Source MMR 2022-06-16 00:00:00 Completed [facility] MMR 2022-06-16 00:00:00 Completed [facility] MMR 2022-06-16 00:00:00 Completed [facility] MMR 2022-06-16 00:00:00 Completed [facility] TDAP 2022-06-01 00:00:00 Completed [facility] TDAP 2022-06-01 00:00:00 Completed [facility] TDAP 2022-06-01 00:00:00 Completed [facility] TDAP 2022-06-01 00:00:00 Completed [facility] TDAP 2022-06-01 00:00:00 Completed [facility] TDAP 2022-06-01 00:00:00 Completed [facility] TDAP 2022-06-01 00:00:00 Completed [facility] HPV9 2019-05-10 00:00:00 Completed HPV9 2016-11-23 00:00:00 Completed [facility] HPV9 2016-11-23 00:00:00 Completed [facility] HPV9 2016-11-23 00:00:00 Completed [facility] HPV9 2016-11-23 00:00:00 Completed [facility] HPV9 2016-11-23 00:00:00 Completed [facility] HPV9 2016-11-23 00:00:00 Completed [facility] HPV9 2016-11-23 00:00:00 Completed [facility] HPV9 2016-11-23 00:00:00 Completed [facility] HPV9 2016-11-23 00:00:00 Completed [facility] HPV9 2016-11-23 00:00:00 Completed [facility] HPV9 2016-11-23 00:00:00 Completed [facility] HPV9 2016-11-23 00:00:00 Completed [facility] Influenza Virus Vaccine Quad IM 3+ YRS 2016-06-15 00:00:00 Completed [facility] HPV9 2016-06-15 00:00:00 Completed Influenza Virus Vaccine Quad IM 3+ YRS 2016-06-15 00:00:00 Completed [facility] HPV9 2016-06-15 00:00:00 Completed [facility] Influenza Virus Vaccine Quad IM 3+ YRS 2016-06-15 00:00:00 Completed [facility] HPV9 2016-06-15 00:00:00 Completed [facility] Influenza Virus Vaccine Quad IM 3+ YRS 2016-06-15 00:00:00 Completed [facility] HPV9 2016-06-15 00:00:00 Completed [facility] Influenza Virus Vaccine Quad IM 3+ YRS 2016-06-15 00:00:00 Completed [facility] HPV9 2016-06-15 00:00:00 Completed [facility] Influenza Virus Vaccine Quad IM 3+ YRS 2016-06-15 00:00:00 Completed [facility] HPV9 2016-06-15 00:00:00 Completed [facility] Influenza Virus Vaccine Quad IM 3+ YRS 2016-06-15 00:00:00 Completed [facility] HPV9 2016-06-15 00:00:00 Completed [facility] Influenza Virus Vaccine Quad IM 3+ YRS 2016-06-15 00:00:00 Completed [facility] HPV9 2016-06-15 00:00:00 Completed [facility] Influenza Virus Vaccine Quad IM 3+ YRS 2016-06-15 00:00:00 Completed [facility] HPV9 2016-06-15 00:00:00 Completed [facility] Influenza Virus Vaccine Quad IM 3+ YRS 2016-06-15 00:00:00 Completed [facility] HPV9 2016-06-15 00:00:00 Completed [facility] Influenza Virus Vaccine Quad IM 3+ YRS 2016-06-15 00:00:00 Completed [facility] HPV9 2016-06-15 00:00:00 Completed [facility] Influenza Virus Vaccine Quad IM 3+ YRS 2016-06-15 00:00:00 Completed [facility] HPV9 2016-06-15 00:00:00 Completed [facility] HPV9 2016-05-09 00:00:00 Completed [facility] HPV9 2016-05-09 00:00:00 Completed [facility] HPV9 2016-05-09 00:00:00 Completed [facility] HPV9 2016-05-09 00:00:00 Completed [facility] HPV9 2016-05-09 00:00:00 Completed [facility] HPV9 2016-05-09 00:00:00 Completed [facility] HPV9 2016-05-09 00:00:00 Completed [facility] HPV9 2016-05-09 00:00:00 Completed [facility] HPV9 2016-05-09 00:00:00 Completed [facility] HPV9 2016-05-09 00:00:00 Completed [facility] HPV9 2016-05-09 00:00:00 Completed [facility] HPV9 2016-05-09 00:00:00 Completed [facility] TDAP 2016-04-21 00:00:00 Completed Meningococcal Polysaccharide (groups A, C, Y and W-135) conjugate vaccine (MCV4P) 2016-04-21 00:00:00 Completed Varicella (varivax)(chicken pox) 2009-05-25 00:00:00 Completed MMR 2007-06-11 00:00:00 Completed DTAP 2007-06-11 00:00:00 Completed HEPATITIS A 2007-06-11 00:00:00 Completed Polio (IPV/OPV) 2007-06-11 00:00:00 Completed DTAP 2006-04-19 00:00:00 Completed Hep B, Adol or Pedi Dosage 2006-04-19 00:00:00 Completed Pneumococcal 7 Conjugate, PCV7 (Prevnar7) 2006-04-19 00:00:00 Completed Polio (IPV/OPV) 2006-04-19 00:00:00 Completed HEPATITIS A 2005-05-20 00:00:00 Completed DTAP 2004-08-12 00:00:00 Completed Hep B, Adol or Pedi Dosage 2004-08-12 00:00:00 Completed Pneumococcal 7 Conjugate, PCV7 (Prevnar7) 2004-08-12 00:00:00 Completed Polio (IPV/OPV) 2004-08-12 00:00:00 Completed MMR 2004-04-05 00:00:00 Completed DTAP 2004-04-05 00:00:00 Completed Hep B, Adol or Pedi Dosage 2004-04-05 00:00:00 Completed Polio (IPV/OPV) 2004-04-05 00:00:00 Completed Varicella (varivax)(chicken pox) 2004-04-05 00:00:00 Completed Hep B, Adol or Pedi Dosage 2002 00:00:00 Completed Vital Signs Vital Name Observation Time Observation Value Comments S ource Systolic blood pressure 2024-06-20 18:34:00 113 mm[Hg] [facility] Diastolic blood pressure 2024-06-20 18:34:00 68 mm[Hg] [facility] Heart rate 2024-06-20 18:34:00 91 [facility] 2024-06-20 18:34:00 36.83 Lindsey [facility] Respiratory rate 2024-06-20 18:34:00 18 /min [facility] Body height 2024-06-20 18:34:00 160 cm [facility] Body weight 2024-06-20 18:34:00 78.983 kg [facility] BMI 2024-06-20 18:34:00 30.84 kg/m2 [facility] Systolic blood pressure 2022-06-16 13:31:00 122 mm[Hg] [facility] Diastolic blood pressure 2022-06-16 13:31:00 79 mm[Hg] [facility] Heart rate 2022-06-16 13:31:00 90 /min [facility] Body temperature 2022-06-16 13:31:00 36.67 Lindsey [facility] Respiratory rate 2022-06-16 13:31:00 18 /min [facility] Oxygen saturation in Arterial blood by Pulse oximetry 2022-06-16 13:31:00 98 /min [facility] Body height 2022-06-14 02:13:00 160 cm [facility] Body weight 2022-06-14 02:13:00 83.008 kg [facility] BMI 2022-06-14 02:13:00 32.42 kg/m2 [facility] Heart rate 2022-06-14 03:00:00 83 /min [facility] Respiratory rate 2022-06-14 03:00:00 18 /min [facility] Oxygen saturation in Arterial blood by Pulse oximetry 2022-06-14 03:00:00 100 /min [facility] Systolic blood pressure 2022-06-14 02:13:00 119 mm[Hg] [facility] Diastolic blood pressure 2022-06-14 02:13:00 68 mm[Hg] [facility] Body temperature 2022-06-14 02:13:00 36.78 Lindsey [facility] Body height 2022-06-14 02:13:00 160 cm [facility] Body weight 2022-06-14 02:13:00 83.008 kg [facility] BMI 2022-06-14 02:13:00 32.42 kg/m2 [facility] Systolic blood pressure 2022-06-13 19:41:00 117 mm[Hg] [facility] Diastolic blood pressure 2022-06-13 19:41:00 77 mm[Hg] [facility] Heart rate 2022-06-13 19:41:00 92 /min Unive [facility] Body temperature 2022-06-13 19:41:00 36.94 Lindsey [facility] Respiratory rate 2022-06-13 19:41:00 20 /min [facility] Body height 2022-06-13 19:41:00 160 cm [facility] Body weight 2022-06-13 19:41:00 82.827 kg [facility] BMI 2022-06-13 19:41:00 32.35 kg/m2 [facility] Systolic blood pressure 2022-06-01 14:49:00 114 mm[Hg] [facility] Diastolic blood pressure 2022-06-01 14:49:00 69 mm[Hg] [facility] Heart rate 2022-06-01 14:49:00 95 /min [facility] Body temperature 2022-06-01 14:49:00 36.06 Lindsey [facility] Respiratory rate 2022-06-01 14:49:00 18 /min [facility] Body weight 2022-06-01 14:49:00 82.373 kg [facility] Procedures Procedure Date / Time Performed Performing Clinician Source HEPATITIS B SURFACE ANTIGEN 2024-06-20 20:10:00 Bre Currie [facility] HB ABO GROUPING 2024-06-20 20:10:00 Bre Currie [facility] POCT TEST 2024-06-20 18:33:00 Jayla Currie [facility] POCT URINALYSIS W/O SPECIFIC GRAVITY 2024-06-20 18:33:00 Bre Currie [facility] DME/SUPPLY JUSTIFICATION 2022-07-14 05:01:00 Doc tor Unassigned, [place] [facility] CBC WITH DIFF 2022-06-14 09:46:00 [facility] CBC WITH DIFF 2022-06-14 09:46:00 [facility] URINE DRUG (IMMUNOASSAY) - COMPREHENSIVE DRUG SCREEN 2022-06-14 05:53:00 Degraffenreid, [facility] URINE DRUG (IMMUNOASSAY) - COMPREHENSIVE DRUG SCREEN 2022-06-14 05:53:00 Degraffenreid, [facility] VENOUS CORD GAS 2022-06-14 03:56:00 Degraffenreid, Tadeo [facility] VENOUS CORD GAS 2022-06-14 03:56:00 DegraffenreidTadeo [facility] SECTION 2022-06-14 03:11:00 Shravan Lyman [facility] SECTION 2022-06-14 03:11:00 Shravan Lyman [facility] HB ABO GROUPING 2022-06-14 03:00:00 DegraffenreiTadeo mar [facility] RHO (D) IMMUNE GLOBULIN 2022-06-14 03:00:00 Sandra España [facility] HB ABO GROUPING 2022-06-14 03:00:00 DegraffenreiTadeo mar [facility] RHO (D) IMMUNE GLOBULIN 2022-06-14 03:00:00 Sandra España [facility] CBC WITH DIFF 2022-06-14 02:58:00 Degraffenreid [facility] HEPATITIS B SURFACE ANTIGEN 2022-06-14 02:58:00 Degraffenreid, [facility] GALV ONLY - SYPHILIS IGG/IGM 2022-06-14 02:58:00 Degraffenreid [facility] CBC WITH DIFF 2022-06-14 02:58:00 Degraffenreid [facility] HEPATITIS B SURFACE ANTIGEN 2022-06-14 02:58:00 Bernard [facility] GALV ONLY - SYPHILIS IGG/IGM 2022-06-14 02:58:00 Bernard [facility] NON-STRESS TEST 2022-06-13 21:53:16 Syh Gutierrez [facility] POCT URINALYSIS 2022-06-13 00:00:00 Susie Gonzalez [facility] TDAP VACCINE, >11 YRS, IM 2022-06-01 15:02:51 Susie Gonzalez [facility] POCT URINALYSIS 2022-06-01 14:52:00 Susie Gonzalez [facility] Encounters Start Date/Time End Date/Time Encounter Type Admission Type Attending [facility] Care Facility Care Department Encounter ID Source 2024-06-20 13:30:00 2024-06-20 15:09:22 Outpatient BRE MIRANDA [facility] [id number] [facility] 2024-06-20 13:30:00 2024-06-20 15:09:22 Initial Visit Bre Currie [facility] INFO [facility] 1.2.840.114 350.1.13.10 4.2.7.2.686 [id number] [facility] 2024-02-21 14:00:00 2024-02-21 14:00:00 Outpatient DAVE PARK [facility] [id number] [facility] 2024-02-21 14:00:00 2024-02-21 14:00:00 Outpatient DAVE PARK [facility] [id number] [facility] 2022-07-14 13:00:00 2022-07-14 13:00:00 Outpatient BRE MIRANDA [facility] [id number] [facility] 2022-07-14 00:00:00 2022-07-14 00:00:00 Orders Only Doctor Unassigned, [place] [facility] 1.2.840.114 350.1.13.10 4.2.7.2.686 [id number] [facility] 2022-06-20 15:45:00 2022-06-20 15:45:00 Outpatient SUSIE HUGHES [facility] [id number] [facility] 2022-06-13 20:50:00 2022-06-16 11:27:00 Hospital Encounter [facility] 1.2.840.114 350.1.13.10 4.2.7.2.686 [id number] [facility] 2022-06-16 00:00:00 2022-06-16 00:00:00 Encounter 1.2.840.1 [id number] [id number] 1.2.840.114 350.1.13.10 4.2.7.2.696 [id number] [facility] 2022-06-13 22:10:00 2022-06-14 00:01:00 Surgery [facility] 1.2.840.114 350.1.13.10 4.2.7.2.686 [id number] [facility] 2022-06-13 14:30:00 2022-06-13 16:34:43 Outpatient SHY PATEL SARAH [facility] [id number] [facility] 2022-06-13 14:30:00 2022-06-13 16:34:43 Routine Visit Provider, Shy Morrison [facility] INFO [facility] [place] 1.2.840.114 350.1.13.10 4.2.7.2.686 [id number] [facility] 2022-06-13 14:30:00 2022-06-13 16:34:43 Outpatient R SHY GUTIERREZ SARAH [facility] JERICA [id number] [facility] 2022-06-06 15:15:00 2022-06-06 15:15:00 Outpatient R SUSIE GONZALEZ [facility] [id number] [facility] 2022-06-01 09:15:00 2022-06-01 11:00:25 Outpatient SUSIE HUGHES [facility] [id number] [facility] 2022-06-01 09:15:00 2022-06-01 11:00:25 Routine Visit GonzalezBharti leopaulo Holliday [facility] INFO [facility] 1.2.840.114 350.1.13.10 4.2.7.2.686 [id number] [facility] 2022-06-01 09:30:00 2022-06-01 09:30:00 Outpatient R SUSIE GONZALEZ [facility] [id number] [facility] 2022-05-20 10:15:00 2022-05-20 10:15:00 Outpatient R MAXXALICIATIFFANIE [facility] [id number] [facility] 2022-04-21 10:00:00 2022-04-21 10:00:00 Outpatient R KILO TIFFANIE [facility] [id number] [facility] 2022-04-11 14:00:00 2022-04-11 14:00:00 Outpatient R TODDRENETTA TIFFANIE [facility] [id number] [facility] 2022-03-28 14:00:00 2022-03-28 14:52:56 Outpatient RONALD WYATT SANGEETA [facility] [id number] [facility] 2022-03-28 14:00:00 2022-03-28 14:45:00 Machine Stamper Visit Ultrasound, Ronald Rocha [facility] INFO [facility] 1.2.840.114 350.1.13.10 4.2.7.2.686 [id number] [facility] 2022-03-28 14:00:00 2022-03-28 14:00:00 Outpatient P [facility] [id number] [facility] 2022-03-28 00:00:00 2022-03-28 00:00:00 Abstract Susie Gonzalez [facility] INFO [facility] 1.2.840.114 350.1.13.10 4.2.7.2.686 [id number] [facility] 2022-03-28 00:00:00 2022-03-28 00:00:00 Abstract Susie Gonzalez [facility] INFO [facility] 1.2.840.114 350.1.13.10 4.2.7.2.686 [id number] [facility] 2022-03-28 00:00:00 2022-03-28 00:00:00 Telephone Tiffanie Weiss [facility] INFO [facility] 1.2.840.114 350.1.13.10 4.2.7.2.686 [id number] [facility] 2022-03-23 00:00:00 2022-03-23 00:00:00 Telephone Tiffanie Weiss [facility] INFO [facility] 1.2.840.114 350.1.13.10 4.2.7.2.686 [id number] [facility] 2022-03-21 13:00:00 2022-03-21 14:04:19 Outpatient R TIFFANIE WEISS [facility] [id number] [facility] 2022-03-21 13:00:00 2022-03-21 14:04:19 Routine Visit Tiffanie Weiss [facility] INFO [facility] 1.2.840.114 350.1.13.10 4.2.7.2.686 [id number] [facility] 2022-03-21 13:00:00 2022-03-21 13:00:00 Outpatient R TE WEISSILOLA [facility] [id number] [facility] 2022-02-22 00:00:00 2022-02-22 00:00:00 Telephone Tiffanie Weiss [facility] INFO [facility] 1.2.840.114 350.1.13.10 4.2.7.2.686 [id number] [facility] 2022-02-21 14:15:00 2022-02-21 15:05:22 Outpatient R TODDMAGALYSTIFFANIE VARGAS [facility] [id number] [facility] 2022-02-21 14:15:00 2022-02-21 15:05:22 Routine Visit Tiffanie Weiss Rashmi [facility] INFO [facility] 1.2.840.114 350.1.13.10 4.2.7.2.686 [id number] [facility] 2022-02-21 00:00:00 2022-02-21 00:00:00 Orders Only Doctor Unassigned, [place] [facility] 1.840.114 350.1.13.10 4.2.7.2.686 [id number] [facility] 2022-01-25 09:30:00 2022-01-25 09:30:00 Outpatient TL SOTO [facility] [id number] [facility] 2022-01-10 15:45:00 2022-01-10 15:45:00 Outpatient R SUSIE GONZALEZ [facility] [id number] [facility] 2022-01-07 09:00:00 2022-01-07 09:00:00 Outpatient SUSIE HUGHES [facility] [id number] [facility] 2021-12-13 14:30:00 2021-12-13 14:30:00 Outpatient SUSIE HUGHES [facility] [id number] [facility] 2021-12-13 10:30:00 2021-12-13 10:58:28 Machine Stamper Visit Ultrasound, Ronald Rocha [facility] INFO [facility] 1.2.840.114 350.1.13.10 4.2.7.2.686 [id number] [facility] 2021-12-13 10:30:00 2021-12-13 10:30:00 Outpatient SUSIE WEBB [facility] [id number] [facility] 2021-12-13 00:00:00 2021-12-13 00:00:00 Abstract Susie Gonzalez [facility] INFO [facility] 1.2.840.114 350.1.13.10 4.2.7.2.686 [id number] [facility] 2021-11-19 00:00:00 2021-11-19 00:00:00 Telephone Susie Gonzalez [facility] INFO [facility] 1.2.840.114 350.1.13.10 4.2.7.2.686 [id number] [facility] 2021-11-17 10:30:00 2021-11-17 11:16:07 Nurse Visit Visit, [facility]chp [facility] 1.2.840.114 350.1.13.10 4.2.7.2.686 [id number] [facility] 2021-11-17 10:30:00 2021-11-17 10:30:00 Outpatient R CORINE GONZALEZVIOLETAPaulo [facility] [id number] [facility] 2021-11-16 00:00:00 2021-11-16 00:00:00 Telephone Bharti Gonzalezpaulo Holliday [facility] INFO [facility] 1..840.114 350.1.13.10 4.2.7.2.686 [id number] [facility] 2021-11-15 09:45:00 2021-11-15 11:30:15 Outpatient R CORINE GONZALEZSINCERE [facility] [id number] [facility] 2021-11-15 09:45:00 2021-11-15 11:30:15 Initial Visit Susie Gonzalez Mg [facility] INFO [facility] 1..840.114 350.1.13.10 4.2.7.2.686 [id number] [facility] 2021-11-15 00:00:00 2021-11-15 00:00:00 Orders Only Doctor Unassigned, [place] [facility] 1.840.114 350.1.13.10 4.2.7.2.686 [id number] [facility] 2021-11-11 14:30:00 2021-11-11 14:30:00 Outpatient R DAVE HERNANDEZ [facility] [id number] [facility] 2021-01-22 15:24:07 2021-01-22 16:17:44 Office Visit Tiffanie Weiss [facility] INFO [facility] 1..840.114 350.1.13.10 4.2.7.2.686 [id number] [facility] 2021-01-22 15:30:00 2021-01-22 15:30:00 Outpatient R TIFFANIE WEISS [facility] [id number] [facility] 2020-11-30 13:15:00 2020-11-30 13:15:00 Outpatient R TIFFANIE WEISS [facility] [id number] [facility] 2020-11-24 15:47:42 2020-11-24 16:41:18 Office Visit Tiffanie Weiss [facility] INFO [facility] 1.0.114 350.1.13.10 4.2.7.2.686 [id number] [facility] 2020-11-24 16:00:00 2020-11-24 16:00:00 Outpatient R TIFFANIE WEISS [facility] [id number] [facility] 2020-11-24 00:00:00 2020-11-24 00:00:00 Orders Only Doctor Unassigned, [place] [facility] 1..114 350.1.13.10 4.2.7.2.686 [id number] [facility] 2019-05-16 10:17:05 2019-05-16 10:47:05 Office Visit Vesta Cortés [facility] INFO [facility] 1..114 350.1.13.10 4.2.7.2.686 [id number] [facility] 2019-05-16 00:00:00 2019-05-16 00:00:00 Letter (Out) Vesta Cortés [facility] INFO [facility] 1.20.114 350.1.13.10 4.2.7.2.686 [id number] [facility] 2019-05-16 00:00:00 2019-05-16 00:00:00 Telephone Vesta Cortés [facility] INFO [facility] 1.20.114 350.1.13.10 4.2.7.2.686 [id number] [facility] 2019-05-15 12:45:15 2019-05-15 13:00:15 Office Visit Vesta Cortés [facility] INFO [facility] 1.2.840.114 350.1.13.10 4.2.7.2.686 [id number] [facility] 2019-05-15 00:00:00 2019-05-15 00:00:00 Telephone Catie Boss [facility] INFO [facility] 1.2.840.114 350.1.13.10 4.2.7.2.686 [id number] [facility] 2019-05-15 00:00:00 2019-05-15 00:00:00 Orders Only Doctor Unassigned, [place] [facility] 1.2.840.114 350.1.13.10 4.2.7.2.686 [id number] [facility] Results Test Description Test Time Test Comments Results Result Co mments Source [facility], BLOOD [id number] 20:11:00 * Test Item Value Reference Range Interpretation Comme nts ABO & RH (test code = 20) A POSITIVE IAT (test code = 1185) Negative [facility] [id number] 18:33:00* Test Item Value Reference Range Interpretation Comme nts POCT PREG (test code = 1605) Positive On board controls acceptable with C Line (test code = 3574) Yes POCT PREG LOT # (test code = 3575) POCT PREG TEST DATE ( test code = 3576) [facility] Urinalysis w/o Specific [id number] 18:33:00* Test Item Value Reference Range Interpretation Comme nts POCT PH U (test code = 3254) 6 mg/dl 5-8 POCT U LEUK EST (test code = 3263) 1+ Negative - Negative POCT U NIT (test code = 3262) Neg Negative - Negati ve POCT U PROT (test code = 3259) Trace Negative - Negat ana cristina POCT U GLU (test code = 3256) Nml Negative - Negati ve POCT U KETONE (test code = 3258) 2+ Negative - Neg ative POCT U BLD (test code = 3257) ~50 Negative - Negati ve [facility] ONLY - SYPHILIS [id number] 14:50:49* Test Item Value Reference Range Interpretation Comme nts Syphilis IgG/IgM (test code = 50336-3) Non-reactive Non-reactive CHAGO (test code = CHAGO) Non-reactive - No serologic evidence of T. pallidum infection. Cannot exclude incubating or early syphilis. Submit a second specimen in 2-4 weeks if syphilis is clinically suspected. Equivocal - Further testing to follow. Reactive - Further testing to follow. Lab Interpretation (test code = 62449-6) Normal [facility] ONLY - SYPHILIS [id number] 14:50:49* Test Item Value Reference Range Interpretation Comme nts Syphilis IgG/IgM (test code = 98180-5) Non-reactive Non-reactive CHAGO (test code = CHAGO) Non-reactive - No serologic evidence of T. pallidum infection. Cannot exclude incubating or early syphilis. Submit a second specimen in 2-4 weeks if syphilis is clinically suspected. Equivocal - Further testing to follow. Reactive - Further testing to follow. Lab Interpretation (test code = 75578-5) Normal [facility] (D) IMMUNE [id number] 06:34:45* Test Item Value Reference Range Interpretation Comme nts RHIG CANDIDATE? (test code = 5055) No- see comment Patient is not a candidate for RhIg- Patient is Rh Positive.Performed at [facility] Laboratory Services - [facility] Blood [address] Free: [phone] No. [id number] [facility] (D) IMMUNE [id number] 06:34:45* Test Item Value Reference Range Interpretation Comme nts RHIG CANDIDATE? (test code = 5055) No- see comment Patient is not a candidate for RhIg- Patient is Rh Positive.Performed at [facility] Laboratory Services - [facility] Blood [address] Free: [phone] No. [id number] [facility] B Surface [id number] 04:29:00 * Test Item Value Reference Range Interpretation Comme nts HBsAg Semi-Quantitative (saleem t code = 5195-3) Negative Negative [facility] Surface [id number] 04:29:00 * Test Item Value Reference Range Interpretation Comme nts HBsAg Semi-Quantitative (saleem t code = 5195-3) Negative Negative [facility] acute hospital Cord [id number] 04:15:10* Test Item Value Reference Range Interpretation Comme nts BASE EXCESS, CORD (test code = 6028637684) mEq/L AC PH, CORD (BEAKER) (test code = 5274016647) 7.18-7.38 L PC02, CORD (test code = 0307377239) See_Comment [Automated messa ge] The system which generated this result transmitted reference range: 32 - 66 mmHg. The reference range was not used to interpret this result as normal/abnormal. PO2, CORD (test code = 2888944327) <10 BICARBONATE, CORD (test code = 6972748247) See_Comment [Automated me ssage] The system which generated this result transmitted reference range: 17 - 27 mEq/L. The reference range was not used to interpret this result as normal/abnormal. Lab Interpretation (test code = 26616-2) Abnormal [facility] acute hospital Cord [id number] 04:15:10* Test Item Value Reference Range Interpretation Comme nts BASE EXCESS, CORD (test code = 9247128136) mEq/L AC PH, CORD (BEAKER) (test code = 4161649109) 7.18-7.38 L PC02, CORD (test code = 9155958336) See_Comment [Automated messa ge] The system which generated this result transmitted reference range: 32 - 66 mmHg. The reference range was not used to interpret this result as normal/abnormal. PO2, CORD (test code = 8325435497) <10 BICARBONATE, CORD (test code = 2948820826) See_Comment [Automated me ssage] The system which generated this result transmitted reference range: 17 - 27 mEq/L. The reference range was not used to interpret this result as normal/abnormal. Lab Interpretation (test code = 66228-4) [facility] [id number] 04:12:23* Test Item Value Reference Range Interpretation Comme nts VENOUS BASE EXCESS, CORD (test code = 3904113445) mEq/L VENOUS PH, CORD (test code = 0422637673) 7.25-7.45 VENOUS PC02, CORD (test code = 0860975930) See_Comment H [Automated me ssage] The system which generated this result transmitted reference range: 27 - 49 mmHg. The reference range was not used to interpret this result as normal/abnormal. VENOUS PO2, CORD (test code = 8741169962) See_Comment L [Automated me ssage] The system which generated this result transmitted reference range: 17 - 41 mmHg. The reference range was not used to interpret this result as normal/abnormal. VENOUS BICARBONATE, CORD (test code = 9311783756) See_Comment [Automa shaheed message] The system which generated this result transmitted reference range: 12 - 29 mEq/L. The reference range was not used to interpret this result as normal/abnormal. Lab Interpretation (test code = 10767-3) Abnormal [facility] Cord [id number] 04:12:23* Test Item Value Reference Range Interpretation Comme nts VENOUS BASE EXCESS, CORD (test code = 3042796697) mEq/L VENOUS PH, CORD (test code = 4881051485) 7.25-7.45 VENOUS PC02, CORD (test code = 1943278859) See_Comment H [Automated me ssage] The system which generated this result transmitted reference range: 27 - 49 mmHg. The reference range was not used to interpret this result as normal/abnormal. VENOUS PO2, CORD (test code = 7193598113) See_Comment L [Automated me ssage] The system which generated this result transmitted reference range: 17 - 41 mmHg. The reference range was not used to interpret this result as normal/abnormal. VENOUS BICARBONATE, CORD (test code = 9887926420) See_Comment [Automa shaheed message] The system which generated this result transmitted reference range: 12 - 29 mEq/L. The reference range was not used to interpret this result as normal/abnormal. Lab Interpretation (test code = 27260-9) Abnormal [facility] Screen - ONCE [id number] 03:47:01 * Test Item Value Reference Range Interpretation Comme nts ABO & RH (test code = 20) A POSITIVE Performed at [facility] Laboratory Services - [facility] Blood [address] Free: [phone] No. [id number] IAT (test code = 1185) Negative Performed at [facility] Laboratory Services - [address] Free: [phone] No. [id number] [facility] and Screen - ONCE [id number] 03:47:01 * Test Item Value Reference Range Interpretation Comme nts ABO & RH (test code = 20) A POSITIVE Performed at [facility] Laboratory Services - [address] Free: [phone] No. [id number] IAT (test code = 1185) Negative Performed at [facility] Laboratory Services - [address] Free: [phone] No. [id number] [facility] [facility] [id number] 03:20:31* Test Item Value Reference Range Interpretation [...] 34.5 g/dL 31.6-35.1 RDW-SD (test code = 43656-8) 39.4 fL 39-49.9 RDW-CV (test code = 788-0) 13.1 % 12-15.5 PLT (test code = 777-3) See_Comment H [Automated messa ge] The system which generated this result transmitted reference range: 166 - 358 10*3/?L. The reference range was not used to interpret this result as normal/abnormal. MPV (test code = 44146-2) 9.7 fL 9.5-12.9 NRBC/100 WBC (test code = 6176223720) See_Comment [Automated [employer] ssage] The system which generated this result transmitted reference range: 0.0 - 10.0 /100 WBCs. The reference range was not used to interpret this result as normal/abnormal. NRBC x10^3 (test code = 2793391407) See_Comment [Automated messa ge] The system which generated this result transmitted reference range: 10*3/?L. The reference range was not used to interpret this result as normal/abnormal. GRAN MAT (NEUT) % (test code = 770-8) 64.5 % IMM GRAN % (test code = 1565216040) 0.40 % LYMPH % (test code = 736-9) 26.6 % MONO % (test code = 5905-5) 7.0 % EOS % (test code = 713-8) 1.2 % BASO % (test code = 706-2) 0.3 % GRAN MAT x10^3(ANC) (test code = 1365039715) 7.25 10*3/uL 1.88-7.09 H IMM GRAN x10^3 (test code = 6831858990) 0.04 10*3/uL 0-0.06 LYMPH x10^3 (test code = 731-0) 2.99 10*3/uL 1.32-3.29 MONO x10^3 (test code = 742-7) 0.79 10*3/uL 0.33-0.92 EOS x10^3 (test code = 711-2) 0.14 10*3/uL 0.03-0.39 BASO x10^3 (test code = 704-7) 0.03 10*3/uL 0.01-0.07 Lab Interpretation (test code = 49096-5) Abnormal [facility] with [id number] 03:20:31* Test Item Value Reference Range Interpretation [...] 34.5 g/dL 31.6-35.1 RDW-SD (test code = 12619-0) 39.4 fL 39-49.9 RDW-CV (test code = 788-0) 13.1 % 12-15.5 PLT (test code = 777-3) See_Comment H [Automated messa ge] The system which generated this result transmitted reference range: 166 - 358 10*3/?L. The reference range was not used to interpret this result as normal/abnormal. MPV (test code = 98546-8) 9.7 fL 9.5-12.9 NRBC/100 WBC (test code = 7970116437) See_Comment [Automated [employer] ssage] The system which generated this result transmitted reference range: 0.0 - 10.0 /100 WBCs. The reference range was not used to interpret this result as normal/abnormal. NRBC x10^3 (test code = 4833657691) See_Comment [Automated messa ge] The system which generated this result transmitted reference range: 10*3/?L. The reference range was not used to interpret this result as normal/abnormal. GRAN MAT (NEUT) % (test code = 770-8) 64.5 % IMM GRAN % (test code = 7368097741) 0.40 % LYMPH % (test code = 736-9) 26.6 % MONO % (test code = 5905-5) 7.0 % EOS % (test code = 713-8) 1.2 % BASO % (test code = 706-2) 0.3 % GRAN MAT x10^3(ANC) (test code = 3412745120) 7.25 10*3/uL 1.88-7.09 H IMM GRAN x10^3 (test code = 9467062833) 0.04 10*3/uL 0-0.06 LYMPH x10^3 (test code = 731-0) 2.99 10*3/uL 1.32-3.29 MONO x10^3 (test code = 742-7) 0.79 10*3/uL 0.33-0.92 EOS x10^3 (test code = 711-2) 0.14 10*3/uL 0.03-0.39 BASO x10^3 (test code = 704-7) 0.03 10*3/uL 0.01-0.07 Lab Interpretation (test code = 89834-0) Abnormal [facility] URINALYSIS W SPECIFIC [id number] 19:47:00* Test Item Value Reference Range Interpretation [...] U APPEAR (test code = 3267) . [facility] URINALYSIS W SPECIFIC [id number] 14:53:00* Test Item Value Reference Range Interpretation [...] POCT U APPEAR (test code = 3267) [facility] URINALYSIS W SPECIFIC [id number] 14:53:00* Test Item Value Reference Range Interpretation [...] POCT U APPEAR (test code = 3267) [facility] [id number] 14:53:00* Test Item Value Reference Range Interpretation [...] POCT U APPEAR (test code = 3267) [facility]IFIC [id number] 14:53:00* Test Item Value Reference Range Interpretation [...] = 3261) * Negative - Negat ana cristian POCT U BLD (test code = 3257) * Negative - Negati ve POCT U COLOR (test code = 3266) * POCT U APPEAR (test code = 3267) [facility]
[2024-07-05 15:50] LABS: Absolute Basophils 0.1 K/uL (0-0.5); Absolute Lymphocytes (CBC) 1.9 K/uL (0.7-4.9); Absolute Monocytes 0.5 K/uL (0.1-1.3); Absolute Neutrophil 6.7 K/uL (1.8-8.0); Basophils % 0.6 % (0-1.3); Eosinophils % 0.4 % (0-4.4); Hemoglobin 12.7 g/dL (12.0-15.0); Lymphocytes % 20.7 % (15.3-44.8); MCH 28.6 pg (27.0-35.0); MCHC 33.3 g/dL (32.0-36.0); MCV 85.9 fL (80-100); MPV 7.6 fL (7.6-11.3); Monocytes % 5.5 % (3.3-12.3); Neutrophils % 72.8 % (41.7-73.7); Platelets 377 thou/uL (152-406); RBC Red Blood Cell Count 4.42 M/uL (3.86-4.86); Red Cell Distribution Width 14.8 % (12.1-15.2)
[2024-07-05 15:50] LABS: Specific Gravity 1.016 (1.005-1.030); Sqamous Epithelial <5 /HPF (None Seen); Urine Bacteria <20 /HPF (<20); Urine Bilirubin NEGATIVE (Negative); Urine Blood 3+ (OVER) (Negative); Urine Clarity Extremely Turbid (Clear); Urine Color Colorless (Yellow); Urine Crystals Unidentified Few /HPF (None Seen); Urine Culture Reflex Order NOT NEEDED; Urine Glucose NEGATIVE (Negative); Urine Ketones TRACE (Negative); Urine Microscopic Reflex YN ORDER UMIC; Urine Nitrite NEGATIVE (Negative); Urine Protein TRACE (Negative); Urine RBC <5 /HPF (None Seen); Urine Urobilinogen Normal (Normal); Urine WBC <5 /HPF (<5); Urine WBC Clump Rare /HPF (None Seen); Urine Yeast (Budding) Trace /HPF (None Seen)
[2024-07-05 15:52] LABS: Specific Gravity 1.016 (1.005-1.030)
[2024-07-05 16:17] LABS: Anion Gap 9.4 mEq/L (5.0-15.0); Potassium 3.4 mEq/L (3.5-5.1)
--- NOTE | 2024-07-05 17:09 | RAD REPORT ---
EXAMINATION: US FIRST TRIMESTER TRANSVAGINAL WITH DOPPLER CLINICAL INDICATION: with vaginal bleeding TECHNIQUE: Real-time obstetrical ultrasonography of the maternal pelvis and first trimester was performed transvaginally. Color and spectral Doppler evaluation of the ovaries was performed. COMPARISON: No prior exam. FINDINGS: The uterus measures 8 x 5 x 7 cm. A gestational sac is present within the endometrium. Within this is a pole measuring 7.4 mm. Ca rdiac activity 116 bpm. Subchorionic hemorrhage 1.8 x 1.3 cm Right ovary normal in size and echotexture. 2 cm right ovarian cyst. No follow-up imaging recommended for the cyst. Blood flow present to the right ovary Left ovary normal not seen secondary to overlying bowel gas. Right and left adnexa unremarkable No significant free fluid IMPRESSION: Single live intrauterine with an estimated gestational age 6 weeks 4 days KAMRAN 02/24/2025 1.8 cm subchorionic bleed
--- NOTE | 2024-07-05 17:25 | ER ---
Nurse's Notes [facility] Name: Anny Garzon Age: 23 yrs Sex: Female : 2000 Arrival Date: 07/05/2024 Time: 15:06 Bed 6 Private MD: Diagnosis: Threatened Presentation: 07/05 15:13 Chief complaint: Patient states: spotting for a few days with bright red blood today kc6 that is heavy flow. pt states she was at [facility] and they told her there was nothing they can do. Coronavirus screen: At this time, the client does not indicate any symptoms associated with coronavirus-19. Ebola Screen: No symptoms or risks identified at this time. Initial Sepsis Screen: Does the patient meet any 2 criteria? No. Patient's initial sepsis screen is negative. Does the patient have a suspected source of infection? No. Patient's initial sepsis screen is negative. Risk Assessment: Do you want to hurt yourself or someone else? Patient reports no desire to harm self or others. Onset of symptoms was July 05, 2024. 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 - Infectious Disease History:: Denies. - Social history:: Smoking status: Patient denies any tobacco usage or history of. Screenin:47 [facility] ED Fall Risk Assessment (Adult) History of falling in the last 3 months, ko1 including since admission No falls in past 3 months (0 pts) Confusion or Disorientation No (0 pts) Intoxicated or Sedated No (0 pts) Impaired Gait No (0 pts) Mobility Assist Device Used No (0 pt) Altered Elimination No (0 pt) Score/Fall Risk Level 0 - 2 = Low Risk Oriented to surroundings, Maintained a safe environment, Educated pt \T\ family on fall prevention, incl call for assistance when getting out of bed, Assessed \T\ reinforced patient's understanding of fall precautions, Provided non-skid footwear, Hourly rounding (assess needs \T\ fall precautionary measures) done. Abuse screen: Denies threats or abuse. Denies injuries from another. Nutritional screening: No deficits noted. Tuberculosis screening: No symptoms or risk factors identified. Assessment: 15:47 Obstetrical Assessment: General assessment: awake and alert, skin warm and dry, ko1 respirations even and unlabored. General: Appears in no apparent distress. comfortable, Behavior is calm, cooperative, appropriate for age. Pain: Denies pain. Neuro: No deficits noted. Cardiovascular: No deficits noted. Respiratory: No deficits noted. GI: No deficits noted. : No deficits noted. EENT: No deficits noted. Derm: No deficits noted. Musculoskeletal: No deficits noted. Vital Signs: 15:13 BP 117 / 68; Pulse 89; Resp 17 S; Temp 98.2(O); Pulse Ox 100% on R/A; Weight 79.38 kg kc6 (R); Height 5 ft. 2 in. (R); Pain 0/10; 17:30 BP 118 / 71; Pulse 82; Resp 15; Pulse Ox 99% ; ko1 15:13 Body Mass Index 32.01 (79.38 kg, 157.48 cm) kc6 15:13 Pain Scale: Adult kc6 Vitals: 17:32 Heart Tones 116. ko1 ED Course: 15:06 Patient arrived in ED. mr 15:08 Shravan Abarca PA is PHCP. cp 15:08 Shravan Farah MD is Attending Physician. cp 15:14 Triage completed. kc6 15:16 Arm band placed on. kc6 15:46 Marilyn Penny, SHANNON is Primary Nurse. ko1 15:46 Patient has correct armband on for positive identification. Bed in low position. Call ko1 light in reach. Side rails up X 1. Provided Education on: labs. Pulse ox on. NIBP on. Door closed. Noise minimized. Lights dimmed. Warm blanket given. Pillow given. Assisted to bathroom. 15:46 Abo/rh Typing Sent. ko1 15:46 Basic Metabolic Panel Sent. ko1 15:46 CBC with Diff Sent. ko1 15:46 Test, Urine Sent. ko1 15:46 Quantitative Hcg Sent. ko1 15:46 Urinalysis w/ reflexes Sent. ko1 15:46 No provider procedures requiring assistance completed. Initial lab(s) drawn, by me, ko1 sent to lab. Urine collected: clean catch specimen, ce colored, blood tinged. Inserted saline lock: 22 gauge in right antecubital area, using aseptic technique. Blood collected. Flushed with 10 mL NS. 16:43 US Transvaginal Ob In Process Unspecified. EDMS 17:30 IV discontinued, intact, bleeding controlled, No redness/swelling at site. Pressure ko1 dressing applied. Administered Medications: No medications were administered Medication: 15:47 VIS not applicable for this client. ko1 Point of Care Testing: Urine : 17:32 hCG Reading: Positive; ko1 Outcome: 17:24 Discharge ordered by . cp 17:30 Discharged to home ambulatory, ko1 17:30 Condition: stable 17:30 Discharge instructions given to patient, Instructed on discharge instructions, follow up and referral plans. Demonstrated understanding of instructions, follow-up care, 17:33 Patient left the ED. ko1 Signatures: Dispatcher [employer] EDPR Cindy Amaya, Clifford Reg mr Shravna Abarca PA PA cp Lien Gardner, SHANNON RN kc6 Marilyn Penny RN RN ko1
--- NOTE | 2024-07-05 17:25 | EDPHYS ---
Physician Documentation [facility] Name: Anny Garzon Age: 23 yrs Sex: Female : 2000 Arrival Date: 07/05/2024 Time: 15:06 Bed 6 Private MD: ED Physician Shravan Farah HPI: 07/05 15:33 This 23 yrs old Female presents to ER via Ambulatory with complaints of cp Vaginal Bleeding, + Preg <12wks. 15:33 The patient presents to the emergency department with vaginal bleeding, that is light. cp The estimated gestational age is 5 weeks. course: care: none, Leakage of Fluid: none appreciated, Ultrasound: the patient has not had an ultrasound. Associated signs and symptoms: Pertinent negatives: abdominal pain, dysuria, fever, ruptured membranes, vomiting. 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 - Infectious Disease History:: Denies. - Social history:: Smoking status: Patient denies any tobacco usage or history of. ROS: 15:40 Constitutional: Negative for fever, poor PO intake, cp 15:40 Eyes: Negative for injury, pain, redness, and discharge, cp 15:40 Cardiovascular: Negative for chest pain, palpitations, 15:40 Respiratory: Negative for cough, shortness of breath, wheezing, 15:40 Abdomen/GI: Negative for abdominal pain, vomiting, diarrhea, constipation, 15:40 : Positive for vaginal bleeding, Negative for urinary symptoms, flank pain, 15:40 Neuro: Negative for altered mental status, dizziness, headache, weakness, 15:40 All other systems are negative, Exam: 15:45 Constitutional: The patient appears in no acute distress, alert, awake, comfortable, cp non-toxic, well developed, well nourished, 15:45 Head/Face: Normocephalic, atraumatic. cp 15:45 Eyes: Periorbital structures: appear normal, Conjunctiva: normal, no exudate, no injection, Sclera: no appreciated abnormality, Lids and lashes: appear normal, bilaterally, 15:45 ENT: External ear(s): are unremarkable, Nose: is normal, Mouth: Lips: moist, Oral mucosa: moist, Posterior pharynx: Airway: no evidence of obstruction, patent, 15:45 Chest/axilla: Inspection: normal, 15:45 Cardiovascular: Rate: normal, Rhythm: regular, 15:45 Respiratory: the patient does not display signs of respiratory distress, Respirations: normal, no use of accessory muscles, no retractions, labored breathing, is not present, Breath sounds: are clear throughout, no decreased breath sounds, no stridor, no wheezing, 15:45 Abdomen/GI: Inspection: abdomen appears normal, Palpation: abdomen is soft and non-tender, in all quadrants, 15:45 Back: pain, is absent, ROM is normal, Vital Signs: 15:13 BP 117 / 68; Pulse 89; Resp 17 S; Temp 98.2(O); Pulse Ox 100% on R/A; Weight 79.38 kg kc6 (R); Height 5 ft. 2 in. (R); Pain 0/10; 17:30 BP 118 / 71; Pulse 82; Resp 15; Pulse Ox 99% ; ko1 15:13 Body Mass Index 32.01 (79.38 kg, 157.48 cm) kc6 15:13 Pain Scale: Adult kc6 MDM: 15:08 Medical Screening Exam initiated cp 17:23 Data reviewed: vital signs, nurses notes, lab test result(s), radiologic studies, cp ultrasound, and as a result, I will discharge patient. 17:23 Differential diagnosis: STD, ectopic . ED course: VSS. Patient left ED prior cp to discussion of today's results. 07/05 15:28 Order name: Abo/rh Typing; Complete Time: 16:31 cp 07/05 15:28 Order name: Basic Metabolic Panel; Complete Time: 16:31 cp 07/05 16:31 Interpretation: Normal except: K 3.4. cp 07/05 15:28 Order name: CBC with Diff; Complete Time: 16:31 cp 07/05 15:28 Order name: Test, Urine; Complete Time: 16:31 cp 07/05 15:28 Order name: Quantitative Hcg; Complete Time: 16:31 cp 07/05 16:31 Interpretation: Reviewed. cp 07/05 15:28 Order name: Urinalysis w/ reflexes; Complete Time: 16:31 cp 07/05 15:28 Order name: US Transvaginal Ob; Complete Time: 17:22 cp 07/05 17:22 Interpretation: Report reviewed. 07/05 15:28 Order name: IV Saline Lock; Complete Time: 15:46 cp 07/05 15:28 Order name: Labs collected and sent; Complete Time: 15:46 cp 07/05 15:28 Order name: NPO; Complete Time: 15:46 cp Administered Medications: No medications were administered Point of Care Testing: Urine : 17:32 hCG Reading: Positive; ko1 Disposition Summary: 07/05/24 17:24 Discharge Ordered Notes: Location: Home cp Problem: new cp Symptoms: have improved cp Condition: Stable cp Diagnosis - Threatened cp Followup: cp - With: Private Physician - When: 1 week - Reason: Recheck today's complaints Discharge Instructions: - Discharge Summary Sheet cp - Care cp - Threatened Miscarriage cp - Vaginal Bleeding During , First Trimester cp - First Trimester of cp - Activity Restriction During cp Forms: - Medication Reconciliation Form cp - Antibiotic Education cp - Prescription Opioid Use cp - Patient Portal Instructions cp - Leadership Thank You Letter cp Signatures: Dispatcher [employer] EDMS Shravan Abarca PA PA cp Lien Gardner RN RN kc6 Marilyn Penny RN RN ko1 Corrections: (The following items were deleted from the chart) 15:28 15:28 ABO/RH TYPING+BB.LAB.BRZ ordered. EDMS EDMS 15:28 15:28 BASIC METABOLIC PANEL+C.LAB.BRZ ordered. EDMS EDMS 15:28 15:28 CBC+H.LAB.BRZ ordered. EDMS EDMS 15:28 15:28 Test, Urine+UC.LAB.BRZ ordered. EDMS EDMS 15:28 15:28 QUANTITATIVE HCG+C.LAB.BRZ ordered. EDMS EDMS 15:28 15:28 Urinalysis+U.LAB.BRZ ordered. EDMS EDMS
[2024-07-06 04:05] VITALS: TEMP 98.2
[2024-07-06 04:11] VITALS: BP 118/71; O2SAT 99
== END 2024-07-05 17:33 | disposition home or self-care (01) ==
LOC: ER 15:06
DX: O20.0 Threatened abortion (principal); Z3A.01 Less than 8 weeks gestation of pregnancy
CPT/HCPCS: 36415; 76817; 80048; 81001; 81025; 84702; 85025; 86900; 86901; 99284

== ENCOUNTER 2024-08-21 13:35 | Emergency (ER) | payer OTHER, SELFPAY ==
--- OUTSIDE RECORDS SUMMARY | 2024-08-21 13:40 | XMS REPORT | Continuity of Care Document ---
Author Name Unknown Address [address] [place] [address] [facility] Address [address] [place] [address] Care Team Providers Care Production Proofreader Name Role Phone PCP, PATIENT DOES NOT HAVE A Primary Care Physic deborah Unavailable ELLIE DESHPANDE Attending Clinician Unavailable BRE HUNTER Attending Clinician UnavailTIFFANIE Rios Attending Clinician Unavail able RYAN DRIVER Attending Clinician Un available VESTA GUO Attending Clinician UnavailVESTA Rush Attending Clinician UnavailCODY Frost Attending Clinician Unavailable CODY VIEYRA Attending Clinician Unavailable Nixon Cassidy DO Attending Clinician [phone] Cody Vieyra MD Attending Clinician [phone] ENIO MCCARTHY Attending Clinician Unavailable ENIO MCCARTHY Attending Clinician Unavailable Enio Monroy Attending Clinician [phone] Bre Hunter CNM Attending Clinician [phone] DAVE HERNANDEZ Attending Clinician Unavailable SUSIE GONZALEZ Attending Clinician Unavailab le Doctor Unassigned, [place] Attending Clinician U ALETHEA Meadows Attending Clinician Unavailable Shravan Lyman DO Attending Clinician [phone] SHY GUTIERREZ Attending Clinician UnavailSHY Aguayo Attending Clinician Unavailcathie e Provider, [facility] Attending Clinician Ana vaSusie Petty Attending Clinician + [phone] RONALD IRELAND Attending Clinician Unavailable RONALD IRELAND Attending Clinician Unavailable Ultrasound, Ang-Mfsavannah Attending Clinician UnavailRonald Tabares MD Attending Clinician [phone] Tiffanie Cedillo Attending Clinician + TL SCHMIDT Attending Clinician Unavailable Visit, MadysonRmchradha Nurse Attending Clinician Unava ilgaby NAIRPVesta Attending Clinician [phone] Catie Mcmahan Attending Clinician [phone] KOJO, PAPO-HIEU Admitting Clinician Unavailable Shravan Lyman DO Admitting Clinician Payers Payer Name Policy Type Policy Number Effective Date Expirati on Date Source [facility] BREANNE LOBO [id number] 2024 00:00:00 [facility] JOHNY LOBO PLUS [id number] 2024 00:00:00 2024 00:00:00 [place] [id number] 2024 00:00:00 [facility] [id number] 2016 00:00:00 Problems Condition Name Condition Details Condition Category Status Onset Date Resolution Date Last Treatment Date Treating Clinician Comments Source Maternal varicella, non-immune Maternal varicella, non-immune Disease Active 2023-09 00:00: 00 [facility] Previous delivery affecting , antepartum Previous delivery affecting , antepartum Disease Active 2023-09 00:00: 00 [facility] Other specified attention deficit hyperactiv ity disorder (ADHD) Other specified attention deficit hyperactiv ity disorder (ADHD) Disease Active 2023-09 00:00: 00 [facility] Bipolar disease during Bipolar disease during Disease Active 2023-09 00:00: 00 [facility] History of oligohydra mnios in prior , currently History of oligohydra mnios in prior , currently Disease Active 2023-09 00:00: 00 [facility] Flu vaccine refused Flu vaccine refused Disease Active 2023-09 00:00: 00 [facility] Supervisio n of high risk , antepartum Supervisio n of high risk , antepartum Disease Active 2023-09 00:00: 00 Overview: Formattin g of this note might be different from the original. 06/11 external records: HCV neg, GC/CH neg, HIV neg, RPR NR, h/h 14.1/, PLT , A1c , PAP pending [facility] Bicornuate uterus Bicornuate uterus Disease Active 2023-09 00:00: 00 [facility] Generalize d anxiety disorder Generalize d anxiety disorder Disease Active 2016-09 0-04 00:00: 00 [facility] Asthma, unspecifie d asthma severity, unspecifie d whether complicate d, unspecifie d whether persistent Asthma, unspecifie d asthma severity, unspecifie d whether complicate d, unspecifie d whether persistent Disease Active 2016-09 0-04 00:00: 00 [facility] Obesity in Obesity in Disease Active 2016-09 0 00:00: 00 [facility] History of asthma History of asthma Disease Active 2016-09 0 00:00: 00 [facility] Obesity (BMI 30-39.9) Obesity (BMI 30-39.9) Disease Resolve d 2021-09 0-03 00:00: 00 2024-06-20 00:00:00 2024-06-20 13:29:07 [facility] Gonorrhea in Gonorrhea in Disease Resolve d 2021-0 7-11 00:00: 00 2024-06-20 00:00:00 2024-06-20 13:28:51 [facility] Back pain during Back pain during Disease Resolve d 2021-0 7-11 00:00: 00 2024-06-20 00:00:00 2024-06-20 13:29:05 [facility] Primigravi da in third trimester Primigravi da in third trimester Disease Resolve d 0 3-07 00:00: 00 2024-06-20 00:00:00 2024-06-20 13:28:59 [facility] History of depression History of depression Disease Resolve d 0 3-07 00:00: 00 2024-06-20 00:00:00 2024-06-20 13:32:36 [facility] Chlamydia infection Chlamydia infection Disease Resolve d 9-05 00:00: 00 2024-06-20 00:00:00 2024-06-20 13:28:58 [facility] Depression during Depression during Disease Resolve d 2016-09 0 00:00: 00 2024-06-20 00:00:00 2024-06-20 13:29:03 [facility] Uterine size-date discrepanc y in third trimester Uterine size-date discrepanc y in third trimester Disease Resolve d 2021-09 0-03 00:00: 00 2022-06-16 00:00:00 2022-06-16 20:53:15 [facility] heart rate decelerati ons affecting management of mother heart rate decelerati ons affecting management of mother Disease Resolve d 2021-09 0-03 00:00: 00 2022-06-16 00:00:00 2022-06-16 20:53:18 [facility] 36 weeks gestation of 36 weeks gestation of Disease Resolve d 2021-09 0-03 00:00: 00 2022-06-16 00:00:00 2022-06-16 20:53:19 [facility] Supervisio n of high-risk with insufficie nt care Supervisio n of high-risk with insufficie nt care Disease Resolve d 3-07 00:00: 00 2022-06-16 00:00:00 2022-06-16 20:53:10 [facility] High risk teen in third trimester High risk teen in third trimester Disease Resolve d 0 3-07 00:00: 00 2022-06-16 00:00:00 2022-06-16 20:53:08 [facility] Screening for STDs (sexually transmitte d diseases) Screening for STDs (sexually transmitte d diseases) Disease Resolve d 2016- 0-04 00:00: 00 2022-02-21 00:00:00 2022-02-21 15:24:50 [facility] Nexplanon removal Nexplanon removal Disease Resolve d 2015-0 9-08 00:00: 00 2022-02-21 00:00:00 2022-02-21 15:24:46 [facility] Other general counseling and advice for contracept ana cristina management Other general counseling and advice for contracept ana cristina management Disease Resolve d 2015-0 8-24 00:00: 00 2022-02-21 00:00:00 2022-02-21 15:24:45 [facility] Nocturnal enuresis Nocturnal enuresis Disease Resolve d 05-20 00:00: 00 2018-01-27 00:00:00 2018-01-27 23:38:05 [facility] Follow up: Urinary frequency, folliculit is. Follow up: Urinary frequency, folliculit is. Disease Resolve d 05-20 00:00: 00 2018-01-27 00:00:00 2018-01-27 23:38:45 [facility] Irregular menstrual cycle Irregular menstrual cycle Disease Resolve d 05-04 00:00: 00 2018-01-27 00:00:00 2018-01-27 23:38:51 [facility] Urinary frequency Urinary frequency Disease Resolve d 05-03 00:00: 00 2018-01-27 00:00:00 2018-01-27 23:38:39 [facility] Folliculit is Folliculit is Disease Resolve d 05-03 00:00: 00 2018-01-27 00:00:00 2018-01-27 23:38:35 [facility] Overactive bladder Overactive bladder Disease Resolve d 05-03 00:00: 00 2018-01-27 00:00:00 2018-01-27 23:39:13 [facility] Abnormal vision screen Abnormal vision screen Disease Resolve d 05-03 00:00: 00 2018-01-27 00:00:00 2018-01-27 23:38:19 [facility] Allergies, Adverse Reactions, Alerts Allergy Name Allergy Type Status Severity Reaction(s) Onset Date Inactive Date Treating Clinician Comments Source NO KNOWN ALLERGIE S Drug Class Active [facility] Social History Social Habit Start Date Stop Date Quantity Comments Source ASSERTION 2024-05-30 00:00:00 [facility] History of tobacco use Cigarette Smoker [facility] Tobacco use and exposure 2024-06-20 00:00:00 2024-06-20 00:00:00 Smokeless tobacco non-user [facility] Alcoholic beverage intake 2024-06-20 00:00:00 2024-06-20 00:00:00 0 /d [facility] History of Social function 2024-06-20 00:00:00 2024-06-20 00:00:00 [facility] Alcohol intake 2022-06-15 00:00:00 2022-06-15 00:00:00 0 /d [facility] Exposure to SARS-CoV-2 (event) 2022-06-03 00:00:00 2022-06-13 14:43:00 Not sure [facility] Sex assigned at 2000 00:00:00 2000 00:00:00 [facility] Smoking Status Start Date Stop Date Source Ex-smoker 2024-06-20 00:00:00 2024-06-20 [facility]00[facility] Smokes tobacco daily 2022-03-21 00:00:00 [facility] Medications Ordered Medication Name Filled Medication Name Start Date Stop Date Current Medication? Ordering Clinician Indication Dosage Frequency Signature (SIG) Comments Components Source amitriptyli ne 100 mg tablet 2021-09 03:15: 58 06-16 00:00 :00 No 100mg Take 100 mg by mouth at bedtime. [facility] [id number] fum-folic () 27 mg iron- 1 mg folic tablet 2021-09 0 00:00: 00 Yes [id number] 1{tbl} Take 1 tablet by mouth in the morning. [facility] [id number] fum-folic () 27 mg iron- 1 mg folic tablet 2021-09 0 00:00: 00 06-20 00:00 :00 No [id number] 1{tbl} Take 1 tablet by mouth in the morning. [facility] docusate 100 mg capsule 2021-09 0 00:00: 00 06-20 00:00 :00 No [id number] 200mg Take 2 capsules by mouth once daily as needed for Constipati on. [facility] ferrous sulfate 325 mg (65 mg iron) tablet 2021-09 0 00:00: 00 06-20 00:00 :00 No [id number] 325mg Take 1 tablet by mouth in the morning and 1 tablet in the evening. [facility] ibuprofen 600 mg tablet 2021-09 0-06 00:00: 00 06-20 00:00 :00 No [id number] 600mg Take 1 tablet by mouth every 6 (six) hours as needed (Pain). Take with food or milk. [facility] norethindro ne 0.35 mg tablet 2021-09 0- 00:00: 00 09-15 05:59 :00 No [id number] .35mg Take 1 tablet by mouth in the morning for 90 days. [facility] HYDROcodone -acetaminop hen 5-325 mg tablet 2021-09 0 00:00: 00 06-24 04:59 :00 No [id number] 1{tbl} Take 1 tablet by mouth every 6 (six) hours as needed for Pain (scale 4-6) or Pain (scale 7-10) (Pain scale above 4) for up to 7 days. Do not exceed 3 grams of acetaminop hen in 24 hours. Indication s: acute pain [facility] amitriptyli ne (ELAVIL) tablet 100 mg 2021-09 0 02:00: 00 Yes 100mg 100 mg, Oral, QHS, First dose on Mon06/14/22 at 2100, Until Discontinu ed, Routine [facility] lactated ringers IV infusion 500 mL 2021-09 0 13:15: 00 06-14 12:37 :00 No 500mL at 999 mL/hr, 500 mL, Intravenou s, ONCE, 1 dose, On Mon06/14/22 at 0815, Routine [facility] rho(D) immune globulin (RHOGAM) syringe 300 mcg 2021-09 0 06:33: 41 Yes 300ug 300 mcg, Intramuscu lar, ONCE, For 1 dose, Conditiona l, Routine [facility] HYDROcodone -acetaminop hen (NORCO 5) 5-325 mg tablet 2 tablet 2021-09 0-04 06:33: 35 Yes 2{tbl} 2 tablet, Oral, Q6HPRN, Starting on Mon06/14/22 at 0133, Until Discontinu ed, Routine, Pain (scale 7-10), Alternate with Ibuprofen [facility] HYDROcodone -acetaminop hen (NORCO 5) 5-325 mg tablet 1 tablet 2021-09 0-04 06:33: 35 Yes 1{tbl} 1 tablet, Oral, Q6HPRN, Starting on Mon06/14/22 at 0133, Until Discontinu ed, Routine, Pain (scale 4-6), Alternate with Ibuprofen [facility] ibuprofen (IBU) tablet 600 mg 2021-09 0-04 06:33: 35 Yes 600mg 600 mg, Oral, Q6HPRN, Starting on Mon06/14/22 at 132, Until Discontinu ed, Routine, Pain (scale 1-3) [facility] diphenhydrA MINE (BENADRYL) injection 25 mg 2021-09 0-04 06:33: 35 Yes 25mg 25 mg, Slow IV Push, Q6HPRN, Starting on Mon06/14/22 at 0133, Until Discontinu ed, Routine, Itching [facility] diphenhydrA MINE (BENADRYL) tablet 25 mg 2021-09 0-04 06:33: 35 Yes 25mg 25 mg, Oral, Q6HPRN, Starting on Mon06/14/22 at 0133, Until Discontinu ed, Routine, Sleep, Itching [facility] ondansetron (ZOFRAN (PF)) injection 4 mg 2021-09 0-04 06:33: 35 Yes 4mg 4 mg, Slow IV Push, Q8HPRN, Starting on Mon06/14/22 at 0133, Until Discontinu ed, Routine, Nausea and Vomiting (N/V) [facility] bisacodyL (DULCOLAX) suppository 10 mg 2021-09 0-04 06:33: 35 Yes 10mg 10 mg, Rectal, QDAILYPRN, Starting on Mon06/14/22 at 0133, Until Discontinu ed, Routine, Constipati on [facility] simethicone (GAS RELIEF (SIMETHICON E)) chewable tablet 160 mg 2021-09 0-04 06:33: 35 Yes 160mg 160 mg, Oral, PC+HSPRN, Starting on Mon06/14/22 at 0133, Until Discontinu ed, Routine, Gas [facility] docusate (COLACE) capsule 200 mg 2021-09 0 06:33: 35 Yes 200mg 200 mg, Oral, QDAILYPRN, Starting on Mon06/14/22 at 013, Until Discontinu ed, Routine, Constipati on [facility] magnesium hydroxide (MILK OF MAGNESIA) 400 mg/5 mL suspension 30 mL 2021-09 0 06:33: 35 Yes 30mL 30 mL, Oral, QDAILYPRN, Starting on Mon06/14/22 at 013, Until Discontinu ed, Routine, Constipati on [facility] lactated ringers IV infusion 1,000 mL 2021-09 0 06:33: 35 Yes 1000mL at 125 mL/hr, 1,000 mL, IV Infusion, PRN, 1 dose, Starting on Mon06/14/22 at 013, Until Discontinu ed, Routine [facility] lactated ringers IV infusion 1,000 mL 2021-09 0 04:45: 00 06-14 06:33 :38 No 1000mL at 125 mL/hr, 1,000 mL, IV Infusion, CONTINUOUS , Starting on Mon06/13/22 at 2345, Until Mon06/14/22 at 013, TRIXIE [facility] ceFAZolin in 0.9% sodium chloride (ANCEF) 2 gram/100 mL RTU 2 g 2021-09 0 02:54: 10 06-14 06:33 :38 No 2000mg 2 g (2,000 mg), IV Piggyback, O.R. HOLDING ONCE, Starting on Mon06/13/22 at 2154, Until Mon06/14/22 at 132, Administer over 30 Minutes, 100 mL
Reas on for Anti-Infec tive: Surgical Prophylaxi s
Surgi renetta Prophylaxi s: [employer]
Duration of therapy: within 24 hours of surgery [facility] sodium citrate-cit kolby acid (BICITRA) 500-334 mg/5 mL solution 30 mL 2021-09 0-04 02:54: 10 06-14 03:23 :00 No 30mL 30 mL, Oral, PRE-PROCED URE ONCE, 1 dose, Starting on Mon06/13/22 at 2154, Until Mon06/13/22 at 2223, Routine, Surgery/Pr ocedure [facility] amitriptyli ne 100 mg tablet 2021-09 0 23:46: 17 Yes 100mg Take 100 mg by mouth at bedtime. [facility] ARIPIPRAZOL E (ABILIFY ORAL) 06-01 10:02: 02 06-01 00:00 :00 No Take by mouth. [facility] amphetamine -dextroamph etamine (ADDERALL XR) 25 mg 24 hr capsule 06-01 10:01: 59 06-01 00:00 :00 No 25mg Take 25 mg by mouth every morning. [facility] metroNIDAZO LE 500 mg tablet -13 00:00: 00 06-16 00:00 :00 No [id number] 500mg Take 1 tablet by mouth in the morning and 1 tablet in the evening. [facility] proMETHazin e 25 mg tablet 7-11 00:00: 00 06-16 00:00 :00 No [id number] 25mg Take 1 tablet by mouth every 6 (six) hours as needed for Nausea and Vomiting (N/V). [facility] metroNIDAZO LE 500 mg tablet 6-14 00:00: 00 06-16 00:00 :00 No [id number] 500mg Take 1 tablet by mouth 2 (two) times daily. [facility] ARIPIPRAZOL E (ABILIFY ORAL) 11-15 10:55: 24 Yes Take by mouth. [facility] amphetamine -dextroamph etamine (ADDERALL XR) 25 mg 24 hr capsule 11-15 10:55: 24 Yes 25mg Take 25 mg by mouth every morning. [facility] amitriptyli ne 100 mg tablet 11-15 10:55: 24 Yes 100mg Take 100 mg by mouth at bedtime. [facility] vit 33-iron-fol ic-dha (SELECT-OB + DHA) 29 mg iron-1 mg -250 mg combo pack 11-15 00:00: 00 06-16 00:00 :00 No [id number] 1{packe t} Take 1 Packet by mouth daily. [facility] Immunizations Ordered Immunization Name Filled Immunization Name Date Status Comments Source MMR 2022-06-16 00:00:00 Completed [facility] MMR 2022-06-16 00:00:00 Completed [facility] MMR 2022-06-16 00:00:00 Completed [facility] MMR 2022-06-16 00:00:00 Completed [facility] TDAP 2022-06-01 00:00:00 Completed [facility] TDAP 2022-06-01 00:00:00 Completed [facility] TDAP 2022-06-01 00:00:00 Completed [facility] TDAP 2022-06-01 00:00:00 Completed [facility] TDAP 2022-06-01 00:00:00 Completed [facility] TDAP 2022-06-01 00:00:00 Completed [facility] TDAP 2022-06-01 00:00:00 Completed [facility] HPV9 2019-05-10 00:00:00 Completed HPV9 2016-11-23 00:00:00 Completed [facility] HPV9 2016-11-23 00:00:00 Completed [facility] HPV9 2016-11-23 00:00:00 Completed [facility] HPV9 2016-11-23 00:00:00 Completed [facility] HPV9 2016-11-23 00:00:00 Completed [facility] HPV9 2016-11-23 00:00:00 Completed [facility] HPV9 2016-11-23 00:00:00 Completed [facility] HPV9 2016-11-23 00:00:00 Completed [facility] HPV9 2016-11-23 00:00:00 Completed [facility] HPV9 2016-11-23 00:00:00 Completed [facility] HPV9 2016-11-23 00:00:00 Completed [facility] HPV9 2016-11-23 00:00:00 Completed [facility] Influenza Virus Vaccine Quad IM 3+ YRS 2016-06-15 00:00:00 Completed [facility] HPV9 2016-06-15 00:00:00 Completed Influenza Virus Vaccine Quad IM 3+ YRS 2016-06-15 00:00:00 Completed [facility] HPV9 2016-06-15 00:00:00 Completed [facility] Influenza Virus Vaccine Quad IM 3+ YRS 2016-06-15 00:00:00 Completed [facility] HPV9 2016-06-15 00:00:00 Completed [facility] Influenza Virus Vaccine Quad IM 3+ YRS 2016-06-15 00:00:00 Completed [facility] HPV9 2016-06-15 00:00:00 Completed [facility] Influenza Virus Vaccine Quad IM 3+ YRS 2016-06-15 00:00:00 Completed [facility] HPV9 2016-06-15 00:00:00 Completed [facility] Influenza Virus Vaccine Quad IM 3+ YRS 2016-06-15 00:00:00 Completed [facility] HPV9 2016-06-15 00:00:00 Completed [facility] Influenza Virus Vaccine Quad IM 3+ YRS 2016-06-15 00:00:00 Completed [facility] HPV9 2016-06-15 00:00:00 Completed [facility] Influenza Virus Vaccine Quad IM 3+ YRS 2016-06-15 00:00:00 Completed [facility] HPV9 2016-06-15 00:00:00 Completed [facility] Influenza Virus Vaccine Quad IM 3+ YRS 2016-06-15 00:00:00 Completed [facility] HPV9 2016-06-15 00:00:00 Completed [facility] Influenza Virus Vaccine Quad IM 3+ YRS 2016-06-15 00:00:00 Completed [facility] HPV9 2016-06-15 00:00:00 Completed [facility] Influenza Virus Vaccine Quad IM 3+ YRS 2016-06-15 00:00:00 Completed [facility] HPV9 2016-06-15 00:00:00 Completed [facility] Influenza Virus Vaccine Quad IM 3+ YRS 2016-06-15 00:00:00 Completed [facility] HPV9 2016-06-15 00:00:00 Completed [facility] HPV9 2016-05-09 00:00:00 Completed [facility] HPV9 2016-05-09 00:00:00 Completed [facility] HPV9 2016-05-09 00:00:00 Completed [facility] HPV9 2016-05-09 00:00:00 Completed [facility] HPV9 2016-05-09 00:00:00 Completed [facility] HPV9 2016-05-09 00:00:00 Completed [facility] HPV9 2016-05-09 00:00:00 Completed [facility] HPV9 2016-05-09 00:00:00 Completed [facility] HPV9 2016-05-09 00:00:00 Completed [facility] HPV9 2016-05-09 00:00:00 Completed [facility] HPV9 2016-05-09 00:00:00 Completed [facility] HPV9 2016-05-09 00:00:00 Completed [facility] TDAP 2016-04-21 00:00:00 Completed Meningococcal Polysaccharide (groups [...] Value Comments S ource Systolic blood pressure 2024-07-24 10:06:00 130 mm[Hg] [facility] Diastolic blood pressure 2024-07-24 10:06:00 91 mm[Hg] [facility] Heart rate 2024-07-24 10:06:00 142 /min [facility] Respiratory rate 2024-07-24 10:06:00 22 /min [facility] Body height 2024-07-24 10:06:00 157.5 cm [facility] Body weight 2024-07-24 10:06:00 79.379 kg [facility] BMI 2024-07-24 10:06:00 32.01 kg/m2 [facility] Oxygen saturation in Arterial blood by Pulse oximetry 2024-07-24 10:06:00 98 /min [facility] Systolic blood pressure 2024-07-06 15:51:00 132 mm[Hg] [facility] Diastolic blood pressure 2024-07-06 15:51:00 82 mm[Hg] [facility] Heart rate 2024-07-06 15:51:00 99 /min [facility] Body temperature 2024-07-06 15:51:00 36.89 Lindsey [facility] Respiratory rate 2024-07-06 15:51:00 14 /min [facility] Body height 2024-07-06 15:51:00 157.5 cm [facility] Body weight 2024-07-06 15:51:00 77.111 kg [facility] BMI 2024-07-06 15:51:00 31.09 kg/m2 [facility] Oxygen saturation in Arterial blood by Pulse oximetry 2024-07-06 15:51:00 99 /min [facility] Systolic blood pressure 2024-06-20 18:34:00 113 mm[Hg] [facility] Diastolic blood pressure 2024-06-20 18:34:00 68 mm[Hg] [facility] Heart rate 2024-06-20 18:34:00 91 /min [facility] Body temperature 2024-06-20 18:34:00 36.83 Lindsey [facility] Respiratory rate 2024-06-20 18:34:00 18 /min [facility] Body height 2024-06-20 18:34:00 160 cm [facility] Body weight 2024-06-20 18:34:00 78.983 kg [facility] BMI 2024-06-20 18:34:00 30.84 kg/m2 [facility] Systolic blood pressure 2022-06-16 13:31:00 122 mm[Hg] [facility] Diastolic blood pressure 2022-06-16 13:31:00 79 mm[Hg] [facility] Heart rate 2022-06-16 13:31:00 90 /min [facility] Body temperature 2022-06-16 13:31:00 36.67 Lindsey [facility] Respiratory rate 2022-06-16 13:31:00 18 /min [facility] Oxygen saturation in Arterial blood by Pulse oximetry 2022-06-16 13:31:00 98 /min [facility] Body height 2022-06-14 02:13:00 160 cm [facility] Body weight 2022-06-14 02:13:00 83.008 kg [facility] BMI 2022-06-14 02:13:00 32.42 kg/m2 [facility] Heart rate 2022-06-14 03:00:00 83 /min [facility] Respiratory rate 2022-06-14 03:00:00 18 /min [facility] Oxygen saturation in Arterial blood by Pulse oximetry 2022-06-14 03:00:00 100 /min [facility] Systolic blood pressure 2022-06-14 02:13:00 119 mm[Hg] [facility] Diastolic blood pressure 2022-06-14 02:13:00 68 mm[Hg] [facility] Body temperature 2022-06-14 02:13:00 36.78 Lindsey [facility] Body height 2022-06-14 02:13:00 160 cm [facility] Body weight 2022-06-14 02:13:00 83.008 kg [facility] BMI 2022-06-14 02:13:00 32.42 kg/m2 [facility] Systolic blood pressure 2022-06-13 19:41:00 117 mm[Hg] [facility] Diastolic blood pressure 2022-06-13 19:41:00 77 mm[Hg] [facility] Heart rate 2022-06-13 19:41:00 92 /min [facility] Body temperature 2022-06-13 19:41:00 36.94 Lindsey [facility] Respiratory rate 2022-06-13 19:41:00 20 /min [facility] Body height 2022-06-13 19:41:00 160 cm [facility] Body weight 2022-06-13 19:41:00 82.827 kg [facility] BMI 2022-06-13 19:41:00 32.35 kg/m2 [facility] Systolic blood pressure 2022-06-01 14:49:00 114 mm[Hg] [facility] Diastolic blood pressure 2022-06-01 14:49:00 69 mm[Hg] [facility] Heart rate 2022-06-01 14:49:00 95 /min [facility] Body temperature 2022-06-01 14:49:00 36.06 Lindsey [facility] Respiratory rate 2022-06-01 14:49:00 18 /min [facility] Body weight 2022-06-01 14:49:00 82.373 kg [facility] Procedures Procedure Date / Time Performed Performing Clinician Source LIPASE 2024-07-24 10:33:00 Nixon Cassidy [facility] HEPATIC FUNCTION PANEL (20633) (ALB,T.PRO,BILI T,BU/BC,ALT,AST,ALK PHOS) 2024-07-24 10:33:00 Nixon Cassidy [facility] BASIC METABOLIC PANEL (NA, K, CL, CO2, GLUCOSE, BUN, CREATININE, CA) 2024-07-24 10:33:00 Nixon Cassidy [facility] ETHANOL 2024-07-24 10:33:00 [facility] CBC WITH DIFF 2024-07-24 10:33:00 Nixon Cassidy [facility] LACTIC ACID WHOLE BLOOD 2024-07-24 10:33:00 Bharati Cassidy [facility] HEPATITIS B SURFACE ANTIGEN 2024-06-20 20:10:00 Bre Hunter [facility] HB ABO GROUPING 2024-06-20 20:10:00 Bre Hunter [facility] POCT TEST 2024-06-20 18:33:00 Jayla Hunter [facility] POCT URINALYSIS W/O SPECIFIC GRAVITY 2024-06-20 18:33:00 Bre Hunter [facility] DME/SUPPLY JUSTIFICATION 2022-07-14 05:01:00 Doc tor Unassigned, Duque [facility] CBC WITH DIFF 2022-06-14 09:46:00 Marion España [facility] CBC WITH DIFF 2022-06-14 09:46:[address] [facility] URINE DRUG (IMMUNOASSAY) - COMPREHENSIVE DRUG SCREEN 2022-06-14 05:53:00 Degraffenreid, [facility] URINE DRUG (IMMUNOASSAY) - COMPREHENSIVE DRUG SCREEN 2022-06-14 05:53:00 Degraffenrgabe [facility] VENOUS CORD GAS 2022-06-14 03:56:00 Degraffenreid [facility] VENOUS CORD GAS 2022-06-14 03:56:00 DegraffeTadeo gonsales [facility] SECTION 2022-06-14 03:11:00 Shravan Lyman [facility] SECTION 2022-06-14 03:11:00 Shravan Lyman [facility] HB ABO GROUPING 2022-06-14 03:00:00 Degraffenreizaid [facility] RHO (D) IMMUNE GLOBULIN 2022-06-14 03:00:00 Sandra España [facility] HB ABO GROUPING 2022-06-14 03:00:00 DegraffenreidTadeo [facility] RHO (D) IMMUNE GLOBULIN 2022-06-14 03:00:00 Sandra España [facility] CBC WITH DIFF 2022-06-14 02:58:00 Degraffenreizaid [facility] HEPATITIS B SURFACE ANTIGEN 2022-06-14 02:58:00 Degraffenreizaid [facility] GALV ONLY - SYPHILIS IGG/IGM 2022-06-14 02:58:00 Degraffenreid [facility] CBC WITH DIFF 2022-06-14 02:58:[facility] ANTIGEN 2022-06-14 02:58:00 Degraffenreid [facility] GALV ONLY - SYPHILIS IGG/IGM 2022-06-14 02:58:00 Degraffenrgabe [facility] NON-STRESS TEST 2022-06-13 21:53:16 Shy Gutierrez [facility] POCT URINALYSIS 2022-06-13 00:00:00 Susie Gonzalez [facility] TDAP VACCINE, >11 YRS, IM 2022-06-01 15:02:51 Susie Gonzalez [facility] POCT URINALYSIS 2022-06-01 14:52:00 Susie Gonzalez [facility] Encounters Start Date/Time End Date/Time Encounter Type Admission Type Attending [facility] Care Facility Care Department Encounter ID Source 2024-08-27 10:15:00 2024-08-27 10:15:00 Outpatient R ELLIE DESHPANDE [facility] [id number] [facility] 2024-08-27 08:00:00 2024-08-27 08:00:00 Outpatient P [facility] [id number] [facility] 2024-08-23 10:00:00 2024-08-23 10:00:00 Outpatient P [facility] [id number] [facility] 2024-08-20 14:00:00 2024-08-20 15:00:18 Outpatient R RYAN ANGELA [facility] [id number] [facility] 2024-08-20 14:00:00 2024-08-20 14:00:00 Outpatient R [facility] [id number] [facility] 2024-08-19 08:15:00 2024-08-19 08:15:00 Outpatient R TIFFANIE WEISS [facility] [id number] [facility] 2024-08-16 08:00:00 2024-08-16 08:00:00 Outpatient P ELLIE DESHPANDE [facility] [id number] [facility] 2024-08-05 15:00:00 2024-08-05 15:00:00 Outpatient P VESTA GUO EMILY [facility] [id number] [facility] 2024-07-24 04:11:00 2024-07-24 07:03:00 Emergency X CODY VIEYRA BRENT [facility] [id number] [facility] 2024-07-24 04:11:00 2024-07-24 07:03:00 Emergency Nixon Cassidy Brent J [facility] 1.2.840.114 350.1.13.10 4.2.7.2.686 [id number] [facility] 2024-07-18 10:45:00 2024-07-18 10:45:00 Outpatient R BRE HUNTER [facility] [id number] [facility] 2024-07-06 10:53:00 2024-07-06 11:39:00 Emergency X ENIO MCCARTHY ERICCA [facility] ERT [id number] [facility] 2024-07-06 10:53:00 2024-07-06 11:39:00 Emergency Enio Mccarthy [facility] 1..840.114 350.1.13.10 4.2.7.2.686 [id number] [facility] 2024-06-20 13:30:00 2024-06-20 15:09:22 Outpatient R BRE HUNTER [facility] [id number] [facility] 2024-06-20 13:30:00 2024-06-20 15:09:22 Initial Visit Bre Hunter [facility] [employer] [facility] 1.2.840.114 350.1.13.10 4.2.7.2.686 [id number] [facility] 2024-02-21 14:00:00 2024-02-21 14:00:00 Outpatient DAVE PARK [facility] [id number] [facility] 2024-02-21 14:00:00 2024-02-21 14:00:00 Outpatient Mg HERNANDEZ DAVE [facility] [id number] [facility] 2022-07-14 13:00:00 2022-07-14 13:00:00 Outpatient BRE MIRANDA [facility] [id number] [facility] 2022-07-14 00:00:00 2022-07-14 00:00:00 Orders Only Doctor Unassigned, Duque [facility] 1.2.840.114 350.1.13.10 4.2.7.2.686 [id number] [facility] 2022-06-20 15:45:00 2022-06-20 15:45:00 Outpatient SUSIE HUGHES [facility] [id number] [facility] 2022-06-13 20:50:00 2022-06-16 11:27:00 Hospital Encounter [facility] 1.2.840.114 350.1.13.10 4.2.7.2.686 [id number] [facility] 2022-06-16 00:00:00 2022-06-16 00:00:00 Encounter 1.2.840.1 [id number] [id number] 1.2.840.114 350.1.13.10 4.2.7.2.696 [id number] [facility] 2022-06-13 22:10:00 2022-06-14 00:01:00 Surgery [facility] 1.2.840.114 350.1.13.10 4.2.7.2.686 [id number] [facility] 2022-06-13 14:30:00 2022-06-13 16:34:43 Outpatient SHY PATEL SARAH [facility] [id number] [facility] 2022-06-13 14:30:00 2022-06-13 16:34:43 Routine Visit Provider, Shy Morrison [facility] [employer] 1.2.840.114 350.1.13.10 4.2.7.2.686 [id number] [facility] 2022-06-13 14:30:00 2022-06-13 16:34:43 Outpatient R SHY GUTIERREZ [facility] [id number] [facility] 2022-06-06 15:15:00 2022-06-06 15:15:00 Outpatient R SUSIE GONZALEZ [facility] [id number] [facility] 2022-06-01 09:15:00 2022-06-01 11:00:25 Outpatient R SUSIE GONZALEZ [facility] [id number] [facility] 2022-06-01 09:15:00 2022-06-01 11:00:25 Routine Visit Susie Gonzalez [facility] [employer] [facility] 1.2.840.114 350.1.13.10 4.2.7.2.686 [id number] [facility] 2022-06-01 09:30:00 2022-06-01 09:30:00 Outpatient R SUSIE GONZALEZ [facility] [id number] [facility] 2022-05-20 10:15:00 2022-05-20 10:15:00 Outpatient R TIFFANIE WEISS [facility] [id number] [facility] 2022-04-21 10:00:00 2022-04-21 10:00:00 Outpatient R TIFFANIE WEISS [facility] [id number] [facility] 2022-04-11 14:00:00 2022-04-11 14:00:00 Outpatient R TIFFANIE WEISS [facility] [id number] [facility] 2022-03-28 14:00:00 2022-03-28 14:52:56 Outpatient RONALD WYATT SANGEETA [facility] [id number] [facility] 2022-03-28 14:00:00 2022-03-28 14:45:00 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, Ronald Rocha [facility] [employer] [facility] MATERNAL & CHILD [facility] 1.2.840.114 350.1.13.10 4.2.7.2.686 [id number] [facility] 2022-03-28 14:00:00 2022-03-28 14:00:00 Outpatient P [facility] [id number] [facility] 2022-03-28 00:00:00 2022-03-28 00:00:00 Abstract Susie Gonzalez [facility] [employer] [facility] MATERNAL & CHILD [facility] 1.2.840.114 350.1.13.10 4.2.7.2.686 [id number] [facility] 2022-03-28 00:00:00 2022-03-28 00:00:00 Abstract Susie Gonzalez [facility] [employer] CHILD [facility] 1.2.840.114 350.1.13.10 4.2.7.2.686 [id number] [facility] 2022-03-28 00:00:00 2022-03-28 00:00:00 Telephone Tiffanie Weiss [facility] [employer] [facility] 1.2.840.114 350.1.13.10 4.2.7.2.686 [id number] [facility] 2022-03-23 00:00:00 2022-03-23 00:00:00 Telephone Tiffanie Weiss [facility] [employer] [facility] 1.2.840.114 350.1.13.10 4.2.7.2.686 [id number] [facility] 2022-03-21 13:00:00 2022-03-21 14:04:19 Outpatient R TIFFANIE WEISS [facility] [id number] [facility] 2022-03-21 13:00:00 2022-03-21 14:04:19 Routine Visit Tiffanie Weiss [facility] [employer] [facility] 1.840.114 350.1.13.10 4.2.7.2.686 [id number] [facility] 2022-03-21 13:00:00 2022-03-21 13:00:00 Outpatient R TIFFANIE WEISS [facility] [id number] [facility] 2022-02-22 00:00:00 2022-02-22 00:00:00 Telephone Tiffanie Weiss [facility] [employer] [facility] 1.840.114 350.1.13.10 4.2.7.2.686 [id number] [facility] 2022-02-21 14:15:00 2022-02-21 15:05:22 Outpatient R TIFFANIE WEISS [facility] [id number] [facility] 2022-02-21 14:15:00 2022-02-21 15:05:22 Routine Visit Tiffanie Weiss [facility] [employer] [facility] 1.840.114 350.1.13.10 4.2.7.2.686 [id number] [facility] 2022-02-21 00:00:00 2022-02-21 00:00:00 Orders Only Doctor Unassigned, Duque [facility] 1.84.114 350.1.13.10 4.2.7.2.686 [id number] [facility] 2022-01-25 09:30:00 2022-01-25 09:30:00 Outpatient R TL SCHMIDT [facility] [id number] Tiffanie mahmood [facility] 2022-01-10 15:45:00 2022-01-10 15:45:00 Outpatient Mg GONZALEZSUSIE [facility] [id number] [facility] 2022-01-07 09:00:00 2022-01-07 09:00:00 Outpatient Mg GONZALEZSUSIE [facility] [id number] [facility] 2021-12-13 14:30:00 2021-12-13 14:30:00 Outpatient R GONZALEZ, SUSIE [facility] [id number] [facility] 2021-12-13 10:30:00 2021-12-13 10:58:28 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, Ronald Rocha [facility] [employer] [facility] MATERNAL & CHILD [facility] 1..840.114 350.1.13.10 4.2.7.2.686 [id number] [facility] 2021-12-13 10:30:00 2021-12-13 10:30:00 Outpatient P GONZALEZ, SUSIE [facility] [id number] [facility] 2021-12-13 00:00:00 2021-12-13 00:00:00 Abstract Susie Gonzalez [facility] [employer] [facility] MATERNAL & CHILD [facility] 1.2.840.114 350.1.13.10 4.2.7.2.686 [id number] [facility] 2021-11-19 00:00:00 2021-11-19 00:00:00 Telephone Susie Gonzalez [facility] [employer] [facility] 1.2.840.114 350.1.13.10 4.2.7.2.686 [id number] [facility] 2021-11-17 10:30:00 2021-11-17 11:16:07 Nurse Visit Visit, Rosendaradha Nurse Bharti Gonzaleza R [facility] [employer] [facility] 1..840.114 350.1.13.10 4.2.7.2.686 [id number] [facility] 2021-11-17 10:30:00 2021-11-17 10:30:00 Outpatient R GONZALEZSUSIE [facility] [id number] [facility] 2021-11-16 00:00:00 2021-11-16 00:00:00 Telephone Ayala Gonzalezquinn Holliday [facility] [employer] [facility] 1.840.114 350.1.13.10 4.2.7.2.686 [id number] [facility] 2021-11-15 09:45:00 2021-11-15 11:30:15 Outpatient R SUSIE GONZALEZ [facility] [id number] [facility] 2021-11-15 09:45:00 2021-11-15 11:30:15 Initial Visit Matthew Susie Holliday [facility] [employer] [facility] CHILD [facility] 1.840.114 350.1.13.10 4.2.7.2.686 [id number] [facility] 2021-11-15 00:00:00 2021-11-15 00:00:00 Orders Only Doctor Unassigned, Duque [facility] 1.840.114 350.1.13.10 4.2.7.2.686 [id number] [facility] 2021-11-11 14:30:00 2021-11-11 14:30:00 Outpatient DAVE PARK [facility] [id number] [facility] 2021-01-22 15:24:07 2021-01-22 16:17:44 Office Visit Tiffanie Weiss [facility] [employer] [facility] 1.2840.114 350.1.13.10 4.2.7.2.686 [id number] [facility] 2021-01-22 15:30:00 2021-01-22 15:30:00 Outpatient R TIFFANIE WEISS [facility] [id number] [facility] 2020-11-30 13:15:00 2020-11-30 13:15:00 Outpatient R TIFFANIE WEISS [facility] [id number] [facility] 2020-11-24 15:47:42 2020-11-24 16:41:18 Office Visit Tiffanie Weiss [facility] [employer] [facility] 1.2840.114 350.1.13.10 4.2.7.2.686 [id number] [facility] 2020-11-24 16:00:00 2020-11-24 16:00:00 Outpatient R TIFFANIE WEISS [facility] [id number] [facility] 2020-11-24 00:00:00 2020-11-24 00:00:00 Orders Only Doctor Unassigned, Duque [facility] 1.2840.114 350.1.13.10 4.2.7.2.686 [id number] [facility] 2019-05-16 10:17:05 2019-05-16 10:47:05 Office Visit Vesta Cortés [facility] [employer] [facility] 1.20.114 350.1.13.10 4.2.7.2.686 [id number] [facility] 2019-05-16 00:00:00 2019-05-16 00:00:00 Letter (Out) Vesta Cortés [facility] [employer] [facility] 1.2840.114 350.1.13.10 4.2.7.2.686 [id number] [facility] 2019-05-16 00:00:00 2019-05-16 00:00:00 Telephone Vesta Cortés [facility] [employer] [facility] 1.2.840.114 350.1.13.10 4.2.7.2.686 [id number] [facility] 2019-05-15 12:45:15 2019-05-15 13:00:15 Office Visit Vesta Cortés [facility] [employer] [facility] 1.2.840.114 350.1.13.10 4.2.7.2.686 [id number] [facility] 2019-05-15 00:00:00 2019-05-15 00:00:00 Telephone Catie Boss [facility] [employer] [facility] 1.2.840.114 350.1.13.10 4.2.7.2.686 [id number] [facility] 2019-05-15 00:00:00 2019-05-15 00:00:00 Orders Only Doctor Unassigned, Duque [facility] 1.2.840.114 350.1.13.10 4.2.7.2.686 [id number] [facility] Results Test Description Test Time Test Comments Results Resul t Comments Source ETHANOL 2024-07-12 3 11:41:42 ALCOHOL<10mg/dL 5:41 [facility]SToxic Greater than or equal to 80 mg/dL. NOTE: Whole blood values are approximately 10% to 15% lower than serum and plasma. [facility] 11:30:44* Test Item Value Reference Range Interpretation Comme nts LIPASE (test code = 3760514073) 64 U/L 0-220 Lab Interpretation (test cod e = 31361-8) [facility] (NA, K, CL, CO2, GLUCOSE, BUN, CREATININE, CA)2024-07-24 11:30:43* Test Item Value Reference Range Interpretation Comme nts NA (test code = 7418708135) 139 mmol/L 135-145 K (test code = 1194526515) 3.4 mmol/L 3.5-5.0 L CL (test code = 5924363932) 107 mmol/L 98-108 CO2 TOTAL (test code = 4767348202) 23 mmol/L 23-31 AGAP (test code = 1615082337) 9 2-16 BUN (test code = 7939179503) 6 mg/dL 7-23 L GLUCOSE (test code = 9084396610) 99 mg/dL 70-110 CREATININE (test code = 2160-0) 0.47 mg/dL 0.50-1.04 L CALCIUM (test code = 9476987821) 9.6 mg/dL 8.6-10.6 eGFR (test code = 87897-2) 139.1 mL/min/1.73m2 CKD-EPI eGFR (2020). Assuming creatinine has been stable day-to-day for at least three months, the eGFR indicates Category G1 (>= 90 mL/min/1.73 m2) Lab Interpretation (test code = 43538-9) Abnormal [facility] WITH [id number] 11:00:59* Test Item Value Reference Range Interpretation Comme nts WBC (test code = 6690-2) 8.69 4.30-11.10 RBC (test code = 789-8) 4.66 3.93-5.25 HGB (test code = 718-7) 13.7 g/dL 11.6-15.0 HCT (test code = 4544-3) 37.8 % 35.7-45.2 MCV (test code = 787-2) 81.1 fL 80.6-95.5 MCH (test code = 785-6) 29.4 pg 25.9-32.8 MCHC (test code = 786-4) 36.2 g/dL 31.6-35.1 H RDW-SD (test code = 18885-2) 39.5 fL 39.0-49.9 RDW-CV (test code = 788-0) 13.4 % 12.0-15.5 PLT (test code = 777-3) 388 166-358 H MPV (test code = 01625-0) 9.3 fL 9.5-12.9 L NRBC/100 WBC (test code = 4103578528) 0.0 0.0-10.0 NRBC x10^3 (test code = 0991463172) See_Comment [Automated messa ge] The system which generated this result transmitted reference range: 10*3/?L. The reference range was not used to interpret this result as normal/abnormal. GRAN MAT (NEUT) % (test code = 770-8) 54.2 % IMM GRAN % (test code = 2044221551) 0.20 % LYMPH % (test code = 736-9) 37.5 % MONO % (test code = 5905-5) 7.4 % EOS % (test code = 713-8) 0.5 % BASO % (test code = 706-2) 0.2 % GRAN MAT x10^3(ANC) (test code = 2735486706) 4.71 10*3/uL 1.88-7.09 IMM GRAN x10^3 (test code = 1652692272) 0.00-0.06 LYMPH x10^3 (test code = 731-0) 3.26 10*3/uL 1.32-3.29 MONO x10^3 (test code = 742-7) 0.64 10*3/uL 0.33-0.92 EOS x10^3 (test code = 711-2) 0.04 10*3/uL 0.03-0.39 BASO x10^3 (test code = 704-7) 0.01-0.07 Lab Interpretation (test code = 04319-3) Abnormal [facility] Whole [id number] 10:50:21* Test Item Value Reference Range Interpretation Comme nts LACTIC ACID (test code = 7531832497) 1.20 mmol/L 0.50-2.20 QUES Lab Interpretation (test cod e = 23392-7) Normal [facility] SURFACE [id number] 08:06:38 * Test Item Value Reference Range Interpretation Comme nts HBsAg Semi-Quantitative (saleem t code = 5195-3) 0.11 Negative [facility], BLOOD [id number] 20:11:00 * Test Item Value Reference Range Interpretation Comme nts ABO & RH (test code = 20) A POSITIVE IAT (test code = 1185) Negative [facility] [id number] 18:33:00* Test Item Value Reference Range Interpretation Comme nts POCT PREG (test code = 1605) Positive On board controls acceptable with C Line (test code = 3574) Yes POCT PREG LOT # (test code = 3575) POCT PREG TEST DATE ( test code = 3576) [facility] Urinalysis w/o Specific [id number] 18:33:00* Test Item Value Reference Range Interpretation [...] = 3257) ~50 Negative - Negati ve [facility] ONLY - SYPHILIS [id number] 14:50:49* Test Item Value Reference Range Interpretation Comme nts Syphilis IgG/IgM (test code = 25939-5) Non-reactive Non-reactive CHAGO (test code = CHAGO) Non-reactive - No serologic evidence of T. pallidum infection. Cannot exclude incubating or early syphilis. Submit a second specimen in 2-4 weeks if syphilis is clinically suspected. Equivocal - Further testing to follow. Reactive - Further testing to follow. Lab Interpretation (test code = 30000-3) Normal [facility] ONLY - SYPHILIS [id number] 14:50:49* Test Item Value Reference Range Interpretation Comme nts Syphilis IgG/IgM (test code = 89695-0) Non-reactive Non-reactive CHAGO (test code = CHAGO) Non-reactive - No serologic evidence of T. pallidum infection. Cannot exclude incubating or early syphilis. Submit a second specimen in 2-4 weeks if syphilis is clinically suspected. Equivocal - Further testing to follow. Reactive - Further testing to follow. Lab Interpretation (test code = 66281-4) Normal [facility] (D) IMMUNE [id number] 06:34:45* Test Item Value Reference Range Interpretation Comme nts RHIG CANDIDATE? (test code = 5055) No- see comment Patient is not a candidate for RhIg- Patient is Rh Positive.Performed at [facility] Laboratory Services - [facility] Blood [address] [id number] Free: [phone] No. [id number] [facility] (D) IMMUNE [id number] 06:34:45* Test Item Value Reference Range Interpretation Comme nts RHIG CANDIDATE? (test code = 5055) No- see comment Patient is not a candidate for RhIg- Patient is Rh Positive.Performed at [facility] Laboratory Services - [facility] Blood [address] [id number] Free: [phone] No. [id number] [facility] B Surface [id number] 04:29:00 * Test Item Value Reference Range Interpretation Comme nts HBsAg Semi-Quantitative (saleem t code = 5195-3) Negative Negative [facility] B Surface [id number] 04:29:00 * Test Item Value Reference Range Interpretation Comme nts HBsAg Semi-Quantitative (saleem t code = 5195-3) Negative Negative [facility] [id number] 04:15:10* Test Item Value Reference Range Interpretation Comme nts BASE EXCESS, CORD (test code = 6831993555) mEq/L AC PH, CORD (BEAKER) (test code = 6196256120) 7.18-7.38 L PC02, CORD (test code = 2849466205) See_Comment [Automated messa ge] The system which generated this result transmitted reference range: 32 - 66 mmHg. The reference range was not used to interpret this result as normal/abnormal. PO2, CORD (test code = 1164817061) <10 BICARBONATE, CORD (test code = 1218472946) See_Comment [Automated me ssage] The system which generated this result transmitted reference range: 17 - 27 mEq/L. The reference range was not used to interpret this result as normal/abnormal. Lab Interpretation (test code = 78928-2) [facility] [id number] 04:15:10* Test Item Value Reference Range Interpretation Comme nts BASE EXCESS, CORD (test code = 4122080000) mEq/L AC PH, CORD (BEAKER) (test code = 6671474902) 7.18-7.38 L PC02, CORD (test code = 0057144078) See_Comment [Automated messa ge] The system which generated this result transmitted reference range: 32 - 66 mmHg. The reference range was not used to interpret this result as normal/abnormal. PO2, CORD (test code = 5097591951) <10 BICARBONATE, CORD (test code = 7876003398) See_Comment [Automated me ssage] The system which generated this result transmitted reference range: 17 - 27 mEq/L. The reference range was not used to interpret this result as normal/abnormal. Lab Interpretation (test code = 00098-0) Abnormal [facility] Cord [id number] 04:12:23* Test Item Value Reference Range Interpretation Comme nts VENOUS BASE EXCESS, CORD (test code = 3598629629) mEq/L VENOUS PH, CORD (test code = 3793080312) 7.25-7.45 VENOUS PC02, CORD (test code = 9932050437) See_Comment H [Automated me ssage] The system which generated this result transmitted reference range: 27 - 49 mmHg. The reference range was not used to interpret this result as normal/abnormal. VENOUS PO2, CORD (test code = 5199980314) See_Comment L [Automated me ssage] The system which generated this result transmitted reference range: 17 - 41 mmHg. The reference range was not used to interpret this result as normal/abnormal. VENOUS BICARBONATE, CORD (test code = 3926185076) See_Comment [Automa shaheed message] The system which generated this result transmitted reference range: 12 - 29 mEq/L. The reference range was not used to interpret this result as normal/abnormal. Lab Interpretation (test code = 81209-9) Abnormal [facility] Cord [id number] 04:12:23* Test Item Value Reference Range Interpretation Comme nts VENOUS BASE EXCESS, CORD (test code = 2093866959) mEq/L VENOUS PH, CORD (test code = 6797821894) 7.25-7.45 VENOUS PC02, CORD (test code = 8750691198) See_Comment H [Automated me ssage] The system which generated this result transmitted reference range: 27 - 49 mmHg. The reference range was not used to interpret this result as normal/abnormal. VENOUS PO2, CORD (test code = 0162015501) See_Comment L [Automated me ssage] The system which generated this result transmitted reference range: 17 - 41 mmHg. The reference range was not used to interpret this result as normal/abnormal. VENOUS BICARBONATE, CORD (test code = 3744071927) See_Comment [Automa shaheed message] The system which generated this result transmitted reference range: 12 - 29 mEq/L. The reference range was not used to interpret this result as normal/abnormal. Lab Interpretation (test code = 28852-2) Abnormal [facility] - ONCE [id number] 03:47:01 * Test Item Value Reference Range Interpretation Comme nts ABO & RH (test code = 20) A POSITIVE Performed at [facility] Laboratory Services - [facility] Blood [address] Free: [phone] No. [id number] IAT (test code = 1185) Negative Performed at [facility] Laboratory Services - [address] Free: [phone] No. [id number] [facility] Screen - ONCE [id number] 03:47:01 * Test Item Value Reference Range Interpretation Comme nts ABO & RH (test code = 20) A POSITIVE Performed at [facility] Laboratory Services - [address] Free: [phone] No. [id number] IAT (test code = 1185) Negative Performed at [facility] Laboratory Services - [address] Free: [phone] No. [id number] [facility] with [id number] 03:20:31* Test Item Value Reference Range Interpretation [...] 34.5 g/dL 31.6-35.1 RDW-SD (test code = 41463-7) 39.4 fL 39-49.9 RDW-CV (test code = 788-0) 13.1 % 12-15.5 PLT (test code = 777-3) See_Comment H [Automated messa ge] The system which generated this result transmitted reference range: 166 - 358 10*3/?L. The reference range was not used to interpret this result as normal/abnormal. MPV (test code = 39794-7) 9.7 fL 9.5-12.9 NRBC/100 WBC (test code = 7982944900) See_Comment [Automated me ssage] The system which generated this result transmitted reference range: 0.0 - 10.0 /100 WBCs. The reference range was not used to interpret this result as normal/abnormal. NRBC x10^3 (test code = 8178325806) See_Comment [Automated messa ge] The system which generated this result transmitted reference range: 10*3/?L. The reference range was not used to interpret this result as normal/abnormal. GRAN MAT (NEUT) % (test code = 770-8) 64.5 % IMM GRAN % (test code = 7198729163) 0.40 % LYMPH % (test code = 736-9) 26.6 % MONO % (test code = 5905-5) 7.0 % EOS % (test code = 713-8) 1.2 % BASO % (test code = 706-2) 0.3 % GRAN MAT x10^3(ANC) (test code = 3717758565) 7.25 10*3/uL 1.88-7.09 H IMM GRAN x10^3 (test code = 1641408755) 0.04 10*3/uL 0-0.06 LYMPH x10^3 (test code = 731-0) 2.99 10*3/uL 1.32-3.29 MONO x10^3 (test code = 742-7) 0.79 10*3/uL 0.33-0.92 EOS x10^3 (test code = 711-2) 0.14 10*3/uL 0.03-0.39 BASO x10^3 (test code = 704-7) 0.03 10*3/uL 0.01-0.07 Lab Interpretation (test code = 71785-2) Abnormal [facility] with [id number] 03:20:31* Test Item Value Reference Range Interpretation [...] 34.5 g/dL 31.6-35.1 RDW-SD (test code = 51663-0) 39.4 fL 39-49.9 RDW-CV (test code = 788-0) 13.1 % 12-15.5 PLT (test code = 777-3) See_Comment H [Automated messa ge] The system which generated this result transmitted reference range: 166 - 358 10*3/?L. The reference range was not used to interpret this result as normal/abnormal. MPV (test code = 40251-9) 9.7 fL 9.5-12.9 NRBC/100 WBC (test code = 7046754094) See_Comment [Automated INFUSD ssage] The system which generated this result transmitted reference range: 0.0 - 10.0 /100 WBCs. The reference range was not used to interpret this result as normal/abnormal. NRBC x10^3 (test code = 3323495365) See_Comment [Automated messa ge] The system which generated this result transmitted reference range: 10*3/?L. The reference range was not used to interpret this result as normal/abnormal. GRAN MAT (NEUT) % (test code = 770-8) 64.5 % IMM GRAN % (test code = 3848461430) 0.40 % LYMPH % (test code = 736-9) 26.6 % MONO % (test code = 5905-5) 7.0 % EOS % (test code = 713-8) 1.2 % BASO % (test code = 706-2) 0.3 % GRAN MAT x10^3(ANC) (test code = 4651329941) 7.25 10*3/uL 1.88-7.09 H IMM GRAN x10^3 (test code = 5476911215) 0.04 10*3/uL 0-0.06 LYMPH x10^3 (test code = 731-0) 2.99 10*3/uL 1.32-3.29 MONO x10^3 (test code = 742-7) 0.79 10*3/uL 0.33-0.92 EOS x10^3 (test code = 711-2) 0.14 10*3/uL 0.03-0.39 BASO x10^3 (test code = 704-7) 0.03 10*3/uL 0.01-0.07 Lab Interpretation (test code = 21364-8) Abnormal [facility] URINALYSIS W SPECIFIC [id number] 19:47:00* Test Item Value Reference Range Interpretation [...] U APPEAR (test code = 3267) . [facility] URINALYSIS W SPECIFIC [id number] 14:53:00* Test Item Value Reference Range Interpretation [...] POCT U APPEAR (test code = 3267) [facility] URINALYSIS W SPECIFIC [id number] 14:53:00* Test Item Value Reference Range Interpretation [...] POCT U APPEAR (test code = 3267) [facility] URINALYSIS W SPECIFIC [id number] 14:53:00* Test Item Value Reference Range Interpretation [...] POCT U APPEAR (test code = 3267) [facility] URINALYSIS W SPECIFIC [id number] 14:53:00* Test Item Value Reference Range Interpretation [...] POCT U APPEAR (test code = 3267) [facility]
[2024-08-21] MEDS ORDERED: NA CHLORIDE 0.9% 1,000 ML ONE (14:05)
[2024-08-21 14:18] LABS: Absolute Lymphocytes (CBC) 0.2 K/uL (0.7-4.9); Absolute Monocytes 0.4 K/uL (0.1-1.3); Absolute Neutrophil 7.1 K/uL (1.8-8.0); Eosinophils % 0.3 % (0-4.4); Hematocrit 33.1 % (36.0-45.0); Hemoglobin 11.6 g/dL (12.0-15.0); Lymphocytes % 2.4 % (15.3-44.8); MCH 30.2 pg (27.0-35.0); MCHC 35.1 g/dL (32.0-36.0); MCV 85.9 fL (80-100); MPV 7.7 fL (7.6-11.3); Monocytes % 5.1 % (3.3-12.3); Neutrophils % 92.2 % (41.7-73.7); Platelets 247 thou/uL (152-406); RBC Red Blood Cell Count 3.85 M/uL (3.86-4.86)
[2024-08-21 14:35] LABS: ALT/SGPT < 14 U/L (13-56); AST/SGOT 11 U/L (15-37); Albumin 2.9 g/dL (3.4-5.0); Albumin/Globulin Ratio 0.8 (1.1-1.8); Alkaline Phosphatase 48 U/L (45-117); Anion Gap 9.3 mEq/L (5.0-15.0); BUN Blood Urea Nitrogen 8 mg/dL (7-18); Bicarbonate 22 mEq/L (21-32); Bilirubin Total 0.2 mg/dL (0.2-1.0); Globulin 3.7 g/dL (2.3-3.5); Glomerular Filtration Rate 133 ml/min (=/>90); Glucose Level 107 mg/dL (74-106); Lipase 23 U/L (13-75); Potassium 3.3 mEq/L (3.5-5.1); Protein, Total 6.6 g/dL (6.4-8.2); Sodium Level 134 mEq/L (136-145)
[2024-08-21 15:07] LABS: Blood Morphology Comment NOT SEEN (NOT SEEN); Platelet Estimate ADEQ; White Blood Cell Scan OK (OK)
[2024-08-21] MEDS ORDERED: POTASSIUM CL SA 10 MEQ TAB PO ONE (15:15)
[2024-08-21] MEDS ORDERED: POTASSIUM 25 MEQ EFFERV TAB ONE (15:15)
[2024-08-21 15:40] LABS: Specific Gravity 1.008 (1.005-1.030); Sqamous Epithelial <5 /HPF (None Seen); Urine Bacteria None Seen /HPF (<20); Urine Bilirubin NEGATIVE (Negative); Urine Blood Trace (Negative); Urine Clarity Turbid (Clear); Urine Color Light-Yellow (Yellow); Urine Crystals Unidentified Few /HPF (None Seen); Urine Culture Reflex Order NOT NEEDED; Urine Glucose NEGATIVE (Negative); Urine Ketones NEGATIVE (Negative); Urine Micro Reflex YN NO BILL MICROSCOPIC; Urine Nitrite NEGATIVE (Negative); Urine Protein NEGATIVE (Negative); Urine RBC <5 /HPF (None Seen); Urine Urobilinogen Normal (Normal); Urine WBC <5 /HPF (<5); Urine WBC Clump Rare /HPF (None Seen); Urine Yeast (Budding) Trace /HPF (None Seen); Urine pH 7.5 (5.0-7.0)
--- NOTE | 2024-08-21 15:53 | ER ---
Nurse's Notes [facility] Name: Anny Garzon Age: 23 yrs Sex: Female : 2000 Arrival Date: 08/21/2024 Time: 13:35 Bed 15 Private MD: Diagnosis: Hypokalemia;Palpitations;Weakness Presentation: 08/21 13:44 Chief complaint: Patient states: Started to feel weak and like she might pass out ll1 today. 13 weeks . Coronavirus screen: Client denies travel out of the [place] in the last 14 days. At this time, the client does not indicate any symptoms associated with coronavirus-19. Ebola Screen: Patient denies travel to an Ebola-affected area in the 21 days before illness onset. No acute neurological deficit is noted. Initial Sepsis Screen: Does the patient meet any 2 criteria? No. Patient's initial sepsis screen is negative. Does the patient have a suspected source of infection? No. Patient's initial sepsis screen is negative. Risk Assessment: Do you want to hurt yourself or someone else? Patient reports no desire to harm self or others. Onset of symptoms was August 21, 2024. 13:44 Method Of Arrival: Wheelchair ll1 13:44 Acuity: DEBRA 3 ll1 Triage Assessment: 13:45 General: Appears uncomfortable, ill, Behavior is calm, cooperative, appropriate for ll1 age. Pain: Denies pain. Neuro: Reports a syncopal episode weakness. 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 - Infectious Disease History:: Denies. - Social history:: Smoking status: Patient denies any tobacco usage or history of. Screenin:00 [facility] ED Fall Risk Assessment (Adult) History of falling in the last 3 months, ph including since admission No falls in past 3 months (0 pts) Confusion or Disorientation No (0 pts) Intoxicated or Sedated No (0 pts) Impaired Gait No (0 pts) Mobility Assist Device Used No (0 pt) Altered Elimination No (0 pt) Score/Fall Risk Level 0 - 2 = Low Risk Oriented to surroundings, Maintained a safe environment, Hourly rounding (assess needs \T\ fall precautionary measures) done. Abuse screen: Denies threats or abuse. Denies injuries from another. Nutritional screening: No deficits noted. Tuberculosis screening: No symptoms or risk factors identified. Assessment: 14:30 General: Appears in no apparent distress. Behavior is cooperative, appropriate for age. ph Pain: Denies pain. Neuro: Level of Consciousness is awake, alert, obeys commands, Oriented to person, place, time, situation, Reports dizziness. Cardiovascular: Capillary refill < 3 seconds in bilateral fingers. Respiratory: Airway is patent Respiratory effort is even, unlabored. GI: Patient currently denies diarrhea, nausea, vomiting. Derm: Skin is pink, warm \T\ dry. Vital Signs: 13:44 BP 108 / 57; Pulse 120; Resp 15; Temp 97.2; Pulse Ox 98% ; Weight 77.11 kg; Height 5 ll1 ft. 2 in. ; Pain 0/10; 14:42 Pulse 108; ec2 14:45 BP 118 / 64; Pulse 103; Resp 18; Temp 98; Pulse Ox 99% on R/A; ph 16:00 BP 122 / 70; Pulse 101; Resp 16; Pulse Ox 100% on R/A; ph 13:44 Body Mass Index 31.09 (77.11 kg, 157.48 cm) ll1 13:44 Pain Scale: Adult ll1 ED Course: 13:38 Patient arrived in ED. ra3 13:[address] MD is Attending Physician. ec2 13:38 Arm band placed on Patient placed in an exam room, on a stretcher. ll1 13:43 Nory Pierce RN is Primary Nurse. ph 13:45 Triage completed. ll1 14:01 Patient has correct armband on for positive identification. Bed in low position. Call ph light in reach. Side rails up X 1. Pulse ox on. NIBP on. Door closed. Noise minimized. Warm blanket given. Pillow given. 14:01 Provided Education on: Use of call light and estimated time for test results. ph 14:06 Inserted saline lock: 20 gauge in right antecubital area, using aseptic technique. tm6 Blood collected. Flushed with 10 mL NS. 14:06 Lipase Sent. tm6 14:06 CMP Sent. tm6 14:06 CBC with Diff Sent. tm6 15:30 FHT 168. ph 15:33 UAM Sent. ll1 16:15 No provider procedures requiring assistance completed. IV discontinued, intact, ph bleeding controlled, No redness/swelling at site. Pressure dressing applied. Administered Medications: 14:30 Drug: NS 0.9% IV 500 ml 500 ml IV at 1 bolus once; to be given as a bolus over 30 ph minutes Volume: 500 ml; Route: IV; Rate: 1 bolus; Site: right antecubital; 15:00 Follow up: Response: No adverse reaction; IV Status: Completed infusion; IV Intake: ph 500ml 15:30 Drug: Potassium Chloride PO 40 mEq PO once Route: PO; ph 16:00 Follow up: Response: No adverse reaction ph Medication: 14:01 VIS not applicable for this client. ph Intake: 15:00 IV: 500ml; Total: 500ml. ph Outcome: 15:53 Discharge ordered by . nikita 16:43 Patient left the ED. ph 16:43 Discharged to home ambulatory, with family, ph 16:43 Condition: good 16:43 Discharge instructions given to patient, Instructed on discharge instructions, follow up and referral plans. Demonstrated understanding of instructions, follow-up care, Signatures: Nory Pierce RN RN Mitzi Rogers RN RN [address] MD MD ec2 Disha Lucio RN RN 6 Malgorzata Roth ra3
--- NOTE | 2024-08-21 15:53 | EDPHYS ---
Physician Documentation [facility] Name: Anny Garzon Age: 23 yrs Sex: Female : 2000 Arrival Date: 08/21/2024 Time: 13:35 Bed 15 Private MD: ED Physician Christiano Way HPI: 08/21 14:01 This 23 yrs old Female presents to ER via Wheelchair with complaints of ec2 Weakness - 13wks preg. 14:01 Patient arrives today for evaluation of generalized weakness. Patient reports that she ec2 been having some lightheadedness. No vomiting. No issues with . Reports she is approximately 13 weeks , denies vaginal bleeding. Denies any abdominal pain.. 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 - Infectious Disease History:: Denies. - Social history:: Smoking status: Patient denies any tobacco usage or history of. ROS: 14:02 Constitutional: as per hpi ec2 Exam: 14:02 Constitutional: GEN: NAD Head: atraumatic Eyes: EOMI Ears: External ears are ec2 normal. CV:tachycardia LUNGS: no respiratory distress ABD: non-distended SKIN: no evidence of rashes MSK: no evidence of trauma Vital Signs: 13:44 BP 108 / 57; Pulse 120; Resp 15; Temp 97.2; Pulse Ox 98% ; Weight 77.11 kg; Height 5 ll1 ft. 2 in. ; Pain 0/10; 14:42 Pulse 108; ec2 14:45 BP 118 / 64; Pulse 103; Resp 18; Temp 98; Pulse Ox 99% on R/A; ph 16:00 BP 122 / 70; Pulse 101; Resp 16; Pulse Ox 100% on R/A; ph 13:44 Body Mass Index 31.09 (77.11 kg, 157.48 cm) ll1 13:44 Pain Scale: Adult ll1 MDM: 14:01 Medical Screening Exam initiated ec2 14:02 Data reviewed: vital signs, nurses notes. ED course: Patient arrives today for ec2 evaluation of generalized weakness. Examination is unrevealing for slight tachycardia. Will obtain lab work, urine studies, give crystalloid and reassess. 14:42 ED course: EKG independently reviewed and interpreted by me, shows sinus tachycardia, ec2 rate of 108, no acute ST segment elevations, intervals are nonactionable.. 15:52 ED course: Urine noninfectious appearing. On reassessment patient is well-appearing no ec2 acute distress. Will discharge home. Return precautions given. Instructed on potassium supplementation.. 08/21 13:49 Order name: CBC with Diff; Complete Time: 15:52 ec2 08/21 13:49 Order name: CMP; Complete Time: 14:44 ec2 08/21 13:49 Order name: Lipase; Complete Time: 14:44 ec2 08/21 14:02 Order name: UAM; Complete Time: 15:52 ec2 08/21 15:06 Order name: CBC Smear Scan; Complete Time: 15:52 EDMS 08/21 13:49 Order name: IV Saline Lock; Complete Time: 14:04 ec2 08/21 13:49 Order name: Labs collected and sent; Complete Time: 14:04 ec2 08/21 13:49 Order name: FHT's; Complete Time: 15:33 ec2 08/21 14:02 Order name: EKG - Nurse/Tech; Complete Time: 15:10 ec2 Administered Medications: 14:30 Drug: NS 0.9% IV 500 ml 500 ml IV at 1 bolus once; to be given as a bolus over 30 ph minutes Volume: 500 ml; Route: IV; Rate: 1 bolus; Site: right antecubital; 15:00 Follow up: Response: No adverse reaction; IV Status: Completed infusion; IV Intake: ph 500ml 15:30 Drug: Potassium Chloride PO 40 mEq PO once Route: PO; ph 16:00 Follow up: Response: No adverse reaction ph Disposition Summary: 08/21/24 15:53 Discharge Ordered Notes: Location: Home ec2 Condition: Stable ec2 Diagnosis - Hypokalemia ec2 - Palpitations ec2 - Weakness ec2 Followup: ec2 - With: Private Physician - When: - Reason: Re-evaluation by your physician Discharge Instructions: - Discharge Summary Sheet ec2 - Potassium Content of Foods ec2 - Palpitations ec2 Forms: - Medication Reconciliation Form ec2 - Antibiotic Education ec2 - Prescription Opioid Use ec2 - Patient Portal Instructions ec2 - Leadership Thank You Letter ec2 Signatures: Dispatcher [employer] Nory Ware RN RN Mitzi Rogers RN RN ll1 Christiano Way MD MD ec2 Corrections: (The following items were deleted from the chart) 14:07 14:02 Constitutional: GEN: NAD Head: atraumatic Eyes: EOMI Ears: External ears are ec2 normal. CV: regular rate LUNGS: no respiratory distress ABD: non-distended SKIN: no evidence of rashes MSK: no evidence of trauma ec2
[2024-08-21 16:53] VITALS: BP 108/57; TEMP 97.2; O2SAT 98
--- NOTE | 2024-08-23 15:51 | EKG ---
Test Date: 2024-08-21 Test Time: 14:31:02 [employer]: PH MEASUREMENT RESULTS: Intervals: Rate: 108 VA: 134 QRSD: 78 QT: 328 QTc: 439 [place]: P: 66 VA: 134 QRS: 62 T: 19 INTERPRETIVE STATEMENTS: Sinus tachycardia Otherwise normal ECG Compared to ECG 05/13/2008 21:48:42 Sinus rhythm no longer present Electronically Signed On 08-23-24 15:48:12 WAREHOUSE CLERK by Devin Martínez
== END 2024-08-21 16:43 | disposition home or self-care (01) ==
LOC: ER 13:35
DX: O99.281 Endocrine, nutritional and metabolic diseases complicating pregnancy, first trimester (principal); E87.6 Hypokalemia; Z3A.13 13 weeks gestation of pregnancy
CPT/HCPCS: 93005; 85025; 81001; 36415; 83690; 80053; 99284; J7030

== ENCOUNTER 2024-11-17 12:53 | Emergency (ER) | payer MEDICAID, OTHER ==
--- OUTSIDE RECORDS SUMMARY | 2024-11-17 12:58 | XMS REPORT | Continuity of Care Document ---
Author Name Unknown Address [address] [facility] [address] [place] [address] Organization [facility] [place] Address [address] [facility] [address] [place] [address] Care Team Providers Care Vice President Marketing & Development Name Role Phone PCP, PATIENT DOES NOT HAVE A Primary Care Physic deborah Unavailable BRE HUNTER Attending Clinician UnavailNICK Rios Attending Clinician Unavail able Bre Hunter CNM Attending Clinician Doctor Unassigned, [place] Attending Clinician U navailable Nick Cedillo Attending Clinician + ELLIE DESHPANDE Attending Clinician Unavailable RYAN DRIVER Attending Clinician Un available Ultrasound, Madysonsavannah Attending Clinician UnavailRyan Verma MD Attending Clinician IHSAN GUO Attending Clinician UnavailIHSAN Rush Attending Clinician UnavailCODY Frost Attending Clinician Unavailable CODY VIEYRA Attending Clinician Unavailable Chayito Varma DO Attending Clinician [phone] Cody Vieyra MD Attending Clinician [phone] ENIO MCCARTHY Attending Clinician Unavailable ENIO MCCARTHY Attending Clinician Unavailable Enio Monroy Attending Clinician [phone] DAVE HERNANDEZ Attending Clinician Unavailable SUSEI GONZALEZ Attending Clinician Unavailab le Doctor Unassigned, [place] Attending Clinician U navailable ALETHEA BALDWIN Attending Clinician Unavailable Shravan Lyman DO Attending Clinician [phone] CARIE GUTIERREZ Attending Clinician UnavailCARIE Aguayo Attending Clinician Unavailcathie Sandoval, [facility]ending Clinician Ana vapascualble Susie Waterman Attending Clinician + [phone] RONALD IRELAND Attending Clinician Unavailable RONALD IRELAND Attending Clinician Unavailable Ronald Ireland MD Attending Clinician [phone] AkinsiNick Unger Attending Clinician + TL SCHMIDT Attending Clinician Unavailable Marli, [facility] Nurse Attending Clinician Ihsan Salgado Attending Clinician Catie Mcmahan Attending Clinician CHAYITO VARMA Admitting Clinician Unavailable Shravan Lyman DO Admitting Clinician [phone] Payers Payer Name Policy Type Policy Number Effective Date Expirati on Date Source [facility] + PLUS [id number] 2024 00:00:00 [facility] ST[facility] PLUS [id number] 2024 00:00:00 2024 00:00:00 [place] [id number] 2024 00:00:00 [place] [facility] [id number] 2016 00:00:00 Problems Condition Name Condition Details Condition Category Status Onset Date Resolution Date Last Treatment Date Treating Clinician Comments Source Maternal varicella, non-immune Maternal varicella, non-immune Disease Active 2023-09 00:00: 00 [facility] Previous delivery affecting , antepartum Previous delivery affecting , antepartum Disease Active 2023-09 00:00: 00 [facility] Other specified attention deficit hyperactiv ity disorder (ADHD) Other specified attention deficit hyperactiv ity disorder (ADHD) Disease Active 2023-09 00:00: 00 [facility] Bipolar disease during Bipolar disease during Disease Active 2023-09 00:00: 00 [facility] History of oligohydra mnios in prior , currently History of oligohydra mnios in prior , currently Disease Active 2023-09 00:00: 00 [facility] Flu vaccine refused Flu vaccine refused Disease Active 2023-09 00:00: 00 [facility] Supervisio n of high risk , antepartum Supervisio n of high risk , antepartum Disease Active 2023-09 00:00: 00 Overview: Formattin g of this note might be different from the original. 06/11 external records: HCV neg, GC/CH neg, HIV neg, RPR NR, h/h 14.1/, PLT , A1c , PAP pending [facility] Bicornuate uterus Bicornuate uterus Disease Active 2023-09 0 00:00: 00 [facility] Generalize d anxiety disorder Generalize d anxiety disorder Disease Active 2016-09 0 00:00: 00 [facility] Asthma, unspecifie d asthma severity, unspecifie d whether complicate d, unspecifie d whether persistent Asthma, unspecifie d asthma severity, unspecifie d whether complicate d, unspecifie d whether persistent Disease Active 2016-09 0 00:00: 00 [facility] Obesity in Obesity in Disease Active 2016-09 00:00: 00 [facility] History of asthma History of asthma Disease Active 2016-09 00:00: 00 [facility] Obesity (BMI 30-39.9) Obesity (BMI 30-39.9) Disease Resolve d 2021-09 0-03 00:00: 00 2024-06-20 00:00:00 2024-06-20 13:29:07 [facility] Gonorrhea in Gonorrhea in Disease Resolve d 2021-0 7-11 00:00: 00 2024-06-20 00:00:00 2024-06-20 13:28:51 [facility] Back pain during Back pain during Disease Resolve d 2021-0 7-11 00:00: 00 2024-06-20 00:00:00 2024-06-20 13:29:05 [facility] Primigravi da in third trimester Primigravi da in third trimester Disease Resolve d 2021- 3-07 00:00: 00 2024-06-20 00:00:00 2024-06-20 13:28:59 [facility] History of depression History of depression Disease Resolve d 2021- 3-07 00:00: 00 2024-06-20 00:00:00 2024-06-20 13:32:36 [facility] Chlamydia infection Chlamydia infection Disease Resolve d 9-05 00:00: 00 2024-06-20 00:00:00 2024-06-20 13:28:58 [facility] Depression during Depression during Disease Resolve d 2016-09 0-04 00:00: 00 2024-06-20 00:00:00 2024-06-20 13:29:03 [facility] Uterine size-date discrepanc y in third trimester Uterine size-date discrepanc y in third trimester Disease Resolve d 2021-09 0-03 00:00: 00 2022-06-16 00:00:00 2022-06-16 20:53:15 [facility] heart rate decelerati ons affecting management of mother heart rate decelerati ons affecting management of mother Disease Resolve d 2021-09 0-03 00:00: 00 2022-06-16 00:00:00 2022-06-16 20:53:18 [facility] 36 weeks gestation of 36 weeks gestation of Disease Resolve d 2021-09 0-03 00:00: 00 2022-06-16 00:00:00 2022-06-16 20:53:19 [facility] Supervisio n of high-risk with insufficie nt care Supervisio n of high-risk with insufficie nt care Disease Resolve d 3-07 00:00: 00 2022-06-16 00:00:00 2022-06-16 20:53:10 [facility] High risk teen in third trimester High risk teen in third trimester Disease Resolve d 3-07 00:00: 00 2022-06-16 00:00:00 2022-06-16 20:53:08 [facility] Screening for STDs (sexually transmitte d diseases) Screening for STDs (sexually transmitte d diseases) Disease Resolve d 2016-09 0-04 00:00: 00 2022-02-21 00:00:00 2022-02-21 15:24:50 [facility] Nexplanon removal Nexplanon removal Disease Resolve d 0 9-08 00:00: 00 2022-02-21 00:00:00 2022-02-21 15:24:46 [facility] Other general counseling and advice for contracept ana cristina management Other general counseling and advice for contracept ana cristina management Disease Resolve d 05-04 00:00: 00 2022-02-21 00:00:00 2022-02-21 15:24:45 [facility] Nocturnal enuresis Nocturnal enuresis Disease Resolve d 9 00:00: 00 2018-01-27 00:00:00 2018-01-27 23:38:05 [facility] Follow up: Urinary frequency, folliculit is. Follow up: Urinary frequency, folliculit is. Disease Resolve d 05-20 00:00: 00 2018-01-27 00:00:00 2018-01-27 23:38:45 [facility] Irregular menstrual cycle Irregular menstrual cycle Disease Resolve d 05-04 00:00: 00 2018-01-27 00:00:00 2018-01-27 23:38:51 [facility] Urinary frequency Urinary frequency Disease Resolve d 05-03 00:00: 00 2018-01-27 00:00:00 2018-01-27 23:38:39 [facility] Folliculit is Folliculit is Disease Resolve d 05-03 00:00: 00 2018-01-27 00:00:00 2018-01-27 23:38:35 [facility] Overactive bladder Overactive bladder Disease Resolve d 05-03 00:00: 00 2018-01-27 00:00:00 2018-01-27 23:39:13 [facility] Abnormal vision screen Abnormal vision screen Disease Resolve d 05-03 00:00: 00 2018-01-27 00:00:00 2018-01-27 23:38:19 [facility] Allergies, Adverse Reactions, Alerts Allergy Name Allergy Type Status Severity Reaction(s) Onset Date Inactive Date Treating Clinician Comments Source NO KNOWN ALLERGIE S Drug Class Active [facility] Social History Social Habit Start Date Stop Date Quantity Comments Source ASSERTION 2024-05-30 00:00:00 [facility] History of tobacco use Cigarette Smoker [facility] Alcoholic beverage intake 2024-10-14 00:00:00 2024-10-14 00:00:00 0 /d [facility] Tobacco use and exposure 2024-06-20 00:00:00 2024-06-20 00:00:00 Smokeless tobacco non-user [facility] History of Social function 2024-06-20 00:00:00 2024-06-20 00:00:00 [facility] Alcohol intake 2022-06-15 00:00:00 2022-06-15 00:00:00 0 /d [facility] Exposure to SARS-CoV-2 (event) 2022-06-03 00:00:00 2022-06-13 14:43:00 Not sure [facility] Sex assigned at 2000 00:00:00 2000 00:00:00 [facility] Smoking Status Start Date Stop Date Source Ex-smoker 2024-06-20 00:00:00 2024-06-20 00:00:00 [facility] Smokes tobacco daily 2022-03-21 00:00:00 [facility] Medications Ordered Medication Name Filled Medication Name Start Date Stop Date Current Medication? Ordering Clinician Indication Dosage Frequency Signature (SIG) Comments Components Source amitriptyli ne 100 mg tablet 2021-09 0 03:15: 58 06-16 00:00 :00 No 100mg Take 100 mg by mouth at bedtime. [facility] [id number] fum-folic () 27 mg iron- 1 mg folic tablet 2021-09 0 00:00: 00 Yes [id number] 1{tbl} Take 1 tablet by mouth in the morning. [facility] [id number] fum-folic () 27 mg iron- 1 mg folic tablet 2021-09 0 00:00: 00 06-20 00:00 :00 No [id number] 1{tbl} Take 1 tablet by mouth in the morning. [facility] docusate 100 mg capsule 2021-09 0 00:00: 00 06-20 00:00 :00 No [id number] 200mg Take 2 capsules by mouth once daily as needed for Constipati on. [facility] ferrous sulfate 325 mg (65 mg iron) tablet 2021-09 0 00:00: 00 06-20 00:00 :00 No [id number] 325mg Take 1 tablet by mouth in the morning and 1 tablet in the evening. [facility] ibuprofen 600 mg tablet 2021-09 0 00:00: 00 06-20 00:00 :00 No [id number] 600mg Take 1 tablet by mouth every 6 (six) hours as needed (Pain). Take with food or milk. [facility] norethindro ne 0.35 mg tablet 2021-09 0 00:00: 00 09-15 05:59 :00 No [id number] .35mg Take 1 tablet by mouth in the morning for 90 days. [facility] HYDROcodone -acetaminop hen 5-325 mg tablet 2021-09 0 00:00: 00 06-24 04:59 :00 No [id number] 1{tbl} Take 1 tablet by mouth every 6 (six) hours as needed for Pain (scale 4-6) or Pain (scale 7-10) (Pain scale above 4) for up to 7 days. Do not exceed 3 grams of acetaminop hen in 24 hours. Indication s: acute pain [facility] amitriptyli ne (ELAVIL) tablet 100 mg 2021-09 0 02:00: 00 Yes 100mg 100 mg, Oral, QHS, First dose on Mon06/14/22 at 2100, Until Discontinu ed, Routine [facility] lactated ringers IV infusion 500 mL 2021-09 0 13:15: 00 06-14 12:37 :00 No 500mL at 999 mL/hr, 500 mL, Intravenou s, ONCE, 1 dose, On Mon06/14/22 at 0815, Routine [facility] rho(D) immune globulin (RHOGAM) syringe 300 mcg 2021-09 0 06:33: 41 Yes 300ug 300 mcg, Intramuscu lar, ONCE, For 1 dose, Conditiona l, Routine [facility] HYDROcodone -acetaminop hen (NORCO 5) 5-325 mg tablet 2 tablet 2021-09 0-04 06:33: 35 Yes 2{tbl} 2 tablet, Oral, Q6HPRN, Starting on Mon06/14/22 at 0133, Until Discontinu ed, Routine, Pain (scale 7-10), Alternate with Ibuprofen [facility] HYDROcodone -acetaminop hen (NORCO 5) 5-325 mg tablet 1 tablet 2021-09 0-04 06:33: 35 Yes 1{tbl} 1 tablet, Oral, Q6HPRN, Starting on Mon06/14/22 at 0133, Until Discontinu ed, Routine, Pain (scale 4-6), Alternate with Ibuprofen [facility] ibuprofen (IBU) tablet 600 mg 2021-09 0-04 06:33: 35 Yes 600mg 600 mg, Oral, Q6HPRN, Starting on Mon06/14/22 at 0133, Until Discontinu ed, Routine, Pain (scale 1-3) [facility] diphenhydrA MINE (BENADRYL) injection 25 mg 2021-09 0-04 06:33: 35 Yes 25mg 25 mg, Slow IV Push, Q6HPRN, Starting on Mon06/14/22 at 0133, Until Discontinu ed, Routine, Itching [facility] diphenhydrA MINE (BENADRYL) tablet 25 mg 2021-09 0-04 06:33: 35 Yes 25mg 25 mg, Oral, Q6HPRN, Starting on Mon06/14/22 at 0133, Until Discontinu ed, Routine, Sleep, Itching [facility] ondansetron (ZOFRAN (PF)) injection 4 mg 2021-09 0-04 06:33: 35 Yes 4mg 4 mg, Slow IV Push, Q8HPRN, Starting on Mon06/14/22 at 0133, Until Discontinu ed, Routine, Nausea and Vomiting (N/V) [facility] bisacodyL (DULCOLAX) suppository 10 mg 2021-09 0-04 06:33: 35 Yes 10mg 10 mg, Rectal, QDAILYPRN, Starting on Mon06/14/22 at 0133, Until Discontinu ed, Routine, Constipati on [facility] simethicone (GAS RELIEF (SIMETHICON E)) chewable tablet 160 mg 2021-09 0 06:33: 35 Yes 160mg 160 mg, Oral, PC+HSPRN, Starting on Mon06/14/22 at 0133, Until Discontinu ed, Routine, Gas [facility] docusate (COLACE) capsule 200 mg 2021-09 0 06:33: 35 Yes 200mg 200 mg, Oral, QDAILYPRN, Starting on Mon06/14/22 at 013, Until Discontinu ed, Routine, Constipati on [facility] magnesium hydroxide (MILK OF MAGNESIA) 400 mg/5 mL suspension 30 mL 2021-09 0 06:33: 35 Yes 30mL 30 mL, Oral, QDAILYPRN, Starting on Mon06/14/22 at 0133, Until Discontinu ed, Routine, Constipati on [facility] lactated ringers IV infusion 1,000 mL 2021-09 0 06:33: 35 Yes 1000mL at 125 mL/hr, 1,000 mL, IV Infusion, PRN, 1 dose, Starting on Mon06/14/22 at 013, Until Discontinu ed, Routine [facility] lactated ringers IV infusion 1,000 mL 2021-09 0-04 04:45: 00 06-14 06:33 :38 No 1000mL at 125 mL/hr, 1,000 mL, IV Infusion, CONTINUOUS , Starting on Mon06/13/22 at 2345, Until Mon06/14/22 at 0133, TRIXIE [facility] ceFAZolin in 0.9% sodium chloride (ANCEF) 2 gram/100 mL RTU 2 g 2021-09 0-04 02:54: 10 06-14 06:33 :38 No 2000mg 2 g (2,000 mg), IV Piggyback, O.R. HOLDING ONCE, Starting on Mon06/13/22 at 2154, Until 10/4/22 at 0133, Administer over 30 Minutes, 100 mL
Reas on for Anti-Infec tive: Surgical Prophylaxi s
Surgi renetta Prophylaxi s: PATENT PROSECUTION PARALEGAL
Duration of therapy: within 24 hours of surgery [facility] sodium citrate-cit kolby acid (BICITRA) 500-334 mg/5 mL solution 30 mL 2021-09 0-04 02:54: 10 06-14 03:23 :00 No 30mL 30 mL, Oral, PRE-PROCED URE ONCE, 1 dose, Starting on Mon06/13/22 at 2154, Until Mon06/13/22 at 2223, Routine, Surgery/Pr ocedure [facility] amitriptyli ne 100 mg tablet 2021-09 0 23:46: 17 Yes 100mg Take 100 mg by mouth at bedtime. [facility] ARIPIPRAZOL E (ABILIFY ORAL) 06-01 10:02: 02 06-01 00:00 :00 No Take by mouth. [facility] amphetamine -dextroamph etamine (ADDERALL XR) 25 mg 24 hr capsule 06-01 10:01: 59 06-01 00:00 :00 No 25mg Take 25 mg by mouth every morning. [facility] metroNIDAZO LE 500 mg tablet -13 00:00: 00 06-16 00:00 :00 No [id number] 500mg Take 1 tablet by mouth in the morning and 1 tablet in the evening. [facility] proMETHazin e 25 mg tablet 7-11 00:00: 00 06-16 00:00 :00 No [id number] 25mg Take 1 tablet by mouth every 6 (six) hours as needed for Nausea and Vomiting (N/V). [facility] metroNIDAZO LE 500 mg tablet 6-14 00:00: 00 06-16 00:00 :00 No [id number] 500mg Take 1 tablet by mouth 2 (two) times daily. [facility] ARIPIPRAZOL E (ABILIFY ORAL) 11-15 10:55: 24 Yes Take by mouth. [facility] amphetamine -dextroamph etamine (ADDERALL XR) 25 mg 24 hr capsule 11-15 10:55: 24 Yes 25mg Take 25 mg by mouth every morning. [facility] amitriptyli ne 100 mg tablet 11-15 10:55: 24 Yes 100mg Take 100 mg by mouth at bedtime. [facility] vit 33-iron-fol ic-dha (SELECT-OB + DHA) 29 mg iron-1 mg -250 mg combo pack 11-15 00:00: 00 06-16 00:00 :00 No [id number] 1{packe t} Take 1 Packet by mouth daily. [facility] Immunizations Ordered Immunization Name Filled Immunization Name Date Status Comments Source MMR 2022-06-16 00:00:00 Completed [facility] MMR 2022-06-16 00:00:00 Completed [facility] MMR 2022-06-16 00:00:00 Completed [facility] MMR 2022-06-16 00:00:00 Completed [facility] TDAP 2022-06-01 00:00:00 Completed [facility] TDAP 2022-06-01 00:00:00 Completed [facility] TDAP 2022-06-01 00:00:00 Completed [facility] TDAP 2022-06-01 00:00:00 Completed [facility] TDAP 2022-06-01 00:00:00 Completed [facility] TDAP 2022-06-01 00:00:00 Completed [facility] TDAP 2022-06-01 00:00:00 Completed [facility] HPV9 2019-05-10 00:00:00 Completed HPV9 2016-11-23 00:00:00 Completed [facility] HPV9 2016-11-23 00:00:00 Completed [facility] HPV9 2016-11-23 00:00:00 Completed [facility] HPV9 2016-11-23 00:00:00 Completed [facility] HPV9 2016-11-23 00:00:00 Completed [facility] HPV9 2016-11-23 00:00:00 Completed [facility] HPV9 2016-11-23 00:00:00 Completed [facility] HPV9 2016-11-23 00:00:00 Completed [facility] HPV9 2016-11-23 00:00:00 Completed [facility] HPV9 2016-11-23 00:00:00 Completed [facility] HPV9 2016-11-23 00:00:00 Completed [facility] HPV9 2016-11-23 00:00:00 Completed [facility] Influenza Virus Vaccine Quad IM 3+ YRS 2016-06-15 00:00:00 Completed [facility] HPV9 2016-06-15 00:00:00 Completed Influenza Virus Vaccine Quad IM 3+ YRS 2016-06-15 00:00:00 Completed [facility] HPV9 2016-06-15 00:00:00 Completed [facility] Influenza Virus Vaccine Quad IM 3+ YRS 2016-06-15 00:00:00 Completed [facility] HPV9 2016-06-15 00:00:00 Completed [facility] Influenza Virus Vaccine Quad IM 3+ YRS 2016-06-15 00:00:00 Completed [facility] HPV9 2016-06-15 00:00:00 Completed [facility] Influenza Virus Vaccine Quad IM 3+ YRS 2016-06-15 00:00:00 Completed [facility] HPV9 2016-06-15 00:00:00 Completed [facility] Influenza Virus Vaccine Quad IM 3+ YRS 2016-06-15 00:00:00 Completed [facility] HPV9 2016-06-15 00:00:00 Completed [facility] Influenza Virus Vaccine Quad IM 3+ YRS 2016-06-15 00:00:00 Completed [facility] HPV9 2016-06-15 00:00:00 Completed [facility] Influenza Virus Vaccine Quad IM 3+ YRS 2016-06-15 00:00:00 Completed [facility] HPV9 2016-06-15 00:00:00 Completed [facility] Influenza Virus Vaccine Quad IM 3+ YRS 2016-06-15 00:00:00 Completed [facility] HPV9 2016-06-15 00:00:00 Completed [facility] Influenza Virus Vaccine Quad IM 3+ YRS 2016-06-15 00:00:00 Completed [facility] HPV9 2016-06-15 00:00:00 Completed [facility] Influenza Virus Vaccine Quad IM 3+ YRS 2016-06-15 00:00:00 Completed [facility] HPV9 2016-06-15 00:00:00 Completed [facility] Influenza Virus Vaccine Quad IM 3+ YRS 2016-06-15 00:00:00 Completed [facility] HPV9 2016-06-15 00:00:00 Completed [facility] HPV9 2016-05-09 00:00:00 Completed [facility] HPV9 2016-05-09 00:00:00 Completed [facility] HPV9 2016-05-09 00:00:00 Completed [facility] HPV9 2016-05-09 00:00:00 Completed [facility] HPV9 2016-05-09 00:00:00 Completed [facility] HPV9 2016-05-09 00:00:00 Completed [facility] HPV9 2016-05-09 00:00:00 Completed [facility] HPV9 2016-05-09 00:00:00 Completed [facility] HPV9 2016-05-09 00:00:00 Completed [facility] HPV9 2016-05-09 00:00:00 Completed [facility] HPV9 2016-05-09 00:00:00 Completed [facility] HPV9 2016-05-09 00:00:00 Completed [facility] TDAP 2016-04-21 00:00:00 Completed Meningococcal Polysaccharide (groups [...] Value Comments S ource Systolic blood pressure 2024-10-14 16:48:00 109 mm[Hg] [facility] Diastolic blood pressure 2024-10-14 16:48:00 66 mm[Hg] [facility] Heart rate 2024-10-14 16:48:00 101 /min [facility] acute hospital Body temperature 2024-10-14 16:48:00 36.44 Lindsey [facility] Respiratory rate 2024-10-14 16:48:00 16 /min [facility] Body height 2024-10-14 16:48:00 157.5 cm [facility] Body weight 2024-10-14 16:48:00 80.196 kg [facility] BMI 2024-10-14 16:48:00 32.34 kg/m2 [facility] Systolic blood pressure 2024-07-24 10:06:00 130 mm[Hg] [facility] Diastolic blood pressure 2024-07-24 10:06:00 91 mm[Hg] [facility] Heart rate 2024-07-24 10:06:00 142 /min [facility] Respiratory rate 2024-07-24 10:06:00 22 /min [facility] Body height 2024-07-24 10:06:00 157.5 cm [facility] Body weight 2024-07-24 10:06:00 79.379 kg [facility] BMI 2024-07-24 10:06:00 32.01 kg/m2 [facility] Oxygen saturation in Arterial blood by Pulse oximetry 2024-07-24 10:06:00 98 /min [facility] Systolic blood pressure 2024-07-06 15:51:00 132 mm[Hg] [facility] Diastolic blood pressure 2024-07-06 15:51:00 82 mm[Hg] [facility] Heart rate 2024-07-06 15:51:00 99 /min [facility] Body temperature 2024-07-06 15:51:00 36.89 Lindsey [facility] Respiratory rate 2024-07-06 15:51:00 14 /min [facility] Body height 2024-07-06 15:51:00 157.5 cm [facility] Body weight 2024-07-06 15:51:00 77.111 kg [facility] BMI 2024-07-06 15:51:00 31.09 kg/m2 [facility] Oxygen saturation in Arterial blood by Pulse oximetry 2024-07-06 15:51:00 99 /min [facility] Systolic blood pressure 2024-06-20 18:34:00 113 mm[Hg] [facility] Diastolic blood pressure 2024-06-20 18:34:00 68 mm[Hg] [facility] Heart rate 2024-06-20 18:34:00 91 /min [facility] Body temperature 2024-06-20 18:34:00 36.83 Lindsey [facility] Respiratory rate 2024-06-20 18:34:00 18 /min [facility] Body height 2024-06-20 18:34:00 160 cm [facility] Body weight 2024-06-20 18:34:00 78.983 kg [facility] BMI 2024-06-20 18:34:00 30.84 kg/m2 [facility] Systolic blood pressure 2022-06-16 13:31:00 122 mm[Hg] [facility] Diastolic blood pressure 2022-06-16 13:31:00 79 mm[Hg] [facility] Heart rate 2022-06-16 13:31:00 90 /min [facility] Body temperature 2022-06-16 13:31:00 36.67 Lindsey [facility] Respiratory rate 2022-06-16 13:31:00 18 /min [facility] Oxygen saturation in Arterial blood by Pulse oximetry 2022-06-16 13:31:00 98 /min [facility] Body height 2022-06-14 02:13:00 160 cm [facility] Body weight 2022-06-14 02:13:00 83.008 kg [facility] BMI 2022-06-14 02:13:00 32.42 kg/m2 [facility] Heart rate 2022-06-14 03:00:00 83 /min [facility] acute hospital Respiratory rate 2022-06-14 03:00:00 18 /min [facility] Oxygen saturation in Arterial blood by Pulse oximetry 2022-06-14 03:00:00 100 /min [facility] Systolic blood pressure 2022-06-14 02:13:00 119 mm[Hg] [facility] Diastolic blood pressure 2022-06-14 02:13:00 68 mm[Hg] [facility] Body temperature 2022-06-14 02:13:00 36.78 Lindsey [facility] Body height 2022-06-14 02:13:00 160 cm [facility] Body weight 2022-06-14 02:13:00 83.008 kg [facility] BMI 2022-06-14 02:13:00 32.42 kg/m2 [facility] Systolic blood pressure 2022-06-13 19:41:00 117 mm[Hg] [facility] Diastolic blood pressure 2022-06-13 19:41:00 77 mm[Hg] [facility] Heart rate 2022-06-13 19:41:00 92 /min [facility] acute hospital Body temperature 2022-06-13 19:41:00 36.94 Lindsey [facility] Respiratory rate 2022-06-13 19:41:00 20 /min [facility] Body height 2022-06-13 19:41:00 160 cm [facility] Body weight 2022-06-13 19:41:00 82.827 kg [facility] BMI 2022-06-13 19:41:00 32.35 kg/m2 [facility] Systolic blood pressure 2022-06-01 14:49:00 114 mm[Hg] [facility] Diastolic blood pressure 2022-06-01 14:49:00 69 mm[Hg] [facility] Heart rate 2022-06-01 14:49:00 95 /min [facility] hospital Body temperature 2022-06-01 14:49:00 36.06 Lindsey [facility] Respiratory rate 2022-06-01 14:49:00 18 /min [facility] Body weight 2022-06-01 14:49:00 82.373 kg [facility] Procedures Procedure Date / Time Performed Performing Clinician Source NIPT - NON-INVASIVE TEST RESULTS 2024-10-24 22:58:10 Doctor Unassigned, [place] [facility] NIPT - NON-INVASIVE TEST RESULTS 2024-10-21 15:57:42 Doctor Unassigned, [place] [facility] POCT URINALYSIS 2024-10-14 16:50:00 Bre Hunter [facility] FIRST TRIMESTER ULTRASOUND 2024-08-20 20:50:00 Bre Hunter [facility] LIPASE 2024-07-24 10:33:00 Chayito Varma [facility] HEPATIC FUNCTION PANEL (78039) (ALB,T.PRO,BILI T,BU/BC,ALT,AST,ALK PHOS) 2024-07-24 10:33:00 Chayito Varma [facility] BASIC METABOLIC PANEL (NA, K, CL, CO2, GLUCOSE, BUN, CREATININE, CA) 2024-07-24 10:33:00 Chayito Varma [facility] ETHANOL 2024-07-24 10:33:00 Chayito Varma [facility] CBC WITH DIFF 2024-07-24 10:33:00 Chayito Varma [facility] LACTIC ACID WHOLE BLOOD 2024-07-24 10:33:00 Bharati Varma [facility] HEPATITIS B SURFACE ANTIGEN 2024-06-20 20:10:00 Bre Hunter [facility] HB ABO GROUPING 2024-06-20 20:10:00 Bre Hunter [facility] POCT TEST 2024-06-20 18:33:00 Jayla Hunter [facility] POCT URINALYSIS W/O SPECIFIC GRAVITY 2024-06-20 18:33:00 Bre Hunter [facility] DME/SUPPLY JUSTIFICATION 2022-07-14 05:01:00 Doc tor Unassigned, [place] [facility] CBC WITH DIFF 2022-06-14 09:46:00 Marion España [facility] CBC WITH DIFF 2022-06-14 09:46:00 Marion España [facility] URINE DRUG (IMMUNOASSAY) - COMPREHENSIVE DRUG SCREEN 2022-06-14 05:53:00 Degraffenrgabe [facility] URINE DRUG (IMMUNOASSAY) - COMPREHENSIVE DRUG SCREEN 2022-06-14 05:53:00 Degraffenrgabe [facility] VENOUS CORD GAS 2022-06-14 03:56:00 DegraffenreiTadeo mar [facility] VENOUS CORD GAS 2022-06-14 03:56:00 [facility] 2022-06-14 03:11:00 Shravan Lyman [facility] SECTION 2022-06-14 03:11:00 Shravan Lyman [facility] HB ABO GROUPING 2022-06-14 03:00:00 DegraffenreiTadeo mar [facility] RHO (D) IMMUNE GLOBULIN 2022-06-14 03:00:00 Sandra España [facility] HB ABO GROUPING 2022-06-14 03:00:00 [facility] RHO (D) IMMUNE GLOBULIN 2022-06-14 03:00:00 Sandra España [facility] CBC WITH DIFF 2022-06-14 02:58:00 Degraffenreid, [facility] HEPATITIS B SURFACE ANTIGEN 2022-06-14 02:58:00 Degraffenreid, [facility] GALV ONLY - SYPHILIS IGG/IGM 2022-06-14 02:58:00 Degraffenreid, [facility] CBC WITH DIFF 2022-06-14 02:58:00 Degraffenreid, [facility] HEPATITIS B SURFACE ANTIGEN 2022-06-14 02:58:00 Degraffenreid, [facility] GALV ONLY - SYPHILIS IGG/IGM 2022-06-14 02:58:00 Degraffenreid, [facility] NON-STRESS TEST 2022-06-13 21:53:16 Carie Gutierrez [facility] POCT URINALYSIS 2022-06-13 00:00:00 Susie Gonzalez [facility] TDAP VACCINE, >11 YRS, IM 2022-06-01 15:02:51 Susie Gonzalez [facility] POCT URINALYSIS 2022-06-01 14:52:00 Susie Gonzalez [facility] Encounters Start Date/Time End Date/Time Encounter Type Admission Type Attending [facility] Care Department Encounter ID Source 2024-11-12 13:15:00 2024-11-12 13:15:00 Outpatient R [facility] [id number] [facility] 2024-11-06 00:00:00 2024-11-06 15:10:57 Telephone JamesBre fox [facility] PATENT PROSECUTION PARALEGAL [facility] MATERNAL & CHILD [facility] 1.2.840.114 350.1.13.10 4.2.7.2.686 [id number] 107 [id number] [facility] 2024-10-21 00:00:00 2024-10-26 06:08:56 Orders Only Doctor Unassigned, [place] Doctor Unassigned, [place] [facility] 1.2.840.114 350.1.13.10 4.2.7.2.686 [id number] [facility] 2024-10-24 00:00:00 2024-10-26 06:06:14 Orders Only Doctor Unassigned, [place] Doctor Unassigned, [place] [facility] 1.2.840.114 350.1.13.10 4.2.7.2.686 [id number] [facility] 2024-10-14 10:30:00 2024-10-14 11:23:32 Outpatient R NICK [facility] [id number] [facility] 2024-10-14 10:30:00 2024-10-14 11:23:32 Routine Visit Nick Weiss [facility] PATENT PROSECUTION PARALEGAL [facility] MATERNAL & CHILD [facility] 1.2840.114 350.1.13.10 4.2.7.2.686 [id number] [facility] 2024-08-27 10:15:00 2024-08-27 10:15:00 Outpatient R ELLIE [facility] [id number] [facility] 2024-08-27 08:00:00 2024-08-27 08:00:00 Outpatient [facility] [id number] [facility] 2024-08-23 10:00:00 2024-08-23 10:00:00 Outpatient P [facility] [id number] [facility] 2024-08-23 08:30:00 2024-08-23 08:30:00 Outpatient R BRE [facility] [id number] [facility] 2024-08-22 00:00:00 2024-08-22 06:57:00 Abstract Bre Hunter [facility] PATENT PROSECUTION PARALEGAL [facility] MATERNAL & CHILD [facility] 1.2.840.114 350.1.13.10 4.2.7.2.686 [id number] 107 [id number] [facility] 2024-08-20 14:00:00 2024-08-20 15:00:18 Outpatient R EARLENE Mahmood [facility] [id number] [facility] 2024-08-20 14:00:00 2024-08-20 15:00:18 Vba Developer Visit Ultrasound, [facility] Earlene mahmood Ryan [facility] PATENT PROSECUTION PARALEGAL [facility] & CHILD [facility] 1.2.840.114 350.1.13.10 4.2.7.2.686 [id number] [facility] 2024-08-20 14:00:00 2024-08-20 14:00:00 Outpatient [facility] [id number] [facility] 2024-08-19 08:15:00 2024-08-19 08:15:00 Outpatient R NICK [facility]ISS [facility] [id number] [facility] 2024-08-16 08:00:00 2024-08-16 08:00:00 Outpatient P ELLIE [facility] [id number] [facility] 2024-08-05 15:00:00 2024-08-05 15:00:00 Outpatient P IHSAN GUO [facility] [id number] [facility] 2024-07-24 04:11:00 2024-07-24 07:03:00 Emergency X CODY VIEYRA BRENT [facility] [id number] [facility] 2024-07-24 04:11:00 2024-07-24 07:03:00 Emergency KhanhChayito reynolds Cody Vieyra [facility] 1..840.114 350.1.13.10 4.2.7.2.686 [id number] [facility] 2024-07-18 10:45:00 2024-07-18 10:45:00 Outpatient BRE [facility]DA [facility] [id number] [facility] 2024-07-06 10:53:00 2024-07-06 11:39:00 Emergency ENIO PRINCE ERICCA [facility] [id number] [facility] 2024-07-06 10:53:00 2024-07-06 11:39:00 Emergency Enio Mccarthy [facility] 1..840.114 350.1.13.10 4.2.7.2.686 [id number] [facility] 2024-06-20 13:30:00 2024-06-20 15:09:22 Outpatient BRE MIRANDA [facility] [id number] [facility] 2024-06-20 13:30:00 2024-06-20 15:09:22 Initial Visit Bre Hunter [facility] PATENT PROSECUTION [facility]GAL [facility] 1..840.114 350.1.13.10 4.2.7.2.686 [id number] 107 [id number] [facility] 2024-02-21 14:00:00 2024-02-21 14:00:00 Outpatient DAVE [facility] [id number] [facility] 2024-02-21 14:00:00 2024-02-21 14:00:00 Outpatient R LIANNADAVE DON [facility] [id number] [facility] 2022-07-14 13:00:00 2022-07-14 13:00:00 Outpatient R BRE [facility] [id number] [facility] 2022-07-14 00:00:00 2022-07-14 00:00:00 Orders Only Doctor Unassigned, [place] [facility] 1.2.840.114 350.1.13.10 4.2.7.2.686 [id number] [facility] 2022-06-20 15:45:00 2022-06-20 15:45:00 Outpatient SUSIE [facility] [id number] [facility] 2022-06-13 20:50:00 2022-06-16 11:27:00 Hospital Encounter [facility] 1.2.840.114 350.1.13.10 4.2.7.2.686 [id number] [facility] 2022-06-16 00:00:00 2022-06-16 00:00:00 Encounter 1.2.840.1 [id number] [id number] 1.2.840.114 350.1.13.10 4.2.7.2.696 [id number] [facility] 2022-06-13 22:10:00 2022-06-14 00:01:00 Surgery [facility] 1.2.840.114 350.1.13.10 4.2.7.2.686 [id number] [facility] 2022-06-13 14:30:00 2022-06-13 16:34:43 Outpatient CARIE PATEL [facility] [id number] [facility] 2022-06-13 14:30:00 2022-06-13 16:34:43 Routine Visit Provider, Carie Morrison [facility] PATENT PROSECUTION PARALEGAL [facility] & CHILD [facility] 1.2.840.114 350.1.13.10 4.2.7.2.686 [id number] 107 [id number] [facility] 2022-06-13 14:30:00 2022-06-13 16:34:43 Outpatient R CARIE GUTIERREZ SARAH [facility] JERICA [id number] [facility] 2022-06-06 15:15:00 2022-06-06 15:15:00 Outpatient S[facility]IE [facility] [id number] [facility] 2022-06-01 09:15:00 2022-06-01 11:00:25 Outpatient SUSIE [facility]ES [facility] [id number] [facility] 2022-06-01 09:15:00 2022-06-01 11:00:25 Routine Visit Susie Gonzalez [facility] PATENT PROSECUTION PARALEGAL [facility] & CHILD [facility] 1.2.840.114 350.1.13.10 4.2.7.2.686 [id number] 107 [id number] [facility] 2022-06-01 09:30:00 2022-06-01 09:30:00 Outpatient S[facility]IE [facility] [id number] [facility] 2022-05-20 10:15:00 2022-05-20 10:15:00 Outpatient R NICK WEISS [facility] [id number] [facility] 2022-04-21 10:00:00 2022-04-21 10:00:00 Outpatient R NICK [facility]ISS [facility] [id number] [facility] 2022-04-11 14:00:00 2022-04-11 14:00:00 Outpatient R NICK [facility]ISS [facility] [id number] [facility] 2022-03-28 14:00:00 2022-03-28 14:52:56 Outpatient P [facility]ONALD [facility] [id number] [facility] 2022-03-28 14:00:00 2022-03-28 14:45:00 Vba Developer Visit Ultrasound, Ronald Rocha [facility] PATENT PROSECUTION PARALEGAL [facility] & CHILD [facility] 1..840.114 350.1.13.10 4.2.7.2.686 [id number] [facility] 2022-03-28 14:00:00 2022-03-28 14:00:00 Outpatient [facility] [id number] [facility] 2022-03-28 00:00:00 2022-03-28 00:00:00 Abstract Susie Gonzalez [facility] PATENT PROSECUTION PARALEGAL [facility] & CHILD [facility] 1..840.114 350.1.13.10 4.2.7.2.686 [id number] 107 [id number] [facility] 2022-03-28 00:00:00 2022-03-28 00:00:00 Abstract Susie Gonzalez [facility] PATENT PROSECUTION PARALEGAL [facility] CHILD [facility] 1..840.114 350.1.13.10 4.2.7.2.686 [id number] 107 [id number] [facility] 2022-03-28 00:00:00 2022-03-28 00:00:00 Telephone Nick Weiss [facility] PATENT PROSECUTION PARALEGAL [facility] CHILD [facility] 1..840.114 350.1.13.10 4.2.7.2.686 [id number] 107 [id number] [facility] 2022-03-23 00:00:00 2022-03-23 00:00:00 Telephone Nick Weiss [facility] PATENT PROSECUTION PARALEGAL [facility] CHILD [facility] 1.0.114 350.1.13.10 4.2.7.2.686 [id number] 107 [id number] [facility] 2022-03-21 13:00:00 2022-03-21 14:04:19 Outpatient R NICK WEISS [facility] [id number] [facility] 2022-03-21 13:00:00 2022-03-21 14:04:19 Routine Visit StephonmormonalisaNick RIHUAN PATENT PROSECUTION PARALEGAL [facility] & CHILD [facility] 1.0.114 350.1.13.10 4.2.7.2.686 [id number] 107 [id number] [facility] 2022-03-21 13:00:00 2022-03-21 13:00:00 Outpatient R NICK [facility]ISS [facility] [id number] [facility] 2022-02-22 00:00:00 2022-02-22 00:00:00 Telephone StephonmormonalisaNick [facility] PATENT PROSECUTION PARALEGAL [facility] CHILD [facility] 1.84.114 350.1.13.10 4.2.7.2.686 [id number] 107 [id number] [facility] 2022-02-21 14:15:00 2022-02-21 15:05:22 Outpatient R NICK [facility]ISS [facility] [id number] [facility] 2022-02-21 14:15:00 2022-02-21 15:05:22 Routine Visit Nick Weiss [facility] PATENT PROSECUTION PARALEGAL [facility] & CHILD [facility] 1..114 350.1.13.10 4.2.7.2.686 [id number] 107 [id number] [facility] 2022-02-21 00:00:00 2022-02-21 00:00:00 Orders Only Doctor Unassigned, [place] [facility] 1.0.114 350.1.13.10 4.2.7.2.686 [id number] [facility] 2022-01-25 09:30:00 2022-01-25 09:30:00 Outpatient TL [facility] [id number] Tiffanie mahmood [facility] 2022-01-10 15:45:00 2022-01-10 15:45:00 Outpatient R SUSIE GONZALEZ [facility] [id number] [facility] 2022-01-07 09:00:00 2022-01-07 09:00:00 Outpatient [facility] [id number] [facility] 2021-12-13 14:30:00 2021-12-13 14:30:00 [facility] [id number] [facility] 2021-12-13 10:30:00 2021-12-13 10:58:28 Vba Developer Visit Ultrasound, Ronald Rocha [facility] PATENT PROSECUTION PARALEGAL [facility] MATERNAL & CHILD [facility] 1.2.840.114 350.1.13.10 4.2.7.2.686 [id number] [facility] 2021-12-13 10:30:00 2021-12-13 10:30:00 Outpatient P GONZALEZ, SUSIE [facility] [id number] [facility] 2021-12-13 00:00:00 2021-12-13 00:00:00 Abstract Susie Gonzalez [facility] PATENT PROSECUTION PARALEGAL [facility] MATERNAL & CHILD [facility] 1.2.840.114 350.1.13.10 4.2.7.2.686 [id number] 107 [id number] [facility] 2021-11-19 00:00:00 2021-11-19 00:00:00 Telephone Susie Gonzalez [facility] PATENT PROSECUTION PARALEGAL [facility] MATERNAL & CHILD [facility] 1.2.840.114 350.1.13.10 4.2.7.2.686 [id number] 107 [id number] [facility] 2021-11-17 10:30:00 2021-11-17 11:16:07 [facility] Susie Gonzalez [facility] PATENT PROSECUTION PARALEGAL [facility] & CHILD [facility] 1.84.114 350.1.13.10 4.2.7.2.686 [id number] 107 [id number] [facility] 2021-11-17 10:30:00 2021-11-17 10:30:00 Outpatient R SUSIE [facility] [id number] [facility] 2021-11-16 00:00:00 2021-11-16 00:00:00 Telephone Susie Gonzalez [facility] PATENT PROSECUTION PARALEGAL [facility] & CHILD [facility] 1.84.114 350.1.13.10 4.2.7.2.686 [id number] 107 [id number] [facility] 2021-11-15 09:45:00 2021-11-15 11:30:15 Outpatient R SUSIE [facility] [id number] [facility] 2021-11-15 09:45:00 2021-11-15 11:30:15 Initial Visit Susie Gonzalez [facility]..114 350.1.13.10 4.2.7.2.686 [id number] 107 [id number] [facility] 2021-11-15 00:00:00 2021-11-15 00:00:00 Orders Only Doctor Unassigned, [place] [facility] 1..114 350.1.13.10 4.2.7.2.686 [id number] [facility] 2021-11-11 14:30:00 2021-11-11 14:30:00 Outpatient R [facility]AVE [facility] [id number] [facility] 2021-01-22 15:24:07 2021-01-22 16:17:44 Office Visit Nick Weiss [facility] PATENT PROSECUTION PARALEGAL [facility] & CHILD [facility] 1..840.114 350.1.13.10 4.2.7.2.686 [id number] 107 [id number] [facility] 2021-01-22 15:30:00 2021-01-22 15:30:00 Outpatient R NICK WEISS [facility] [id number] [facility] 2020-11-30 13:15:00 2020-11-30 13:15:00 Outpatient R NICK WEISS [facility] [id number] [facility] 2020-11-24 15:47:42 2020-11-24 16:41:18 Office Visit Nick Weiss [facility] PATENT PROSECUTION PARALEGAL [facility] 1..840.114 350.1.13.10 4.2.7.2.686 [id number] 107 [id number] [facility] 2020-11-24 16:00:00 2020-11-24 16:00:00 Outpatient R NICK WEISS [facility] [id number] [facility] 2020-11-24 00:00:00 2020-11-24 00:00:00 Orders Only Doctor Unassigned, [place] [facility] 1..840.114 350.1.13.10 4.2.7.2.686 [id number] [facility] 2019-05-16 10:17:05 2019-05-16 10:47:05 Office Visit Ihsan Cortés [facility] PATENT PROSECUTION PARALEGAL [facility] CHILD [facility] 1..840.114 350.1.13.10 4.2.7.2.686 [id number] 107 [id number] [facility] 2019-05-16 00:00:00 2019-05-16 00:00:00 Letter (Out) Ihsan Cortés [facility] PATENT PROSECUTION PARALEGAL [facility] CHILD [facility] 1.2.840.114 350.1.13.10 4.2.7.2.686 [id number] 107 [id number] [facility] 2019-05-16 00:00:00 2019-05-16 00:00:00 Telephone Ihsan Cortés [facility] PATENT PROSECUTION PARALEGAL [facility] CHILD [facility] 1.2.840.114 350.1.13.10 4.2.7.2.686 [id number] 107 [id number] [facility] 2019-05-15 12:45:15 2019-05-15 13:00:15 Office Visit Ihsan Cortés [facility] PATENT PROSECUTION PARALEGAL [facility] [id number] [id number] [id number] [id number] 107 [id number] [facility] 2019-05-15 00:00:00 2019-05-15 00:00:00 Telephone Catie Boss [facility] PATENT PROSECUTION PARALEGAL [facility] [id number] [id number] 107 [id number] [facility] 2019-05-15 00:00:00 2019-05-15 00:00:00 Orders Only Doctor Unassigned, [place] [facility] [id number] [id number] [id number] [id number] [facility] Results Test Description Test Time Test Comments Results Resul t Comments Source NIPT - NON-INVASIVE TEST RESULTS 2024-10-24 22:58:10 Ordered by an unspecified provider. [facility] NIPT - NON-INVASIVE TEST RESULTS 2024-10-21 15:57:42 [facility]dered by an unspecified provider. [facility] 11:41:42 ALCOHOL<10mg/dL07/24/2024 5:41 AM [facility]STUTMB LABORATORY SERVICESToxic Greater than or equal to 80 mg/dL. NOTE: Whole blood values are approximately 10% to 15% lower than serum and plasma.[facility] PANEL ([id number]) (ALB,T.PRO,BILI T,BU/BC,ALT,AST,ALK PHOS)2024-07-24 11:30:44* Test Item Value Reference Range Interpretation Comme nts TOTAL BILI (test code = 8669052401) 0.3 mg/dL 0.1-1.1 BILI UNCON (test code = 9873802044) 0.0 mg/dL 0.1-1.1 L BILI CONJ (test code = 3030256411) 0.0 mg/dL 0.0-0.3 T PROTEIN (test code = 0153242477) 8.0 g/dL 6.3-8.2 ALBUMIN (test code = 2597122669) 4.6 g/dL 3.5-5.0 ALK PHOS (test code = 9478821865) 53 U/L 34-122 ALTv (test code = 1742-6) 12 U/L 5-35 AST(SGOT) (test code = 8430359340) 22 U/L 13-40 Lab Interpretation (test cod e = 81142-7) [facility]2024-11-13 11:30:44* Test Item Value Reference Range Interpretation Comme nts LIPASE (test code = 0914603913) 64 U/L 0-220 Lab Interpretation (test cod e = 68243-8) Normal [facility] Texas[facility]IC METABOLIC PANEL (NA, K, CL, CO2, GLUCOSE, BUN, CREATININE, CA)2024-07-24 11:30:43* Test Item Value Reference Range Interpretation Comme nts NA (test code = 7159487135) 139 mmol/L 135-145 K (test code = 9397247445) 3.4 mmol/L 3.5-5.0 L CL (test code = 4670909221) 107 mmol/L 98-108 CO2 TOTAL (test code = 4373048463) 23 mmol/L 23-31 AGAP (test code = 4680386626) 9 2-16 BUN (test code = 4017461279) 6 mg/dL 7-23 L GLUCOSE (test code = 7730960624) 99 mg/dL 70-110 CREATININE (test code = 2160-0) 0.47 mg/dL 0.50-1.04 L CALCIUM (test code = 5067506032) 9.6 mg/dL 8.6-10.6 eGFR (test code = 07927-5) 139.1 mL/min/1.73m2 CKD-EPI eGFR (2020). Assuming creatinine has been stable day-to-day for at least three months, the eGFR indicates Category G1 (>= 90 mL/min/1.73 m2) Lab Interpretation (test code = 98012-8) Abnormal [facility] WITH [id number] 11:00:59* Test Item Value Reference Range Interpretation [...] g/dL 31.6-35.1 H RDW-SD (test code = 90316-8) 39.5 fL 39.0-49.9 RDW-CV (test code = 788-0) 13.4 % 12.0-15.5 PLT (test code = 777-3) 388 166-358 H MPV (test code = 79341-2) 9.3 fL 9.5-12.9 L NRBC/100 WBC (test code = 6732353330) 0.0 0.0-10.0 NRBC x10^3 (test code = 1792913803) See_Comment [Automated [employer] ge] The system which generated this result transmitted reference range: 10*3/?L. The reference range was not used to interpret this result as normal/abnormal. GRAN MAT (NEUT) % (test code = 770-8) 54.2 % IMM GRAN % (test code = 9777357751) 0.20 % LYMPH % (test code = 736-9) 37.5 % MONO % (test code = 5905-5) 7.4 % EOS % (test code = 713-8) 0.5 % BASO % (test code = 706-2) 0.2 % GRAN MAT x10^3(ANC) (test code = 0071801984) 4.71 10*3/uL 1.88-7.09 IMM GRAN x10^3 (test code = 6317597010) 0.00-0.06 LYMPH x10^3 (test code = 731-0) 3.26 10*3/uL 1.32-3.29 MONO x10^3 (test code = 742-7) 0.64 10*3/uL 0.33-0.92 EOS x10^3 (test code = 711-2) 0.04 10*3/uL 0.03-0.39 BASO x10^3 (test code = 704-7) 0.01-0.07 Lab Interpretation (test code = 72792-6) Abnormal [facility] TexasLamsic Acid Whole Swgbd7203-79-90 10:50:21* Test Item Value Reference Range Interpretation Comme nts LACTIC ACID (test code = 6786882274) 1.20 mmol/L 0.50-2.20 QUES Lab Interpretation (test cod e = 95817-2) [facility] [id number] 08:06:38 * Test Item Value Reference Range Interpretation Comme nts HBsAg Semi-Quantitative (saleem t code = 5195-3) 0.11 Negative [facility] TexasPRENATAL WORKUP, BLOOD [id number] 20:11:00 * Test Item Value Reference Range Interpretation Comme nts ABO & RH (test code = 20) A POSITIVE IAT (test code = 1185) Negative [facility] Qstg3343-15-31 18:33:00* Test Item Value Reference Range Interpretation Comme nts POCT PREG (test code = 1605) Positive On board controls acceptable with C Line (test code = 3574) Yes POCT PREG LOT # (test code = 3575) POCT PREG TEST DATE ( test code = 3576) [facility] Urinalysis w/o Specific Ojikcoe2239-15-64 18:33:00* Test Item Value Reference Range Interpretation [...] = 3257) ~50 Negative - Negati ve [facility] ONLY - SYPHILIS IGG/[id number] 14:50:49* Test Item Value Reference Range Interpretation Comme nts Syphilis IgG/IgM (test code = 20785-0) Non-reactive Non-reactive CHAGO (test code = CHAGO) Non-reactive - No serologic evidence of T. pallidum infection. Cannot exclude incubating or early syphilis. Submit a second specimen in 2-4 weeks if syphilis is clinically suspected. Equivocal - Further testing to follow. Reactive - Further testing to follow. Lab Interpretation (test code = 85818-1) Normal [facility] ONLY - SYPHILIS IGG/[id number] 14:50:49* Test Item Value Reference Range Interpretation Comme nts Syphilis IgG/IgM (test code = 68433-8) Non-reactive Non-reactive CHAGO (test code = CHAGO) Non-reactive - No serologic evidence of T. pallidum infection. Cannot exclude incubating or early syphilis. Submit a second specimen in 2-4 weeks if syphilis is clinically suspected. Equivocal - Further testing to follow. Reactive - Further testing to follow. Lab Interpretation (test code = 10265-8) Normal [facility] TexasRHO (D) IMMUNE [id number] 06:34:45* Test Item Value Reference Range Interpretation Comme nts RHIG CANDIDATE? (test code = 5055) No- see comment Patient is not a candidate for RhIg- Patient is Rh Positive.Performed at [facility] Laboratory Services - [facility] Blood [address] [place] [address]Efgb Free: [phone] No. [id number] [facility] TexasRHO (D) IMMUNE [id number] 06:34:45* Test Item Value Reference Range Interpretation Comme nts RHIG CANDIDATE? (test code = 5055) No- see comment Patient is not a candidate for RhIg- Patient is Rh Positive.Performed at [facility] Laboratory Services - [facility] Blood [address] [place] [address]Oomt Free: [phone] No. [id number] [facility] TexasHepatitis B Surface Pjvlrvb5043-02-76 04:29:00 * Test Item Value Reference Range Interpretation Comme nts HBsAg Semi-Quantitative (saleem t code = 5195-3) Negative Negative [facility] B Surface Bxfuugp8522-11-57 04:29:00 * Test Item Value Reference Range Interpretation Comme nts HBsAg Semi-Quantitative (saleem t code = 5195-3) Negative Negative [facility] TexasArterial Cord [id number] 04:15:10* Test Item Value Reference Range Interpretation Comme nts BASE EXCESS, CORD (test code = 3749167450) mEq/L AC PH, CORD (BEAKER) (test code = 2229719758) 7.18-7.38 L PC02, CORD (test code = 4120867781) See_Comment [Automated messa ge] The system which generated this result transmitted reference range: 32 - 66 mmHg. The reference range was not used to interpret this result as normal/abnormal. PO2, CORD (test code = 6337714002) <10 BICARBONATE, CORD (test code = 5250509442) See_Comment [Automated me ssage] The system which generated this result transmitted reference range: 17 - 27 mEq/L. The reference range was not used to interpret this result as normal/abnormal. Lab Interpretation (test code = 03032-6) Abnormal [facility] TexasArterial Cord [id number] 04:15:10* Test Item Value Reference Range Interpretation Comme nts BASE EXCESS, CORD (test code = 7385295165) mEq/L AC PH, CORD (BEAKER) (test code = 9450498653) 7.18-7.38 L PC02, CORD (test code = 9031285832) See_Comment [Automated messa ge] The system which generated this result transmitted reference range: 32 - 66 mmHg. The reference range was not used to interpret this result as normal/abnormal. PO2, CORD (test code = 8216674187) <10 BICARBONATE, CORD (test code = 9979913127) See_Comment [Automated me ssage] The system which generated this result transmitted reference range: 17 - 27 mEq/L. The reference range was not used to interpret this result as normal/abnormal. Lab Interpretation (test code = 16036-4) Abnormal [facility] Cord [id number] 04:12:23* Test Item Value Reference Range Interpretation Comme nts VENOUS BASE EXCESS, CORD (test code = 9436505939) mEq/L VENOUS PH, CORD (test code = 3331827946) 7.25-7.45 VENOUS PC02, CORD (test code = 2779648570) See_Comment H [Automated me ssage] The system which generated this result transmitted reference range: 27 - 49 mmHg. The reference range was not used to interpret this result as normal/abnormal. VENOUS PO2, CORD (test code = 3887049536) See_Comment L [Automated me ssage] The system which generated this result transmitted reference range: 17 - 41 mmHg. The reference range was not used to interpret this result as normal/abnormal. VENOUS BICARBONATE, CORD (test code = 3359557751) See_Comment [Automa shaheed message] The system which generated this result transmitted reference range: 12 - 29 mEq/L. The reference range was not used to interpret this result as normal/abnormal. Lab Interpretation (test code = 85543-7) Abnormal [facility] Cord [id number] 04:12:23* Test Item Value Reference Range Interpretation Comme nts VENOUS BASE EXCESS, CORD (test code = 5678204015) mEq/L VENOUS PH, CORD (test code = 5629902889) 7.25-7.45 VENOUS PC02, CORD (test code = 7637397074) See_Comment H [Automated me ssage] The system which generated this result transmitted reference range: 27 - 49 mmHg. The reference range was not used to interpret this result as normal/abnormal. VENOUS PO2, CORD (test code = 8964839662) See_Comment L [Automated me ssage] The system which generated this result transmitted reference range: 17 - 41 mmHg. The reference range was not used to interpret this result as normal/abnormal. VENOUS BICARBONATE, CORD (test code = 0455395478) See_Comment [Automa shaheed message] The system which generated this result transmitted reference range: 12 - 29 mEq/L. The reference range was not used to interpret this result as normal/abnormal. Lab Interpretation (test code = 51767-3) Abnormal [facility] TexasType and Screen - ONCE [id number] 03:47:01 * Test Item Value Reference Range Interpretation Comme nts ABO & RH (test code = 20) A POSITIVE Performed at [facility] Laboratory Services - [address] Free: [phone] No. [id number] IAT (test code = 1185) Negative Performed at [facility] Laboratory [address] Free: [phone] No. [id number] [facility] TexasType and Screen - ONCE [id number] 03:47:01 * Test Item Value Reference Range Interpretation Comme nts ABO & RH (test code = 20) A POSITIVE Performed at [facility] Laboratory Services - [address] Free: [phone] No. [id number] IAT (test code = 1185) Negative Performed at [facility] Laboratory [facility] - [address] Free: [phone] No. [id number] [facility] TexasCBC with Fajwpqbfwvme2962-24-36 03:20:31* Test Item Value Reference Range Interpretation [...] 34.5 g/dL 31.6-35.1 RDW-SD (test code = 24901-6) 39.4 fL 39-49.9 RDW-CV (test code = 788-0) 13.1 % 12-15.5 PLT (test code = 777-3) See_Comment H [Automated messa ge] The system which generated this result transmitted reference range: 166 - 358 10*3/?L. The reference range was not used to interpret this result as normal/abnormal. MPV (test code = 33956-4) 9.7 fL 9.5-12.9 NRBC/100 WBC (test code = 8319929128) See_Comment [Automated me ssage] The system which generated this result transmitted reference range: 0.0 - 10.0 /100 WBCs. The reference range was not used to interpret this result as normal/abnormal. NRBC x10^3 (test code = 0233661430) See_Comment [Automated messa ge] The system which generated this result transmitted reference range: 10*3/?L. The reference range was not used to interpret this result as normal/abnormal. GRAN MAT (NEUT) % (test code = 770-8) 64.5 % IMM GRAN % (test code = 1461662192) 0.40 % LYMPH % (test code = 736-9) 26.6 % MONO % (test code = 5905-5) 7.0 % EOS % (test code = 713-8) 1.2 % BASO % (test code = 706-2) 0.3 % GRAN MAT x10^3(ANC) (test code = 1555383617) 7.25 10*3/uL 1.88-7.09 H IMM GRAN x10^3 (test code = 4368442224) 0.04 10*3/uL 0-0.06 LYMPH x10^3 (test code = 731-0) 2.99 10*3/uL 1.32-3.29 MONO x10^3 (test code = 742-7) 0.79 10*3/uL 0.33-0.92 EOS x10^3 (test code = 711-2) 0.14 10*3/uL 0.03-0.39 BASO x10^3 (test code = 704-7) 0.03 10*3/uL 0.01-0.07 Lab Interpretation (test code = 76215-8) Abnormal [facility] with Mrowgrlrhari7626-83-12 03:20:31* Test Item Value Reference Range Interpretation [...] 34.5 g/dL 31.6-35.1 RDW-SD (test code = 29581-1) 39.4 fL 39-49.9 RDW-CV (test code = 788-0) 13.1 % 12-15.5 PLT (test code = 777-3) See_Comment H [Automated messa ge] The system which generated this result transmitted reference range: 166 - 358 10*3/?L. The reference range was not used to interpret this result as normal/abnormal. MPV (test code = 03343-4) 9.7 fL 9.5-12.9 NRBC/100 WBC (test code = 8556203019) See_Comment [Automated me ssage] The system which generated this result transmitted reference range: 0.0 - 10.0 /100 WBCs. The reference range was not used to interpret this result as normal/abnormal. NRBC x10^3 (test code = 8072056942) See_Comment [Automated messa ge] The system which generated this result transmitted reference range: 10*3/?L. The reference range was not used to interpret this result as normal/abnormal. GRAN MAT (NEUT) % (test code = 770-8) 64.5 % IMM GRAN % (test code = 6575081009) 0.40 % LYMPH % (test code = 736-9) 26.6 % MONO % (test code = 5905-5) 7.0 % EOS % (test code = 713-8) 1.2 % BASO % (test code = 706-2) 0.3 % GRAN MAT x10^3(ANC) (test code = 0110182420) 7.25 10*3/uL 1.88-7.09 H IMM GRAN x10^3 (test code = 1499827792) 0.04 10*3/uL 0-0.06 LYMPH x10^3 (test code = 731-0) 2.99 10*3/uL 1.32-3.29 MONO x10^3 (test code = 742-7) 0.79 10*3/uL 0.33-0.92 EOS x10^3 (test code = 711-2) 0.14 10*3/uL 0.03-0.39 BASO x10^3 (test code = 704-7) 0.03 10*3/uL 0.01-0.07 Lab Interpretation (test code = 44041-7) Abnormal [facility] URINALYSIS W SPECIFIC [id number] 19:47:00* Test Item Value Reference Range Interpretation [...] U APPEAR (test code = 3267) . [facility] URINALYSIS W SPECIFIC [id number] 14:53:00* Test Item Value Reference Range Interpretation [...] POCT U APPEAR (test code = 3267) [facility] URINALYSIS W SPECIFIC [id number] 14:53:00* Test Item Value Reference Range Interpretation [...] POCT U APPEAR (test code = 3267) [facility] URINALYSIS W SPECIFIC [id number] 14:53:00* Test Item Value Reference Range Interpretation [...] POCT U APPEAR (test code = 3267) [facility] URINALYSIS W SPECIFIC [id number] 14:53:00* Test Item Value Reference Range Interpretation [...] POCT U APPEAR (test code = 3267) [facility] Notes Date/Time Note Provider Source 2024-11-06 15:12:48 Contacted pt, she states that she does not need the letter anymore today and that she will come to the clinic to get a dental clearance letter for next time. Informed pt she can set up [employer] for us to upload it there. Verbalized understanding. Denisse Burk LVN 11/06/2024 3:13 PM [facility] 2024-11-06 15:10:35 Duplicate encounter. [employer] [facility] 2024-11-06 14:17:31 Anny Garzon is a 23 year old female Pt is currently at [facility] requesting a dental clearance faxed to FAX# [phone]. [place] [facility] 2024-11-06 14:02:28 Attempted to call patient, no answer, no vm setup. [facility] 2024-11-06 13:57:43 Pt is currently at dentist appointment and needs dental release faxed to [phone] [facility] TAM[facility]A [place] [facility] 2024-07-24 07:01:56 Pt removed own IV, when stated by this RN that I would remove IV pt replied "It doesn't matter I am going to penitentiary anyways". PT allowed this RN to put bandaid on. Pt stated she did not want to go over dispo paperwork. Pt departed ED with all personal belongings with 1 officer. Kelley RN [facility] 2024-07-24 06:38:53 Pt provided emesis bag per requested, reports nausea. [facility] 2024-07-24 06:18:58 Provided apple juice, water, raza crackers per pt request. [facility] 2024-07-24 05:34:13 Pt to US in wheelchair with 1 officer. [facility] 2024-07-24 05:15:00 Pt pulled IV out, will replace. [facility] 2024-07-24 05:13:59 Pt ambulatory to restroom with steady gait. [facility] 2024-07-24 04:27:00 Pt wheeled back from restroom by this RN, pt sat too far back on toilet and missed hat for UA. Will attempt again. [facility] 2024-07-24 04:25:00 Pt wheeled to restroom by this RN, hat placed in toilet for UA. [facility] 2024-07-24 04:20:00 Anny Garzon is a 23 year old female presents to ED for FIT with 1 officer. Pt reports ETOH, "bars", THC use this evening. Pt is currently , stated she has not been to her first OB appt or taking prenatals. Pt has PMH of ADHD, MDD, anxiety has not been taking medications "since I found out I was ". Pt reports she is spotting. Pt denies pain. Pt educated on ED processes and procedures as well as current plan of care. Pt has no further needs at this time. Bed in lowest locked position. Call light within reach. VSS. RR E/U. NAD noted. [facility] 2024-07-24 04:04:08 Anny Garzon is a 23 year old female presenting to the ED with cc of a FIT in [place] PD custody. Patient in [employer] custody, patient reports drinking wine tonight and being 3 months . Patient reports occasional bleeding that is bright red and spotting. Patient . Patient reports having anxiety, tearful at triage, and tachy. Patient to 123 for further eval. Ponce RN [facility] 2024-07-24 04:03:00 [facility] Emergency Department Note Patient Name: Anny Garzon Date of : 2000 23 year old female Treatment Room: 123/123 Primary Care Physician: PATIENT DOES NOT HAVE A PCP Patient Escorted by: Law enforcement [8] Mode of Arrival: Law enforcement [6] EMS Treatment Prior to ED Arrival: [employer]PERATOR [employer] P[employer]IC treatment: None Travel and Exposure Screening: Symptoms Does patient have any of these symptoms?: (not recorded) Exposure Screening Has patient had contact with someone with a communicable disease in the last month?: (not recorded) Diseases exposed to:: (not recorded) Is Patient ?: (not recorded) Exposure Date: (not recorded) Chief Complaint: Chief Complaint Patient presents with Other FIT History of Present Illness: Patient here for FIT. Patient states she is about 12 weeks and has been having on and off vaginal spotting for the past week. She states she was drinking wine last night and xanax and THC. Denies any drugs. Hx of anxiety. Denies VERMA, dizziness, fevers, CP, SOB, abdominal pain, vomiting or diarrhea. Past Medical History/Immunizations: Past Medical History: Diagnosis Date Anxiety ongoing, not currently taking medication at this time, last seen PCP 04/2019 Asthma PRN inhaler, ongoing Attention deficit disorder ongoing Bicornate uterus 2021 Depression on going since 6-7 years of age, currently taking medications. Nocturnal enuresis 05/20/2016 resolved Screening for STDs (sexually transmitted diseases) 06/14/2017 Tetanus received in last 5 years: Yes Allergies: No Known Allergies Past Social History: Tobacco Use Former; Types: Cigarettes Smokeless Tobacco: Never used smokeless tobacco. Alcohol Use No. Drug Use No. Sexual Activity Sexually active; Partners: Male; Control/Protection: None. Comments: last sexual intercourse 06/17/24 Past Surgical History: Past Surgical History: Procedure Laterality Date SECTION N/A 06/13/2022 Surgeon: Shravan Lyman DO; [facility] Review of Systems: Review of Systems Constitutional: Negative for activity change, appetite change, chills, diaphoresis, fatigue, fever, unexpected weight change, weight gain and weight loss. HENT: Negative for congestion, dental problem, drooling, ear discharge, ear pain, facial swelling, hearing loss, mouth sores, nosebleeds, postnasal drip, rhinorrhea, sinus pressure, sneezing, sore throat, tinnitus, trouble swallowing and voice change. Eyes: Negative for photophobia, pain, discharge, redness, itching and visual disturbance. Respiratory: Negative for apnea, cough, choking, chest tightness, shortness of breath, wheezing and stridor. Breasts: Negative for discharge, mass, pain and unequal size. Cardiovascular: Negative for chest pain, palpitations and leg swelling. Gastrointestinal: Negative for abdominal distention, abdominal pain, anal bleeding, blood in stool, constipation, diarrhea, nausea, rectal pain and vomiting. Genitourinary: Positive for vaginal bleeding. Negative for bladder incontinence, dysuria, urgency, polyuria, frequency, hematuria, flank pain, decreased urine volume, vaginal discharge, enuresis, difficulty urinating, genital sores, vaginal pain, menstrual problem, pelvic pain, dyspareunia and nocturia. Musculoskeletal: Negative for arthralgias, back pain, gait problem, joint swelling, myalgias, neck pain and neck stiffness. Skin: Negative for color change, pallor, rash and wound. Neurological: Negative for dizziness, tremors, seizures, syncope, facial asymmetry, speech difficulty, weakness, light-headedness, numbness and headaches. Psychiatric/Behavioral: Negative for agitation, behavioral problems, confusion, decreased concentration, dysphoric mood, hallucinations, self-injury, sleep disturbance and suicidal ideas. The patient is not nervous/anxious and is not hyperactive. Hematological: Negative for adenopathy, cold intolerance and heat intolerance. Does not bruise/bleed easily. Endocrine: Negative for goiter, hair loss, cold intolerance, heat intolerance, polydipsia, polyphagia, polyuria, weight gain and weight loss. Physical Exam: ED Triage Vitals [07/24/24 0406] Weight 79.4 kg (175 lb) Actual or estimated Estimated by patient/family report Height 1.575 m (5' 2") BP (!) 130/91 Pulse 142 Resp 22 Temp Temp src SpO2 98 % Measured on Room air Physical Exam Vitals and nursing note reviewed. Constitutional: General: She is not in acute distress. Appearance: Normal appearance. She is normal weight. She is not ill-appearing, toxic-appearing or diaphoretic. HENT: Head: Normocephalic and atraumatic. Right Ear: Tympanic membrane and ear canal normal. There is no impacted cerumen. Left Ear: Tympanic membrane and ear canal normal. There is no impacted cerumen. Nose: Nose normal. No congestion or rhinorrhea. Mouth/Throat: Mouth: Mucous membranes are moist. Pharynx: Oropharynx is clear. No oropharyngeal exudate or posterior oropharyngeal erythema. Eyes: General: No scleral icterus. Right eye: No discharge. Left eye: No discharge. Extraocular Movements: Extraocular movements intact. Conjunctiva/sclera: Conjunctivae normal. Pupils: Pupils are equal, round, and reactive to light. Neck: Vascular: No carotid bruit. Cardiovascular: Rate and Rhythm: Regular rhythm. Tachycardia present. Pulses: Normal pulses. Heart sounds: Normal heart sounds. No murmur heard. No friction rub. No gallop. Pulmonary: Effort: Pulmonary effort is normal. No respiratory distress. Breath sounds: Normal breath sounds. No stridor. No wheezing, rhonchi or rales. Chest: Chest wall: No tenderness. Abdominal: General: Abdomen is flat. Bowel sounds are normal. There is no distension. Palpations: Abdomen is soft. There is no mass. Tenderness: There is no abdominal tenderness. There is no right CVA tenderness, left CVA tenderness, guarding or rebound. Hernia: No hernia is present. Musculoskeletal: General: No swelling, tenderness, deformity or signs of injury. Normal range of motion. Cervical back: Normal range of motion and neck supple. No rigidity or tenderness. Right lower leg: No edema. Left lower leg: No edema. Lymphadenopathy: Cervical: No cervical adenopathy. Skin: General: Skin is warm and dry. Capillary Refill: Capillary refill takes less than 2 seconds. Coloration: Skin is not jaundiced or pale. Findings: No bruising, erythema, lesion or rash. Neurological: General: No focal deficit present. Mental Status: She is alert and oriented to person, place, and time. Mental status is at baseline. Cranial Nerves: No cranial nerve deficit. Sensory: No sensory deficit. Motor: No weakness. Coordination: Coordination normal. Gait: Gait normal. Deep Tendon Reflexes: Reflexes normal. Psychiatric: Mood and Affect: Mood normal. Behavior: Behavior normal. Thought Content: Thought content normal. Judgment: Judgment normal. Radiology: No orders to display Lab Results: Lab Results - No data to display EKG: If EKG completed, see Procedure Note. Orders and Treatments: Orders Placed This Encounter Procedures US FIRST TRIMESTER LESS THAN 14 WEEKS CBC WITH DIFF URINALYSIS URINE DRUG (IMMUNOASSAY) - COMPREHENSIVE DRUG SCREEN W/O REFLEX BASIC METABOLIC PANEL (NA, K, CL, CO2, GLUCOSE, BUN, CREATININE, CA) HEPATIC FUNCTION PANEL (20174) (ALB,T.PRO,BILI T,BU/BC,ALT,AST,ALK PHOS) LIPASE Lactic Acid Whole Blood Lactic Acid Whole Blood ETHANOL TOTAL BETA HCG ASSAY No orders of the defined types were placed in this encounter. First Provider Eval: ED Events Date/Time Event User Comments 07/24/24414 Medical Screening Begins SHAN VARMA DOMelba HAGEN -- 07/24/24414 First Provider Evaluation SAHN VARMA DOMelba HAGEN -- ED COURSE Diagnosis/Impression as of 07/24/24420 Vaginal spotting Procedures: Procedures MDM: Medical Decision Making Patient here for FIT. Patient states she is about 12 weeks and has been having on and off vaginal spotting for the past week. She states she was drinking wine last night. Denies any drugs. Hx of anxiety. Denies VERMA, dizziness, fevers, CP, SOB, abdominal pain, vomiting or diarrhea. Amount and/or Complexity of Data Reviewed Labs: ordered. Radiology: ordered. Decision-making details documented in ED Course. ECG/medicine tests: ordered and independent interpretation performed. Details: ST 101 bpm, no acute ST-T wave changes. Discussion of management or test interpretation with external provider(s): Awaiting labs and imaging. Patient care and dispo transferred to Dr. Vieyra. Flowsheet Documentation: Scoring Tools: No data recorded Dx: Vaginal spotting, . Wine, xanax and THC use. Disposition/Condition: Pending. Chayito Varma D.O. EM Physician RTI Billing ID #[id number] Chayito Varma DO 07/24/24 0516 [facility] 2024-07-24 04:03:00 Patient d/w Dr. Varma, shift change, pending TVUS for medical clearance for FIT. TVUS c/w viable IUP, AFVSS. Patient FIT for Incarceration at this time. Cody Vieyra MD 07/24/24 0654 [facility] 2024-07-06 10:48:10 Anny Garzon is a 23 year old female c/o " I think I am having a miscarriage, I have dark brown discharge" seen at [place] and had ultrasound last night but did not wait for results. Sylvia Armstrong RN [facility]
--- NOTE | 2024-11-17 13:57 | EDPHYS ---
Physician Documentation [facility] Name: Anny Garzon Age: 24 yrs Sex: Female : 2000 Arrival Date: 11/17/2024 Time: 12:53 Bed IW4 Private MD: ED Physician Shraavn Farah HPI: 11/17 13:20 This 24 yrs old Female presents to ER via Ambulatory with complaints of cp Toothache. 13:20 The patient presents with pain, swelling. The problem is located in the right upper jaw.cp 13:20 Onset: The symptoms/episode began/occurred gradually, and became worse yesterday. cp Associated signs and symptoms: Pertinent positives: right side facial swelling. 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 - Infectious Disease History:: Denies. - Social history:: Smoking status: Patient denies any tobacco usage or history of. ROS: 13:25 Constitutional: Negative for body aches, chills, fever, poor PO intake, cp 13:25 Eyes: Negative for injury, pain, redness, and discharge, cp 13:25 ENT: Positive for dental pain, Negative for drainage from ear(s), ear pain, sore throat, difficulty swallowing, difficulty handling secretions, 13:25 Cardiovascular: Negative for chest pain, 13:25 Respiratory: Negative for cough, shortness of breath, wheezing, 13:25 Abdomen/GI: Negative for abdominal pain, vomiting, diarrhea, constipation, 13:25 Neuro: Negative for altered mental status, dizziness, headache, weakness, 13:25 All other systems are negative, Exam: 13:30 Constitutional: The patient appears in no acute distress, alert, awake, non-toxic, well cp developed, well nourished, 13:30 Head/face: Noted is swelling, that is mild, of the right cheek, tenderness, that is cp mild, of the right cheek, 13:30 Eyes: Periorbital structures: appear normal, Pupils: equal, round, and reactive to light and accomodation, Extraocular movements: intact throughout, Conjunctiva: normal, no exudate, no injection, Sclera: no appreciated abnormality, Lids and lashes: appear normal, bilaterally, 13:30 ENT: External ear(s): are unremarkable, Nose: is normal, Mouth: Lips: moist, Oral mucosa: moist, Posterior pharynx: Airway: no evidence of obstruction, patent, Dental exam: abscess, is not appreciated, dental caries, that is mild, diffusely, gum swelling, not appreciated, pain, that is moderate, specifically in the upper right cuspid (#6), Voice: is normal, 13:30 Neck: ROM/movement: is normal, is supple, without pain, no range of motions limitations, no meningismus, no nuchal rigidity, 13:30 Chest/axilla: Inspection: normal, 13:30 Cardiovascular: Rate: tachycardic, 13:30 Respiratory: the patient does not display signs of respiratory distress, Respirations: normal, no use of accessory muscles, no retractions, labored breathing, is not present, Breath sounds: are clear throughout, no decreased breath sounds, no stridor, no wheezing, 13:30 Abdomen/GI: Inspection: gravid appearance, is noted, Vital Signs: 13:04 BP 128 / 79; Pulse 106; Resp 16; Temp 98.1; Pulse Ox 96% ; Weight 75.75 kg; Height 5 db ft. 2 in. ; Pain 5/10; 14:17 Pain 0/10; db 13:04 Body Mass Index 30.54 (75.75 kg, 157.48 cm) db 13:04 Pain Scale: Adult db 14:17 Pain Scale: Adult db MDM: 13:08 Medical Screening Exam initiated cp 13:33 Differential diagnosis: dental caries, dental abscess, pericoronitis, gingivostomatitis. 13:57 Data reviewed: vital signs, nurses notes, and as a result, I will discharge patient. cp 13:57 I considered the following discharge prescriptions or medication management in the emergency department Medications were administered in the Emergency Department. See MAR. Counseling: I had a detailed discussion with the patient and/or guardian regarding the historical points, exam findings, and any diagnostic results supporting the discharge/admit diagnosis, the need for outpatient follow up, a dentist, to return to the emergency department if symptoms worsen or persist or if there are any questions or concerns that arise at home. Response to treatment: the patient's symptoms have mildly improved after treatment, and as a result, I will discharge patient. Administered Medications: 14:15 Not Given (Patient Refused): [id number] mg PO once db 14:15 Drug: Clindamycin PO 600 mg PO once Route: PO; db 14:17 Follow up: Response: No adverse reaction db Disposition: 11/18 13:55 Chart complete. cp Disposition Summary: 11/17/24 13:57 Discharge Ordered Notes: Location: Home cp Problem: new cp Symptoms: have improved cp Condition: Stable cp Diagnosis - Disorder of teeth and supporting structures, unspecified cp Followup: cp - With: Private Physician - When: 2 - 3 days - Reason: Worsening of condition Discharge Instructions: - Discharge Summary Sheet cp - Dental Pain cp Forms: - Medication Reconciliation Form cp - Antibiotic Education cp - Prescription Opioid Use cp - Patient Portal Instructions cp - Leadership Thank You Letter cp Prescriptions: - Clindamycin HCl 300 mg Oral Capsule - take 1 capsule ORAL route every 6 hours for 10 days; 40 capsule; Refills: 0, cp Product Selection Permitted Signatures: Shravan Abarca PA PA cp Carolyn Smith, RN RN db
--- NOTE | 2024-11-17 13:57 | ER ---
Nurse's Notes [facility] Name: nAny Garzon Age: 24 yrs Sex: Female : 2000 Arrival Date: 11/17/2024 Time: 12:53 Bed IW4 Private MD: Diagnosis: Disorder of teeth and supporting structures, unspecified Presentation: 11/17 13:04 Chief complaint: Patient states: RIGHT UPPER DENTAL PAIN STARTED TO GET WORSE db YESTERDAY. TODAY WOKE UP WITH RIGHT FACIAL SWELLING. STATES IS 26 WEEKS . NO CONCERNS. Coronavirus screen: Client denies travel out of the [place] in the last 14 days. At this time, the client does not indicate any symptoms associated with coronavirus-19. Ebola Screen: Patient negative for fever greater than or equal to 101.5 degrees Fahrenheit, and additional compatible Ebola Virus Disease symptoms Patient denies exposure to infectious person. Patient denies travel to an Ebola-affected area in the 21 days before illness onset. No symptoms or risks identified at this time. Initial Sepsis Screen: Does the patient meet any 2 criteria? No. Patient's initial sepsis screen is negative. Does the patient have a suspected source of infection? No. Patient's initial sepsis screen is negative. Risk Assessment: Do you want to hurt yourself or someone else? Patient reports no desire to harm self or others. Onset of symptoms was November 17, 2024. 13:04 Method Of Arrival: Ambulatory db 13:04 Acuity: DEBRA 3 db Triage Assessment: 13:07 General: Appears in no apparent distress. comfortable, Behavior is calm, cooperative. db Pain: Complains of pain in mouth. EENT: Reports pain in gums. Neuro: Level of Consciousness is awake, alert, obeys commands, Oriented to person, place, time, situation. Respiratory: Airway is patent Respiratory effort is even, unlabored, Respiratory pattern is regular, symmetrical. INSEAM LEVELER: 13:07 2, Full Term 0, Premature 1, 0, Living 1, Verified db Historical: - Allergies: 13:07 No Known Allergies; db - PMHx: 13:07 ADD/ADHD; Depression; HTN; root canal; 3-4 days ago 12/2017; Asthma; TBI; db - PSHx: 13:07 ; db - Immunization history:: Adult Immunizations unknown. - Infectious Disease History:: Denies. - Social history:: Smoking status: Patient denies any tobacco usage or history of. Screenin:17 [facility] ED Fall Risk Assessment (Adult) History of falling in the last 3 months, db including since admission No falls in past 3 months (0 pts) Confusion or Disorientation No (0 pts) Intoxicated or Sedated No (0 pts) Impaired Gait No (0 pts) Mobility Assist Device Used No (0 pt) Altered Elimination No (0 pt) Score/Fall Risk Level 0 - 2 = Low Risk Oriented to surroundings, Maintained a safe environment. Abuse screen: Denies threats or abuse. Denies injuries from another. Nutritional screening: No deficits noted. Tuberculosis screening: No symptoms or risk factors identified. Assessment: 14:17 Reassessment: Patient appears in no apparent distress at this time. Patient and/or db family updated on plan of care and expected duration. Pain level reassessed. Patient is alert, oriented x 3, equal unlabored respirations, skin warm/dry/pink. Vital Signs: 13:04 BP 128 / 79; Pulse 106; Resp 16; Temp 98.1; Pulse Ox 96% ; Weight 75.75 kg; Height 5 db ft. 2 in. ; Pain 5/10; 14:17 Pain 0/10; db 13:04 Body Mass Index 30.54 (75.75 kg, 157.48 cm) db 13:04 Pain Scale: Adult db 14:17 Pain Scale: Adult db ED Course: 12:55 Patient arrived in ED. al6 13:07 Triage completed. db 13:07 Arm band placed on Patient placed in waiting room. db 13:08 Shravan Abarca PA is PHCP. cp 13:08 Shravan Farah MD is Attending Physician. cp 14:17 Patient has correct armband on for positive identification. Provided Education on: db PRESCRIPTIONS, DISCHARGE AND FOLLOWUP. 14:17 No provider procedures requiring assistance completed. Patient did not have IV access db during this emergency room visit. Administered Medications: 14:15 Not Given (Patient Refused): [id number] mg PO once db 14:15 Drug: Clindamycin PO 600 mg PO once Route: PO; db 14:17 Follow up: Response: No adverse reaction db Medication: 14:17 VIS not applicable for this client. db Outcome: 13:57 Discharge ordered by . cp 14:17 Discharged to home ambulatory, with family, [place] 14:17 Condition: stable 14:17 Discharge instructions given to patient, Instructed on discharge instructions, follow up and referral plans. Prescriptions given X 1, 14:18 Patient left the ED. db Signatures: Shravan Abarca PA PA cp Benton, Danielle, RN RN Tabby Acuña
[2024-11-17] MEDS ORDERED: ACETAMINOPHEN 500 MG TAB ONE (14:08)
[2024-11-17 14:23] VITALS: BP 128/79; TEMP 98.1; O2SAT 96
== END 2024-11-17 14:18 | disposition home or self-care (01) ==
LOC: ER 12:53
DX: K08.9 Disorder of teeth and supporting structures, unspecified (principal)
CPT/HCPCS: 99283